=== PATIENT | female | born 1975 | race Two or more races ===

== ENCOUNTER 2017-05-05 14:24 | Emergency (ER) | payer MEDICAID, OTHER, SELFPAY ==
[~2017-05-05] VITALS: Ht 172.7 cm; Wt 75.0 kg
[2017-05-05 14:24] VITALS: BP 159/89
[~2017-05-05 14:24] MED LIST: /DIVA50TA PO; /DULO30CA OR; /ESCI20TA OR; /GLIP10TAB PO; /LAMO10TA PO; BACT800T OR; DEPA500T2 OR; EFFEXOR PO; ESTR2TAB PO; HYDR12.56 PO; LYRI75CA OR; MELO7.5T3 PO; METF1000 PO; METF500T PO; OMEP20CA3 PO; PERC5TAB8 OR; PERC5TAB8 PO; PERC7.5T12 PO; PREG100CA OR; PRIL20CA OR; ROXICODONE PO; SERO200T OR; SERO200T PO; TRAM50TA2 OR; TRAZ150T PO; [UNRECOGNIZED DRUG - OTHER] PO; butrans EXT; butrans TD
[2017-05-05] MEDS ORDERED: CLINDAMYCIN 150 MG CAP As Ordered ONE (14:54)
[2017-05-05] MEDS ORDERED: TYLETAB14 PO (14:56)
[2017-05-05] MEDS ORDERED: CLEO300C2 PO (14:56)
[2017-05-05] MEDS ORDERED: CLINDAMYCIN 150 MG CAP PO ONE (15:00)
== END 2017-05-05 15:03 | disposition home or self-care (01) ==
LOC: M ED 14:24
DX: K02.9 Dental caries, unspecified (principal); F17.210 Nicotine dependence, cigarettes, uncomplicated; E11.9 Type 2 diabetes mellitus without complications; F41.9 Anxiety disorder, unspecified; F31.9 Bipolar disorder, unspecified; Z88.8 Allergy status to other drugs, medicaments and biological substances; Z91.030 Bee allergy status; Z98.890 Other specified postprocedural states

== ENCOUNTER 2017-06-07 21:44 | Emergency (ER) | payer MEDICAID, SELFPAY ==
[~2017-06-07] VITALS: Ht 172.7 cm; Wt 79.0 kg
[~2017-06-07 21:44] MED LIST changes: +CLEO300C2 PO; +TYLETAB14 PO
[2017-06-07] MEDS ORDERED: AMOXICILLIN 500 MG CAP PO ONE (23:15)
[2017-06-07] MEDS ORDERED: NORCO, ANEXSIA 5/325MG TABLET (HYDROcodone/ACETAMINOPHEN) PO ONE (23:15)
[2017-06-07] MEDS ORDERED: AMOX500C PO (23:16)
[2017-06-07] MEDS ORDERED: NORCOTAB PO (23:16)
[2017-06-07 23:30] VITALS: BP 126/68
== END 2017-06-07 23:32 | disposition home or self-care (01) ==
LOC: M ED 21:44
DX: K02.9 Dental caries, unspecified (principal); Z72.0 Tobacco use

== ENCOUNTER 2017-06-18 17:20 | Emergency (ER) | payer MEDICAID ==
[~2017-06-18] VITALS: Ht 172.7 cm; Wt 77.3 kg
[~2017-06-18 17:20] MED LIST changes: +AMOX500C PO; +NORCOTAB PO
[2017-06-18] MEDS ORDERED: PENICILLIN V POTASSIUM 500 MG TAB PO ONE (19:00)
[2017-06-18] MEDS ORDERED: NORCO, ANEXSIA 5/325MG TABLET (HYDROcodone/ACETAMINOPHEN) PO ONE (19:00)
[2017-06-18] MEDS ORDERED: NORCOTAB PO (19:19)
[2017-06-18] MEDS ORDERED: PENI500T PO (19:19)
[2017-06-18 19:22] VITALS: BP 135/67
== END 2017-06-18 19:23 | disposition home or self-care (01) ==
LOC: M ED 17:20
DX: K02.9 Dental caries, unspecified (principal); Z72.0 Tobacco use

== ENCOUNTER → 2017-06-28 | Outpatient (CLI) | payer OTHER ==
[~2017-06-28] MED LIST changes: +PENI500T PO
--- NOTE | 2017-06-28 11:15 | REP ---
RIGHT WRIST, FOUR VIEWS: HISTORY: Pain. There is no acute fracture or dislocation. The joint spaces are normal in appearance. IMPRESSION: There is no acute fracture or dislocation. Signed by Payam Manzanares MD 06/28/2017 11:16 A
[2017-06-28 13:44] LABS: ALBUMIN 3.5 GM/DL (3.2-5.2); ALKALINE PHOSPHATASE 100 U/L (45-117); ALT/SGPT 28 U/L (12-78); ANION GAP 6 MEQ/L (8-16); AST/SGOT 15 U/L (7-37); BILIRUBIN,TOTAL 0.4 MG/DL (0.2-1.0); BLOOD UREA NITROGEN 16 MG/DL (7-18); CALCIUM LEVEL 9.1 MG/DL (8.5-10.1); CARBON DIOXIDE LEVEL 28 MEQ/L (21-32); CHLORIDE LEVEL 107 MEQ/L (98-107); CHOLESTEROL LEVEL 250 MG/DL (<200); CREATININE FOR GFR 0.76 MG/DL (0.55-1.02); GLOMERULAR FILTRATION RATE > 60.0 (>58); GLUCOSE, FASTING 191 MG/DL (70-105); POTASSIUM SERUM 4.6 MEQ/L (3.5-5.1); SODIUM LEVEL 141 MEQ/L (136-145); TOTAL PROTEIN 7.4 GM/DL (6.4-8.2); TRIGLYCERIDES LEVEL 91 MG/DL (<150)
== END ==
LOC: M WUC 10:01
PROVIDERS: ATTEND Family Medicine
DX: E11.8 Type 2 diabetes mellitus with unspecified complications (principal)

== ENCOUNTER → 2017-07-04 | Outpatient (REF) | payer OTHER | LOC: M SFHCPLAZ 10:26 | PROVIDERS: ATTEND Family Medicine | DX: E11.8 Type 2 diabetes mellitus with unspecified complications (principal) ==

== ENCOUNTER 2017-07-13 10:10 | Emergency (ER) | payer OTHER ==
[~2017-07-13] VITALS: Ht 172.7 cm; Wt 95.0 kg
[2017-07-13 10:25] VITALS: BP 161/95
[2017-07-13] MEDS ORDERED: METF500T4 PO (10:30)
[2017-07-13] MEDS ORDERED: ATOR1TAB19 PO (10:30)
[2017-07-13] MEDS ORDERED: TRAZ50TA11 PO (10:31)
[2017-07-13] MEDS ORDERED: NORCO, ANEXSIA 5/325MG TABLET (HYDROcodone/ACETAMINOPHEN) PO ONE (11:00)
--- NOTE | 2017-07-13 11:17 | REP ---
Clinical: Trauma. Technique: AP, lateral, bilateral oblique views of the left hand. Findings: Mild age-related degenerative changes at the interphalangeal joints appreciated. Subtle irregularity involving the fifth metacarpal shaft is likely nonacute, but should be correlated with mechanism of injury and point of tenderness. No acute fracture or dislocation is otherwise identified or suggested. Impression: Mild degenerative changes at the interphalangeal joints. No definite acute fracture. As above. Signed by Wyatt Paez MD 07/13/2017 11:08 A
--- NOTE | 2017-07-13 11:18 | REP ---
Clinical: Trauma. Technique: AP, lateral, bilateral oblique views left wrist . Findings: The carpal bones, surrounding osseous structures, soft tissues, and joint spaces are normal. There is no evidence for acute fracture or dislocation. No subcutaneous emphysema or radiodense foreign body. Impression: Normal wrist series. No acute fracture or dislocation Signed by Wyatt Paez MD 07/13/2017 11:08 A
[2017-07-13] MEDS ORDERED: NORCOTAB PO (11:24)
== END 2017-07-13 11:29 | disposition home or self-care (01) ==
LOC: M ED 10:10
DX: S63.502A Unspecified sprain of left wrist, initial encounter (principal); W01.198A Fall on same level from slipping, tripping and stumbling with subsequent striking against other object, initial encounter; Y92.099 Unspecified place in other non-institutional residence as the place of occurrence of the external cause; Y93.01 Activity, walking, marching and hiking; Y99.9 Unspecified external cause status

== ENCOUNTER 2017-07-26 08:41 | Emergency (ER) | payer OTHER ==
[~2017-07-26] VITALS: Ht 172.7 cm; Wt 95.0 kg
[~2017-07-26 08:41] MED LIST changes: +ATOR1TAB19 PO; +METF500T4 PO; +TRAZ50TA11 PO
[2017-07-26 08:43] VITALS: BP 155/85
[2017-07-26] MEDS ORDERED: NORCOTAB PO (08:59)
[2017-07-26] MEDS ORDERED: AMOX500C PO (08:59)
== END 2017-07-26 09:13 | disposition home or self-care (01) ==
LOC: M ED 08:41
DX: S02.5XXA Fracture of tooth (traumatic), initial encounter for closed fracture (principal); X58.XXXA Exposure to other specified factors, initial encounter; Y92.89 Other specified places as the place of occurrence of the external cause; Y93.89 Activity, other specified; Y99.8 Other external cause status; E11.9 Type 2 diabetes mellitus without complications; M54.9 Dorsalgia, unspecified; F41.9 Anxiety disorder, unspecified; R51 Headache; Z79.899 Other long term (current) drug therapy; Z79.84 Long term (current) use of oral hypoglycemic drugs; Z88.8 Allergy status to other drugs, medicaments and biological substances; Z91.030 Bee allergy status; F17.210 Nicotine dependence, cigarettes, uncomplicated

== ENCOUNTER 2017-08-07 13:42 | Emergency (ER) | payer OTHER ==
[~2017-08-07] VITALS: Ht 172.7 cm; Wt 97.3 kg
[2017-08-07 13:42] VITALS: BP 138/75
[2017-08-07] MEDS ORDERED: MELO7.5T7 PO (14:04)
== END 2017-08-07 16:18 | disposition left against medical advice (07) ==
LOC: M ED 13:42
DX: Z53.29 Procedure and treatment not carried out because of patient's decision for other reasons (principal)

== ENCOUNTER → 2017-08-07 | Outpatient (CLI) | payer OTHER | LOC: M PAIN 09:00 | DX: M96.1 Postlaminectomy syndrome, not elsewhere classified (principal); M54.16 Radiculopathy, lumbar region; M46.1 Sacroiliitis, not elsewhere classified; E11.9 Type 2 diabetes mellitus without complications; F17.210 Nicotine dependence, cigarettes, uncomplicated; Z88.8 Allergy status to other drugs, medicaments and biological substances; Z79.84 Long term (current) use of oral hypoglycemic drugs; Z79.899 Other long term (current) drug therapy | CPT/HCPCS: G0463 ==

== ENCOUNTER 2017-08-09 07:36 | Emergency (ER) | payer OTHER ==
[~2017-08-09] VITALS: Ht 172.7 cm; Wt 99.1 kg
[~2017-08-09 07:36] MED LIST changes: +MELO7.5T7 PO
[2017-08-09 07:37] VITALS: BP 147/79
[2017-08-09] MEDS ORDERED: DULO1CAP2 PO (07:48)
[2017-08-09] MEDS ORDERED: AMOX500C PO (08:10)
[2017-08-09] MEDS ORDERED: IBUP-1022 PO (08:10)
[2017-08-09] MEDS ORDERED: NORCO, ANEXSIA 5/325MG TABLET (HYDROcodone/ACETAMINOPHEN) PO ONE (08:15)
[2017-08-09] MEDS ORDERED: AMOXICILLIN 500 MG CAP PO ONE (08:15)
== END 2017-08-09 08:20 | disposition home or self-care (01) ==
LOC: M ED 07:36
DX: H92.01 Otalgia, right ear (principal); K02.9 Dental caries, unspecified; K13.79 Other lesions of oral mucosa; E11.9 Type 2 diabetes mellitus without complications; R56.9 Unspecified convulsions; G43.909 Migraine, unspecified, not intractable, without status migrainosus; M54.5 Low back pain; F31.9 Bipolar disorder, unspecified; Z79.899 Other long term (current) drug therapy; Z79.84 Long term (current) use of oral hypoglycemic drugs; Z88.8 Allergy status to other drugs, medicaments and biological substances; Z91.030 Bee allergy status; F17.210 Nicotine dependence, cigarettes, uncomplicated

== ENCOUNTER 2017-09-04 13:51 | Emergency (ER) | payer OTHER ==
[2017-09-04] MEDS: NORCO, ANEXSIA 5/325MG TABLET (HYDROcodone/ACETAMINOPHEN) PO (14:37)
[2017-09-04] MEDS: ACETAMINOPHEN 325 MG TAB PO (16:25)
== END 2017-09-04 16:28 | disposition home or self-care (01) ==
LOC: M ED 13:51
DX: S63.92XA Sprain of unspecified part of left wrist and hand, initial encounter (principal); W10.9XXA Fall (on) (from) unspecified stairs and steps, initial encounter; Y92.89 Other specified places as the place of occurrence of the external cause; F17.210 Nicotine dependence, cigarettes, uncomplicated; Z79.84 Long term (current) use of oral hypoglycemic drugs; Z79.899 Other long term (current) drug therapy; Z88.1 Allergy status to other antibiotic agents; Z91.030 Bee allergy status; Z98.890 Other specified postprocedural states
CPT/HCPCS: 73090

== ENCOUNTER 2017-09-23 14:53 | Emergency (ER) | payer OTHER ==
[2017-09-23] MEDS: MORPHINE 10 MG/ML 1ML VIAL IM ×2 (15:34→17:20)
[2017-09-23] MEDS: LORazepam 2 MG/ML VIAL (J2060) IM (15:34)
[2017-09-23] MEDS: diphenhydrAMINE INJ 50MG/ML VIAL (J1200) IM (15:34)
[2017-09-23] MEDS: CARISOPRODOL 350 MG TAB PO (16:42)
== END 2017-09-23 17:54 | disposition home or self-care (01) ==
LOC: M ED 14:53
DX: G89.29 Other chronic pain (principal); M54.31 Sciatica, right side; E11.9 Type 2 diabetes mellitus without complications; I10 Essential (primary) hypertension; Z79.899 Other long term (current) drug therapy; Z79.84 Long term (current) use of oral hypoglycemic drugs; Z88.8 Allergy status to other drugs, medicaments and biological substances; Z91.030 Bee allergy status; F17.210 Nicotine dependence, cigarettes, uncomplicated
CPT/HCPCS: J1200

== ENCOUNTER 2017-09-25 12:33 | Emergency (ER) | payer OTHER ==
[2017-09-25] MEDS: traMADol 50 MG TAB PO (14:52)
[2017-09-25] MEDS: ONDANSETRON 4 MG ORAL DISINTEGRATING TAB (S0181) PO (14:52)
[2017-09-25] MEDS: LORazepam 2 MG/ML VIAL (J2060) IM (14:52)
== END 2017-09-25 15:46 | disposition home or self-care (01) ==
LOC: M ED 12:33
DX: R11.0 Nausea (principal); G89.29 Other chronic pain; M54.41 Lumbago with sciatica, right side; E11.9 Type 2 diabetes mellitus without complications; E78.00 Pure hypercholesterolemia, unspecified; R56.9 Unspecified convulsions; F41.9 Anxiety disorder, unspecified; F33.9 Major depressive disorder, recurrent, unspecified; Z79.899 Other long term (current) drug therapy; Z79.84 Long term (current) use of oral hypoglycemic drugs; Z88.8 Allergy status to other drugs, medicaments and biological substances; Z91.030 Bee allergy status; F17.210 Nicotine dependence, cigarettes, uncomplicated
CPT/HCPCS: J2060

== ENCOUNTER → 2017-09-26 | Outpatient (CLI) | payer OTHER ==
[2017-09-26 14:03] LABS: CREATININE FOR GFR 0.86 MG/DL (0.55-1.30); GLOMERULAR FILTRATION RATE > 60.0 (>58)
[2017-09-26 14:03] LABS: BLOOD UREA NITROGEN 17 MG/DL (7-18)
== END ==
LOC: M LAB 12:21
DX: M96.1 Postlaminectomy syndrome, not elsewhere classified (principal)
CPT/HCPCS: 72148

== ENCOUNTER → 2017-09-26 | Outpatient (CLI) | payer OTHER | LOC: M PAIN 09:00 | DX: M96.1 Postlaminectomy syndrome, not elsewhere classified (principal); M54.16 Radiculopathy, lumbar region; M46.1 Sacroiliitis, not elsewhere classified; E11.9 Type 2 diabetes mellitus without complications; F17.210 Nicotine dependence, cigarettes, uncomplicated; Z79.84 Long term (current) use of oral hypoglycemic drugs; Z79.899 Other long term (current) drug therapy; Z88.8 Allergy status to other drugs, medicaments and biological substances | CPT/HCPCS: G0463 ==

== ENCOUNTER → 2017-09-28 | Outpatient (CLI) | payer OTHER | LOC: M PAIN 11:45 | DX: M51.27 Other intervertebral disc displacement, lumbosacral region (principal); M54.16 Radiculopathy, lumbar region; E11.9 Type 2 diabetes mellitus without complications; F17.210 Nicotine dependence, cigarettes, uncomplicated; Z79.84 Long term (current) use of oral hypoglycemic drugs; Z79.82 Long term (current) use of aspirin; Z79.899 Other long term (current) drug therapy; Z88.8 Allergy status to other drugs, medicaments and biological substances | CPT/HCPCS: G0463 ==

== ENCOUNTER → 2017-10-16 | Outpatient (CLI) | payer OTHER ==
[~2017-10-16] MED LIST changes: -/DIVA50TA PO; -/DULO30CA OR; -/ESCI20TA OR; -/GLIP10TAB PO; -/LAMO10TA PO; -AMOX500C PO; -ATOR1TAB19 PO; -BACT800T OR; -CLEO300C2 PO; -DEPA500T2 OR; -EFFEXOR PO; -ESTR2TAB PO; -HYDR12.56 PO; +ISOVUE-M 300 61% 15ML VIAL (Q9967) As Ordered; +LIDOCAINE 1% SDV INJ 30 ML VIAL As Ordered; -LYRI75CA OR; -MELO7.5T3 PO; -MELO7.5T7 PO; -METF1000 PO; -METF500T PO; -METF500T4 PO; -NORCOTAB PO; -OMEP20CA3 PO; -PENI500T PO; -PERC5TAB8 OR; -PERC5TAB8 PO; -PERC7.5T12 PO; -PREG100CA OR; -PRIL20CA OR; -ROXICODONE PO; -SERO200T OR; -SERO200T PO; -TRAM50TA2 OR; -TRAZ150T PO; -TRAZ50TA11 PO; -TYLETAB14 PO; -[UNRECOGNIZED DRUG - OTHER] PO; -butrans EXT; -butrans TD; +diazePAM 5 MG TAB As Ordered; +methylPREDNISolone SUSP 40 MG/ML (DEPO-medrol) VIAL (J1030) As Ordered; +oxyCODONE 5MG TAB As Ordered
== END | disposition home or self-care (01) ==
LOC: M PAIN 11:30
DX: G89.29 Other chronic pain (principal); M96.1 Postlaminectomy syndrome, not elsewhere classified; M51.17 Intervertebral disc disorders with radiculopathy, lumbosacral region; E11.9 Type 2 diabetes mellitus without complications; Z79.899 Other long term (current) drug therapy; Z79.84 Long term (current) use of oral hypoglycemic drugs; Z79.82 Long term (current) use of aspirin; Z88.8 Allergy status to other drugs, medicaments and biological substances; F17.210 Nicotine dependence, cigarettes, uncomplicated
CPT/HCPCS: J1030

== ENCOUNTER → 2017-10-17 | Outpatient (REF) | payer OTHER | LOC: M SFHCPLAZ 11:44 | DX: E11.8 Type 2 diabetes mellitus with unspecified complications (principal); Z53.20 Procedure and treatment not carried out because of patient's decision for unspecified reasons ==

== ENCOUNTER 2017-10-18 07:01 | Emergency (ER) | payer OTHER ==
[2017-10-18] MEDS: MORPHINE 4 MG/ML 1ML VIAL (J2270) IV ×2 (08:21→10:32)
[2017-10-18] MEDS: LORazepam 2 MG/ML VIAL (J2060) IV ×2 (08:21→10:08)
[2017-10-18] MEDS: PERCOCET 5MG/325MG TAB PO (11:26)
[2017-10-19 10:20] LABS: HEPATITIS B SURFACE ANTIGEN NEGATIVE (NEGATIVE)
[2017-10-19 10:45] LABS: HEPATITIS C VIRUS ABY INDEX 0.1 INDEX (<0.8)
[2017-10-19 10:45] LABS: HEPATITIS B CORE ANTIBODY IGM NEGATIVE (NEGATIVE)
[2017-10-19 10:47] LABS: HEPATITIS A ANTIBODY IGM NEGATIVE (NEGATIVE)
[2017-10-19 13:11] LABS: HIV SCREEN CENTAUR SOURCE NEGATIVE (NEGATIVE)
== END 2017-10-18 11:27 | disposition home or self-care (01) ==
LOC: M ED 07:01
DX: R07.9 Chest pain, unspecified (principal); G89.29 Other chronic pain; E11.9 Type 2 diabetes mellitus without complications; E78.70 Disorder of bile acid and cholesterol metabolism, unspecified; F31.9 Bipolar disorder, unspecified; Z79.84 Long term (current) use of oral hypoglycemic drugs; Z79.899 Other long term (current) drug therapy; Z88.8 Allergy status to other drugs, medicaments and biological substances; Z91.030 Bee allergy status; Z86.69 Personal history of other diseases of the nervous system and sense organs; Z98.890 Other specified postprocedural states
CPT/HCPCS: J2270

== ENCOUNTER 2017-10-20 08:49 | Emergency (ER) | payer OTHER ==
[2017-10-20] MEDS ORDERED: MORPHINE 4 MG/ML 1ML VIAL (J2270) IV (09:45)
[2017-10-20] MEDS: MORPHINE 4 MG/ML 1ML VIAL (J2270) IM (10:25)
[2017-10-20] MEDS ORDERED: MORPHINE 10 MG/ML 1ML VIAL (J2270) IM (10:30)
== END 2017-10-20 11:37 | disposition home or self-care (01) ==
LOC: M ED 08:49
DX: M54.9 Dorsalgia, unspecified (principal); R32 Unspecified urinary incontinence; G43.909 Migraine, unspecified, not intractable, without status migrainosus; F41.9 Anxiety disorder, unspecified; F32.9 Major depressive disorder, single episode, unspecified; F17.200 Nicotine dependence, unspecified, uncomplicated; Z79.84 Long term (current) use of oral hypoglycemic drugs; Z79.899 Other long term (current) drug therapy; Z91.030 Bee allergy status; Z88.8 Allergy status to other drugs, medicaments and biological substances
CPT/HCPCS: J2270

== ENCOUNTER → 2017-10-26 | Outpatient (CLI) | payer OTHER | LOC: M PAIN 10:00 | DX: M96.1 Postlaminectomy syndrome, not elsewhere classified (principal); M51.17 Intervertebral disc disorders with radiculopathy, lumbosacral region; G89.29 Other chronic pain; E11.9 Type 2 diabetes mellitus without complications; Z79.84 Long term (current) use of oral hypoglycemic drugs; Z79.899 Other long term (current) drug therapy; Z88.8 Allergy status to other drugs, medicaments and biological substances | CPT/HCPCS: G0463 ==

== ENCOUNTER → 2017-10-29 | Outpatient (REF) | payer OTHER ==
[2017-10-29 18:05] LABS: ESTIMATED AVERAGE GLUCOSE 249 MG/DL (60-110); HEMOGLOBIN A1c 10.3 %
[2017-10-29 19:13] LABS: CREATININE, URINE 62.2 MG/DL; MALB URINE SIEMENS 95.6 MG/L; MAU/CREAT RATIO 153.6 MCG/MG (0.0-30.0)
== END ==
LOC: M SFHCPLAZ 16:09
DX: E11.8 Type 2 diabetes mellitus with unspecified complications (principal)

== ENCOUNTER 2017-11-07 10:46 | Emergency (ER) | payer OTHER ==
[2017-11-07] MEDS: NS 1,000 ML IV (11:15)
[2017-11-07 11:16] LABS: BEDSIDE GLUCOSE 335 MG/DL (70-105)
[2017-11-07 11:25] LABS: BASO % 0.4 % (0.0-1.0); EOS # 0.3 10^3/uL (0.0-0.50); EOS % 2.9 % (0.0-3.0); HEMATOCRIT 44.8 % (36.0-47.0); HEMOGLOBIN 14.8 g/dl (12.0-16.0); IMMATURE GRANULOCYTE % 0.4 % (0-3.0); LYMPH # 2.2 10^3/uL (1.5-4.5); LYMPH % 23.6 % (24.0-44.0); MEAN CORPUSCULAR HEMOGLOBIN 30.1 pg (27.0-33.0); MEAN CORPUSCULAR VOLUME 91.1 fl (80.0-96.0); MONO # 0.6 10^3/uL (0.0-0.8); MONO % 5.9 % (0.0-5.0); NEUTROPHILS # 6.4 10^3/uL (1.8-7.7); NEUTROPHILS % 66.8 % (36.0-66.0); PLATELET COUNT, AUTOMATED 231 10^3/uL (150-450); RED BLOOD COUNT 4.92 10^6/uL (4.00-5.40); RED CELL DISTRIBUTION WIDTH 14.2 % (11.5-14.5); WHITE BLOOD COUNT 9.5 10^3/uL (4.0-10.0)
[2017-11-07 11:31] LABS: VENOUS BASE EXCESS -1.4 (-2.0-2.0); VENOUS HCO3 23.2 MEQ/L (23.0-27.0); VENOUS O2 SATURATION 98.7 % (60.0-80.0); VENOUS PARTIAL PRESSURE CO2 38.6 mmHg (38.0-50.0); VENOUS PARTIAL PRESSURE O2 125.9 mmHg (30.0-50.0); VENOUS PH 7.396 UNITS (7.330-7.430); VENOUS STANDARD HCO3 23.4 MEQ/L; VENOUS TOTAL CO2 24.3 MEQ/L (24.0-28.0)
[2017-11-07 11:40] LABS: ESTIMATED AVERAGE GLUCOSE 258 MG/DL (60-110); HEMOGLOBIN A1c 10.6 %
[2017-11-07 11:41] LABS: ALBUMIN 3.5 GM/DL (3.2-5.2); ALBUMIN/GLOBULIN RATIO 0.78 (1.00-1.93); ALKALINE PHOSPHATASE 171 U/L (45-117); ALT/SGPT 28 U/L (12-78); ANION GAP 8 MEQ/L (8-16); AST/SGOT 13 U/L (7-37); BILIRUBIN,DIRECT < 0.1 MG/DL (0.0-0.2); BILIRUBIN,TOTAL 0.3 MG/DL (0.2-1.0); BLOOD UREA NITROGEN 14 MG/DL (7-18); CARBON DIOXIDE LEVEL 26 MEQ/L (21-32); CHLORIDE LEVEL 101 MEQ/L (98-107); CREATININE FOR GFR 0.89 MG/DL (0.55-1.30); GLOMERULAR FILTRATION RATE > 60.0 (>58); GLUCOSE, FASTING 377 MG/DL (70-100); POTASSIUM SERUM 4.2 MEQ/L (3.5-5.1); SODIUM LEVEL 135 MEQ/L (136-145)
[2017-11-07] MEDS ORDERED: METOCLOPRAMIDE INJ 10MG/2ML VIAL (J2765) As Ordered (12:20)
[2017-11-07] MEDS: METOCLOPRAMIDE INJ 10MG/2ML VIAL (J2765) IV (12:29)
[2017-11-07 12:49] LABS: BEDSIDE GLUCOSE 334 MG/DL (70-105)
[2017-11-07] MEDS: NORCO, ANEXSIA 5/325MG TABLET (HYDROcodone/ACETAMINOPHEN) PO (13:43)
== END 2017-11-07 15:23 | disposition home or self-care (01) ==
LOC: M ED 10:46
DX: E11.65 Type 2 diabetes mellitus with hyperglycemia (principal); M54.9 Dorsalgia, unspecified; G89.29 Other chronic pain; E78.5 Hyperlipidemia, unspecified; G43.909 Migraine, unspecified, not intractable, without status migrainosus; Z88.5 Allergy status to narcotic agent; Z91.030 Bee allergy status; Z79.899 Other long term (current) drug therapy; Z79.84 Long term (current) use of oral hypoglycemic drugs
CPT/HCPCS: J2765

== ENCOUNTER → 2017-11-21 | Outpatient (CLI) | payer OTHER ==
[~2017-11-21] MED LIST changes: +BUPIVACAINE HCL 0.25% 30 ML VIAL As Ordered; +MIDAZOLAM INJ 2 MG/2 ML VIAL (J2250) As Ordered; +dexameTHASONE 10 MG/1 ML VIAL PRES.FREE (J1100) As Ordered; -diazePAM 5 MG TAB As Ordered; +fentaNYL 100 MCG/2 ML INJECTION (J3010) As Ordered; -methylPREDNISolone SUSP 40 MG/ML (DEPO-medrol) VIAL (J1030) As Ordered; -oxyCODONE 5MG TAB As Ordered
[2017-11-21 16:32] LABS: BEDSIDE GLUCOSE 280 MG/DL (70-105)
== END ==
LOC: M PAIN 14:00
DX: M96.1 Postlaminectomy syndrome, not elsewhere classified (principal); M51.17 Intervertebral disc disorders with radiculopathy, lumbosacral region; E11.42 Type 2 diabetes mellitus with diabetic polyneuropathy; E78.5 Hyperlipidemia, unspecified; F17.210 Nicotine dependence, cigarettes, uncomplicated; Z79.84 Long term (current) use of oral hypoglycemic drugs; Z79.899 Other long term (current) drug therapy; Z88.8 Allergy status to other drugs, medicaments and biological substances
CPT/HCPCS: J1100

== ENCOUNTER → 2017-12-21 | Outpatient (CLI) | payer OTHER | LOC: M PAIN 14:30 | DX: M51.27 Other intervertebral disc displacement, lumbosacral region (principal); E11.42 Type 2 diabetes mellitus with diabetic polyneuropathy; E78.5 Hyperlipidemia, unspecified; F17.210 Nicotine dependence, cigarettes, uncomplicated; Z79.84 Long term (current) use of oral hypoglycemic drugs; Z79.899 Other long term (current) drug therapy; Z88.8 Allergy status to other drugs, medicaments and biological substances | CPT/HCPCS: G0463 ==

== ENCOUNTER → 2017-12-31 | Outpatient (REF) | payer OTHER ==
[2017-12-31 13:35] LABS: CREATININE, URINE 41.6 MG/DL; MALB URINE SIEMENS 54.1 MG/L
== END ==
LOC: M SFHCPLAZ 08:24
DX: E11.8 Type 2 diabetes mellitus with unspecified complications (principal)

== ENCOUNTER → 2018-01-21 | Outpatient (CLI) | payer OTHER | LOC: M PAIN 13:15 | DX: M51.27 Other intervertebral disc displacement, lumbosacral region (principal); G89.29 Other chronic pain; E11.40 Type 2 diabetes mellitus with diabetic neuropathy, unspecified; E78.5 Hyperlipidemia, unspecified; F17.210 Nicotine dependence, cigarettes, uncomplicated; Z79.84 Long term (current) use of oral hypoglycemic drugs; Z79.899 Other long term (current) drug therapy; Z88.8 Allergy status to other drugs, medicaments and biological substances | CPT/HCPCS: G0463 ==

== ENCOUNTER → 2018-01-28 | Outpatient (CLI) | payer OTHER ==
[2018-01-28 13:16] LABS: BLOOD UREA NITROGEN 12 MG/DL (7-18)
[2018-01-28 13:16] LABS: CREATININE FOR GFR 0.94 MG/DL (0.55-1.30); GLOMERULAR FILTRATION RATE > 60.0 (>58)
== END ==
LOC: M LAB 11:45
DX: Z01.818 Encounter for other preprocedural examination (principal); M54.16 Radiculopathy, lumbar region; Z98.1 Arthrodesis status
CPT/HCPCS: 82565

== ENCOUNTER → 2018-02-18 | Outpatient (CLI) | payer OTHER | LOC: M PAIN 14:15 | DX: M51.27 Other intervertebral disc displacement, lumbosacral region (principal); G89.29 Other chronic pain; E11.40 Type 2 diabetes mellitus with diabetic neuropathy, unspecified; E78.5 Hyperlipidemia, unspecified; F17.210 Nicotine dependence, cigarettes, uncomplicated; Z79.84 Long term (current) use of oral hypoglycemic drugs; Z79.899 Other long term (current) drug therapy; Z88.8 Allergy status to other drugs, medicaments and biological substances | CPT/HCPCS: G0463 ==

== ENCOUNTER 2018-03-05 21:11 | Emergency (ER) | payer OTHER ==
[2018-03-05 22:37] LABS: KETONE, URINE AUTO RFX NEGATIVE (NEGATIVE); LEUKOCYTE ESTERASE UR AUTO RFX NEGATIVE (NEGATIVE); NITRITE, URINE AUTO RFX NEGATIVE (NEGATIVE); RBC, URINE AUTO RFX 4 /HPF (0-3); SPECIFIC GRAVITY UR AUTO RFX 1.035 (1.002-1.035); SQUAM EPITHELIAL CELL UR AURFX 5 /HPF (0-6); WBC, URINE AUTO RFX 2 /HPF (0-3)
[2018-03-06] MEDS: ONDANSETRON 4MG/2ML VIAL (J2405) IV (00:09)
[2018-03-06] MEDS: MORPHINE 4 MG/ML 1ML VIAL/SYRINGE (J2270) IV (00:10)
[2018-03-06] MEDS: NS 1,000 ML IV (00:10)
[2018-03-06 00:24] LABS: BASO % 0.3 % (0.0-1.0); EOS # 0.2 10^3/uL (0.0-0.50); EOS % 1.7 % (0.0-3.0); HEMATOCRIT 45.4 % (36.0-47.0); HEMOGLOBIN 15.3 g/dl (12.0-15.5); IMMATURE GRANULOCYTE % 0.5 % (0-3.0); LYMPH # 2.3 10^3/uL (1.5-4.5); LYMPH % 19.3 % (24.0-44.0); MEAN CORPUSCULAR HEMOGLOBIN 29.7 pg (27.0-33.0); MEAN CORPUSCULAR HGB CONC 33.7 g/dl (32.0-36.5); MONO # 1.1 10^3/uL (0.0-0.8); MONO % 9.6 % (0.0-5.0); NEUTROPHILS # 8.2 10^3/uL (1.8-7.7); NEUTROPHILS % 68.6 % (36.0-66.0); PLATELET COUNT, AUTOMATED 248 10^3/uL (150-450); RED BLOOD COUNT 5.16 10^6/uL (4.00-5.40); RED CELL DISTRIBUTION WIDTH 13.2 % (11.5-14.5); WHITE BLOOD COUNT 11.9 10^3/uL (4.0-10.0)
[2018-03-06] MEDS ORDERED: ISOVUE-370 76% 100ML VIAL (Q9967) As Ordered ×2 (00:25→00:42)
[2018-03-06 00:32] LABS: ALBUMIN 3.3 GM/DL (3.2-5.2); ALKALINE PHOSPHATASE 159 U/L (45-117); ALT/SGPT 21 U/L (12-78); AMYLASE 11 U/L (25-115); ANION GAP 10 MEQ/L (8-16); AST/SGOT 13 U/L (7-37); BILIRUBIN,DIRECT < 0.1 MG/DL (0.0-0.2); BILIRUBIN,TOTAL 0.4 MG/DL (0.2-1.0); BLOOD UREA NITROGEN 16 MG/DL (7-18); CALCIUM LEVEL 8.8 MG/DL (8.5-10.1); CARBON DIOXIDE LEVEL 26 MEQ/L (21-32); CHLORIDE LEVEL 100 MEQ/L (98-107); CREATININE FOR GFR 1.01 MG/DL (0.55-1.30); GLOMERULAR FILTRATION RATE > 60.0 (>58); GLUCOSE, FASTING 377 MG/DL (70-100); LIPASE 130 U/L (73-393); POTASSIUM SERUM 4.2 MEQ/L (3.5-5.1); SODIUM LEVEL 136 MEQ/L (136-145); TOTAL PROTEIN 7.4 GM/DL (6.4-8.2)
[2018-03-06] MEDS: DICYCLOMINE 10 MG CAP PO (01:42)
[2018-03-06] MEDS: HumuLIN R (REGULAR) INSULIN (NovoLIN R) **100U/ML** PER UNIT SC (01:43)
[2018-03-06 01:44] LABS: ABG BASE EXCESS -2.6 (-2.0-2.0); ABG HCO3 21.9 MEQ/L (22.0-26.0); ABG O2 SATURATION 96.8 % (95.0-99.0); ABG PARTIAL PRESSURE CO2 37.2 mmHg (35.0-45.0); ABG PARTIAL PRESSURE O2 85.5 mmHg (75.0-100.0); ABG STANDARD HCO3 22.3 MEQ/L (22.0-26.0); ABG TOTAL CO2 23.1 MEQ/L (22.0-29.0); ABG pH (ARTERIAL) 7.388 UNITS (7.350-7.450)
[2018-03-06] MEDS: AUGMENTIN 875 MG TAB PO (02:29)
[2018-03-06 02:35] LABS: BEDSIDE GLUCOSE 293 MG/DL (70-105)
== END 2018-03-06 02:43 | disposition home or self-care (01) ==
LOC: M ED 21:11
DX: K52.9 Noninfective gastroenteritis and colitis, unspecified (principal); E11.65 Type 2 diabetes mellitus with hyperglycemia; R51 Headache; E78.00 Pure hypercholesterolemia, unspecified; M54.9 Dorsalgia, unspecified; F41.9 Anxiety disorder, unspecified; F31.9 Bipolar disorder, unspecified; K21.9 Gastro-esophageal reflux disease without esophagitis; F17.200 Nicotine dependence, unspecified, uncomplicated; Z88.5 Allergy status to narcotic agent; Z91.030 Bee allergy status; Z79.899 Other long term (current) drug therapy; Z79.84 Long term (current) use of oral hypoglycemic drugs
CPT/HCPCS: J2270

== ENCOUNTER 2018-04-14 13:13 | Inpatient (IN) | payer MEDICAID, OTHER ==
[2018-04-14 13:50] LABS: HEMATOCRIT 47.4 % (36.0-47.0); HEMOGLOBIN 15.8 g/dl (12.0-15.5); MEAN CORPUSCULAR HEMOGLOBIN 29.7 pg (27.0-33.0); MEAN CORPUSCULAR HGB CONC 33.3 g/dl (32.0-36.5); MEAN CORPUSCULAR VOLUME 89.1 fl (80.0-96.0); PLATELET COUNT, AUTOMATED 256 10^3/uL (150-450); RED BLOOD COUNT 5.32 10^6/uL (4.00-5.40); RED CELL DISTRIBUTION WIDTH 13.1 % (11.5-14.5); WHITE BLOOD COUNT 10.5 10^3/uL (4.0-10.0)
[2018-04-14 14:14] LABS: AMPHETAMINES LEVEL URINE NEGATIVE (NEGATIVE); BARBITURATES URINE NEGATIVE (NEGATIVE); BENZODIAZEPINES URINE NEGATIVE (NEGATIVE); CANNABINOIDS URINE NEGATIVE (NEGATIVE); COCAINE METABOLITE URINE NEGATIVE (NEGATIVE); METHADONE URINE NEGATIVE (NEGATIVE); OPIATES URINE NEGATIVE (NEGATIVE); PHENCYCLIDINE URINE NEGATIVE (NEGATIVE)
[2018-04-14 14:19] LABS: ALBUMIN 3.5 GM/DL (3.2-5.2); ALBUMIN/GLOBULIN RATIO 0.78 (1.00-1.93); ALKALINE PHOSPHATASE 151 U/L (45-117); ALT/SGPT 27 U/L (12-78); ANION GAP 8 MEQ/L (8-16); AST/SGOT 15 U/L (7-37); BILIRUBIN,DIRECT < 0.1 MG/DL (0.0-0.2); BILIRUBIN,TOTAL 0.3 MG/DL (0.2-1.0); BLOOD UREA NITROGEN 9 MG/DL (7-18); CARBON DIOXIDE LEVEL 27 MEQ/L (21-32); CHLORIDE LEVEL 103 MEQ/L (98-107); CREATININE FOR GFR 1.07 MG/DL (0.55-1.30); GLOMERULAR FILTRATION RATE 59.3 (>58); POTASSIUM SERUM 4.1 MEQ/L (3.5-5.1); SALICYLATE LEVEL 2.1 MG/DL (5.0-30.0); SODIUM LEVEL 138 MEQ/L (136-145)
[2018-04-14 14:20] LABS: ACETAMINOPHEN LEVEL < 2.0 UG/ML (10.0-30.0); ETHYL ALCOHOL (ETHANOL) < 0.003 % (0.000-0.010); GLUCOSE, FASTING 405 MG/DL (70-100)
[2018-04-14 14:50] LABS: ESTIMATED AVERAGE GLUCOSE 283 MG/DL (60-110); HEMOGLOBIN A1c 11.5 %
[2018-04-14] MEDS: ACETAMINOPHEN TAB 650MG DOSE (2X325MG) PO (15:14)
[2018-04-14] MEDS: HumuLIN R (REGULAR) INSULIN (NovoLIN R) **100U/ML** PER UNIT SC (15:15)
[2018-04-14] MEDS: tiZANidine 4 MG TAB PO (16:20)
[2018-04-14] MEDS: GABAPENTIN 300 MG CAP PO (16:20)
[2018-04-14] MEDS: NICOTINE 21MG/24HR 1 EA TRANSDERMAL TD (18:17)
[2018-04-14] MEDS: metFORMIN XR 500MG TAB *GLUCOPHAGE XR PO (18:18)
[2018-04-14] MEDS: traZODone 50 MG TAB PO (20:13)
[2018-04-14] MEDS: ATORVASTATIN 20 MG TAB PO (20:14)
[2018-04-14] MEDS: LISINOPRIL *2.5 MG* TAB PO (20:14)
[2018-04-14] MEDS: NORCO, ANEXSIA 5/325MG TABLET (HYDROcodone/ACETAMINOPHEN) PO (20:14)
[2018-04-15] MEDS ORDERED: buPROPion 75 MG TAB PO (09:00)
[2018-04-15] MEDS ORDERED: glipiZIDE *XL* 2.5MG TABLET PO (09:00)
[2018-04-15] MEDS ORDERED: tiZANidine 4 MG TAB PO (09:00)
[2018-04-15] MEDS ORDERED: DULoxetine 30 MG CAP (CYMBALTA) PO (09:00)
[2018-04-15] MEDS ORDERED: NORCO, ANEXSIA 5/325MG TABLET (HYDROcodone/ACETAMINOPHEN) PO (10:00)
[2018-04-15] MEDS ORDERED: GABAPENTIN 300 MG CAP PO (10:00)
[2018-04-15] MEDS: metFORMIN XR 500MG TAB *GLUCOPHAGE XR PO ×4 (11:15→21:12)
[2018-04-15] MEDS: GABAPENTIN 300 MG CAP PO ×2 (11:15→21:13)
[2018-04-15] MEDS: NORCO, ANEXSIA 5/325MG TABLET (HYDROcodone/ACETAMINOPHEN) PO ×2 (11:18→16:22)
[2018-04-15 13:18] LABS: BEDSIDE GLUCOSE 339 MG/DL (70-105)
[2018-04-15] MEDS ORDERED: GLUCOSE 4 GM CHEW TABLET PO (15:30)
[2018-04-15] MEDS ORDERED: DEXTROSE 50% 50 ML SYRINGE IV (15:30)
[2018-04-15] MEDS ORDERED: GLUCAGON FOR INJ 1 MG VIAL (J1610) SC (15:30)
[2018-04-15] MEDS: ASPIRIN 81 MG ENTERIC TAB PO (16:22)
[2018-04-15] MEDS: tiZANidine 4 MG TAB PO (16:23)
[2018-04-15 17:20] LABS: BEDSIDE GLUCOSE 327 MG/DL (70-105)
[2018-04-15] MEDS: NICOTINE 21MG/24HR 1 EA TRANSDERMAL TD (17:22)
[2018-04-15] MEDS: HumaLOG INSULIN (NovoLOG) PER UNIT SC ×2 (17:22→21:17)
[2018-04-15] MEDS ORDERED: traZODone 50 MG TAB PO (21:00)
[2018-04-15] MEDS ORDERED: ATORVASTATIN 20 MG TAB PO (21:00)
[2018-04-15] MEDS: LISINOPRIL *2.5 MG* TAB PO (21:12)
[2018-04-15 21:13] LABS: BEDSIDE GLUCOSE 257 MG/DL (70-105)
[2018-04-15] MEDS: ATORVASTATIN 20 MG TAB PO (21:13)
[2018-04-15] MEDS: QUEtiapine FUMARATE 100 MG TAB PO (21:13)
[2018-04-15] MEDS: LEVEMIR (INSULIN DETEMIR) 1 UNITS/0.01ML SC (21:18)
[2018-04-15] MEDS: hydrOXYzine 50 MG TAB PO (22:18)
[2018-04-16] MEDS: GABAPENTIN 300 MG CAP PO ×3 (06:23→21:17)
[2018-04-16 06:34] LABS: BEDSIDE GLUCOSE 216 MG/DL (70-105)
[2018-04-16 06:44] LABS: HEMATOCRIT 43.8 % (36.0-47.0); HEMOGLOBIN 14.7 g/dl (12.0-15.5); MEAN CORPUSCULAR HEMOGLOBIN 29.6 pg (27.0-33.0); MEAN CORPUSCULAR HGB CONC 33.6 g/dl (32.0-36.5); MEAN CORPUSCULAR VOLUME 88.1 fl (80.0-96.0); PLATELET COUNT, AUTOMATED 240 10^3/uL (150-450); RED BLOOD COUNT 4.97 10^6/uL (4.00-5.40); RED CELL DISTRIBUTION WIDTH 13.2 % (11.5-14.5); WHITE BLOOD COUNT 11.2 10^3/uL (4.0-10.0)
[2018-04-16 07:01] LABS: ALBUMIN 3.2 GM/DL (3.2-5.2); ALBUMIN/GLOBULIN RATIO 0.73 (1.00-1.93); ALKALINE PHOSPHATASE 135 U/L (45-117); ALT/SGPT 26 U/L (12-78); ANION GAP 9 MEQ/L (8-16); AST/SGOT 13 U/L (7-37); BILIRUBIN,TOTAL 0.2 MG/DL (0.2-1.0); BLOOD UREA NITROGEN 20 MG/DL (7-18); CALCIUM LEVEL 9.2 MG/DL (8.5-10.1); CARBON DIOXIDE LEVEL 24 MEQ/L (21-32); CHLORIDE LEVEL 106 MEQ/L (98-107); CREATININE FOR GFR 0.91 MG/DL (0.55-1.30); GLOMERULAR FILTRATION RATE > 60.0 (>58); GLUCOSE, FASTING 205 MG/DL (70-100); SODIUM LEVEL 139 MEQ/L (136-145); TOTAL PROTEIN 7.6 GM/DL (6.4-8.2)
[2018-04-16] MEDS: HumaLOG INSULIN (NovoLOG) PER UNIT SC ×4 (07:09→21:00)
[2018-04-16] MEDS: metFORMIN XR 500MG TAB *GLUCOPHAGE XR PO ×4 (08:36→21:16)
[2018-04-16] MEDS: ASPIRIN 81 MG ENTERIC TAB PO (08:36)
[2018-04-16] MEDS: NORCO, ANEXSIA 5/325MG TABLET (HYDROcodone/ACETAMINOPHEN) PO ×2 (08:36→17:11)
[2018-04-16] MEDS: tiZANidine 4 MG TAB PO (08:37)
[2018-04-16] MEDS: NICOTINE 21MG/24HR 1 EA TRANSDERMAL TD (08:37)
[2018-04-16 08:50] LABS: KETONE, URINE AUTO RFX NEGATIVE (NEGATIVE); LEUKOCYTE ESTERASE UR AUTO RFX NEGATIVE (NEGATIVE); MUCUS, URINE RFX SMALL (NEGATIVE); NITRITE, URINE AUTO RFX NEGATIVE (NEGATIVE); RBC, URINE AUTO RFX 0 /HPF (0-3); SPECIFIC GRAVITY UR AUTO RFX 1.016 (1.002-1.035); SQUAM EPITHELIAL CELL UR AURFX 2 /HPF (0-6); WBC, URINE AUTO RFX 1 /HPF (0-3)
[2018-04-16 12:07] LABS: BEDSIDE GLUCOSE 196 MG/DL (70-105)
[2018-04-16] MEDS: ESCITALOPRAM OXALATE 10 MG TAB (LEXAPRO) PO (12:07)
[2018-04-16 16:59] LABS: BEDSIDE GLUCOSE 194 MG/DL (70-105)
[2018-04-16] MEDS: hydrOXYzine 50 MG TAB PO (18:55)
[2018-04-16] MEDS: QUEtiapine FUMARATE 100 MG TAB PO (21:16)
[2018-04-16] MEDS: ATORVASTATIN 20 MG TAB PO (21:16)
[2018-04-16] MEDS: LISINOPRIL *2.5 MG* TAB PO (21:17)
[2018-04-16 21:19] LABS: BEDSIDE GLUCOSE 220 MG/DL (70-105)
[2018-04-16] MEDS: LEVEMIR (INSULIN DETEMIR) 1 UNITS/0.01ML SC (21:19)
[2018-04-17] MEDS: GABAPENTIN 300 MG CAP PO ×3 (06:31→20:56)
[2018-04-17] MEDS: HumaLOG INSULIN (NovoLOG) PER UNIT SC ×4 (06:37→20:58)
[2018-04-17 06:40] LABS: BEDSIDE GLUCOSE 214 MG/DL (70-105)
[2018-04-17 07:01] LABS: HEMATOCRIT 45.3 % (36.0-47.0); HEMOGLOBIN 15.1 g/dl (12.0-15.5); MEAN CORPUSCULAR HEMOGLOBIN 29.5 pg (27.0-33.0); MEAN CORPUSCULAR HGB CONC 33.3 g/dl (32.0-36.5); MEAN CORPUSCULAR VOLUME 88.5 fl (80.0-96.0); PLATELET COUNT, AUTOMATED 234 10^3/uL (150-450); RED BLOOD COUNT 5.12 10^6/uL (4.00-5.40); RED CELL DISTRIBUTION WIDTH 13.1 % (11.5-14.5); WHITE BLOOD COUNT 10.2 10^3/uL (4.0-10.0)
[2018-04-17 07:26] LABS: ALBUMIN 3.3 GM/DL (3.2-5.2); ALBUMIN/GLOBULIN RATIO 0.83 (1.00-1.93); ALKALINE PHOSPHATASE 137 U/L (45-117); ALT/SGPT 28 U/L (12-78); ANION GAP 10 MEQ/L (8-16); AST/SGOT 18 U/L (7-37); BILIRUBIN,TOTAL 0.4 MG/DL (0.2-1.0); BLOOD UREA NITROGEN 21 MG/DL (7-18); CALCIUM LEVEL 9.4 MG/DL (8.5-10.1); CARBON DIOXIDE LEVEL 24 MEQ/L (21-32); CHLORIDE LEVEL 104 MEQ/L (98-107); CREATININE FOR GFR 0.85 MG/DL (0.55-1.30); GLOMERULAR FILTRATION RATE > 60.0 (>58); GLUCOSE, FASTING 199 MG/DL (70-100); POTASSIUM SERUM 4.3 MEQ/L (3.5-5.1); SODIUM LEVEL 138 MEQ/L (136-145); TOTAL PROTEIN 7.3 GM/DL (6.4-8.2)
[2018-04-17] MEDS: ESCITALOPRAM OXALATE 10 MG TAB (LEXAPRO) PO (10:01)
[2018-04-17] MEDS: ASPIRIN 81 MG ENTERIC TAB PO (10:01)
[2018-04-17] MEDS: metFORMIN XR 500MG TAB *GLUCOPHAGE XR PO ×4 (10:01→20:56)
[2018-04-17] MEDS: NICOTINE 21MG/24HR 1 EA TRANSDERMAL TD (10:04)
[2018-04-17] MEDS: tiZANidine 4 MG TAB PO (11:08)
[2018-04-17] MEDS: NORCO, ANEXSIA 5/325MG TABLET (HYDROcodone/ACETAMINOPHEN) PO ×2 (11:09→17:29)
[2018-04-17 12:00] LABS: BEDSIDE GLUCOSE 251 MG/DL (70-105)
[2018-04-17] MEDS ORDERED: ACETAMINOPHEN TAB 650MG DOSE (2X325MG) PO (14:00)
[2018-04-17] MEDS ORDERED: MOM 30ML SUSPENSION UDC PO (14:00)
[2018-04-17] MEDS ORDERED: traZODone 50 MG TAB PO (14:00)
[2018-04-17] MEDS: MAALOX 30 ML SUSP *UDC PO ×2 (16:00→20:01)
[2018-04-17 17:05] LABS: BEDSIDE GLUCOSE 188 MG/DL (70-105)
[2018-04-17] MEDS: hydrOXYzine 50 MG TAB PO (18:02)
[2018-04-17] MEDS: ATORVASTATIN 20 MG TAB PO (20:56)
[2018-04-17] MEDS: QUEtiapine FUMARATE 100 MG TAB PO (20:56)
[2018-04-17] MEDS: LISINOPRIL *2.5 MG* TAB PO (20:57)
[2018-04-17] MEDS: LEVEMIR (INSULIN DETEMIR) 1 UNITS/0.01ML SC (20:59)
[2018-04-17 21:00] LABS: BEDSIDE GLUCOSE 196 MG/DL (70-105)
[2018-04-18] MEDS: GABAPENTIN 300 MG CAP PO ×3 (05:59→20:57)
[2018-04-18 06:18] LABS: BEDSIDE GLUCOSE 125 MG/DL (70-105)
[2018-04-18] MEDS: HumaLOG INSULIN (NovoLOG) PER UNIT SC ×4 (06:29→20:59)
[2018-04-18 07:38] LABS: HEMATOCRIT 46.3 % (36.0-47.0); HEMOGLOBIN 15.6 g/dl (12.0-15.5); MEAN CORPUSCULAR HEMOGLOBIN 29.2 pg (27.0-33.0); MEAN CORPUSCULAR HGB CONC 33.7 g/dl (32.0-36.5); MEAN CORPUSCULAR VOLUME 86.7 fl (80.0-96.0); PLATELET COUNT, AUTOMATED 261 10^3/uL (150-450); RED BLOOD COUNT 5.34 10^6/uL (4.00-5.40); RED CELL DISTRIBUTION WIDTH 13.1 % (11.5-14.5); WHITE BLOOD COUNT 11.9 10^3/uL (4.0-10.0)
[2018-04-18] MEDS: hydrOXYzine 50 MG TAB PO ×2 (09:54→16:57)
[2018-04-18] MEDS: NICOTINE 21MG/24HR 1 EA TRANSDERMAL TD (09:54)
[2018-04-18] MEDS: ASPIRIN 81 MG ENTERIC TAB PO (09:55)
[2018-04-18] MEDS: metFORMIN XR 500MG TAB *GLUCOPHAGE XR PO ×4 (09:55→20:57)
[2018-04-18] MEDS: ESCITALOPRAM OXALATE 10 MG TAB (LEXAPRO) PO (09:56)
[2018-04-18] MEDS: NORCO, ANEXSIA 5/325MG TABLET (HYDROcodone/ACETAMINOPHEN) PO ×2 (09:56→16:58)
[2018-04-18 12:06] LABS: BEDSIDE GLUCOSE 159 MG/DL (70-105)
[2018-04-18] MEDS ORDERED: AMMONIUM LACTATE 12% TOP (13:45)
[2018-04-18] MEDS: MAALOX 30 ML SUSP *UDC PO ×2 (16:58→20:57)
[2018-04-18 17:05] LABS: BEDSIDE GLUCOSE 124 MG/DL (70-105)
[2018-04-18] MEDS: LISINOPRIL *2.5 MG* TAB PO (20:57)
[2018-04-18] MEDS: ATORVASTATIN 20 MG TAB PO (20:57)
[2018-04-18] MEDS: QUEtiapine FUMARATE 100 MG TAB PO (20:57)
[2018-04-18 20:59] LABS: BEDSIDE GLUCOSE 162 MG/DL (70-105)
[2018-04-18] MEDS: LEVEMIR (INSULIN DETEMIR) 1 UNITS/0.01ML SC (21:01)
[2018-04-19] MEDS: GABAPENTIN 300 MG CAP PO ×3 (05:59→21:08)
[2018-04-19 06:27] LABS: BEDSIDE GLUCOSE 107 MG/DL (70-105)
[2018-04-19] MEDS: HumaLOG INSULIN (NovoLOG) PER UNIT SC ×4 (06:27→20:47)
[2018-04-19] MEDS: ESCITALOPRAM OXALATE 10 MG TAB (LEXAPRO) PO (08:00)
[2018-04-19] MEDS: metFORMIN XR 500MG TAB *GLUCOPHAGE XR PO ×4 (08:00→20:43)
[2018-04-19] MEDS: ASPIRIN 81 MG ENTERIC TAB PO (08:00)
[2018-04-19] MEDS: hydrOXYzine 50 MG TAB PO ×3 (08:00→20:42)
[2018-04-19] MEDS: NORCO, ANEXSIA 5/325MG TABLET (HYDROcodone/ACETAMINOPHEN) PO ×3 (08:01→20:43)
[2018-04-19] MEDS: NICOTINE 21MG/24HR 1 EA TRANSDERMAL TD (08:01)
[2018-04-19] MEDS: AMMONIUM LACTATE 12% TOP (08:04)
[2018-04-19 12:07] LABS: BEDSIDE GLUCOSE 148 MG/DL (70-105)
[2018-04-19 17:10] LABS: BEDSIDE GLUCOSE 150 MG/DL (70-105)
[2018-04-19] MEDS: MAALOX 30 ML SUSP *UDC PO (20:04)
[2018-04-19] MEDS: ATORVASTATIN 20 MG TAB PO (20:42)
[2018-04-19] MEDS: LEVEMIR (INSULIN DETEMIR) 1 UNITS/0.01ML SC (20:42)
[2018-04-19] MEDS: QUEtiapine FUMARATE 100 MG TAB PO (20:42)
[2018-04-19] MEDS: LISINOPRIL *2.5 MG* TAB PO (20:45)
[2018-04-19] MEDS: tiZANidine 4 MG TAB PO (20:47)
[2018-04-19 20:49] LABS: BEDSIDE GLUCOSE 204 MG/DL (70-105)
[2018-04-20] MEDS: hydrOXYzine 50 MG TAB PO ×2 (06:31→16:58)
[2018-04-20] MEDS: GABAPENTIN 300 MG CAP PO ×3 (06:31→21:01)
[2018-04-20] MEDS: NORCO, ANEXSIA 5/325MG TABLET (HYDROcodone/ACETAMINOPHEN) PO ×3 (06:31→20:44)
[2018-04-20 06:41] LABS: BEDSIDE GLUCOSE 156 MG/DL (70-105)
[2018-04-20] MEDS: HumaLOG INSULIN (NovoLOG) PER UNIT SC ×4 (06:43→20:46)
[2018-04-20] MEDS: NICOTINE 21MG/24HR 1 EA TRANSDERMAL TD (08:14)
[2018-04-20] MEDS: ESCITALOPRAM OXALATE 10 MG TAB (LEXAPRO) PO (08:14)
[2018-04-20] MEDS: ASPIRIN 81 MG ENTERIC TAB PO (08:14)
[2018-04-20] MEDS: metFORMIN XR 500MG TAB *GLUCOPHAGE XR PO ×4 (08:14→20:44)
[2018-04-20] MEDS: LORazepam 2 MG TAB PO ×2 (09:18→20:44)
[2018-04-20 12:12] LABS: BEDSIDE GLUCOSE 163 MG/DL (70-105)
[2018-04-20] MEDS ORDERED: NICOTINE POLACRILEX 2 MG GUM PO (14:00)
[2018-04-20 16:57] LABS: BEDSIDE GLUCOSE 165 MG/DL (70-105)
[2018-04-20] MEDS: LISINOPRIL *2.5 MG* TAB PO (20:40)
[2018-04-20] MEDS: QUEtiapine FUMARATE 100 MG TAB PO (20:44)
[2018-04-20] MEDS: tiZANidine 4 MG TAB PO (20:44)
[2018-04-20] MEDS: ATORVASTATIN 20 MG TAB PO (20:44)
[2018-04-20] MEDS: LEVEMIR (INSULIN DETEMIR) 1 UNITS/0.01ML SC (20:47)
[2018-04-20 20:49] LABS: BEDSIDE GLUCOSE 234 MG/DL (70-105)
[2018-04-21] MEDS: GABAPENTIN 300 MG CAP PO ×3 (06:17→21:04)
[2018-04-21] MEDS: hydrOXYzine 50 MG TAB PO ×3 (06:17→19:35)
[2018-04-21] MEDS: NORCO, ANEXSIA 5/325MG TABLET (HYDROcodone/ACETAMINOPHEN) PO ×3 (06:23→19:36)
[2018-04-21 06:24] LABS: BEDSIDE GLUCOSE 117 MG/DL (70-105)
[2018-04-21] MEDS: HumaLOG INSULIN (NovoLOG) PER UNIT SC ×4 (06:41→20:48)
[2018-04-21] MEDS: metFORMIN XR 500MG TAB *GLUCOPHAGE XR PO ×4 (09:15→20:53)
[2018-04-21] MEDS: ESCITALOPRAM OXALATE 10 MG TAB (LEXAPRO) PO (09:15)
[2018-04-21] MEDS: ASPIRIN 81 MG ENTERIC TAB PO (09:16)
[2018-04-21 12:09] LABS: BEDSIDE GLUCOSE 143 MG/DL (70-105)
[2018-04-21 17:09] LABS: BEDSIDE GLUCOSE 84 MG/DL (70-105)
[2018-04-21 20:51] LABS: BEDSIDE GLUCOSE 240 MG/DL (70-105)
[2018-04-21] MEDS: LEVEMIR (INSULIN DETEMIR) 1 UNITS/0.01ML SC (20:52)
[2018-04-21] MEDS: ATORVASTATIN 20 MG TAB PO (20:53)
[2018-04-21] MEDS: QUEtiapine FUMARATE 100 MG TAB PO (20:53)
[2018-04-21] MEDS: LISINOPRIL *2.5 MG* TAB PO (20:53)
[2018-04-22] MEDS: GABAPENTIN 300 MG CAP PO ×3 (06:04→20:36)
[2018-04-22] MEDS: HumaLOG INSULIN (NovoLOG) PER UNIT SC ×4 (06:20→20:37)
[2018-04-22 06:22] LABS: BEDSIDE GLUCOSE 94 MG/DL (70-105)
[2018-04-22] MEDS: ESCITALOPRAM OXALATE 10 MG TAB (LEXAPRO) PO (09:44)
[2018-04-22] MEDS: metFORMIN XR 500MG TAB *GLUCOPHAGE XR PO ×4 (09:44→20:36)
[2018-04-22] MEDS: ASPIRIN 81 MG ENTERIC TAB PO (09:44)
[2018-04-22] MEDS: hydrOXYzine 50 MG TAB PO ×2 (10:14→16:19)
[2018-04-22] MEDS: NORCO, ANEXSIA 5/325MG TABLET (HYDROcodone/ACETAMINOPHEN) PO ×2 (10:15→16:19)
[2018-04-22 11:34] LABS: BEDSIDE GLUCOSE 210 MG/DL (70-105)
[2018-04-22 16:09] LABS: BEDSIDE GLUCOSE 144 MG/DL (70-105)
[2018-04-22] MEDS: ATORVASTATIN 20 MG TAB PO (20:36)
[2018-04-22] MEDS: QUEtiapine FUMARATE 100 MG TAB PO (20:36)
[2018-04-22] MEDS: LISINOPRIL *2.5 MG* TAB PO (20:37)
[2018-04-22] MEDS: LEVEMIR (INSULIN DETEMIR) 1 UNITS/0.01ML SC (20:38)
[2018-04-22 21:33] LABS: BEDSIDE GLUCOSE 160 MG/DL (70-105)
[2018-04-23] MEDS: GABAPENTIN 300 MG CAP PO (06:03)
[2018-04-23] MEDS: HumaLOG INSULIN (NovoLOG) PER UNIT SC (06:26)
[2018-04-23 06:27] LABS: BEDSIDE GLUCOSE 114 MG/DL (70-105)
[2018-04-23] MEDS: ASPIRIN 81 MG ENTERIC TAB PO (08:16)
[2018-04-23] MEDS: ESCITALOPRAM OXALATE 10 MG TAB (LEXAPRO) PO (08:16)
[2018-04-23] MEDS: NORCO, ANEXSIA 5/325MG TABLET (HYDROcodone/ACETAMINOPHEN) PO (08:17)
[2018-04-23] MEDS: hydrOXYzine 50 MG TAB PO (08:17)
[2018-04-23] MEDS: metFORMIN XR 500MG TAB *GLUCOPHAGE XR PO (08:17)
[2018-04-23 11:48] LABS: BEDSIDE GLUCOSE 186 MG/DL (70-105)
== END 2018-04-23 12:50 | disposition home or self-care (01) | DRG 885 ==
LOC: M ED INP 04-15 12:49 → M PSY 04-15 13:35 → M ED 13:13
DX: F31.9 Bipolar disorder, unspecified (principal); E11.9 Type 2 diabetes mellitus without complications; G43.909 Migraine, unspecified, not intractable, without status migrainosus; I10 Essential (primary) hypertension; E66.9 Obesity, unspecified; F40.10 Social phobia, unspecified; F41.1 Generalized anxiety disorder; F60.3 Borderline personality disorder; E78.5 Hyperlipidemia, unspecified; G89.29 Other chronic pain; M54.5 Low back pain; R26.81 Unsteadiness on feet; M79.1 Myalgia; Z68.33 Body mass index [BMI] 33.0-33.9, adult; F17.210 Nicotine dependence, cigarettes, uncomplicated; M96.1 Postlaminectomy syndrome, not elsewhere classified; M53.3 Sacrococcygeal disorders, not elsewhere classified; Z88.8 Allergy status to other drugs, medicaments and biological substances; Z79.4 Long term (current) 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; Z79.82 Long term (current) use of aspirin; Z79.899 Other long term (current) drug therapy; Z91.030 Bee allergy status

== ENCOUNTER → 2018-04-30 | Outpatient (CLI) | payer OTHER | LOC: M PAIN 10:15 | DX: M51.27 Other intervertebral disc displacement, lumbosacral region (principal); M54.17 Radiculopathy, lumbosacral region; G89.29 Other chronic pain; E11.40 Type 2 diabetes mellitus with diabetic neuropathy, unspecified; E78.5 Hyperlipidemia, unspecified; F17.210 Nicotine dependence, cigarettes, uncomplicated; Z79.84 Long term (current) use of oral hypoglycemic drugs; Z79.82 Long term (current) use of aspirin; Z79.899 Other long term (current) drug therapy; Z88.8 Allergy status to other drugs, medicaments and biological substances; Z90.710 Acquired absence of both cervix and uterus | CPT/HCPCS: G0463 ==

== ENCOUNTER → 2018-05-22 | Outpatient (CLI) | payer OTHER ==
[~2018-05-22] MED LIST changes: +TRIAMCINOLONE ACETONIDE SUSP 40 MG/ML VIAL (J3301) As Ordered; -dexameTHASONE 10 MG/1 ML VIAL PRES.FREE (J1100) As Ordered
== END ==
LOC: M PAIN 13:30
DX: M46.1 Sacroiliitis, not elsewhere classified (principal); E11.9 Type 2 diabetes mellitus without complications; E78.5 Hyperlipidemia, unspecified; G57.93 Unspecified mononeuropathy of bilateral lower limbs; F17.210 Nicotine dependence, cigarettes, uncomplicated; Z79.82 Long term (current) use of aspirin; Z79.84 Long term (current) use of oral hypoglycemic drugs; Z79.899 Other long term (current) drug therapy; Z98.1 Arthrodesis status; Z90.49 Acquired absence of other specified parts of digestive tract; Z88.8 Allergy status to other drugs, medicaments and biological substances
CPT/HCPCS: J3301

== ENCOUNTER → 2018-06-05 | Outpatient (CLI) | payer OTHER | LOC: M PAIN 14:00 | DX: M51.27 Other intervertebral disc displacement, lumbosacral region (principal); M54.17 Radiculopathy, lumbosacral region; E11.42 Type 2 diabetes mellitus with diabetic polyneuropathy; E78.5 Hyperlipidemia, unspecified; F17.210 Nicotine dependence, cigarettes, uncomplicated; Z98.1 Arthrodesis status; Z79.82 Long term (current) use of aspirin; Z79.84 Long term (current) use of oral hypoglycemic drugs; Z79.891 Long term (current) use of opiate analgesic; Z79.899 Other long term (current) drug therapy; Z88.8 Allergy status to other drugs, medicaments and biological substances | CPT/HCPCS: G0463 ==

== ENCOUNTER 2018-06-19 11:09 | Emergency (ER) | payer OTHER ==
[2018-06-19 12:14] LABS: BASO # 0.1 10^3/uL (0.0-0.2); BASO % 0.5 % (0.0-1.0); EOS # 0.1 10^3/uL (0.0-0.50); EOS % 1.4 % (0.0-3.0); HEMATOCRIT 44.9 % (36.0-47.0); IMMATURE GRANULOCYTE % 0.4 % (0-3.0); LYMPH # 3.3 10^3/uL (1.5-4.5); LYMPH % 33.4 % (24.0-44.0); MEAN CORPUSCULAR HEMOGLOBIN 29.9 pg (27.0-33.0); MEAN CORPUSCULAR HGB CONC 33.4 g/dl (32.0-36.5); MEAN CORPUSCULAR VOLUME 89.4 fl (80.0-96.0); MONO # 0.6 10^3/uL (0.0-0.8); MONO % 5.9 % (0.0-5.0); NEUTROPHILS # 5.7 10^3/uL (1.8-7.7); NEUTROPHILS % 58.4 % (36.0-66.0); PLATELET COUNT, AUTOMATED 188 10^3/uL (150-450); RED BLOOD COUNT 5.02 10^6/uL (4.00-5.40); RED CELL DISTRIBUTION WIDTH 14.1 % (11.5-14.5); WHITE BLOOD COUNT 9.7 10^3/uL (4.0-10.0)
[2018-06-19] MEDS: ONDANSETRON 4MG/2ML VIAL (J2405) IV (12:48)
[2018-06-19] MEDS: MORPHINE 4 MG/ML 1ML VIAL/SYRINGE (J2270) IV ×2 (12:48→14:16)
[2018-06-19 12:55] LABS: ALBUMIN 3.3 GM/DL (3.2-5.2); ALKALINE PHOSPHATASE 128 U/L (45-117); ALT/SGPT 27 U/L (12-78); ANION GAP 8 MEQ/L (8-16); AST/SGOT 19 U/L (7-37); BILIRUBIN,DIRECT < 0.1 MG/DL (0.0-0.2); BILIRUBIN,TOTAL 0.3 MG/DL (0.2-1.0); BLOOD UREA NITROGEN 23 MG/DL (7-18); CALCIUM LEVEL 9.9 MG/DL (8.5-10.1); CARBON DIOXIDE LEVEL 24 MEQ/L (21-32); CHLORIDE LEVEL 102 MEQ/L (98-107); CREATININE FOR GFR 0.78 MG/DL (0.55-1.30); GLOMERULAR FILTRATION RATE > 60.0 (>58); GLUCOSE, FASTING 288 MG/DL (70-100); LIPASE 347 U/L (73-393); POTASSIUM SERUM 4.3 MEQ/L (3.5-5.1); SODIUM LEVEL 134 MEQ/L (136-145); TOTAL PROTEIN 7.4 GM/DL (6.4-8.2)
== END 2018-06-19 15:06 | disposition home or self-care (01) ==
LOC: M ED 11:09
DX: M54.9 Dorsalgia, unspecified (principal); G89.29 Other chronic pain; E11.9 Type 2 diabetes mellitus without complications; J44.9 Chronic obstructive pulmonary disease, unspecified; E78.70 Disorder of bile acid and cholesterol metabolism, unspecified; F17.200 Nicotine dependence, unspecified, uncomplicated; Z91.030 Bee allergy status; Z88.8 Allergy status to other drugs, medicaments and biological substances; Z79.4 Long term (current) 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; Z79.899 Other long term (current) drug therapy; Z79.82 Long term (current) use of aspirin; Z98.890 Other specified postprocedural states
CPT/HCPCS: J2270

== ENCOUNTER → 2018-07-01 | Outpatient (CLI) | payer OTHER ==
[2018-07-01 15:11] LABS: BEDSIDE GLUCOSE 370 MG/DL (70-105)
== END ==
LOC: M PAIN 14:00
DX: G89.29 Other chronic pain (principal); M46.1 Sacroiliitis, not elsewhere classified; M53.88 Other specified dorsopathies, sacral and sacrococcygeal region; E11.9 Type 2 diabetes mellitus without complications; E78.5 Hyperlipidemia, unspecified; G47.00 Insomnia, unspecified; G62.9 Polyneuropathy, unspecified; F41.9 Anxiety disorder, unspecified; F31.9 Bipolar disorder, unspecified; F17.210 Nicotine dependence, cigarettes, uncomplicated; Z79.82 Long term (current) use of aspirin; Z79.84 Long term (current) use of oral hypoglycemic drugs; Z79.899 Other long term (current) drug therapy; Z88.8 Allergy status to other drugs, medicaments and biological substances; Z86.69 Personal history of other diseases of the nervous system and sense organs
CPT/HCPCS: J3301

== ENCOUNTER → 2018-07-03 | Outpatient (REF) | payer OTHER ==
[2018-07-03 12:56] LABS: ALBUMIN 3.5 GM/DL (3.2-5.2); ALKALINE PHOSPHATASE 201 U/L (45-117); ALT/SGPT 40 U/L (12-78); ANION GAP 12 MEQ/L (8-16); AST/SGOT 18 U/L (7-37); BILIRUBIN,TOTAL 0.3 MG/DL (0.2-1.0); BLOOD UREA NITROGEN 16 MG/DL (7-18); CALCIUM LEVEL 8.4 MG/DL (8.5-10.1); CARBON DIOXIDE LEVEL 22 MEQ/L (21-32); CHLORIDE LEVEL 100 MEQ/L (98-107); CREATININE FOR GFR 0.87 MG/DL (0.55-1.30); GLOMERULAR FILTRATION RATE > 60.0 (>58); GLUCOSE, FASTING 461 MG/DL (70-100); POTASSIUM SERUM 4.6 MEQ/L (3.5-5.1); SODIUM LEVEL 134 MEQ/L (136-145); TOTAL PROTEIN 7.4 GM/DL (6.4-8.2)
== END ==
LOC: M SFHCPLAZ 09:33
DX: E11.65 Type 2 diabetes mellitus with hyperglycemia (principal)

== ENCOUNTER → 2018-07-15 | Outpatient (CLI) | payer OTHER | LOC: M PAIN 11:30 | DX: M51.27 Other intervertebral disc displacement, lumbosacral region (principal); M54.17 Radiculopathy, lumbosacral region; E11.42 Type 2 diabetes mellitus with diabetic polyneuropathy; E78.5 Hyperlipidemia, unspecified; F41.9 Anxiety disorder, unspecified; F32.9 Major depressive disorder, single episode, unspecified; G47.00 Insomnia, unspecified; F17.210 Nicotine dependence, cigarettes, uncomplicated; Z79.82 Long term (current) use of aspirin; Z79.84 Long term (current) use of oral hypoglycemic drugs; Z79.899 Other long term (current) drug therapy; Z91.5 Personal history of self-harm; Z88.8 Allergy status to other drugs, medicaments and biological substances | CPT/HCPCS: G0463 ==

== ENCOUNTER 2018-07-30 09:14 | Emergency (ER) | payer OTHER ==
[2018-07-30] MEDS: MORPHINE 4 MG/ML 1ML VIAL/SYRINGE (J2270) IV ×2 (10:16→11:13)
[2018-07-30] MEDS: ONDANSETRON 4MG/2ML VIAL (J2405) IV (10:16)
[2018-07-30 11:57] LABS: BASO # 0.1 10^3/uL (0.0-0.2); BASO % 0.4 % (0.0-1.0); EOS # 0.2 10^3/uL (0.0-0.50); EOS % 1.2 % (0.0-3.0); HEMATOCRIT 45.9 % (36.0-47.0); HEMOGLOBIN 15.3 g/dl (12.0-15.5); IMMATURE GRANULOCYTE % 0.8 % (0-3.0); LYMPH # 2.7 10^3/uL (1.5-4.5); MEAN CORPUSCULAR HEMOGLOBIN 30.8 pg (27.0-33.0); MEAN CORPUSCULAR HGB CONC 33.3 g/dl (32.0-36.5); MEAN CORPUSCULAR VOLUME 92.4 fl (80.0-96.0); MONO # 0.9 10^3/uL (0.0-0.8); MONO % 6.9 % (0.0-5.0); NEUTROPHILS # 9.1 10^3/uL (1.8-7.7); NEUTROPHILS % 69.7 % (36.0-66.0); PLATELET COUNT, AUTOMATED 225 10^3/uL (150-450); RED BLOOD COUNT 4.97 10^6/uL (4.00-5.40); RED CELL DISTRIBUTION WIDTH 13.8 % (11.5-14.5)
[2018-07-30 12:09] LABS: INR 0.87
[2018-07-30 12:10] LABS: PARTIAL THROMBOPLASTIN TIME 25.8 SECONDS (25.4-37.6)
[2018-07-30] MEDS: NS 1,000 ML IV ×2 (12:17→12:45)
[2018-07-30 12:27] LABS: ALBUMIN 3.4 GM/DL (3.2-5.2); ALBUMIN/GLOBULIN RATIO 0.81 (1.00-1.93); ALKALINE PHOSPHATASE 134 U/L (45-117); ALT/SGPT 30 U/L (12-78); ANION GAP 8 MEQ/L (8-16); AST/SGOT 11 U/L (7-37); BILIRUBIN,DIRECT < 0.1 MG/DL (0.0-0.2); BILIRUBIN,TOTAL 0.3 MG/DL (0.2-1.0); BLOOD UREA NITROGEN 17 MG/DL (7-18); CALCIUM LEVEL 8.9 MG/DL (8.5-10.1); CARBON DIOXIDE LEVEL 23 MEQ/L (21-32); CHLORIDE LEVEL 105 MEQ/L (98-107); CREATININE FOR GFR 0.86 MG/DL (0.55-1.30); GLOMERULAR FILTRATION RATE > 60.0 (>58); GLUCOSE, FASTING 307 MG/DL (70-100); POTASSIUM SERUM 3.8 MEQ/L (3.5-5.1); SODIUM LEVEL 136 MEQ/L (136-145); TOTAL PROTEIN 7.6 GM/DL (6.4-8.2)
[2018-07-30 12:33] LABS: LACTIC ACID SEPSIS PROTOCOL 2.2 MMOL/L (0.4-2.0)
[2018-07-30] MEDS ORDERED: ISOVUE-370 76% 100ML VIAL (Q9967) As Ordered (12:55)
[2018-07-30 13:15] LABS: INFLUENZA A AMPLIFICATION NEGATIVE (NEGATIVE); INFLUENZA B AMPLIFICATION NEGATIVE (NEGATIVE)
[2018-07-30] MEDS: LevoFLOXacin IV 750 MG in APPROPRIATE DILUENT 1 EA IV (13:52)
[2018-07-30] MEDS: PERCOCET 5MG/325MG TAB PO (13:58)
[2018-07-30 14:04] LABS: APPEARANCE, URINE HAZY (CLEAR); BACTERIA, URINE AUTO NEGATIVE (NEGATIVE); BILIRUBIN, URINE AUTO NEGATIVE (NEGATIVE); BLOOD, URINE BLOOD NEGATIVE (NEGATIVE); COLOR, URINE YELLOW (YELLOW); GLUCOSE, URINE (UA) AUTO 3+ mg/dL (NEGATIVE); KETONE, URINE AUTO NEGATIVE (NEGATIVE); LEUKOCYTE ESTERASE, URINE AUTO NEGATIVE (NEGATIVE); MUCUS, URINE LARGE (NEGATIVE); NITRITE, URINE AUTO NEGATIVE (NEGATIVE); PROTEIN, URINE AUTO 1+ mg/dL (NEGATIVE); RBC, URINE AUTO 3 /HPF (0-3); SPECIFIC GRAVITY URINE AUTO 1.041 (1.002-1.035); SQUAMOUS EPITHELIAL CELL UR AU 4 /HPF (0-6); UROBILINOGEN, URINE AUTO 0.2 mg/dL (0.0-2.0); WBC, URINE AUTO 2 /HPF (0-3)
== END 2018-07-30 16:08 | disposition home or self-care (01) ==
LOC: M ED 09:14
DX: J18.9 Pneumonia, unspecified organism (principal); M54.9 Dorsalgia, unspecified; W19.XXXA Unspecified fall, initial encounter; E11.9 Type 2 diabetes mellitus without complications; Y92.9 Unspecified place or not applicable; F17.210 Nicotine dependence, cigarettes, uncomplicated
CPT/HCPCS: J1956

== ENCOUNTER 2018-09-23 17:24 | Inpatient (IN) | payer OTHER ==
[~2018-09-23] VITALS: Ht 172.7 cm; Wt 105.2 kg
[~2018-09-23 17:24] MED LIST changes: -LEXA1TAB PO; -MELO15TA28 PO; -OMEP40CA2 PO
[2018-09-23 18:39] LABS: BASO # 0.1 10^3/uL (0.0-0.2); BASO % 0.5 % (0.0-1.0); EOS # 0.2 10^3/uL (0.0-0.50); EOS % 1.3 % (0.0-3.0); HEMATOCRIT 44.1 % (36.0-47.0); LYMPH # 3.1 10^3/uL (1.5-4.5); LYMPH % 27.8 % (24.0-44.0); MEAN CORPUSCULAR HEMOGLOBIN 30.9 pg (27.0-33.0); MEAN CORPUSCULAR VOLUME 90.7 fl (80.0-96.0); MONO # 0.8 10^3/uL (0.0-0.8); MONO % 6.7 % (0.0-5.0); NEUTROPHILS % 63.2 % (36.0-66.0); PLATELET COUNT, AUTOMATED 295 10^3/uL (150-450); RED BLOOD COUNT 4.86 10^6/uL (4.00-5.40); WHITE BLOOD COUNT 11.2 10^3/uL (4.0-10.0)
[2018-09-23 19:07] LABS: ALBUMIN 3.5 GM/DL (3.2-5.2); ALT/SGPT 36 U/L (12-78); BILIRUBIN,DIRECT < 0.1 MG/DL (0.0-0.2); BILIRUBIN,TOTAL 0.2 MG/DL (0.2-1.0); BLOOD UREA NITROGEN 11 MG/DL (7-18); CALCIUM LEVEL 8.9 MG/DL (8.5-10.1); CARBON DIOXIDE LEVEL 18 MEQ/L (21-32); CHLORIDE LEVEL 97 MEQ/L (98-107); GLOMERULAR FILTRATION RATE 57.4 (>58); POTASSIUM SERUM 4.2 MEQ/L (3.5-5.1); SODIUM LEVEL 132 MEQ/L (136-145); TOTAL PROTEIN 7.3 GM/DL (6.4-8.2)
[2018-09-23 19:09] LABS: GLUCOSE, FASTING 569 MG/DL (70-100)
[2018-09-23] MEDS ORDERED: NS 1,000 ML IV ONE (19:45)
[2018-09-23] MEDS ORDERED: INSULIN HUMAN REGULAR 100 UNITS in NS 99 ML IV SCH (19:45)
[2018-09-23] MEDS ORDERED: HumuLIN R (REGULAR) INSULIN (NovoLIN R) **100U/ML** PER UNIT IV ONE (19:45)
[2018-09-23] MEDS ORDERED: INSULIN IV RATE CHANGE DOCUMENTATION ML/HR XX SCH (19:45)
[2018-09-23] MEDS ORDERED: ISOVUE-370 76% 100ML VIAL (Q9967) As Ordered ONE (19:47)
--- NOTE | 2018-09-23 20:22 | ECGEPIP ---
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
[2018-09-23] MEDS ORDERED: ACETAMINOPHEN 325 MG TAB PO ONE (20:30)
[2018-09-23] MEDS ORDERED: CLON0.5T8 PO (20:43)
[2018-09-23] MEDS ORDERED: OMEP40CA2 PO (20:43)
[2018-09-23] MEDS ORDERED: PERC5TAB12 PO (20:43)
[2018-09-23] MEDS ORDERED: LEXA1TAB PO (20:43)
[2018-09-23] MEDS ORDERED: MELO15TA28 PO (20:43)
[2018-09-23] MEDS ORDERED: SERO200T PO (20:43)
[2018-09-23 20:47] LABS: INR 0.91; PROTHROMBIN TIME 12.3 SECONDS (12.1-14.4)
[2018-09-23 20:48] LABS: PARTIAL THROMBOPLASTIN TIME 26.4 SECONDS (25.4-37.6)
--- NOTE | 2018-09-23 20:48 | REPVR ---
EXAM: CT Angiography Chest With Contrast EXAM DATE/TIME: 09/23/2018 7:56 PM CLINICAL HISTORY: 42 years old, female; Signs and symptoms; Dyspnea; Additional info: Dtysp TECHNIQUE: Axial computed tomographic angiography images of the chest with intravenous contrast using CT angiography protocol. All CT scans at this facility use at least one of these dose optimization techniques: automated exposure control; mA and/or kV adjustment per patient size (includes targeted exams where dose is matched to clinical indication); or iterative reconstruction. Coronal and sagittal reformatted images were created and reviewed. MIP reconstructed images were created and reviewed. CONTRAST: 75 ml of ISOVUE 370 administered intravenously. COMPARISON: CT ANGIO CHEST 07/30/2018 12:49 PM FINDINGS: Pulmonary arteries: The main pulmonary artery measures 32 mm. No pulmonary embolism is identified. Aorta: The ascending thoracic aorta measures 29 mm. Other arteries: The left vertebral artery originates directly from the arch. Lungs: Mild bilateral infiltrates and atelectasis, greatest in the lower lobes and posterior upper lobes. Posterolateral right lower lobe nodule or focal consolidation that is unchanged from the prior study suggesting a nodule measuring 7 mm. Pleural space: Normal. No pneumothorax. No pleural effusion. Heart: Normal. No cardiomegaly. No pericardial effusion. Liver: Fatty infiltration of the liver with probable hepatomegaly. Kidneys and ureters: The left kidney is not in the normal left renal fossa with extension of the pancreatic tail into the area. Lymph nodes: Unremarkable. No enlarged lymph nodes. Bones/joints: Slight superior end plate depression of T7 and T9. Soft tissues: Unremarkable. IMPRESSION: 1. Mild bilateral lower lobe and posterior upper lobe infiltrates atelectasis which are slightly improved overall since 07/30/2018. 2. Underlying 7 mm nodule in the posterolateral right lower lobe which is unchanged. For patients at low risk (minimal or absent history of smoking and of other known risk factors), recommend CT at 6-12 months, then consider CT at 18-24 months. For patients at high risk (history of smoking or of other known risk factors), recommend CT at 6-12 months, then CT at 18-24 months. (Aleksander et al., Fleischner Society, 2017). 3. Probable hepatomegaly with fatty infiltration the liver. 4. No pulmonary embolism is identified. Electronically signed by: Alfredo Mccallum On 09/23/2018 20:48:28 PM
[2018-09-23 20:51] LABS: ACETONE/KETONE 1.61 MG/DL (<2.81); CPK CREATINE PHOSPHOKINASE 93 U/L (26-192); MB/CK RELATIVE INDEX 1.72 (< OR =4); TROPONIN I < 0.02 NG/ML (< 0.10)
[2018-09-23] MEDS ORDERED: MORPHINE 2 MG/ML 1ML SYRINGE (J2270) IV ONE (22:30)
[2018-09-24] MEDS ORDERED: LEVEMIR (INSULIN DETEMIR) 1 UNITS/0.01ML SC ONE ×2 (02:00→02:45)
[2018-09-24] MEDS ORDERED: IPRATROPIUM 0.5MG/ALBUTEROL 2.5MG INH SOL UD 3ML (DUONEB)(J7620) NEB PRN (02:15)
[2018-09-24 02:17] LABS: BLOOD UREA NITROGEN 10 MG/DL (7-18); CALCIUM LEVEL 8.2 MG/DL (8.5-10.1); CARBON DIOXIDE LEVEL 24 MEQ/L (21-32); CHLORIDE LEVEL 107 MEQ/L (98-107); CREATININE FOR GFR 0.69 MG/DL (0.55-1.30); GLOMERULAR FILTRATION RATE > 60.0 (>58); GLUCOSE, FASTING 180 MG/DL (70-100); POTASSIUM SERUM 3.6 MEQ/L (3.5-5.1); SODIUM LEVEL 139 MEQ/L (136-145)
[2018-09-24] MEDS ORDERED: GLUCAGON FOR INJ 1 MG VIAL (J1610) SC PRN (02:30)
[2018-09-24] MEDS ORDERED: clonazePAM 0.5 MG TAB PO PRN (02:30)
[2018-09-24] MEDS ORDERED: ONDANSETRON 4MG/2ML VIAL (J2405) IV PRN (02:30)
[2018-09-24] MEDS ORDERED: GLUCOSE 4 GM CHEW TABLET PO PRN (02:30)
[2018-09-24] MEDS ORDERED: DEXTROSE 50% 50 ML SYRINGE IV PRN (02:30)
[2018-09-24] MEDS: DOXYCYCLINE HYCLATE 100 MG TAB PO SCH ×3 (04:52→21:41)
[2018-09-24] MEDS: NS 1,000 ML IV SCH ×2 (05:15→13:23)
[2018-09-24] MEDS: ATORVASTATIN 20 MG TAB PO SCH ×2 (05:15→21:40)
[2018-09-24] MEDS: MIRTAZAPINE 15 MG TAB PO SCH ×2 (05:16→21:41)
[2018-09-24] MEDS: LISINOPRIL *2.5 MG* TAB PO SCH ×2 (05:16→21:40)
[2018-09-24] MEDS: HEPARIN SOD (PORCINE) 5000 UNITS/ML VIAL SC SCH ×3 (05:16→21:42)
[2018-09-24] MEDS: GABAPENTIN 300 MG CAP PO SCH ×3 (05:16→21:41)
[2018-09-24] MEDS: PERCOCET 5MG/325MG TAB PO PRN ×3 (05:25→18:39)
[2018-09-24] MEDS: QUEtiapine FUMARATE 200 MG TAB PO SCH ×2 (05:28→21:41)
[2018-09-24 05:41] VITALS: BP 114/71
--- NOTE | 2018-09-24 06:47 | HPE ---
DATE OF ADMISSION: 09/24/2018 CHIEF COMPLAINT: Patient presented with high blood sugars and nonproductive cough for the past several weeks. HISTORY OF PRESENT ILLNESS: The patient is a 42-year-old female with a significant past medical history of depression, anxiety, diabetes with neuropathy, hypertension, gastroesophageal reflux disease (GERD), mood disorder, chronic back pain. She presents to the emergency room after she was prompted by urgent care when she was told that her labs showed hyperglycemia. She has also complained of a nonproductive cough for the past one week with some subjective chills. She denies any sick contacts. The patient does not appear to toxic during the examination. She denies abdominal pain, constipation, diarrhea, urinary symptoms, chest pain, nausea or vomiting. PAST MEDICAL HISTORY: See history of present illness. PAST SURGICAL HISTORY: She has had back surgery times two. Knee surgery. Appendectomy. Cholecystectomy. Total abdominal hysterectomy. Carpal tunnel syndrome. ALLERGIES: Are to bee venom, DULOXETINE and KETOROLAC. Reactions are unknown. HOME MEDICATIONS: - aspirin - Lipitor - Klonopin - Lexapro - gabapentin - lisinopril - Mobic - metformin - omeprazole - Seroquel - tizanidine - Effexor - Lantus - Remeron SOCIAL HISTORY: She is a current smoker, half a pack per day. Denies alcohol or illicit drug use. FAMILY HISTORY: Diabetes and hypertension. REVIEW OF SYSTEMS: A 12 point review of systems was completed, all of which were negative except those listed in the history of present illness. VITAL SIGNS ON ADMISSION: Temperature 98, pulse 112, respirations 19, satting at 97% on room air, blood pressure 143/77. PHYSICAL EXAMINATION: GENERAL: She is well nourished, in no apparent distress. HEAD: Normocephalic, atraumatic. EYES: Extraocular movements are intact. Pupils equal, round, reactive to light. NECK: Supple. No jugular venous pressure (JVP). LUNGS: Clear to auscultation bilaterally. No crackles, wheezes, rales or rhonchi. CARDIOVASCULAR: Regular rate and rhythm. Normal S1 and S2. No murmurs, gallops, or rubs. ABDOMEN: Soft, nontender, nondistended. Positive bowel sounds. No rebound or guarding. EXTREMITIES: No pitting edema or calf tenderness. SKIN: Intact. No rashes, lesions or breakdowns. NEUROLOGICAL EXAM: Alert and oriented times three. No focal deficits appreciated on exam. LABS AND IMAGING COMPLETED IN THE EMERGENCY ROOM: White count of 11, hemoglobin and hematocrit of 15/44, platelet count of 295. Coags within normal limits. Chemistry shows a BUN and creatinine of 11/1.1. BMP fingerstick is 569, sodium of 132, chloride of 97, bicarb of 18, anion gap of 17. Beta hydroxybutyrate 1.61. IMAGING: CT angio of the chest shows mild bilateral lower lobe and posterior upper lobe infiltrates, atelectasis, which was slightly improved overall since 07/30/2018. 7 mm pulmonary nodules, no pulmonary embolism (PE). ASSESSMENT/PLAN: She has uncontrolled hyperglycemia in the setting of diabetes type 2 with impending mild diabetic ketoacidosis (DKA). She has been adequately fluid hydrated. She has been on an insulin drip. The patient has since closed her mild gap. Her bicarb is now within normal limits. The mild DKA has completely resolved. This is possibly secondary to upper respiratory infection (URI). Will place her in azithromycin and will seen a respiratory panel. Oxygen as needed. DuoNebs as needed. She is to be back on her Lantus and insulin sliding scale. She is now able to eat. For hypertension will continue lisinopril. For gastroesophageal reflux disease (GERD) continue omeprazole. Hyperlipidemia. Continue Lipitor. Anxiety/depression. Continue Klonopin, Lexapro, Seroquel for bipolar disorder. Back pain. Continue tizanidine and other home medications. Supportive deep vein thrombosis (DVT) prophylaxis. Heparin subcu. Gastrointestinal (GI) prophylaxis is not indicated. Diabetic diet. Patient to be placed on the observation unit.
[2018-09-24 07:21] LABS: HEMOGLOBIN A1c 12.5 %
[2018-09-24 07:43] VITALS: BP 138/73
[2018-09-24] MEDS: ESCITALOPRAM OXALATE 10 MG TAB (LEXAPRO) PO SCH (08:13)
[2018-09-24] MEDS: ASPIRIN 81 MG ENTERIC TAB PO SCH (08:13)
[2018-09-24] MEDS: OMEPRAZOLE 20 MG CAP PO SCH (08:13)
[2018-09-24] MEDS: HumaLOG INSULIN (NovoLOG) PER UNIT SC SCH ×3 (08:14→17:43)
[2018-09-24] MEDS: tiZANidine 4 MG TAB PO PRN ×2 (08:25→17:42)
[2018-09-24] MEDS: VENLAFAXINE **XR** 37.5 MG CAPSULE PO SCH (08:46)
[2018-09-24 09:55] LABS: ALT/SGPT 30 U/L (12-78); BILIRUBIN,TOTAL 0.3 MG/DL (0.2-1.0); BLOOD UREA NITROGEN 9 MG/DL (7-18); CALCIUM LEVEL 8.2 MG/DL (8.5-10.1); CARBON DIOXIDE LEVEL 22 MEQ/L (21-32); CHLORIDE LEVEL 106 MEQ/L (98-107); GLOMERULAR FILTRATION RATE > 60.0 (>58); GLUCOSE, FASTING 341 MG/DL (70-100); SODIUM LEVEL 137 MEQ/L (136-145); TOTAL PROTEIN 6.2 GM/DL (6.4-8.2)
[2018-09-24 10:49] LABS: HEMATOCRIT 40.6 % (36.0-47.0); HEMOGLOBIN 13.9 g/dl (12.0-15.5); MEAN CORPUSCULAR HEMOGLOBIN 31.4 pg (27.0-33.0); MEAN CORPUSCULAR HGB CONC 34.2 g/dl (32.0-36.5); MEAN CORPUSCULAR VOLUME 91.6 fl (80.0-96.0); PLATELET COUNT, AUTOMATED 198 10^3/uL (150-450); RED BLOOD COUNT 4.43 10^6/uL (4.00-5.40); WHITE BLOOD COUNT 9.4 10^3/uL (4.0-10.0)
[2018-09-24 11:02] LABS: BASO # 0.1 10^3/uL (0.0-0.2); BASO % 0.8 % (0.0-1.0); EOS # 0.2 10^3/uL (0.0-0.50); EOS % 2.5 % (0.0-3.0); LYMPH # 3.2 10^3/uL (1.5-4.5); LYMPH % 34.6 % (24.0-44.0); MONO # 0.7 10^3/uL (0.0-0.8); MONO % 7.5 % (0.0-5.0); NEUTROPHILS # 5.1 10^3/uL (1.8-7.7); NEUTROPHILS % 54.2 % (36.0-66.0)
[2018-09-24 14:00] VITALS: BP 116/78
[2018-09-24 20:00] VITALS: BP 109/68
[2018-09-24] MEDS ORDERED: LEVEMIR (INSULIN DETEMIR) 1 UNITS/0.01ML SC SCH (21:00)
[2018-09-24 21:40] VITALS: BP 109/68
[2018-09-25] MEDS: NS 1,000 ML IV SCH (03:15)
[2018-09-25] MEDS: HEPARIN SOD (PORCINE) 5000 UNITS/ML VIAL SC SCH ×2 (05:20→13:06)
[2018-09-25] MEDS: GABAPENTIN 300 MG CAP PO SCH ×2 (05:20→13:06)
[2018-09-25 06:00] VITALS: BP 134/86
[2018-09-25 06:53] LABS: HEMOGLOBIN 13.1 g/dl (12.0-15.5); MEAN CORPUSCULAR HEMOGLOBIN 32.2 pg (27.0-33.0); MEAN CORPUSCULAR HGB CONC 34.5 g/dl (32.0-36.5); MEAN CORPUSCULAR VOLUME 93.4 fl (80.0-96.0); PLATELET COUNT, AUTOMATED 222 10^3/uL (150-450); RED BLOOD COUNT 4.07 10^6/uL (4.00-5.40); WHITE BLOOD COUNT 8.1 10^3/uL (4.0-10.0)
[2018-09-25 07:27] LABS: BLOOD UREA NITROGEN 7 MG/DL (7-18); CALCIUM LEVEL 7.6 MG/DL (8.5-10.1); CARBON DIOXIDE LEVEL 20 MEQ/L (21-32); CHLORIDE LEVEL 107 MEQ/L (98-107); CREATININE FOR GFR 0.71 MG/DL (0.55-1.30); GLOMERULAR FILTRATION RATE > 60.0 (>58); GLUCOSE, FASTING 330 MG/DL (70-100); POTASSIUM SERUM 3.8 MEQ/L (3.5-5.1); SODIUM LEVEL 137 MEQ/L (136-145)
[2018-09-25] MEDS ORDERED: BASA100I SC (07:29)
--- NOTE | 2018-09-25 07:33 | DS.PDOC ---
Discharge Summary General Date of Admission Sep 24, 2018 at 02:16 Date of Discharge 09/25/18 Discharge Summary PROCEDURES PERFORMED DURING STAY: [None]. DISCHARGE DIAGNOSES: 1. DKA. 2. Human rhinovirus/enterovirus 3. Non-compliance SECONDARY DIAGNOSES: 1. Anxiety/depression 2. diabetes with neuropathy 3. hypertension 4. GERD 5. Mood disorder 6. Chronic back pain COMPLICATIONS/CHIEF COMPLAINT: Hypergylcemia Due To Type Ii Diabetes. HISTORY OF PRESENT ILLNESS: The patient is a 42-year-old female with a significant past medical history of depression, anxiety, diabetes with neuropathy, hypertension, gastroesophageal reflux disease (GERD), mood disorder, chronic back pain. She presented to the emergency room for hyperglycemia after a visit to an urgent care. She has also complained of a nonproductive cough for the past one week with some subjective chills. She denies any sick contacts. She denied abdominal pain, constipation, diarrhea, urinary symptoms, chest pain, nausea or vomiting. HOSPITAL COURSE: . DISCHARGE MEDICATIONS: Please see below. ALLERGIES: Please see below. PHYSICAL EXAMINATION ON DISCHARGE: VITAL SIGNS: Please see below. GENERAL: NAD, lying comfortably in bed HEENT: NC/AT, EOMI Lungs: CTA B/L Heart: +S1S2, RRR Abd: soft, NT, +BS, obese Ext: no edema LABORATORY DATA: Please see below. ACTIVITY: [As tolerated]. DIET: carb consistent, 2 gram sodium DISCHARGE PLAN: DISPOSITION: Discharge home. DISCHARGE INSTRUCTIONS: 1. Follow up with PCP in 3-5 days. 2. Recommend endocrinology consultation. 3. Follow diet recommendations 4. Take meds as directed. DISCHARGE CONDITION: [Stable]. TIME SPENT ON DISCHARGE: Greater than 30 minutes. Vital Signs/I&Os Vital Signs Date Time Temp Pulse Resp B/P (MAP) Pulse Ox O2 Delivery O2 Flow Rate FiO2 09/25/18 06:00 97.2 74 19 134/86 (102) 95 09/24/18 00:00 Room Air I&O- Last 24 Hours up to 6 AM 09/25/18 06:00 Intake Total 4300 ml Output Total 1100 ml Balance 3200 ml Laboratory Data Labs 24H Laboratory Tests 2 09/24/18 07:56: Bedside Glucose (Misc Panel) 343H 09/24/18 11:58: Bedside Glucose (Misc Panel) 290H 09/24/18 17:23: Bedside Glucose (Misc Panel) 327H 09/24/18 20:09: Bedside Glucose (Misc Panel) 317H 09/25/18 06:36: Nucleated Red Blood Cells % (auto) 0.0, Anion Gap 10, Glomerular Filtration Rate > 60.0, Blood Urea Nitrogen 7, Creatinine 0.71, Sodium Level 137, Potassium Level 3.8, Chloride Level 107, Carbon Dioxide Level 20L, Calcium Level 7.6L CBC/BMP Laboratory Tests 09/25/18 06:36 Red Blood Count 4.07, Mean Corpuscular Volume 93.4, Mean Corpuscular Hemoglobin 32.2, Mean Corpuscular Hemoglobin Concent 34.5, Red Cell Distribution Width 13.3, Calcium Level 7.6 L FSBS Laboratory Tests Test 09/24/18 07:56 09/24/18 11:58 09/24/18 17:23 09/24/18 20:09 Range/Units Bedside Glucose (Misc Panel) 343 290 327 317 70-105 MG/DL Microbiology Microbiology 09/24/18 Respiratory Virus Panel (PCR) ([facility]) - Final, Complete Human Rhinovirus/Enterovirus Discharge Medications Scheduled (Jenelle Cabrera) 100 Unit/Ml Inj, 25 UNIT SC QHS Aspirin (Aspirin 81) 81 Mg Tab, 81 MG PO DAILY, (Reported) Atorvastatin Calcium (Atorvastatin Calcium) 40 Mg Tab, 40 MG PO QHS, (Reported) Escitalopram Oxalate (Lexapro) 10 Mg Tab, 10 MG PO DAILY, (Reported) Gabapentin (Neurontin) 300 Mg Cap, 300 MG PO Q8H, (Reported) Lisinopril (Lisinopril) 2.5 Mg Tab, 2.5 MG PO QHS, (Reported) Meloxicam (Meloxicam) 15 Mg Tab, 15 MG PO DAILY, (Reported) Metformin Hydrochloride (Metformin HCl ER) 500 Mg Tab, 1,000 MG PO BID, (Reported) Mirtazapine (Mirtazapine Odt) 30 Mg Tab, 30 MG PO QHS, (Reported) Omeprazole (Omeprazole) 40 Mg Cap, 40 MG PO DAILY, (Reported) Quetiapine Fumerate (Seroquel) 200 Mg Tab, 200 MG PO QHS, (Reported) Venlafaxine HCl (Venlafaxine HCl ER) 37.5 Mg Capcr, 37.5 MG PO DAILY, (Reported) Scheduled PRN Clonazepam (Clonazepam) 0.5 Mg Tab, 0.5 MG PO DAILY PRN for ANXIETY, (Reported) Oxycodone/Acetaminophen (Percocet 5-325 mg) 1 Tab Tab, 1 TAB PO Q6H PRN for PAIN, (Reported) Tizanidine Hydrochloride (Zanaflex) 4 Mg Tab, 4 MG PO TID PRN for MUSCLE SPASMS, (Reported) Allergies Coded Allergies: Ketorolac (Verified Allergy, Mild, RASH ON FACE, 07/30/18) Bee Venom (Verified Allergy, Unknown, BEE STINGS, 07/30/18) Duloxetine (Unverified Adverse Reaction, Unknown, MOOD CHANGES, 07/30/18) LEONEL SHANNON MD Sep 25, 2018 07:33
[2018-09-25] MEDS: ASPIRIN 81 MG ENTERIC TAB PO SCH (08:23)
[2018-09-25] MEDS: DOXYCYCLINE HYCLATE 100 MG TAB PO SCH (08:23)
[2018-09-25] MEDS: ESCITALOPRAM OXALATE 10 MG TAB (LEXAPRO) PO SCH (08:23)
[2018-09-25] MEDS: HumaLOG INSULIN (NovoLOG) PER UNIT SC SCH ×2 (08:23→12:38)
[2018-09-25] MEDS: VENLAFAXINE **XR** 37.5 MG CAPSULE PO SCH (08:24)
[2018-09-25] MEDS: OMEPRAZOLE 20 MG CAP PO SCH (08:24)
[2018-09-25] MEDS: PERCOCET 5MG/325MG TAB PO PRN (08:25)
== END 2018-09-25 13:45 | disposition home or self-care (01) | DRG 420 ==
LOC: M ED 17:24 → M ED INP 09-24 02:16 → M MS4PR 09-24 07:39
PROVIDERS: ADMIT Internal Medicine; ATTEND Internal Medicine
DX: E11.10 Type 2 diabetes mellitus with ketoacidosis without coma (principal); I10 Essential (primary) hypertension; E11.65 Type 2 diabetes mellitus with hyperglycemia; F31.9 Bipolar disorder, unspecified; F41.9 Anxiety disorder, unspecified; K21.9 Gastro-esophageal reflux disease without esophagitis; E11.40 Type 2 diabetes mellitus with diabetic neuropathy, unspecified; M54.9 Dorsalgia, unspecified; Z90.49 Acquired absence of other specified parts of digestive tract; Z90.710 Acquired absence of both cervix and uterus; Z91.030 Bee allergy status; Z88.8 Allergy status to other drugs, medicaments and biological substances; Z79.82 Long term (current) use of aspirin; Z79.4 Long term (current) 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; Z79.899 Other long term (current) drug therapy

== ENCOUNTER → 2018-09-23 | Outpatient (CLI) | payer OTHER ==
[~2018-09-23] MED LIST changes: +/DIVA50TA PO; +/DULO30CA OR; +/ESCI20TA OR; +/GLIP10TAB PO; +/LAMO10TA PO; +AMOX500C PO; +ASPI1TAB PO; +ATOR1TAB19 PO; +ATOR40TA75 PO; +AUGM875T28 PO; +BACT800T OR; +BASA100I SC; +BENT10CA PO; -BUPIVACAINE HCL 0.25% 30 ML VIAL As Ordered; +BUPR150T5 PO; +CLEO300C2 PO; +CLON0.5T8 PO; +DEPA500T2 OR; +DULO1CAP2 PO; +EFFEXOR PO; +ESCI20TA PO; +ESTR2TAB PO; +GLIP10TA18 PO; +GLIP2.5T6 PO; +HYDR12.56 PO; +HYDRO50TAB PO; +IBUP-1022 PO; -ISOVUE-M 300 61% 15ML VIAL (Q9967) As Ordered; +LEVA750T7 PO; +LEXA1TAB PO; -LIDOCAINE 1% SDV INJ 30 ML VIAL As Ordered; +LISI2.5T5 PO; +LYRI75CA OR; +MELO15TA28 PO; +MELO7.5T3 PO; +MELO7.5T7 PO; +METF1000 PO; +METF500T PO; +METF500T4 PO; -MIDAZOLAM INJ 2 MG/2 ML VIAL (J2250) As Ordered; +MIRT-16 PO; +MOBI4TAB PO; +NEUR300C PO; +NORC1TAB4 PO; +NORCOTAB PO; +OMEP20CA3 PO; +OMEP40CA2 PO; +OXYC1TAB23 PO; +PENI500T PO; +PERC5TAB12 PO; +PERC5TAB8 OR; +PERC5TAB8 PO; +PERC7.5T12 PO; +PREG100CA OR; +PRIL20CA OR; +QUET1TAB8 PO; +QUET1TAB9 PO; +REGL10TA6 PO; +ROBA500T PO; +ROXICODONE PO; +SERO200T OR; +SERO200T PO; +TIZA2TA PO; +TRAM50TA2 OR; +TRAM50TA2 PO; +TRAZ-160 PO; +TRAZ150T PO; -TRIAMCINOLONE ACETONIDE SUSP 40 MG/ML VIAL (J3301) As Ordered; +TRUL0.5I SC; +TYLETAB14 PO; +VENL37.598 PO; +ZANA4TAB PO; +ZOFR4TAB14 PO; +[UNRECOGNIZED DRUG - OTHER] PO; +butrans EXT; +butrans TD; -fentaNYL 100 MCG/2 ML INJECTION (J3010) As Ordered
--- NOTE | 2018-09-23 13:47 | REP ---
Chest two views HISTORY: Cough Comparison: 07/30/2018 The lungs are clear. The heart is normal in size. The pulmonary vasculature is normal in appearance. The bony structure is intact. IMPRESSION: No acute disease. Electronically Signed by Payam Manzanares MD 09/23/2018 01:39 P
[2018-09-23 15:49] LABS: BASO # 0.1 10^3/uL (0.0-0.2); BASO % 0.6 % (0.0-1.0); EOS # 0.2 10^3/uL (0.0-0.50); EOS % 1.3 % (0.0-3.0); HEMATOCRIT 48.6 % (36.0-47.0); HEMOGLOBIN 16.3 g/dl (12.0-15.5); LYMPH # 3.4 10^3/uL (1.5-4.5); LYMPH % 25.9 % (24.0-44.0); MEAN CORPUSCULAR HEMOGLOBIN 31.2 pg (27.0-33.0); MEAN CORPUSCULAR HGB CONC 33.5 g/dl (32.0-36.5); MEAN CORPUSCULAR VOLUME 93.1 fl (80.0-96.0); MONO # 0.8 10^3/uL (0.0-0.8); MONO % 5.8 % (0.0-5.0); NEUTROPHILS # 8.7 10^3/uL (1.8-7.7); NEUTROPHILS % 65.9 % (36.0-66.0); PLATELET COUNT, AUTOMATED 337 10^3/uL (150-450); RED BLOOD COUNT 5.22 10^6/uL (4.00-5.40); WHITE BLOOD COUNT 13.3 10^3/uL (4.0-10.0)
[2018-09-23 16:18] LABS: ALBUMIN 3.8 GM/DL (3.2-5.2); BILIRUBIN,TOTAL 0.3 MG/DL (0.2-1.0); CALCIUM LEVEL 9.4 MG/DL (8.5-10.1); CREATININE FOR GFR 1.1 MG/DL (0.55-1.30); GLOMERULAR FILTRATION RATE 57.4 (>58); POTASSIUM SERUM 4.5 MEQ/L (3.5-5.1); TOTAL PROTEIN 8.1 GM/DL (6.4-8.2)
== END ==
LOC: M WUC 13:05
PROVIDERS: ATTEND Physician Assistant
DX: R05 Cough (principal); R50.9 Fever, unspecified

== ENCOUNTER → 2018-11-02 | Outpatient (CLI) | payer OTHER ==
[~2018-11-02] MED LIST changes: +LEXA1TAB PO; +MELO15TA28 PO; +OMEP40CA2 PO
--- NOTE | 2018-11-02 15:08 | REP ---
Chest two views HISTORY: Pneumonia Comparison: None The lungs are clear. The heart is normal in size. The pulmonary vasculature is normal in appearance. The bony structure is intact. IMPRESSION: No acute disease. Electronically Signed by Payam Manzanares MD 11/02/2018 03:00 P
== END ==
LOC: M RAD 14:41
PROVIDERS: ATTEND Nurse Practitioner Family
DX: Z09 Encounter for follow-up examination after completed treatment for conditions other than malignant neoplasm (principal); Z87.09 Personal history of other diseases of the respiratory system

== ENCOUNTER → 2018-11-07 | Outpatient (CLI) | payer OTHER ==
--- NOTE | 2018-11-07 10:21 | REPMRS ---
Patient History The patient states she has not had a clinical breast exam in over a year. Family history of breast cancer at age 50 or over in maternal aunt. 3D TOMOSYNTHESIS WAS PERFORMED. Digital Mammo Screening Bilat: November 07, 2018 - Exam #: [id number] Bilateral CC and MLO view(s) were taken. Technologist: Jessica Moser, Technologist FINDINGS: There are scattered fibroglandular densities. There is no evidence of cancer on this mammogram. Assessment: BI-RADS/ACR category 2 mammogram. Benign Findings. Recommendation Routine screening mammogram of both breasts in 1 year (for women over age 40). This mammogram was interpreted with the aid of an FDA-approved computer-aided dectection system. Electronically Signed By: Brant Henriquez MD 11/07/18 0085
== END ==
LOC: M RAD 09:12
PROVIDERS: ATTEND Family Medicine
DX: Z12.31 Encounter for screening mammogram for malignant neoplasm of breast (principal); Z80.3 Family history of malignant neoplasm of breast

== ENCOUNTER → 2018-11-15 | Outpatient (CLI) | payer OTHER ==
[~2018-11-15] MED LIST changes: -/DIVA50TA PO; -/DULO30CA OR; -/ESCI20TA OR; -/LAMO10TA PO; -ASPI1TAB PO; +ASPI81TA26 PO; +CYMB1CAP5 OR; +DEPA1TAB3 PO; +HYDR-3715 PO; +LAMI1TAB7 PO; +LEXA1TAB2 OR; +LISI-1046 PO; -LISI2.5T5 PO; -MIRT-16 PO; +MIRT1TAB16 PO; -NORC1TAB4 PO; +NORC1TAB7 PO; -NORCOTAB PO
--- NOTE | 2018-11-27 01:55 | ECWPNPC ---
PATIENT NAME: ROLY IVAN : 1975 GENDER: FEMALE VISIT DATE: 11/15/2018 DISCHARGE DATE: 11/15/18 1054 VISIT LOCKED DATE TIME: PHYSICIAN: ASHLEY MENDOZA RESOURCE: ASHLEY MENDOZA REASON FOR APPOINTMENT 1. 2 MONTHS HISTORY OF PRESENT ILLNESS HISTORY OF PRESENT ILLNESS: HERE FOR F/U OF CHRONIC LOW BACK PAIN AND RIGHT POSTERIOR THIGH PAIN.RATING PAIN VAS 7/10.FINDS CURRENT MEDICATION HELPFUL AT REDUCING PAIN AND KEEPING HER COMFORTABLE. PAIN THE PATIENT DESCRIBES THE PAIN... FALL RISK SCREENING: SCREENING :NO FALLS REPORTED IN THE LAST YEAR CURRENT MEDICATIONS TAKING GLUCOMETER DIRECTED BID; DX E11.8 TAKING SEROQUEL 200 MG TABLET 1 TABLET ORALLY ONCE A DAY TAKING LEXAPRO 10 MG TABLET 1 TABLET ORALLY ONCE A DAY TAKING BLOOD GLUCOSE METER - KIT DIRECTED DX: E11.65 DAILY TAKING BLOOD GLUCOSE TEST STRIP - STRIP DIRECTED IN VITRO DX: E11.65 FOUR TIMES DAILY NEEDED TAKING KLONOPIN 0.5 MG TABLET 1 TABLET NEEDED ORALLY ONCE A DAY TAKING EFFEXOR XR 75 MG CAPSULE EXTENDED RELEASE 24 HOUR 1 CAPSULE WITH FOOD ORALLY ONCE A DAY TAKING MIRTAZAPINE [address] ONE TABLET BY MOUTH AT BEDTIME ORAL TAKING TIZANIDINE HCL 4 MG TABLET 1 CAP ORALLY THREE TIMES A DAY TAKING GABAPENTIN 300 MG CAPSULE 1 CAP ORALLY Q8H TID TAKING ASPIR-LOW 81 MG TABLET DELAYED RELEASE 1 TABLET ORALLY ONCE A DAY TAKING ATORVASTATIN CALCIUM 40 MG TABLET 1 TABLET ORALLY ONCE A DAY TAKING LISINOPRIL 2.5 MG TABLET 1 TABLET ORALLY ONCE A DAY TAKING BD PEN NEEDLE MINI U/F 31G X 5 MM MISCELLANEOUS DIRECTED DAILY TAKING PERCOCET 5-325 MG TABLET 1 TABLET NEEDED ORALLY EVERY 6 HRS PRN PAIN MDD4 TAKING HYDROCORTISONE 2.5 % CREAM 1 APPLICATION TO AFFECTED AREA EXTERNALLY TO ARMS TWICE A DAY TAKING BASAGLAR KWIKPEN 100 UNIT/ML SOLUTION PEN-INJECTOR 35 UNITS SUBCUTANEOUS DAILY DX: E11.65 TAKING MOBIC 15 MG TABLET 1 TABLET ORALLY ONCE A DAY TAKING OMEPRAZOLE 40 MG CAPSULE DELAYED RELEASE 1 CAPSULE ORALLY ONCE A DAY TAKING METFORMIN HCL ER 500 MG TABLET EXTENDED RELEASE 24 HOUR 4 TABLET ORALLY DAILY MEDICATION LIST REVIEWED AND RECONCILED WITH THE PATIENT PAST MEDICAL HISTORY DIABETES MELLITUS TYPE 2 CHRONIC BACK PAIN HYPERLIPIDEMIA DIABETIC NEUROPATHY IN FEET INSOMNIA ANXIETY BIPOLAR DISORDER GERD RLL NODULE, 7 MM ON CTA 09/2018; NEEDS F/U CT 03/2019 ALLERGIES TORADOL: RASH - ALLERGY SURGICAL HISTORY APPENDECTOMY GALLBLADDER REMOVAL TUBAL TOTAL HYSTERECTOMY FOR PAIN AND OVARIAN CYST DISC DECOMPRESSION CARPAL TUNNEL--RIGHT LEFT KNEE MINISCUS X2 SPINAL FUSION, L4-5, L5-S1 12/12/17 FAMILY HISTORY FATHER: ALIVE MOTHER: 54 YRS, DIAGNOSED WITH HEART DISEASE, DIABETES 1 SON(S) , 3 DAUGHTER(S) - HEALTHY. FATHER--PT IS DOES NOT KNOW HER DAD\\\'S MEDICAL HISTORY. SOCIAL HISTORY GENERAL: TOBACCO USE ARE YOU A:CURRENT SMOKER ARE YOU INTERESTED IN QUITTING?THINKING ABOUT QUITTING PREVIOUS QUIT ATTEMPTS?YES, MORE THAN 6 MONTHS AGO. COUNSELED THE PATIENT ON SMOKING CESSATION, EDUCATION [id number]/29/[id number] HOW MANY CIGARETTES A DAY DO YOU SMOKE?6-10 HOW SOON AFTER YOU WAKE UP DO YOU SMOKE YOUR FIRST CIGARETTE?WITHIN 5 MIN HOW OFTEN DO YOU SMOKE CIGARETTES?EVERY DAY PATIENT COUNSELED ON THE DANGERS OF TOBACCO USE AND URGED TO QUIT:11/04/2018 SMOKING CESSATION INFORMATION GIVEN11/04/2018 LATEX QUESTIONNAIRE LATEX ALLERGY : HAVE YOU EVER DEVELOPED ANY TYPE OF REACTION AFTER HANDLING LATEX PRODUCTS SUCH RUBBER GLOVES, CONDOMS, DIAPHRAGMS, BALLOONS, SOCKS, OR UNDERWEAR?NO LATEX ALLERGY : HAVE YOU EVER DEVELOPED ANY TYPE OF REACTION DURING OR AFTER DENTAL APPOINTMENT, VAGINAL/RECTAL EXAMINATION, SURGICAL PROCEDURE, OR ANY OTHER EXPOSURE?NO DATE ASKED : 11/04/2018 LATEX RISK : HAVE YOU EVER HAD ANY DIFFICULTY BREATHING OR HIVES AFTER EATING OR HANDLING ANY FRUITS, OR VEGETABLES; SUCH KIWI, BANANAS, STONE FRUITS, OR CHESTNUTSNO LATEX RISK : DO YOU HAVE A PREVIOUS PERSONAL HISTORY OF MORE THAN NINE SURGERIES, SPINA BIFIDA, OR REPEATED CATHERTIZATIONS? NO LATEX RISK : ARE YOU FREQUENTLY EXPOSED TO LATEX PRODUCTS IN YOUR OCCUPATION?NO ALCOHOL SCREENING DID YOU HAVE A DRINK CONTAINING ALCOHOL IN THE PAST YEAR?NO POINTS0 INTERPRETATIONNEGATIVE RECREATIONAL DRUG USE DRUG USE?NO CAFFEINE CAFFEINE USE?YES HOW OFTEN AND HOW MUCH? 2 CUPS COFFEE, 1 LITER SODA/DAY SEXUAL HX HAD SEX IN THE LAST 12 MONTHS (VAGINAL, ORAL, OR ANAL)?YES WITHMEN ONLY PREVENTION STRATEGIES DISCUSSED:CONDOMS USE PROTECTION?NO HAVE YOU EVER HAD AN STD?NO HIV / HEP-C SCREENING HIV TEST OFFERED TO PATIENT:YES DATE OFFERED:06/27/2017 TEST ACCEPTED:NO HEP-C TEST OFFERED TO PATIENT:NO REASON:PATIENT DECLINED HINDU [id number] [employer] LANGUAGE LANGUAGES SPOKEN:UGANDAN EDUCATION LEVEL OF EDUCATION:FINISHED HIGH SCHOOL LEARNING BARRIERS / SPECIAL NEEDS CHANGE FROM LAST VISIT?NO BARRIERS TO LEARNING?NO HEARING IMPAIRED?YES LEFT EAR VISION IMPAIRED?YES COGNITIVELY IMPAIRED?NO :CORRECTIVE LENSES READINESS TO LEARN?YES LEARNING PREFERENCES?YES :DEMONSTRATION/VERBAL INSTRUCTION LEARNING CAPABILITIES PRESENT?YES EMOTIONAL BARRIERS?NO SPECIAL DEVICES?NO FLIGHT INFORMATION EXPEDITER NEEDED?NO DOMESTIC VIOLENCE DO YOU FEEL SAFE IN YOUR ENVIRONMENT?YES OCCUPATION: DISABLED. DIET: REGULAR, CARBOHYDRATE CONTROLLED. EXERCISE: DAILY. MARITAL STATUS: .. OTHERS AT HOME: [place]. PAIN CLINIC PFS, CLERGY, PUBLIC HEALTH REFERRALS PFS REFERRAL NEEDED?NO CLERGY REFERRAL NEEDED?NO PUBLIC HEALTH REFERRAL NEEDED?NO WAS THE PROVIDER NOTIFIED OF ANY PERTINENT INFO? N/A HAS THE PATIENT BEEN EDUCATED REGARDING HIS/HER PLAN OF CARE?YES HAS THE PATIENT BEEN EDUCATED REGARDING PAIN, THE RISK FOR PAIN, THE IMPORTANCE OF EFFECTIVE PAIN MANAGEMENT, AND THE PAIN ASSESSMENT PROCESS?YES ADVANCE DIRECTIVE ADVANCE DIRECTIVE DISCUSSED WITH PATIENT:YES NOT AT THIS TIME REVIEWED NL 07/15/18. HOSPITALIZATION/MAJOR DIAGNOSTIC PROCEDURE BROWN RECLUSE BITE LEFT FOOT MH X2 CHILDBIRTH X4 VOMITTING 12/04/2017 INPATIENT MENTAL HEALTH 03/2018 SUICIDAL THREAT OF TAKING AN OVERDOSE OF PILLS ([facility]) 04/15/2018- 04/23/2018 DM 09/21/2018 REVIEW OF SYSTEMS REVIEWED BY: PROVIDER: ASHLEY MARQUEZ . CONSTITUTIONAL: ANY CHANGE IN YOUR MEDICAL CONDITION? NO . CHILLS NO . FEVER NO . INFECTION: DO YOU HAVE NEW INFECTIONS? YES, PNEUMONIA 2 MOS AGO, ALL BETTER . DO YOU HAVE HISTORY OF MRSA? YES . MUSCULOSKELETAL: ANY NEW PATTERNS OF PAIN OR NUMBNESS? NO . GASTROENTEROLOGY: ANY NEW CHANGE IN BOWEL CONTROL? NO . GENITOURINARY: ANY NEW CHANGE IN BLADDER CONTROL? NO . IS THERE A CHANCE YOU COULD BE ? NO . HEMATOLOGY/LYMPH: DO YOU TAKE ANY BLOOD THINNERS? (FOR EXAMPLE- COUMADIN, PLAVIX, AGGRENOX, PLATEL, PRADAXA, OR XARELTO) NO . WHEN WAS YOUR LAST DOSE? DATE: TIME: . NEUROLOGY: HAVE YOU FALLEN IN THE PAST 12 MONTHS? NO . ANY NEW EXTREMITY NUMBNESS OR WEAKNESS? NO . CARDIOLOGY: DO YOU HAVE A PACEMAKER OR DEFIBRILLATOR? NO . RESPIRATORY: HAVE YOU BEEN SICK IN THE PAST WEEK? NO . FEVER NO . FLU LIKE SYMPTOMS? NO . COUGH NO . INTEGUMENTARY: DO YOU HAVE ANY RASHES OR OPEN SORES? YES, BILAT FOREARMS . ALLERGIC/IMMUNO: ARE YOU ALLERGIC TO IV DYE? NO . ANY NEW ALLERGIES? NO . PSYCHIATRIC: DO YOU HAVE THOUGHTS OF HURTING YOURSELF OR SOMEONE ELSE? NO . ARE YOU ABUSED, NEGLECTED, OR IN AN UNSAFE ENVIRONMENT? NO . ENDOCRINOLOGY: ARE YOU DIABETIC? YES . OTHER: DO YOU NEED ANY PRESCRIPTIONS? NO . IF YES, PLEASE LIST: ____ . ANY NEW PROBLEMS WITH YOUR MEDICATIONS? NO . WHEN DID YOU LAST EAT? ____ . WHEN DID YOU LAST DRINK? ____ . WHAT DID YOU LAST DRINK? ____ . NAME OF PERSON DRIVING YOU HOME? ____ . DO YOU HAVE ANY OTHER QUESTIONS OR CONCERNS NO . VITAL SIGNS WT 233 LBS, HT 68 IN, BMI 35.42 INDEX, BP 124/73 MM HG, HR 103 /MIN, RR 16 /MIN, TEMP 96.3 F, OXYGEN SAT % 96, REVIEWED BY: EM. EXAMINATION GENERAL EXAMINATION: GENERAL APPEARANCE:AWAKE,ALERT ,PLEAASANT . PSYCHAFFECT NORMAL . LUNGS:LUNG TORRES ARE CLEAR TO AUSCULTATION BILATERALLY. GOOD MOVEMENT OF AIR . HEART:S1, S2 IN A REGULAR RATE AND RHYTHM. NO SIGNIFICANT MURMURS, RUBS OR GALLOPS NOTED . ASSESSMENTS INTERVERTEBRAL DISC DISORDER WITH RADICULOPATHY OF LUMBOSACRAL REGION - M51.17 (PRIMARY) TREATMENT INTERVERTEBRAL DISC DISORDER WITH RADICULOPATHY OF LUMBOSACRAL REGION CONTINUE TIZANIDINE HCL TABLET, 4 MG, 1 CAP, ORALLY, THREE TIMES A DAY CONTINUE GABAPENTIN CAPSULE, 300 MG, 1 CAP, ORALLY, Q8H TID REFILL PERCOCET TABLET, 5-325 MG, 1 TABLET NEEDED, ORALLY, EVERY 6 HRS PRN PAIN MDD4, 30 DAY(S), 120, REFILLS 0 NOTES: ISTOP REGISTRY REVIEWED AND DEMONSTRATES COMPLLIANCE. (REF # [id number] ) BRINGS IN MEDICATIONS WHICH IS APPROPRIATE FOR WHAT WAS DISPENSED. RECENT URINE TOXICOLOGY REVIEWED. NO UNAUTHORIZED MEDICATIONS. NO ILLICIT SUBSTANCES AND PRESCRIBED MEDICATIONS WERE PRESENT. URINE TOX TODAY, RISKS AND BENEFITS OF NARCOTIC/OPIOD MEDICATIONS WERE REVIEWED WITH PATIENT - THIS INCLUDES BUT IS NOT LIMITED TO RISK OF DEPENDANCE/DEVELOPMENT OF ADDICTION, MOOD DISTURBANCE AND DEPRESSION, OSTEOPOROSIS, HORMONAL AND LABIDAL CHANGES, RESPIRATORY DEPRESSION AND . PATIENT IS ADVISED NOT TO DRIVE OR DRINK ALCOHOL WHILE ON THESE MEDICATIONS. PROCEDURE CODES FA211 ESTABILISHED PATIENT [facility] CHARGE DISPOSITION & COMMUNICATION FOLLOW UP 3 MONTHS ELECTRONICALLY SIGNED BY ALMA GRAHAM ON 11/26/2018 AT 11:17 AM EDT DISCLAIMER : THIS IS A VISIT SUMMARY EXTRACTED FROM THE ECLINICALS[employer] Tour CHART. IT IS NOT A COPY OF THE [employer] PROGRESS NOTE. BAR
== END ==
LOC: M PAIN 10:45
PROVIDERS: ATTEND Nurse Practitioner Family
DX: M51.17 Intervertebral disc disorders with radiculopathy, lumbosacral region (principal); E11.42 Type 2 diabetes mellitus with diabetic polyneuropathy; E78.5 Hyperlipidemia, unspecified; G47.00 Insomnia, unspecified; F41.9 Anxiety disorder, unspecified; F31.9 Bipolar disorder, unspecified; K21.9 Gastro-esophageal reflux disease without esophagitis; R91.1 Solitary pulmonary nodule; F17.210 Nicotine dependence, cigarettes, uncomplicated; Z79.82 Long term (current) use of aspirin; Z79.891 Long term (current) use of opiate analgesic; Z79.84 Long term (current) use of oral hypoglycemic drugs; Z79.899 Other long term (current) drug therapy; Z90.49 Acquired absence of other specified parts of digestive tract; Z98.1 Arthrodesis status; Z90.710 Acquired absence of both cervix and uterus; Z88.8 Allergy status to other drugs, medicaments and biological substances

== ENCOUNTER → 2018-12-30 | Outpatient (REF) | payer OTHER ==
[2018-12-30 17:58] LABS: BASO # 0.1 10^3/uL (0.0-0.2); BASO % 0.5 % (0.0-1.0); EOS # 0.4 10^3/uL (0.0-0.50); EOS % 3.4 % (0.0-3.0); HEMATOCRIT 45.7 % (36.0-47.0); HEMOGLOBIN 14.7 g/dl (12.0-15.5); LYMPH # 2.9 10^3/uL (1.5-4.5); LYMPH % 23.5 % (24.0-44.0); MEAN CORPUSCULAR HEMOGLOBIN 29.7 pg (27.0-33.0); MEAN CORPUSCULAR HGB CONC 32.2 g/dl (32.0-36.5); MEAN CORPUSCULAR VOLUME 92.3 fl (80.0-96.0); MONO # 0.8 10^3/uL (0.0-0.8); MONO % 6.5 % (0.0-5.0); NEUTROPHILS # 8.1 10^3/uL (1.8-7.7); NEUTROPHILS % 65.8 % (36.0-66.0); PLATELET COUNT, AUTOMATED 276 10^3/uL (150-450); RED BLOOD COUNT 4.95 10^6/uL (4.00-5.40); WHITE BLOOD COUNT 12.3 10^3/uL (4.0-10.0)
[2018-12-30 18:11] LABS: ALBUMIN 3.6 GM/DL (3.2-5.2); ALT/SGPT 25 U/L (12-78); BILIRUBIN,TOTAL 0.4 MG/DL (0.2-1.0); BLOOD UREA NITROGEN 11 MG/DL (7-18); CALCIUM LEVEL 8.8 MG/DL (8.5-10.1); CARBON DIOXIDE LEVEL 26 MEQ/L (21-32); CHLORIDE LEVEL 104 MEQ/L (98-107); CREATININE FOR GFR 0.83 MG/DL (0.55-1.30); GLOMERULAR FILTRATION RATE > 60.0 (>58); GLUCOSE, FASTING 205 MG/DL (70-100); LIPASE 107 U/L (73-393); POTASSIUM SERUM 3.8 MEQ/L (3.5-5.1); SODIUM LEVEL 137 MEQ/L (136-145); TOTAL PROTEIN 7.2 GM/DL (6.4-8.2)
[2018-12-30 18:32] LABS: HEMOGLOBIN A1c 7.7 %
[2018-12-30 20:11] LABS: MAU/CREAT RATIO 65.4 MCG/MG (0.0-30.0)
== END ==
LOC: M SFHCPLAZ 13:34
PROVIDERS: ATTEND Family Medicine
DX: E11.65 Type 2 diabetes mellitus with hyperglycemia (principal); R61 Generalized hyperhidrosis; R11.2 Nausea with vomiting, unspecified

== ENCOUNTER 2019-01-15 12:30 | Outpatient (RCR) | payer OTHER ==
[~2019-01-15 12:30] MED LIST changes: -TRAZ-160 PO; +TRAZ-252 PO
== END 2019-01-17 ==
LOC: M PT 12:30
PROVIDERS: ATTEND Family Medicine
DX: M75.01 Adhesive capsulitis of right shoulder (principal)

== ENCOUNTER 2019-01-25 08:42 | Inpatient (IN) | payer OTHER ==
[~2019-01-25] VITALS: Ht 172.7 cm; Wt 89.1 kg
[2019-01-25] MEDS ORDERED: ONDANSETRON 4MG/2ML VIAL (J2405) IV ONE (09:00)
[2019-01-25] MEDS ORDERED: NS 1,000 ML IV ONE (09:00)
[2019-01-25 09:13] LABS: BASO # 0.1 10^3/uL (0.0-0.2); BASO % 0.5 % (0.0-1.0); EOS # 0.5 10^3/uL (0.0-0.50); EOS % 3.8 % (0.0-3.0); HEMATOCRIT 47.2 % (36.0-47.0); HEMOGLOBIN 15.4 g/dl (12.0-15.5); LYMPH % 22.1 % (24.0-44.0); MEAN CORPUSCULAR HEMOGLOBIN 30.3 pg (27.0-33.0); MEAN CORPUSCULAR HGB CONC 32.6 g/dl (32.0-36.5); MEAN CORPUSCULAR VOLUME 92.7 fl (80.0-96.0); MONO # 0.8 10^3/uL (0.0-0.8); MONO % 5.8 % (0.0-5.0); NEUTROPHILS # 9.2 10^3/uL (1.8-7.7); NEUTROPHILS % 67.3 % (36.0-66.0); PLATELET COUNT, AUTOMATED 329 10^3/uL (150-450); RED BLOOD COUNT 5.09 10^6/uL (4.00-5.40); WHITE BLOOD COUNT 13.6 10^3/uL (4.0-10.0)
[2019-01-25 09:15] LABS: VENOUS BASE EXCESS -2.5 (-2.0-2.0); VENOUS HCO3 20.8 MEQ/L (23.0-27.0); VENOUS O2 SATURATION 83.9 % (60.0-80.0); VENOUS PARTIAL PRESSURE CO2 32.5 mmHg (38.0-50.0); VENOUS PARTIAL PRESSURE O2 45.1 mmHg (30.0-50.0); VENOUS PH 7.425 UNITS (7.330-7.430); VENOUS STANDARD HCO3 22.1 MEQ/L; VENOUS TOTAL CO2 21.8 MEQ/L (24.0-28.0)
[2019-01-25] MEDS ORDERED: HALOPERIDOL 5 MG/ML VIAL (J1630) IV ONE (09:15)
--- NOTE | 2019-01-25 09:30 | ECGEPIP ---
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
[2019-01-25] MEDS: MORPHINE 4 MG/ML 1ML VIAL/SYRINGE (J2270) IV PRN ×3 (09:35→21:26)
[2019-01-25 09:46] LABS: ALBUMIN 3.8 GM/DL (3.2-5.2); ALT/SGPT 30 U/L (12-78); BILIRUBIN,DIRECT < 0.1 MG/DL (0.0-0.2); BILIRUBIN,TOTAL 0.2 MG/DL (0.2-1.0); CK-MB VALUE MASS 3.3 NG/ML (<3.6); CPK CREATINE PHOSPHOKINASE 182 U/L (26-192); LIPASE 281 U/L (73-393); MB/CK RELATIVE INDEX 1.81 (< OR =4); TOTAL PROTEIN 8.5 GM/DL (6.4-8.2); TROPONIN I < 0.02 NG/ML (< 0.10)
[2019-01-25] MEDS ORDERED: PIPERACILLIN/TAZOBACTAM SOD 4.5 GM in D5W MINI-BAG PLUS 50 ML IV ONE (10:00)
[2019-01-25] MEDS ORDERED: NS IV ONE (10:00)
[2019-01-25] MEDS ORDERED: DILUENT IV ONE (10:00)
[2019-01-25 10:08] LABS: AMYLASE 29 U/L (25-115); C REACTIVE PROTEIN QUANTITATIV 0.52 MG/DL (0.00-0.30)
[2019-01-25 10:18] LABS: INR 0.87; PROTHROMBIN TIME 11.9 SECONDS (12.1-14.4)
[2019-01-25 10:19] LABS: PARTIAL THROMBOPLASTIN TIME 31.3 SECONDS (25.4-37.6)
--- NOTE | 2019-01-25 10:25 | REP ---
ABDOMEN, FLAT UPRIGHT, PA CHEST: HISTORY: Rule out small bowel obstruction. Air is present in small and large intestine. Several air fluid levels are present. There are no dilated loops of intestine. There is no pneumoperitoneum. The lungs are clear. The patient is status post L4 to S1 anterior and posterior spinal fusion and L4-5 laminectomy. IMPRESSION: Nonspecific bowel gas pattern. Electronically Signed by Payam Manzanares MD 01/25/2019 10:29 A
[2019-01-25 10:27] LABS: APPEARANCE, URINE HAZY (CLEAR); BACTERIA, URINE AUTO NEGATIVE (NEGATIVE); BILIRUBIN, URINE AUTO NEGATIVE (NEGATIVE); BLOOD, URINE BLOOD NEGATIVE (NEGATIVE); COLOR, URINE YELLOW (YELLOW); GLUCOSE, URINE (UA) AUTO 3+ mg/dL (NEGATIVE); KETONE, URINE AUTO 1+ mg/dL (NEGATIVE); LEUKOCYTE ESTERASE, URINE AUTO NEGATIVE (NEGATIVE); MUCUS, URINE SMALL (NEGATIVE); NITRITE, URINE AUTO NEGATIVE (NEGATIVE); PROTEIN, URINE AUTO NEGATIVE (NEGATIVE); RBC, URINE AUTO 2 /HPF (0-3); SPECIFIC GRAVITY URINE AUTO 1.018 (1.002-1.035); SQUAMOUS EPITHELIAL CELL UR AU 11 /HPF (0-6); UROBILINOGEN, URINE AUTO 0.2 mg/dL (0.0-2.0); WBC, URINE AUTO 1 /HPF (0-3)
[2019-01-25] MEDS ORDERED: ISOVUE-370 76% 100ML VIAL (Q9967) As Ordered ONE (10:34)
[2019-01-25] MEDS ORDERED: BASA100I SC (10:35)
[2019-01-25] MEDS ORDERED: VENL-115 PO (10:35)
[2019-01-25 11:02] LABS: AMPHETAMINES LEVEL URINE NEGATIVE (NEGATIVE); BARBITURATES URINE NEGATIVE (NEGATIVE); BENZODIAZEPINES URINE NEGATIVE (NEGATIVE); CANNABINOIDS URINE NEGATIVE (NEGATIVE); COCAINE METABOLITE URINE NEGATIVE (NEGATIVE); METHADONE URINE NEGATIVE (NEGATIVE); OPIATES URINE POSITIVE (NEGATIVE); PHENCYCLIDINE URINE NEGATIVE (NEGATIVE)
--- NOTE | 2019-01-25 12:06 | REP ---
CT ABDOMEN AND PELVIS WITH CONTRAST: HISTORY: Abdominal pain. CONTRAST: Isovue 370, 100 mL. COMPARISON: 07/30/2018. The patient is status post cholecystectomy. The liver is enlarged. There is fatty infiltration of the liver. The pancreas, spleen, adrenal glands and right kidney are normal in appearance. An ectopic left kidney is present in the left side of the pelvis. There is no mass, adenopathy or free fluid. The visualized lungs are clear. The patient is status post hysterectomy. The urinary bladder is normal in appearance. The patient is status post L4 to S1 anterior and posterior spinal fusion and L4-5 laminectomy. There is no subluxation. IMPRESSION: 1. Hepatomegaly and fatty infiltration of the liver. 2. The left kidney is ectopic, present in the left side of the pelvis. 3. The patient is status post hysterectomy. 4. The patient is status post L4 to S1 anterior and posterior spinal fusion and L4-5 laminectomy. Electronically Signed by Payam Manzanares MD 01/25/2019 12:20 P
[2019-01-25] MEDS ORDERED: METOCLOPRAMIDE INJ 10MG/2ML VIAL (J2765) IV ONE (15:00)
[2019-01-25] MEDS ORDERED: GLUCAGON FOR INJ 1 MG VIAL (J1610) SC PRN (15:15)
[2019-01-25] MEDS ORDERED: GLUCOSE 4 GM CHEW TABLET PO PRN (15:15)
[2019-01-25] MEDS ORDERED: DEXTROSE 50% 50 ML SYRINGE IV PRN (15:15)
[2019-01-25] MEDS ORDERED: clonazePAM 0.5 MG TAB PO PRN (15:30)
[2019-01-25] MEDS ORDERED: tiZANidine 4 MG TAB PO PRN (15:30)
[2019-01-25] MEDS: GABAPENTIN 300 MG CAP PO SCH ×2 (16:00→21:00)
[2019-01-25 16:18] VITALS: BP 150/90
[2019-01-25] MEDS: ONDANSETRON 4MG/2ML VIAL (J2405) IV PRN (16:54)
[2019-01-25] MEDS: HumaLOG INSULIN (NovoLOG) PER UNIT SC SCH ×2 (16:55→21:00)
[2019-01-25] MEDS: NS 1,000 ML IV SCH (16:55)
[2019-01-25] MEDS: PROCHLORPERAZINE 10 MG/2 ML VIAL (J0780) IV PRN (20:16)
[2019-01-25] MEDS: MIRTAZAPINE 15 MG TAB PO SCH (21:00)
[2019-01-25 22:00] VITALS: BP 146/93
[2019-01-25] MEDS: PANTOPRAZOLE 40MG INJ (PROTONIX) (C9113) IV SCH (22:26)
[2019-01-25] MEDS: LEVEMIR (INSULIN DETEMIR) 1 UNITS/0.01ML SC SCH (22:26)
[2019-01-26] MEDS: NS 1,000 ML IV SCH (02:00)
[2019-01-26] MEDS: MORPHINE 4 MG/ML 1ML VIAL/SYRINGE (J2270) IV PRN ×6 (02:18→23:45)
[2019-01-26] MEDS: ONDANSETRON 4MG/2ML VIAL (J2405) IV PRN ×4 (02:19→23:44)
[2019-01-26] MEDS: PROCHLORPERAZINE 10 MG/2 ML VIAL (J0780) IV PRN (04:52)
[2019-01-26 06:00] VITALS: BP 142/86
[2019-01-26 06:27] LABS: BASO % 0.1 % (0.0-1.0); EOS % 0.1 % (0.0-3.0); HEMATOCRIT 39.5 % (36.0-47.0); LYMPH # 2.2 10^3/uL (1.5-4.5); LYMPH % 14.6 % (24.0-44.0); MEAN CORPUSCULAR HEMOGLOBIN 29.5 pg (27.0-33.0); MEAN CORPUSCULAR HGB CONC 32.7 g/dl (32.0-36.5); MEAN CORPUSCULAR VOLUME 90.2 fl (80.0-96.0); MONO # 1.1 10^3/uL (0.0-0.8); MONO % 7.5 % (0.0-5.0); NEUTROPHILS # 11.8 10^3/uL (1.8-7.7); NEUTROPHILS % 77.2 % (36.0-66.0); PLATELET COUNT, AUTOMATED 260 10^3/uL (150-450); RED BLOOD COUNT 4.38 10^6/uL (4.00-5.40); WHITE BLOOD COUNT 15.3 10^3/uL (4.0-10.0)
[2019-01-26 06:33] LABS: HEMOGLOBIN 12.9 g/dl (12.0-15.5)
[2019-01-26 06:48] LABS: BLOOD UREA NITROGEN 9 MG/DL (7-18); CALCIUM LEVEL 8.1 MG/DL (8.5-10.1); CARBON DIOXIDE LEVEL 24 MEQ/L (21-32); CHLORIDE LEVEL 107 MEQ/L (98-107); CREATININE FOR GFR 0.68 MG/DL (0.55-1.30); GLOMERULAR FILTRATION RATE > 60.0 (>58); GLUCOSE, FASTING 191 MG/DL (70-100); POTASSIUM SERUM 3.4 MEQ/L (3.5-5.1); SODIUM LEVEL 139 MEQ/L (136-145)
[2019-01-26] MEDS: HumaLOG INSULIN (NovoLOG) PER UNIT SC SCH ×4 (07:30→20:40)
[2019-01-26] MEDS: GABAPENTIN 300 MG CAP PO SCH ×3 (08:45→20:51)
[2019-01-26] MEDS: LEVEMIR (INSULIN DETEMIR) 1 UNITS/0.01ML SC SCH ×2 (08:46→20:41)
[2019-01-26] MEDS: ENOXAPARIN 40 MG/0.4 ML SYRINGE (J1650) SC SCH (08:46)
[2019-01-26] MEDS: KCL 40MEQ in NS 1000ML 1,000 ML IV SCH ×2 (08:47→18:26)
--- NOTE | 2019-01-26 11:34 | HPEPDOC ---
General Date of Admission 01/25/19 Date of Service: Jan 25, 2019 Chief Complaint The patient is a 43-year-old female admitted with a reason for visit of N/V. Source: Patient, RN/MD, Old records Exam Limitations: No limitations Severity: Moderate Associated Symptoms: Nausea, Vomiting History of Present Illness The patient is a 43-year-old female with a significant past medical history of depression, anxiety, diabetes with neuropathy, hypertension, gastroesophageal reflux disease (GERD), chronic back pain on opiates follows with pain clinic presented to the ED with intractable Nausea and vomiting for about 3 hours followed by severe dry heaving. Prior to this overnight she had severeal episodes of loose bowel movement. the diarrhea was watery associated with crampy abdominal pain. there was no blood in it. The diarrhea stopped then she started vomiting from 6 am to 9 am continuous at least 8 to 10 times.It was dark green , bile and some were very dark. This was followed continuous nausea and dryheaves. She developed extremely soreness of her abdominal muscles. She does tell me that she always has a tendency to vomiting . She often vomiting 1 to 2 times per day with nausea if she is not careful with what she eats. In the ED she was found to have lacticacidosis. She was admitted for intractable vomiting from possible viral gastritis vs acute flare of diabetic gastroparesis with dehydration. Home Medications Scheduled Aspirin (Aspirin EC) 81 Mg Tab, 81 MG PO DAILY, (Reported) Escitalopram Oxalate (Lexapro) 10 Mg Tab, 10 MG PO DAILY, (Reported) Gabapentin (Neurontin) 300 Mg Cap, 300 MG PO TID, (Reported) Insulin Glargine,Hum.rec.anlog (Basaglar Kwikpen U-100) 100 Unit/1 Ml Insuln.pen, 35 UNIT SC QHS, (Reported) Lisinopril (Lisinopril) 2.5 Mg Tab, 2.5 MG PO QHS, (Reported) Meloxicam (Meloxicam) 15 Mg Tab, 15 MG PO DAILY, (Reported) Metformin HCl (Metformin HCl ER) 500 Mg Tab, 1,000 MG PO BID, (Reported) Mirtazapine (Mirtazapine) 30 Mg Tab, 30 MG PO QHS, (Reported) Omeprazole (Omeprazole) 40 Mg Cap, 40 MG PO DAILY, (Reported) Quetiapine Fumarate (Seroquel) 200 Mg Tab, 200 MG PO QHS, (Reported) Venlafaxine HCl (Venlafaxine HCl ER) 75 Mg Tab.er.24, 75 MG PO DAILY, (Reported) Scheduled PRN Clonazepam (Clonazepam) 0.5 Mg Tab, 0.5 MG PO DAILY PRN for ANXIETY, (Reported) Oxycodone HCl/Acetaminophen (Percocet 5-325 mg Tablet) 1 Tab Tab, 1 TAB PO Q6H PRN for PAIN, (Reported) Tizanidine HCl (Zanaflex) 4 Mg Tab, 4 MG PO TID PRN for MUSCLE SPASMS, (Reported) Allergies Coded Allergies: ketorolac (Verified Allergy, Severe, hives, 01/25/19) bee venom protein (honey bee) (Verified Adverse Reaction, Mild, hives, 01/25/19) duloxetine (Verified Adverse Reaction, Unknown, ANGRY, 01/25/19) Past Medical History Medical History 1. Anxiety/depression/ Bipolar/ History of SI/SA, overdose 2. Insulin dependent diabetes with neuropathy 3. hypertension 4. GERD 5. Migraine headache 6. Chronic back pain follows with pain clinic 7. Hepatomegaly/fatty liver 8. Known pulmonary nodule 9. Ectopic kidney 10. Obesity 11. Unsteady gait, does not use any assistive devices 12. Insomnia Surgical History Back surgery times two. Anterior and posterior spinal fusion at L4 to S1 levels. Appendectomy. Cholecystectomy. Total abdominal hysterectomy. Right carpal tunnel release Left knee surgery 2 Bilateral tubal ligation Deviated septum repair Family History Mother: , complications of diabetes Father: Alive, unknown Siblings: None Children: Alive, well Unexpected deaths due to medical reasons: None. 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) A-FIB/CHADSVASC A-FIB History Current/History of A-Fib/PAF?: No Vital Signs Vital Signs Date Time Temp Pulse Resp B/P (MAP) Pulse Ox O2 Delivery O2 Flow Rate FiO2 01/25/19 13:15 90 137/82 (100) 01/25/19 12:30 16 01/25/19 11:00 99 01/25/19 10:15 Room Air 01/25/19 08:52 98.6 Laboratory Data Labs 24H Laboratory Tests 2 01/25/19 08:49: Bedside Glucose (Misc Panel) 248H 01/25/19 08:59: Immature Granulocyte % (Auto) 0.5, White Blood Count 13.6H, Red Blood Count 5.09, Hemoglobin 15.4, Hematocrit 47.2H, Mean Corpuscular Volume 92.7, Mean Corpuscular Hemoglobin 30.3, Mean Corpuscular Hemoglobin Concent 32.6, Red Cell Distribution Width 13.1, Platelet Count 329, Neutrophils (%) (Auto) 67.3H, Lymphocytes (%) (Auto) 22.1L, Monocytes (%) (Auto) 5.8H, Eosinophils (%) (Auto) 3.8H, Basophils (%) (Auto) 0.5, Neutrophils # (Auto) 9.2H, Lymphocytes # (Auto) 3.0, Monocytes # (Auto) 0.8, Eosinophils # (Auto) 0.5, Basophils # (Auto) 0.1, Nucleated Red Blood Cells % (auto) 0.0, Blood Gas Bicarbonate Standard 22.1, Venous Blood pH 7.425, Venous Blood Partial Pressure CO2 32.5L, Venous Blood Partial Pressure O2 45.1, Venous Blood Total Carbon Dioxide 21.8L, Venous Blood HCO3 20.8L, Venous Blood Oxygen Saturation 83.9H, Venous Blood Base Excess - 2.5L, Lactic Acid Level 4.9*H, Aspartate Amino Transf (AST/SGOT) 16, Alanine Aminotransferase (ALT/SGPT) 30, Alkaline Phosphatase 112, Total Bilirubin 0.2, Direct Bilirubin < 0.1, Total Creatine Kinase 182, Creatine Kinase MB 3.3, Creatine Kinase MB Relative Index 1.81, Troponin I < 0.02, C-Reactive Protein, Quantitative 0.52H, Total Protein 8.5H, Albumin 3.8, Albumin/Globulin Ratio 0.81L, Amylase Level 29, Lipase 281 01/25/19 09:00: POC Glucose (Misc Panel) 254H, POC Sodium (Misc Panel) 143, POC Potassium (Misc Panel) 4.1, POC Chloride (Misc Panel) 104, POC Total CO2 (Misc Panel) 23.0, POC Blood Urea Nitrogen (Misc Panel 16, POC Ionized Calcium (Misc Panel) 4.7, POC Creatinine (Misc Panel) 0.7, POC Hematocrit (Misc Panel) 47.0 01/25/19 09:49: Prothrombin Time 11.9L, Prothromb Time International Ratio 0.87, Activated Partial Thromboplast Time 31.3 01/25/19 09:56: Urine Appearance HAZY, Urine Color YELLOW, Urine pH 7.0, Urine Specific [place] 1.018, Urine Protein NEGATIVE, Urine Glucose (UA) 3+H, Urine Ketones 1+H, Urine Urobilinogen 0.2, Urine Bilirubin NEGATIVE, Urine Leukocyte Esterase NEGATIVE, Urine Blood NEGATIVE, Urine Nitrite NEGATIVE, Urine WBC (Auto) 1, Urine RBC (Auto) 2, Urine Hyaline Casts (Auto) 1, Urine Bacteria (Auto) NEGATIVE, Urine Squamous Epithelial Cells 11, Urine Mucus (Auto) SMALL, Urine Sperm (Auto) , Urine Amphetamines Screen NEGATIVE, Urine Benzodiazepines Screen NEGATIVE, Urine Opiates Screen POSITIVEH, Urine Methadone Screen NEGATIVE, Urine Barbiturates Screen NEGATIVE, Urine Phencyclidine Screen NEGATIVE, Urine Cocaine Metabolite Screen NEGATIVE, Urine Cannabinoids Screen NEGATIVE 01/25/19 13:37: Lactic Acid Followup at 4 Hours 2.9*H CBC/BMP Laboratory Tests 01/25/19 08:59 Red Blood Count 5.09, Mean Corpuscular Volume 92.7, Mean Corpuscular Hemoglobin 30.3, Mean Corpuscular Hemoglobin Concent 32.6, Red Cell Distribution Width 13.1, Neutrophils (%) (Auto) 67.3 H, Lymphocytes (%) (Auto) 22.1 L, Monocytes (%) (Auto) 5.8 H, Eosinophils (%) (Auto) 3.8 H, Basophils (%) (Auto) 0.5, Neutrophils # (Auto) 9.2 H, Lymphocytes # (Auto) 3.0, Monocytes # (Auto) 0.8, Eosinophils # (Auto) 0.5, Basophils # (Auto) 0.1 Microbiology Microbiology 01/25/19 Blood Culture, Received Pending 01/25/19 Blood Culture, Received Pending 01/25/19 Urine Culture, Received Pending Assessment/Plan The patient is a 43-year-old female with a significant past medical history of depression, anxiety, diabetes with neuropathy, hypertension, gastroesophageal reflux disease (GERD), chronic back pain on opiates follows with pain clinic presented to the ED with intractable Nausea and vomiting for about 3 hours followed by severe dry heaving. Prior to this overnight she had severeal episodes of loose bowel movement. the diarrhea was watery associated with crampy abdominal pain. there was no blood in it. The diarrhea stopped then she started vomiting from 6 am to 9 am continuous at least 8 to 10 times.It was dark green , bile and some were very dark. This was followed continuous nausea and dryheaves. She developed extremely soreness of her abdominal muscles. She does tell me that she always has a tendency to vomiting . She often vomiting 1 to 2 times per day with nausea if she is not careful with what she eats. In the ED she was found to have lacticacidosis. She was admitted for intractable vomiting from possible viral gastritis vs acute flare of diabetic gastroparesis with dehydration. Nausea and vomiting possibly acute flare of diabetic gastroparesis vs viral gastritis IVF, clear liquids, zofran, compazine, reglan prn, morphine for pain. bowel rest. gastric emptying study insulin dependent diabetes will palce on low dose of levemir withhold parameters and lispro as per sliding scale Diabetic neuropathy continue gabapentin Anxiety/depression/ Bipolar/ History of SI/SA, overdose continue mirtazapine, clonazepam will hold seroquel due to drug interaction with antiemetics, Hypertension GERD ppi Chronic back pain follows with pain clinic history of back surgery in [place] in 2018 will get records. continue with tizanidine, gabapentin, oxycodone morphine prn. Hepatomegaly/fatty liver Known pulmonary nodule Ectopic kidney Obesity Plan / VTE VTE Prophylaxis Ordered?: Yes CARLITA PIMENTEL MD Jan 25, 2019 14:34
--- NOTE | 2019-01-26 11:41 | IPNPDOC ---
Subjective Date Seen The patient was seen on 01/26/19. Subjective Chief Complaint/HPI Still very nauseous, try clear liquids , no vomiting. No further bowel movements. Patient tells me she had endoscopy in [place] last year and it showed gastroparesis. will request records. Objective Physical Examination General Exam: Positive: Alert, Cooperative, No Acute Distress Eye Exam: Positive: PERRLA, Conjunctiva & lids normal, EOMI; Negative: Sclera icteric ENT Exam: Positive: Atraumatic, Mucous membr. moist/pink, Pharynx Normal Neck Exam: Positive: Supple; Negative: JVD, thyromegaly Chest Exam: Positive: Clear to auscultation, Normal air movement Heart Exam: Positive: Rate Normal, Regular Rhythm, Normal S1, Normal S2; Negative: Murmurs, Rubs Abdomen Exam: Positive: BS Hypoactive, Soft, Tenderness; Negative: Hepatospenomegaly Extremity Exam: Positive: Normal pulses; Negative: Clubbing, Cyanosis, Edema Skin Exam: Positive: Nl turgor and temperature; Negative: Rash, Breakdown Assessment /Plan Assessment The patient is a 43-year-old female with a significant past medical history of depression, anxiety, diabetes with neuropathy, hypertension, gastroesophageal reflux disease (GERD), chronic back pain on opiates follows with pain clinic presented to the ED with intractable Nausea and vomiting for about 3 hours followed by severe dry heaving. Prior to this overnight she had severeal episodes of loose bowel movement. the diarrhea was watery associated with crampy abdominal pain. there was no blood in it. The diarrhea stopped then she started vomiting from 6 am to 9 am continuous at least 8 to 10 times.It was dark green , bile and some were very dark. This was followed continuous nausea and dry heaves. She developed extremely soreness of her abdominal muscles. She does tell me that she always has a tendency to vomiting . She often vomiting 1 to 2 times per day with nausea if she is not careful with what she eats. In the ED she was found to have lactacidosis. She was admitted for intractable vomiting from possible viral gastritis vs acute flare of diabetic gastroparesis with dehydration. Nausea and vomiting possibly acute flare of diabetic gastroparesis vs viral gastritis IVF, clear liquids, zofran, compazine, reglan prn, morphine for pain. bowel rest. gastric emptying study Had EGD last year will get records from [facility] insulin dependent diabetes will place on low dose of levemir withhold parameters and lispro as per sliding scale Diabetic neuropathy continue gabapentin Anxiety/depression/ Bipolar/ History of SI/SA, overdose continue mirtazapine, clonazepam will hold seroquel due to drug interaction with antiemetics, Hypertension GERD ppi Chronic back pain follows with pain clinic history of back surgery in [place] in 2018 will get records. continue with tizanidine, gabapentin, oxycodone morphine prn. Hepatomegaly/fatty liver Known pulmonary nodule Ectopic kidney Obesity Plan/VTE VTE Prophylaxis Ordered?: Yes Attending Note I have examined the patient and discussed the plan of care with the resident. I agree with the resident's documentation. VS, I&O, 24H, Fishbone Vital Signs/I&O Vital Signs Date Time Temp Pulse Resp B/P (MAP) Pulse Ox O2 Delivery O2 Flow Rate FiO2 01/26/19 10:32 18 01/26/19 06:00 98.9 82 142/86 (104) 96 01/25/19 10:15 Room Air I&O- Last 24 Hours up to 6 AM 01/26/19 06:00 Intake Total 4940 ml Output Total 0 ml Balance 4940 ml Laboratory Data 24H LABS Laboratory Tests 2 01/25/19 13:37: Lactic Acid Followup at 4 Hours 2.9*H 01/25/19 16:21: Bedside Glucose (Misc Panel) 220H 01/25/19 19:58: Bedside Glucose (Misc Panel) 222H 01/26/19 06:05: Immature Granulocyte % (Auto) 0.5, White Blood Count 15.3H, Red Blood Count 4.38, Hemoglobin 12.9#, Hematocrit 39.5, Mean Corpuscular Volume 90.2, Mean Corpuscular Hemoglobin 29.5, Mean Corpuscular Hemoglobin Concent 32.7, Red Cell Distribution Width 13.2, Platelet Count 260, Neutrophils (%) (Auto) 77.2H, Lymphocytes (%) (Auto) 14.6L, Monocytes (%) (Auto) 7.5H, Eosinophils (%) (Auto) 0.1, Basophils (%) (Auto) 0.1, Neutrophils # (Auto) 11.8H, Lymphocytes # (Auto) 2.2, Monocytes # (Auto) 1.1H, Eosinophils # (Auto) 0.0, Basophils # (Auto) 0.0, Nucleated Red Blood Cells % (auto) 0.0, Anion Gap 8, Glomerular Filtration Rate > 60.0, Blood Urea Nitrogen 9, Creatinine 0.68, Sodium Level 139, Potassium Level 3.4L, Chloride Level 107, Carbon Dioxide Level 24, Calcium Level 8.1L 01/26/19 08:16: Lactic Acid Level 1.4 CBC/BMP Laboratory Tests 01/26/19 06:05 Red Blood Count 4.38, Mean Corpuscular Volume 90.2, Mean Corpuscular Hemoglobin 29.5, Mean Corpuscular Hemoglobin Concent 32.7, Red Cell Distribution Width 13.2, Neutrophils (%) (Auto) 77.2 H, Lymphocytes (%) (Auto) 14.6 L, Monocytes (%) (Auto) 7.5 H, Eosinophils (%) (Auto) 0.1, Basophils (%) (Auto) 0.1, Neutrophils # (Auto) 11.8 H, Lymphocytes # (Auto) 2.2, Monocytes # (Auto) 1.1 H, Eosinophils # (Auto) 0.0, Basophils # (Auto) 0.0, Calcium Level 8.1 L Microbiology Microbiology 01/25/19 Blood Culture - Preliminary, Resulted No growth after 24 hours . All specim... 01/25/19 Blood Culture - Preliminary, Resulted No growth after 24 hours . All specim... 01/25/19 Urine Culture, Received Pending CARLITA PIMENTEL MD Jan 26, 2019 11:20
[2019-01-26] MEDS: PROMETHAZINE INJ 25 MG/ML VIAL (J2550) IV PRN ×2 (13:09→18:26)
[2019-01-26 14:00] VITALS: BP 150/96
[2019-01-26] MEDS ORDERED: HALOPERIDOL 5 MG/ML VIAL (J1630) IV ONE (16:00)
[2019-01-26] MEDS ORDERED: diphenhydrAMINE INJ 50MG/ML VIAL (J1200) IV ONE (16:00)
[2019-01-26] MEDS: PANTOPRAZOLE 40MG INJ (PROTONIX) (C9113) IV SCH (20:50)
[2019-01-26] MEDS: MIRTAZAPINE 15 MG TAB PO SCH (20:51)
[2019-01-26 22:00] VITALS: BP 141/69
[2019-01-26] MEDS ORDERED: LORazepam 2 MG/ML VIAL (J2060) IV ONE (22:30)
[2019-01-27] MEDS: KCL 40MEQ in NS 1000ML 1,000 ML IV SCH ×2 (01:06→04:44)
[2019-01-27] MEDS: PROMETHAZINE INJ 25 MG/ML VIAL (J2550) IV PRN ×4 (02:23→23:27)
[2019-01-27] MEDS: MORPHINE 4 MG/ML 1ML VIAL/SYRINGE (J2270) IV PRN ×3 (04:34→21:24)
[2019-01-27] MEDS: ONDANSETRON 4MG/2ML VIAL (J2405) IV PRN ×3 (04:34→21:23)
[2019-01-27 06:00] VITALS: BP 168/74
[2019-01-27 06:04] LABS: BASO % 0.3 % (0.0-1.0); EOS % 0.1 % (0.0-3.0); HEMATOCRIT 37.6 % (36.0-47.0); HEMOGLOBIN 12.2 g/dl (12.0-15.5); LYMPH # 2.2 10^3/uL (1.5-4.5); LYMPH % 19.8 % (24.0-44.0); MEAN CORPUSCULAR HEMOGLOBIN 29.2 pg (27.0-33.0); MEAN CORPUSCULAR HGB CONC 32.4 g/dl (32.0-36.5); MONO # 0.9 10^3/uL (0.0-0.8); MONO % 8.6 % (0.0-5.0); NEUTROPHILS # 7.7 10^3/uL (1.8-7.7); NEUTROPHILS % 70.5 % (36.0-66.0); PLATELET COUNT, AUTOMATED 207 10^3/uL (150-450); RED BLOOD COUNT 4.18 10^6/uL (4.00-5.40); WHITE BLOOD COUNT 10.9 10^3/uL (4.0-10.0)
[2019-01-27 06:31] LABS: BLOOD UREA NITROGEN 7 MG/DL (7-18); CALCIUM LEVEL 8.4 MG/DL (8.5-10.1); CARBON DIOXIDE LEVEL 25 MEQ/L (21-32); CHLORIDE LEVEL 108 MEQ/L (98-107); CREATININE FOR GFR 0.66 MG/DL (0.55-1.30); GLOMERULAR FILTRATION RATE > 60.0 (>58); GLUCOSE, FASTING 176 MG/DL (70-100); POTASSIUM SERUM 3.7 MEQ/L (3.5-5.1); SODIUM LEVEL 139 MEQ/L (136-145)
[2019-01-27] MEDS: HumaLOG INSULIN (NovoLOG) PER UNIT SC SCH ×4 (07:30→21:00)
[2019-01-27] MEDS: LEVEMIR (INSULIN DETEMIR) 1 UNITS/0.01ML SC SCH ×2 (07:32→21:00)
[2019-01-27] MEDS: GABAPENTIN 300 MG CAP PO SCH ×3 (09:00→22:15)
[2019-01-27] MEDS ORDERED: ONDANSETRON 4 MG ORAL DISINTEGRATING TAB (Q0162 PER 1MG) PO ONE (10:00)
[2019-01-27] MEDS: ENOXAPARIN 40 MG/0.4 ML SYRINGE (J1650) SC SCH (10:03)
--- NOTE | 2019-01-27 10:18 | IPNPDOC ---
Date Seen The patient was seen on 01/27/19. Progress Note SUBJECTIVE: Patient is a 43-year-old female with intractable nausea and vomiting. She is evaluated at bedside this morning. She states that she continues to feel nauseated with abdominal pain, but has not vomited. She feels miserable. She wants to feel better. Denies chest pain, shortness of breath, fever, night sweats, chills. She is not thrilled about the gastric emptying jaciel dy and does not think she will be able to keep the eggs down. IV access was lost. OBJECTIVE PHYSICAL EXAMINATION: VITAL SIGNS: Please see below. GENERAL: Well nourished, well developed female, alert and conversant, answers questions appropriately, appears distressed and uncomfortable. HEENT: Atraumatic, normocephalic, PERRL, EOMI, oral mucosa appears pink and moist, nasal septum appears midline, nares are patent. CARDIOVASCULAR: Regular rate and rhythm, normal S1 and S2, no murmur, rub, click. RESPIRATORY: Clear to auscultation bilaterally, adequate inspiratory and expiratory airway excursion, symmetric airway entry, no focal consolidations, no wheeze, rhonchi, crackles. ABDOMINAL: Round, soft, somewhat tender to palpation with stethoscope, diminished bowel sounds throughout, no guarding, no rebound. EXTREMITIES: No peripheral edema, peripheral pulses and equal and symmetrical, +2. NEUROLOGICAL: CN II-XII grossly intact. PSYCHOLOGICAL: Distressed, uncomfortable. LABORATORY DATA, IMAGING STUDIES, MICROBIOLOGY: Please see below. DVT prophylaxis ordered?: Lovenox 40mg SQ daily ASSESSMENT AND PLAN: This is a 43-year-old female with intractable nausea and vomiting, possibly secondary to gastroparesis. PROBLEMS: 1. Intractable nausea and vomiting possibly 2/2 gastroparesis PICC line ordered STAT; peripheral IV access lost C/W Zofran 4mg IV Q4HP, Phenergan 25mg IV Q6HP C/W Morphine as needed for pain control IVF with K 40mEq in NS @ 100 mLs/hr Gastric emptying study ordered Clear liquid diet ordered 2. Diabetes mellitus,type II with diabetic neuropathy C/W Levemir 15 units SQ BID C/W SSI Ac/HS, FSBS AC/HS, hypoglycemic protocol C/W Gabapentin 3. Depression/anxiety and bipolar History of SI/SA and overdose C/W Clonazepam and Mirtazapine 4. Chronic back pain C/W Tizanidine, Morphine, and Gabapentin DISPOSITION: Gastric emptying study. VS, I&O, 24H, Fishbone Vital Signs/I&O Vital Signs Date Time Temp Pulse Resp B/P (MAP) Pulse Ox O2 Delivery O2 Flow Rate FiO2 01/27/19 06:00 98.9 68 18 168/74 (105) 97 01/26/19 18:36 2.0 01/25/19 10:15 Room Air I&O- Last 24 Hours up to 6 AM 01/27/19 06:00 Intake Total 1850 ml Output Total 400 ml Balance 1450 ml Laboratory Data 24H LABS Laboratory Tests 2 01/26/19 11:44: Bedside Glucose (Misc Panel) 194H 01/26/19 16:47: Bedside Glucose (Misc Panel) 160H 01/26/19 20:34: Bedside Glucose (Misc Panel) 168H 01/27/19 05:16: Bedside Glucose (Misc Panel) 169H 01/27/19 05:36: Immature Granulocyte % (Auto) 0.7, White Blood Count 10.9H, Red Blood Count 4.18, Hemoglobin 12.2, Hematocrit 37.6, Mean Corpuscular Volume 90.0, Mean Corpuscular Hemoglobin 29.2, Mean Corpuscular Hemoglobin Concent 32.4, Red Cell Distribution Width 13.0, Platelet Count 207, Neutrophils (%) (Auto) 70.5H, Lymphocytes (%) (Auto) 19.8L, Monocytes (%) (Auto) 8.6H, Eosinophils (%) (Auto) 0.1, Basophils (%) (Auto) 0.3, Neutrophils # (Auto) 7.7, Lymphocytes # (Auto) 2.2, Monocytes # (Auto) 0.9H, Eosinophils # (Auto) 0.0, Basophils # (Auto) 0.0, Nucleated Red Blood Cells % (auto) 0.0, Anion Gap 6L, Glomerular Filtration Rate > 60.0, Blood Urea Nitrogen 7, Creatinine 0.66, Sodium Level 139, Potassium Level 3.7, Chloride Level 108H, Carbon Dioxide Level 25, Calcium Level 8.4L CBC/BMP Laboratory Tests 01/27/19 05:36 Red Blood Count 4.18, Mean Corpuscular Volume 90.0, Mean Corpuscular Hemoglobin 29.2, Mean Corpuscular Hemoglobin Concent 32.4, Red Cell Distribution Width 13.0, Neutrophils (%) (Auto) 70.5 H, Lymphocytes (%) (Auto) 19.8 L, Monocytes (%) (Auto) 8.6 H, Eosinophils (%) (Auto) 0.1, Basophils (%) (Auto) 0.3, Neutrophils # (Auto) 7.7, Lymphocytes # (Auto) 2.2, Monocytes # (Auto) 0.9 H, Eosinophils # (Auto) 0.0, Basophils # (Auto) 0.0, Calcium Level 8.4 L Microbiology Microbiology 01/25/19 Blood Culture - Preliminary, Resulted No growth after 24 hours . All specim... 01/25/19 Blood Culture - Preliminary, Resulted No Growth after 48 hours. All Specime... 01/25/19 Urine Culture - Final, Complete Staphylococcus Simulans Corynebacterium Species Lactobacillus Species LEIGHA GRANT DO Jan 27, 2019 10:18
[2019-01-27] MEDS ORDERED: PROCHLORPERAZINE 25 MG SUPP PR PRN (12:30)
[2019-01-27] MEDS ORDERED: PROCHLORPERAZINE 5 MG TAB (S0183) PO PRN (12:30)
[2019-01-27 14:00] VITALS: BP 184/86
[2019-01-27] MEDS ORDERED: LIDOCAINE 1% MDV 20ML VIAL As Ordered ONE (14:58)
--- NOTE | 2019-01-27 18:48 | REP ---
MIDLINE INSERTION WITH ULTRASOUND GUIDANCE: REASON FOR EXAM: PROCEDURE: Midline catheter insertion under ultrasound guidance. This procedure was performed by JAIRO Manuel, under the direct supervision of Dr. Montgomery. The risks and benefits of the procedure were explained to the patient and informed consent was obtained prior to the procedure both verbally and written. Directly prior to the start of the procedure, a formal timeout was completed in the procedure room. The left basilic vein was localized using ultrasound guidance. The skin was prepped and draped in a sterile fashion. 1% lidocaine was used as a local anesthetic. Using ultrasound guidance the left basilic vein was cannulated and a 0.018 guidewire was inserted. The needle was removed and a 4.5 Welsh dilator and a Peel-Away sheath was inserted over the guidewire. A 4.5 Welsh dual lumen catheter was cut to the length of 10 cm. The dilator was removed and the catheter was inserted over the guidewire. The Peel-Away sheath was removed and the catheter was flushed with heparinized saline as per hospital protocol. The catheter was affixed to the skin and a sterile dressing was applied. The patient tolerated the procedure well and there were no immediate complications. Reviewed by JAIRO Fernandez 01/27/2019 05:43 P Electronically Signed by Lito Montgomery MD 01/27/2019 06:39 P
[2019-01-27 22:00] VITALS: BP 158/88
[2019-01-27] MEDS: MIRTAZAPINE 15 MG TAB PO SCH (22:15)
[2019-01-27] MEDS: PANTOPRAZOLE 40MG INJ (PROTONIX) (C9113) IV SCH (22:16)
[2019-01-28] MEDS: ONDANSETRON 4MG/2ML VIAL (J2405) IV PRN ×5 (01:29→20:21)
[2019-01-28] MEDS: MORPHINE 4 MG/ML 1ML VIAL/SYRINGE (J2270) IV PRN ×5 (01:30→20:22)
[2019-01-28] MEDS: KCL 40MEQ in NS 1000ML 1,000 ML IV SCH ×3 (02:49→21:27)
[2019-01-28 06:00] VITALS: BP 159/77
[2019-01-28 06:30] LABS: BASO % 0.4 % (0.0-1.0); EOS % 0.3 % (0.0-3.0); HEMATOCRIT 40.2 % (36.0-47.0); HEMOGLOBIN 13.2 g/dl (12.0-15.5); LYMPH # 2.7 10^3/uL (1.5-4.5); LYMPH % 23.4 % (24.0-44.0); MEAN CORPUSCULAR HEMOGLOBIN 29.2 pg (27.0-33.0); MEAN CORPUSCULAR HGB CONC 32.8 g/dl (32.0-36.5); MEAN CORPUSCULAR VOLUME 88.9 fl (80.0-96.0); MONO # 1.1 10^3/uL (0.0-0.8); NEUTROPHILS # 7.5 10^3/uL (1.8-7.7); NEUTROPHILS % 65.3 % (36.0-66.0); PLATELET COUNT, AUTOMATED 233 10^3/uL (150-450); RED BLOOD COUNT 4.52 10^6/uL (4.00-5.40); WHITE BLOOD COUNT 11.4 10^3/uL (4.0-10.0)
[2019-01-28 06:57] LABS: BLOOD UREA NITROGEN 8 MG/DL (7-18); CALCIUM LEVEL 8.8 MG/DL (8.5-10.1); CARBON DIOXIDE LEVEL 23 MEQ/L (21-32); CHLORIDE LEVEL 107 MEQ/L (98-107); CREATININE FOR GFR 0.68 MG/DL (0.55-1.30); GLOMERULAR FILTRATION RATE > 60.0 (>58); GLUCOSE, FASTING 171 MG/DL (70-100); POTASSIUM SERUM 3.6 MEQ/L (3.5-5.1); SODIUM LEVEL 138 MEQ/L (136-145)
[2019-01-28] MEDS: HumaLOG INSULIN (NovoLOG) PER UNIT SC SCH ×4 (07:30→20:23)
[2019-01-28] MEDS: LEVEMIR (INSULIN DETEMIR) 1 UNITS/0.01ML SC SCH ×2 (09:00→21:27)
--- NOTE | 2019-01-28 10:34 | IPNPDOC ---
Date Seen The patient was seen on 01/28/19. Progress Note SUBJECTIVE: improved on zofran and reglan with no nausea or vomiting. 8/10 pain when dry heaving. pt requests to eat today. Her PCP, Dr. Olivear, "wanted me to get this test done , but I'm not sure if she referred me to a specialist yet." Pt says she is from [place], but has settled in the [facility] for a few years now and would be okay to see a GI here. Objective VITALS: PLS SEE BELOW Physical Examination General Exam: Positive: Alert, Cooperative, No Acute Distress Eye Exam: Positive: PERRLA, Conjunctiva & lids normal, EOMI; Negative: Sclera icteric ENT Exam: Positive: Atraumatic, Mucous membr. moist/pink, Pharynx Normal Neck Exam: Positive: Supple; Negative: JVD, thyromegaly Chest Exam: Positive: Clear to auscultation, Normal air movement Heart Exam: Positive: Rate Normal, Regular Rhythm, Normal S1, Normal S2; Negative: Murmurs, Rubs Abdomen Exam: Positive: BS Hypoactive, Soft, Tenderness; Negative: Hepatospenomegaly Extremity Exam: Positive: Normal pulses; Negative: Clubbing, Cyanosis, Edema Skin Exam: Positive: Nl turgor and temperature; Negative: Rash, Breakdown LABORATORY DATA, MICROBIOLOGY, IMAGING STUDIES: PLS SEE BELOW, REVIEWED. Assessment /Plan The patient is a 43-year-old female with a significant past medical history of depression, anxiety, diabetes with neuropathy, hypertension, gastroesophageal reflux disease (GERD), chronic back pain on opiates follows with pain clinic presented to the ED with intractable Nausea and vomiting for about 3 hours followed by severe dry heaving. Prior to this overnight she had severeal episodes of loose bowel movement. the diarrhea was watery associated with crampy abdominal pain. there was no blood in it. The diarrhea stopped then she started vomiting from 6 am to 9 am continuous at least 8 to 10 times.It was dark green , bile and some were very dark. This was followed continuous nausea and dry heaves. She developed extremely soreness of her abdominal muscles. She does tell me that she always has a tendency to vomiting . She often vomiting 1 to 2 times per day with nausea if she is not careful with what she eats. In the ED she was found to have lactacidosis. She was admitted for intractable vomiting from possible viral gastritis vs acute flare of diabetic gastroparesis with dehydr ation. Nausea and vomiting possibly acute flare of diabetic gastroparesis vs viral gastritis IVF, clear liquids, zofran, compazine, reglan prn, morphine for pain. bowel rest. gastric emptying study Had EGD last year will get records from [facility] insulin dependent diabetes will place on low dose of levemir withhold parameters and lispro as per sliding scale Diabetic neuropathy continue gabapentin Anxiety/depression/ Bipolar/ History of SI/SA, overdose continue mirtazapine, clonazepam will hold seroquel due to drug interaction with antiemetics, Hypertension GERD ppi Chronic back pain follows with pain clinic history of back surgery in [place] in 2018 will get records. continue with tizanidine, gabapentin, oxycodone morphine prn. Hepatomegaly/fatty liver Known pulmonary nodule Ectopic kidney Obesity VS, I&O, 24H, Fishbone Vital Signs/I&O Vital Signs Date Time Temp Pulse Resp B/P (MAP) Pulse Ox O2 Delivery O2 Flow Rate FiO2 01/28/19 06:15 18 01/28/19 06:00 98.3 66 159/77 (104) 96 01/26/19 18:36 2.0 01/25/19 10:15 Room Air I&O- Last 24 Hours up to 6 AM 01/28/19 06:00 Intake Total 1500 ml Balance 1500 ml Laboratory Data 24H LABS Laboratory Tests 2 01/27/19 11:59: Bedside Glucose (Misc Panel) 217H 01/27/19 17:23: Bedside Glucose (Misc Panel) 202H 01/27/19 20:39: Bedside Glucose (Misc Panel) 161H 01/28/19 05:36: Bedside Glucose (Misc Panel) 190H 01/28/19 06:07: Immature Granulocyte % (Auto) 0.6, White Blood Count 11.4H, Red Blood Count 4.52, Hemoglobin 13.2, Hematocrit 40.2, Mean Corpuscular Volume 88.9, Mean Corpuscular Hemoglobin 29.2, Mean Corpuscular Hemoglobin Concent 32.8, Red Cell Distribution Width 12.8, Platelet Count 233, Neutrophils (%) (Auto) 65.3, Lymphocytes (%) (Auto) 23.4L, Monocytes (%) (Auto) 10.0H, Eosinophils (%) (Auto) 0.3, Basophils (%) (Auto) 0.4, Neutrophils # (Auto) 7.5, Lymphocytes # (Auto) 2.7, Monocytes # (Auto) 1.1H, Eosinophils # (Auto) 0.0, Basophils # (Auto) 0.0, Nucleated Red Blood Cells % (auto) 0.0, Anion Gap 8, Glomerular Filtration Rate > 60.0, Blood Urea Nitrogen 8, Creatinine 0.68, Sodium Level 138, Potassium Level 3.6, Chloride Level 107, Carbon Dioxide Level 23, Calcium Level 8.8 CBC/BMP Laboratory Tests 01/28/19 06:07 Red Blood Count 4.52, Mean Corpuscular Volume 88.9, Mean Corpuscular Hemoglobin 29.2, Mean Corpuscular Hemoglobin Concent 32.8, Red Cell Distribution Width 12.8, Neutrophils (%) (Auto) 65.3, Lymphocytes (%) (Auto) 23.4 L, Monocytes (%) (Auto) 10.0 H, Eosinophils (%) (Auto) 0.3, Basophils (%) (Auto) 0.4, Neutrophils # (Auto) 7.5, Lymphocytes # (Auto) 2.7, Monocytes # (Auto) 1.1 H, Eosinophils # (Auto) 0.0, Basophils # (Auto) 0.0, Calcium Level 8.8 Microbiology Microbiology 01/25/19 Blood Culture - Preliminary, Resulted No Growth after 48 hours. All Specime... 01/25/19 Blood Culture - Preliminary, Resulted No Growth after 72 hours. All specime... 01/25/19 Urine Culture - Final, Complete Staphylococcus Simulans Corynebacterium Species Lactobacillus Species FATOU LEWIS MD Jan 28, 2019 10:25
[2019-01-28] MEDS: GABAPENTIN 300 MG CAP PO SCH ×3 (10:58→20:21)
[2019-01-28] MEDS: ENOXAPARIN 40 MG/0.4 ML SYRINGE (J1650) SC SCH (10:59)
[2019-01-28 14:00] VITALS: BP 115/69
[2019-01-28] MEDS: PANTOPRAZOLE 40MG INJ (PROTONIX) (C9113) IV SCH (20:21)
[2019-01-28] MEDS: MIRTAZAPINE 15 MG TAB PO SCH (20:21)
[2019-01-28 22:00] VITALS: BP 130/74
[2019-01-29] MEDS: ONDANSETRON 4MG/2ML VIAL (J2405) IV PRN ×2 (01:08→07:38)
[2019-01-29] MEDS: MORPHINE 4 MG/ML 1ML VIAL/SYRINGE (J2270) IV PRN ×2 (01:09→07:40)
[2019-01-29] MEDS: KCL 40MEQ in NS 1000ML 1,000 ML IV SCH (05:47)
[2019-01-29 06:00] VITALS: BP 124/60
[2019-01-29 06:00] LABS: BASO # 0.1 10^3/uL (0.0-0.2); BASO % 0.6 % (0.0-1.0); EOS # 0.3 10^3/uL (0.0-0.50); EOS % 3.1 % (0.0-3.0); HEMATOCRIT 40.3 % (36.0-47.0); HEMOGLOBIN 13.1 g/dl (12.0-15.5); LYMPH # 3.8 10^3/uL (1.5-4.5); MEAN CORPUSCULAR HGB CONC 32.5 g/dl (32.0-36.5); MEAN CORPUSCULAR VOLUME 92.4 fl (80.0-96.0); MONO # 0.9 10^3/uL (0.0-0.8); MONO % 9.1 % (0.0-5.0); NEUTROPHILS # 4.9 10^3/uL (1.8-7.7); NEUTROPHILS % 48.7 % (36.0-66.0); PLATELET COUNT, AUTOMATED 205 10^3/uL (150-450); RED BLOOD COUNT 4.36 10^6/uL (4.00-5.40); WHITE BLOOD COUNT 10.1 10^3/uL (4.0-10.0)
[2019-01-29 06:29] LABS: BLOOD UREA NITROGEN 13 MG/DL (7-18); CALCIUM LEVEL 7.8 MG/DL (8.5-10.1); CARBON DIOXIDE LEVEL 23 MEQ/L (21-32); CHLORIDE LEVEL 113 MEQ/L (98-107); CREATININE FOR GFR 0.83 MG/DL (0.55-1.30); GLOMERULAR FILTRATION RATE > 60.0 (>58); GLUCOSE, FASTING 98 MG/DL (70-100); SODIUM LEVEL 141 MEQ/L (136-145)
[2019-01-29] MEDS: HumaLOG INSULIN (NovoLOG) PER UNIT SC SCH (07:28)
[2019-01-29] MEDS ORDERED: METOCLOPRAMIDE 10 MG TAB PO ONE (08:15)
[2019-01-29] MEDS ORDERED: ONDANSETRON 4 MG ORAL DISINTEGRATING TAB (Q0162 PER 1MG) SL PRN (08:15)
[2019-01-29] MEDS ORDERED: ONDANSETRON 4 MG ORAL DISINTEGRATING TAB (Q0162 PER 1MG) PO ONE (08:15)
[2019-01-29] MEDS: LEVEMIR (INSULIN DETEMIR) 1 UNITS/0.01ML SC SCH (08:46)
[2019-01-29] MEDS: GABAPENTIN 300 MG CAP PO SCH (09:26)
[2019-01-29] MEDS: ENOXAPARIN 40 MG/0.4 ML SYRINGE (J1650) SC SCH (09:27)
[2019-01-29] MEDS ORDERED: REGL5TAB2 PO (10:12)
[2019-01-29] MEDS ORDERED: ONDA4TAB6 PO (10:12)
[2019-01-29] MEDS ORDERED: PERCOCET 5MG/325MG TAB PO PRN (10:45)
[2019-01-29] MEDS ORDERED: METOCLOPRAMIDE 10 MG TAB PO SCH (12:00)
--- NOTE | 2019-01-29 12:45 | DS.PDOC ---
Discharge Summary General Date of Admission Jan 27, 2019 at 10:29 Date of Discharge January [id number] Discharge Summary DISCHARGE DIAGNOSES: Diabetic Gastroparesis DM Neuropathy insulin dependent diabetes Anxiety/depression/ Bipolar/ History of SI/SA, overdose Hypertension GERD Chronic back pain follows with pain clinic Hepatomegaly/fatty liver Known pulmonary nodule Ectopic kidney Obesity DISCHARGE MEDICATIONS: PLS SEE BELOW HISTORY OF PRESENTING ILLNESS: Assessment /Plan The patient is a 43-year-old female with a significant past medical history of depression, anxiety, diabetes with neuropathy, hypertension, gastroesophageal reflux disease (GERD), chronic back pain on opiates follows with pain clinic presented to the ED with intractable Nausea and vomiting for about 3 hours followed by severe dry heaving. Prior to this overnight she had severeal episodes of loose bowel movement. the diarrhea was watery associated with crampy abdominal pain. there was no blood in it. The diarrhea stopped then she started vomiting from 6 am to 9 am continuous at least 8 to 10 times.It was dark green , bile and some were very dark. This was followed continuous nausea and dry heaves. She developed extremely soreness of her abdominal muscles. She does tell me that she always has a tendency to vomiting . She often vomiting 1 to 2 times per day with nausea if she is not careful with what she eats. In the ED she was found to have lactacidosis. She was admitted for intractable vomiting from possible viral gastritis vs acute flare of diabetic gastroparesis with dehydration. HOSPITAL COURSE: acute flare of diabetic gastroparesis s/p IVF,s/p clear liquids, zofran, compazine, reglan prn, morphine for pain. bowel rest. gastric emptying study reviewed Had EGD last year will get records from [facility] tolerating her diet and stable overnight. pt was encouraged to take small frequent meals 6x daily, achs reglan, nd prn zofran. insulin dependent diabetes will place on low dose of levemir withhold parameters and lispro as per sliding scale Diabetic neuropathy continue gabapentin Anxiety/depression/ Bipolar/ History of SI/SA, overdose continue mirtazapine, clonazepam will hold seroquel due to drug interaction with antiemetics, Hypertension GERD ppi Chronic back pain follows with pain clinic history of back surgery in [place] in 2018 will get records. continue with tizanidine, gabapentin, oxycodone morphine prn. Hepatomegaly/fatty liver Known pulmonary nodule Ectopic kidney Obesity Discharge Physical Examination vitals: pls see below General Exam: Positive: Alert, Cooperative, No Acute Distress Eye Exam: Positive: PERRLA, Conjunctiva & lids normal, EOMI; Negative: Sclera icteric ENT Exam: Positive: Atraumatic, Mucous membr. moist/pink, Pharynx Normal Neck Exam: Positive: Supple; Negative: JVD, thyromegaly Chest Exam: Positive: Clear to auscultation, Normal air movement Heart Exam: Positive: Rate Normal, Regular Rhythm, Normal S1, Normal S2; Negative: Murmurs, Rubs Abdomen Exam: Positive: BS Hypoactive, Soft, Tenderness; Negative: Hepatospenomegaly Extremity Exam: Positive: Normal pulses; Negative: Clubbing, Cyanosis, Edema Skin Exam: Positive: Nl turgor and temperature; Negative: Rash, Breakdown LABORATORY DATA, MICROBIOLOGY, IMAGING STUDIES: PLS SEE BELOW, REVIEWED. TIME SPENT ON DISCHARGE: 35MINUTES Vital Signs/I&Os Vital Signs Date Time Temp Pulse Resp B/P (MAP) Pulse Ox O2 Delivery O2 Flow Rate FiO2 01/29/19 11:14 16 01/29/19 06:00 97.1 67 124/60 (81) 99 01/26/19 18:36 2.0 01/25/19 10:15 Room Air I&O- Last 24 Hours up to 6 AM 01/29/19 06:00 Intake Total 4100 ml Balance 4100 ml Laboratory Data Labs 24H Laboratory Tests 2 01/28/19 17:12: Bedside Glucose (Misc Panel) 106H 01/28/19 20:14: Bedside Glucose (Misc Panel) 196H 01/29/19 05:34: Immature Granulocyte % (Auto) 0.5, White Blood Count 10.1H, Red Blood Count 4.36, Hemoglobin 13.1, Hematocrit 40.3, Mean Corpuscular Volume 92.4, Mean Corpuscular Hemoglobin 30.0, Mean Corpuscular Hemoglobin Concent 32.5, Red Cell Distribution Width 12.7, Platelet Count 205, Neutrophils (%) (Auto) 48.7, Lymphocytes (%) (Auto) 38.0, Monocytes (%) (Auto) 9.1H, Eosinophils (%) (Auto) 3.1H, Basophils (%) (Auto) 0.6, Neutrophils # (Auto) 4.9, Lymphocytes # (Auto) 3.8, Monocytes # (Auto) 0.9H, Eosinophils # (Auto) 0.3, Basophils # (Auto) 0.1, Nucleated Red Blood Cells % (auto) 0.0, Anion Gap 5L, Glomerular Filtration Rate > 60.0, Blood Urea Nitrogen 13#, Creatinine 0.83, Sodium Level 141, Potassium Level 4.0, Chloride Level 113H, Carbon Dioxide Level 23, Calcium Level 7.8L 01/29/19 12:01: Bedside Glucose (Misc Panel) 152H CBC/BMP Laboratory Tests 01/29/19 05:34 Red Blood Count 4.36, Mean Corpuscular Volume 92.4, Mean Corpuscular Hemoglobin 30.0, Mean Corpuscular Hemoglobin Concent 32.5, Red Cell Distribution Width 12.7, Neutrophils (%) (Auto) 48.7, Lymphocytes (%) (Auto) 38.0, Monocytes (%) (Auto) 9.1 H, Eosinophils (%) (Auto) 3.1 H, Basophils (%) (Auto) 0.6, Neutrophils # (Auto) 4.9, Lymphocytes # (Auto) 3.8, Monocytes # (Auto) 0.9 H, Eosinophils # (Auto) 0.3, Basophils # (Auto) 0.1, Calcium Level 7.8 L FSBS Laboratory Tests Test 01/28/19 17:12 01/28/19 20:14 01/29/19 12:01 Range/Units Bedside Glucose (Misc Panel) 106 196 152 70-105 MG/DL Microbiology Microbiology 01/25/19 Blood Culture - Preliminary, Resulted No Growth after 72 hours. All specime... 01/25/19 Blood Culture - Preliminary, Resulted No Growth after 72 hours. All specime... 01/25/19 Urine Culture - Final, Complete Staphylococcus Simulans Corynebacterium Species Lactobacillus Species Discharge Medications Scheduled Aspirin (Aspirin EC) 81 Mg Tab, 81 MG PO DAILY, (Reported) Escitalopram Oxalate (Lexapro) 10 Mg Tab, 10 MG PO DAILY, (Reported) Gabapentin (Neurontin) 300 Mg Cap, 300 MG PO TID, (Reported) Insulin Glargine,Hum.rec.anlog (Basaglar Kwikpen U-100) 100 Unit/1 Ml Insuln.pen, 35 UNIT SC QHS, (Reported) Lisinopril (Lisinopril) 2.5 Mg Tab, 2.5 MG PO QHS, (Reported) Meloxicam (Meloxicam) 15 Mg Tab, 15 MG PO DAILY, (Reported) Metformin HCl (Metformin HCl ER) 500 Mg Tab, 1,000 MG PO BID, (Reported) Metoclopramide Hcl (Reglan) 5 Mg Tablet, 5 MG PO ACHS Mirtazapine (Mirtazapine) 30 Mg Tab, 30 MG PO QHS, (Reported) Omeprazole (Omeprazole) 40 Mg Cap, 40 MG PO DAILY, (Reported) Quetiapine Fumarate (Seroquel) 200 Mg Tab, 200 MG PO QHS, (Reported) Venlafaxine HCl (Venlafaxine HCl ER) 75 Mg Tab.er.24, 75 MG PO DAILY, (Reported) Scheduled PRN Clonazepam (Clonazepam) 0.5 Mg Tab, 0.5 MG PO DAILY PRN for ANXIETY, (Reported) Ondansetron (Ondansetron Odt) 4 Mg Tab.rapdis, 4 MG PO Q6-8HP PRN for nausea/vomiting Oxycodone HCl/Acetaminophen (Percocet 5-325 mg Tablet) 1 Tab Tab, 1 TAB PO Q6H PRN for PAIN, (Reported) Tizanidine HCl (Zanaflex) 4 Mg Tab, 4 MG PO TID PRN for MUSCLE SPASMS, (Reported) Allergies Coded Allergies: ketorolac (Verified Allergy, Severe, hives, 01/25/19) bee venom protein (honey bee) (Verified Adverse Reaction, Mild, hives, 01/25/19) duloxetine (Verified Adverse Reaction, Unknown, ANGRY, 01/25/19) FATOU LEWIS MD Jan 29, 2019 12:45
== END 2019-01-29 12:14 | disposition home or self-care (01) | DRG 48 ==
LOC: EDBD 08:42 → M ED 08:42 → M ED INP 15:11 → M MSPAV 16:30 → OBSVTOIN 01-27 10:29
PROVIDERS: ADMIT Internal Medicine Nephrology; ATTEND General Practice
PROC: 05HC33Z Insertion of Infusion Device into Left Basilic Vein, Percutaneous Approach (ICD-10-PCS; principal; 2019-01-27)
DX: E11.43 Type 2 diabetes mellitus with diabetic autonomic (poly)neuropathy (principal); E87.2 Acidosis; K76.0 Fatty (change of) liver, not elsewhere classified; F31.9 Bipolar disorder, unspecified; F41.9 Anxiety disorder, unspecified; I10 Essential (primary) hypertension; K21.9 Gastro-esophageal reflux disease without esophagitis; M54.9 Dorsalgia, unspecified; R19.7 Diarrhea, unspecified; R91.1 Solitary pulmonary nodule; R26.81 Unsteadiness on feet; G47.00 Insomnia, unspecified; E66.9 Obesity, unspecified; A08.4 Viral intestinal infection, unspecified; Q63.2 Ectopic kidney; E86.0 Dehydration; K31.84 Gastroparesis; Z79.82 Long term (current) use of aspirin; Z79.4 Long term (current) 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; Z79.899 Other long term (current) drug therapy; Z91.5 Personal history of self-harm; Z98.1 Arthrodesis status; Z90.49 Acquired absence of other specified parts of digestive tract; Z68.33 Body mass index [BMI] 33.0-33.9, adult

== ENCOUNTER 2019-03-11 10:57 | Day surgery (SDC) | payer OTHER ==
[~2019-03-11] VITALS: Ht 172.7 cm; Wt 96.7 kg
[~2019-03-11 10:57] MED LIST changes: -DULO1CAP2 PO; +DULO1CAP5 PO; +LIDOCAINE 2% INJ 100 MG/5 ML SDV (FOR ANES.) As Ordered ONE; +NS 1,000 ML IV ONE; +ONDA4TAB6 PO; +PROPOFOL 200 MG/20 ML VIAL As Ordered ONE; +REGL5TAB2 PO; +VENL-115 PO
[2019-03-11] MEDS ORDERED: fentaNYL 100 MCG/2 ML INJECTION (J3010) As Ordered ONE (11:15)
--- NOTE | 2019-03-11 12:54 | ROOR ---
Patient Name: Bette Velazquez Procedure Date: 03/11/2019 11:53 AM Date of : 1975 Age: 43 Room: [facility] Gender: Female Note Status: Finalized Procedure: Upper GI endoscopy Indications: Suspected gastroparesis, Weight loss Providers: Cyrus Pritchett MD Referring MD: Temi Olivera MD Requesting Provider: Medicines: Monitored Anesthesia Care Complications: No immediate complications. Procedure: Pre-Anesthesia Assessment: - Prior to the procedure, a History and Physical was performed, and patient medications and allergies were reviewed. The patient is competent. The risks and benefits of the procedure and the sedation options and risks were discussed with the patient. All questions were answered and informed consent was obtained. Patient identification and proposed procedure were verified by the physician, the nurse and the anesthesiologist in the procedure room. Mental Status Examination: alert and oriented. Airway Examination: normal oropharyngeal airway and neck mobility. Respiratory Examination: clear to auscultation. CV Examination: normal. Prophylactic Antibiotics: The patient does not require prophylactic antibiotics. Prior Anticoagulants: The patient has taken no previous anticoagulant or antiplatelet agents. ASA Grade Assessment: II - A patient with mild systemic disease. After reviewing the risks and benefits, the patient was deemed in satisfactory condition to undergo the procedure. The anesthesia plan was to use monitored anesthesia care (MAC). Immediately prior to administration of medications, the patient was re-assessed for adequacy to receive sedatives. The heart rate, respiratory rate, oxygen saturations, blood pressure, adequacy of pulmonary ventilation, and response to care were monitored throughout the procedure. The physical status of the patient was re-assessed after the procedure. The Endoscope was introduced through the mouth, and advanced to the second part of duodenum. The upper GI endoscopy was accomplished without difficulty. The patient tolerated the procedure well. Findings: The examined esophagus was normal. The Z-line was regular and was found in the distal esophagus. A large amount of food (residue) was found in the gastric fundus and in the gastric body. Scattered moderate inflammation characterized by erosions, erythema and granularity was found in the gastric antrum. Biopsies were taken with a cold forceps for Helicobacter pylori testing. Verification of patient identification for the specimen was done by the physician and nurse using the patient's name, date and medical record number. Estimated blood loss was minimal. The duodenal bulb and second portion of the duodenum were normal. Biopsies for histology were taken with a cold forceps for evaluation of celiac disease. Impression: - Normal esophagus. - Z-line regular, in the distal esophagus. - A large amount of food (residue) in the stomach. - Gastritis. Biopsied. - Normal duodenal bulb and second portion of the duodenum. Biopsied. Recommendation: - Patient has a contact number available for emergencies. The signs and symptoms of potential delayed complications were discussed with the patient. Return to normal activities tomorrow. Written discharge instructions were provided to the patient. - Gastroparesis diet. - Continue present medications. - Await pathology results. - Return to GI clinic in [facility] (address [address], [address], [place] [address]) in 4 -- 6 weeks. Please call GI clinic @ [phone] for apppointment date and time. - Return to primary care physician. Cyrus Pritchett MD Cyrus Pritchett MD 03/11/2019 12:53:59 PM Electronically signed by Cyrus Pritchett MD Number of Addenda: 0 Note Initiated On: 03/11/2019 11:53 AM Estimated Blood Loss: Estimated blood loss was minimal.
--- NOTE | 2019-03-11 12:58 | ROOR ---
Patient Name: Bette Velazquez Procedure Date: 03/11/2019 11:54 AM Date of : 1975 Age: 43 Room: [facility] Gender: Female Note Status: Finalized Procedure: Colonoscopy Indications: Chronic diarrhea, Weight loss Providers: Cyrus Pritchett MD Referring MD: Temi Olivera MD Requesting Provider: Medicines: Monitored Anesthesia Care Complications: No immediate complications. Procedure: Pre-Anesthesia Assessment: - Prior to the procedure, a History and Physical was performed, and patient medications and allergies were reviewed. The patient is competent. The risks and benefits of the procedure and the sedation options and risks were discussed with the patient. All questions were answered and informed consent was obtained. Patient identification and proposed procedure were verified by the physician, the nurse and the anesthesiologist in the procedure room. Mental Status Examination: alert and oriented. Airway Examination: normal oropharyngeal airway and neck mobility. Respiratory Examination: clear to auscultation. CV Examination: normal. Prophylactic Antibiotics: The patient does not require prophylactic antibiotics. Prior Anticoagulants: The patient has taken no previous anticoagulant or antiplatelet agents. ASA Grade Assessment: II - A patient with mild systemic disease. After reviewing the risks and benefits, the patient was deemed in satisfactory condition to undergo the procedure. The anesthesia plan was to use monitored anesthesia care (MAC). Immediately prior to administration of medications, the patient was re-assessed for adequacy to receive sedatives. The heart rate, respiratory rate, oxygen saturations, blood pressure, adequacy of pulmonary ventilation, and response to care were monitored throughout the procedure. The physical status of the patient was re-assessed after the procedure. The Colonoscope was introduced through the anus and advanced to the cecum, identified by appendiceal orifice and ileocecal valve. The colonoscopy was performed without difficulty. The patient tolerated the procedure well. The quality of the bowel preparation was poor. The ileocecal valve, appendiceal orifice, and rectum were photographed. Scope insertion time was 5 minutes. Scope withdrawal time was 6 minutes. The total duration of the procedure was 12 minutes. Findings: The perianal and digital rectal examinations were normal. A large amount of stool was found in the recto-sigmoid colon, in the transverse colon, in the ascending colon and in the cecum, precluding visualization. Lavage of the area was performed using a large amount of sterile water, resulting in incomplete clearance with continued poor visualization. A 5 mm polyp was found in the descending colon. The polyp was sessile. The polyp was removed with a cold biopsy forceps. Resection and retrieval were complete. Verification of patient identification for the specimen was done by the physician and nurse using the patient's name, date and medical record number. Estimated blood loss was minimal. Non-bleeding external and internal hemorrhoids were found during retroflexion. The hemorrhoids were medium-sized. There is no endoscopic evidence of inflammation, stricture or ulcerations in the descending colon. Biopsies for histology were taken with a cold forceps from the right colon, left colon and rectosigmoid colon for evaluation of microscopic colitis. Impression: - Preparation of the colon was poor. - Stool in the recto-sigmoid colon, in the transverse colon, in the ascending colon and in the cecum. - One 5 mm polyp in the descending colon, removed with a cold biopsy forceps. Resected and retrieved. - Non-bleeding external and internal hemorrhoids. Recommendation: - Patient has a contact number available for emergencies. The signs and symptoms of potential delayed complications were discussed with the patient. Return to normal activities tomorrow. Written discharge instructions were provided to the patient. - Gastroparesis diet. - Continue present medications. - Await pathology results. - Repeat colonoscopy at next available appointment (within 3 months) because the bowel preparation was poor. - Return to GI clinic in [facility] (address [address], [address], [place], [facility]) in 4 -- 6 weeks. Please call GI clinic @ [phone] for apppointment date and time. - Return to primary care physician. Cyrus Pritchett MD Cyrus Pritchett MD 03/11/2019 12:58:04 PM Electronically signed by Cyrus Pritchett MD Number of Addenda: 0 Note Initiated On: 03/11/2019 11:54 AM Estimated Blood Loss: Estimated blood loss was minimal.
[2019-03-11 13:15] VITALS: BP 136/81
== END 2019-03-11 13:45 | disposition home or self-care (01) ==
LOC: M OPP 10:57
PROVIDERS: ATTEND Internal Medicine Gastroenterology
DX: K64.8 Other hemorrhoids (principal); D12.4 Benign neoplasm of descending colon; K52.9 Noninfective gastroenteritis and colitis, unspecified; R63.4 Abnormal weight loss; K29.70 Gastritis, unspecified, without bleeding; F17.210 Nicotine dependence, cigarettes, uncomplicated; Z79.82 Long term (current) use of aspirin; Z79.899 Other long term (current) drug therapy; Z91.030 Bee allergy status; Z88.8 Allergy status to other drugs, medicaments and biological substances
CPT/HCPCS: 43239; 45380; 88305; J3010

== ENCOUNTER → 2019-04-02 | Outpatient (CLI) | payer OTHER ==
[~2019-04-02] MED LIST changes: +HYDR1TAB33 PO; -HYDRO50TAB PO; -LIDOCAINE 2% INJ 100 MG/5 ML SDV (FOR ANES.) As Ordered ONE; -NS 1,000 ML IV ONE; -PROPOFOL 200 MG/20 ML VIAL As Ordered ONE; -QUET1TAB9 PO; +QUET200T2 PO
--- NOTE | 2019-04-23 02:10 | ECWPNPC ---
PATIENT NAME: ROLY IVAN : 1975 GENDER: FEMALE VISIT DATE: 04/02/2019 DISCHARGE DATE: 04/02/19 1407 VISIT LOCKED DATE TIME: PHYSICIAN: ASHLEY MENDOZA RESOURCE: ASHLEY MENDOZA REASON FOR APPOINTMENT 1. LOW BACK HISTORY OF PRESENT ILLNESS HISTORY OF PRESENT ILLNESS: HERE FOR F/U OF CHRONIC LOW BACK PAIN AND RIGHT POSTERIOR THIGH PAIN.RATING PAIN VAS 8/10.FINDS CURRENT MEDICATION HELPFUL AT REDUCING PAIN AND KEEPING HER COMFORTABLE.HAS BEEN EXPERIENCING A SEVERE INCREASE IN NEUROPATHY PAIN IN LOWER EXTREMITIES OVER THE PAST 2 MONTHS. PAIN THE PATIENT DESCRIBES THE PAIN... THE PATIENT DESCRIBES THE PAIN... FALL RISK SCREENING: SCREENING :NO FALLS REPORTED IN THE LAST YEAR CURRENT MEDICATIONS TAKING GLUCOMETER DIRECTED BID; DX E11.8 TAKING SEROQUEL 200 MG TABLET 1 TABLET ORALLY ONCE A DAY TAKING LEXAPRO 10 MG TABLET 1 TABLET ORALLY ONCE A DAY TAKING BLOOD GLUCOSE METER - KIT DIRECTED DX: E11.65 DAILY TAKING BLOOD GLUCOSE TEST STRIP - STRIP DIRECTED IN VITRO DX: E11.65 FOUR TIMES DAILY NEEDED TAKING KLONOPIN 0.5 MG TABLET TWICE DAILY ORALLY TWICE DAILY TAKING EFFEXOR XR 75 MG CAPSULE EXTENDED RELEASE 24 HOUR 1 CAPSULE WITH FOOD ORALLY ONCE A DAY TAKING MIRTAZAPINE [address] ONE TABLET BY MOUTH AT BEDTIME ORAL TAKING BD PEN NEEDLE MINI U/F 31G X 5 MM MISCELLANEOUS DIRECTED DAILY TAKING TIZANIDINE HCL 4 MG TABLET 1 CAP ORALLY THREE TIMES A DAY NEEDED TAKING MOBIC 15 MG TABLET 1 TABLET ORALLY ONCE A DAY TAKING LISINOPRIL 2.5 MG TABLET 1 TABLET ORALLY ONCE A DAY TAKING ASPIR-LOW 81 MG TABLET DELAYED RELEASE 1 TABLET ORALLY ONCE A DAY TAKING ATORVASTATIN CALCIUM 40 MG TABLET 1 TABLET ORALLY ONCE A DAY TAKING OMEPRAZOLE 40 MG CAPSULE DELAYED RELEASE 1 CAPSULE ORALLY ONCE A DAY TAKING ZOFRAN 4 MG TABLET 1 TABLET ORALLY ONCE A DAY NEEDED TAKING METFORMIN HCL ER 500 MG TABLET EXTENDED RELEASE 24 HOUR 2 TABLETS ORALLY TWICE A DAY TAKING BASAGLAR KWIKPEN 100 UNIT/ML SOLUTION PEN-INJECTOR 38 UNITS SUBCUTANEOUS DAILY DX: E11.65 TAKING REGLAN 5 MG TABLET 1 TABLET BEFORE MEALS ORALLY FOUR TIMES A DAY TAKING PERCOCET 5-325 MG TABLET 1 TABLET NEEDED ORALLY EVERY 6 HRS PRN PAIN MDD4 TAKING GABAPENTIN 300 MG CAPSULE 1 CAP ORALLY Q8H TID NOT-TAKING HYDROCORTISONE 2.5 % CREAM 1 APPLICATION TO AFFECTED AREA EXTERNALLY TO ARMS TWICE A DAY MEDICATION LIST REVIEWED AND RECONCILED WITH THE PATIENT PAST MEDICAL HISTORY DIABETES MELLITUS TYPE 2 GASTROPARESIS - PRESUMED, SHE WAS UNABLE TO COMPLETE GASTRIC EMPTYING STUDY CHRONIC BACK PAIN HYPERLIPIDEMIA DIABETIC NEUROPATHY IN FEET INSOMNIA ANXIETY BIPOLAR DISORDER GERD RLL NODULE, 7 MM ON CTA 09/2018; NEEDS F/U CT 03/2019 ALLERGIES TORADOL: RASH - ALLERGY SURGICAL HISTORY APPENDECTOMY GALLBLADDER REMOVAL TUBAL TOTAL HYSTERECTOMY FOR PAIN AND OVARIAN CYST DISC DECOMPRESSION CARPAL TUNNEL--RIGHT LEFT KNEE MINISCUS X2 SPINAL FUSION, L4-5, L5-S1 12/12/17 EGD - FOOD IN STOMACH; DR. BENDER 02/2019 COLONOSCOPY 02/2019 GASROPERESIS 02/2019 FAMILY HISTORY FATHER: ALIVE MOTHER: 54 YRS, DIAGNOSED WITH DIABETES, HEART DISEASE 1 SON(S) , 3 DAUGHTER(S) - HEALTHY. FATHER--PT IS DOES NOT KNOW HER DAD\\\'S MEDICAL HISTORY. SOCIAL HISTORY GENERAL: TOBACCO USE ARE YOU A:CURRENT SMOKER ARE YOU INTERESTED IN QUITTING?THINKING ABOUT QUITTING PREVIOUS QUIT ATTEMPTS?YES, MORE THAN 6 MONTHS AGO. COUNSELED THE PATIENT ON SMOKING CESSATION, EDUCATION [id number]/14/2019 HOW MANY CIGARETTES A DAY DO YOU SMOKE?5 OR LESS HOW SOON AFTER YOU WAKE UP DO YOU SMOKE YOUR FIRST CIGARETTE?WITHIN 5 MIN HOW OFTEN DO YOU SMOKE CIGARETTES?EVERY DAY PATIENT COUNSELED ON THE DANGERS OF TOBACCO USE AND URGED TO QUIT:04/02/2019 SMOKING CESSATION INFORMATION GIVEN04/02/2019 HIV / HEP-C SCREENING HIV TEST OFFERED TO PATIENT:YES DATE OFFERED:06/27/2017 TEST ACCEPTED:NO HEP-C TEST OFFERED TO PATIENT:NO REASON:PATIENT DECLINED OTHERS AT HOME: FIYOVANI. EDUCATION LEVEL OF EDUCATION:FINISHED HIGH SCHOOL DIET: REGULAR, CARBOHYDRATE CONTROLLED. LANGUAGE LANGUAGES SPOKEN:INDONESIAN DOMESTIC VIOLENCE DO YOU FEEL SAFE IN YOUR ENVIRONMENT?YES RECREATIONAL DRUG USE DRUG USE?NO EXERCISE: DAILY. LEARNING BARRIERS / SPECIAL NEEDS CHANGE FROM LAST VISIT?NO BARRIERS TO LEARNING?NO HEARING IMPAIRED?YES LEFT EAR VISION IMPAIRED?YES COGNITIVELY IMPAIRED?NO :CORRECTIVE LENSES READINESS TO LEARN?YES LEARNING PREFERENCES?YES :DEMONSTRATION/VERBAL INSTRUCTION LEARNING CAPABILITIES PRESENT?YES EMOTIONAL BARRIERS?NO SPECIAL DEVICES?NO CANDLE MOLDER HAND NEEDED?NO PAIN CLINIC PFS, CLERGY, PUBLIC HEALTH REFERRALS PFS REFERRAL NEEDED?NO CLERGY REFERRAL NEEDED?NO PUBLIC HEALTH REFERRAL NEEDED?NO WAS THE PROVIDER NOTIFIED OF ANY PERTINENT INFO? N/A HAS THE PATIENT BEEN EDUCATED REGARDING HIS/HER PLAN OF CARE?YES HAS THE PATIENT BEEN EDUCATED REGARDING PAIN, THE RISK FOR PAIN, THE IMPORTANCE OF EFFECTIVE PAIN MANAGEMENT, AND THE PAIN ASSESSMENT PROCESS?YES LATEX QUESTIONNAIRE LATEX ALLERGY : HAVE YOU EVER DEVELOPED ANY TYPE OF REACTION AFTER HANDLING LATEX PRODUCTS SUCH RUBBER GLOVES, CONDOMS, DIAPHRAGMS, BALLOONS, SOCKS, OR UNDERWEAR?NO LATEX ALLERGY : HAVE YOU EVER DEVELOPED ANY TYPE OF REACTION DURING OR AFTER DENTAL APPOINTMENT, VAGINAL/RECTAL EXAMINATION, SURGICAL PROCEDURE, OR ANY OTHER EXPOSURE?NO DATE ASKED : 11/04/2018 LATEX RISK : HAVE YOU EVER HAD ANY DIFFICULTY BREATHING OR HIVES AFTER EATING OR HANDLING ANY FRUITS, OR VEGETABLES; SUCH KIWI, BANANAS, STONE FRUITS, OR CHESTNUTSNO LATEX RISK : DO YOU HAVE A PREVIOUS PERSONAL HISTORY OF MORE THAN NINE SURGERIES, SPINA BIFIDA, OR REPEATED CATHERIZATIONS? NO LATEX RISK : ARE YOU FREQUENTLY EXPOSED TO LATEX PRODUCTS IN YOUR OCCUPATION?NO CAFFEINE CAFFEINE USE?YES HOW OFTEN AND HOW MUCH? 2 CUPS COFFEE, 1 LITER SODA/DAY ADVANCE DIRECTIVE ADVANCE DIRECTIVE DISCUSSED WITH PATIENT:YES NOT AT THIS TIME JAIN [id number] ZOROASTRIAN MARITAL STATUS: .. ALCOHOL SCREENING DID YOU HAVE A DRINK CONTAINING ALCOHOL IN THE PAST YEAR?NO POINTS0 INTERPRETATIONNEGATIVE OCCUPATION: DISABLED. SEXUAL HX HAD SEX IN THE LAST 12 MONTHS (VAGINAL, ORAL, OR ANAL)?YES WITHMEN ONLY PREVENTION STRATEGIES DISCUSSED:CONDOMS USE PROTECTION?NO HAVE YOU EVER HAD AN STD?NO REVIEWED NL 07/15/18REVIEWED WITH PATIENT 04/02/19 1352 NLJ. HOSPITALIZATION/MAJOR DIAGNOSTIC PROCEDURE BROWN RECLUSE BITE LEFT FOOT MH X2 CHILDBIRTH X4 VOMITTING 12/04/2017 INPATIENT MENTAL HEALTH 03/2018 SUICIDAL THREAT OF TAKING AN OVERDOSE OF PILLS ([facility]) 04/15/2018- 04/23/2018 DM 09/21/2018 GASTROPURISIS 01/25/2019 REVIEW OF SYSTEMS REVIEWED BY: PROVIDER: ASHLEY MARQUEZ . CONSTITUTIONAL: ANY CHANGE IN YOUR MEDICAL CONDITION? YES- DIAGNOSED WITH GASTROPERESIS IN JANUARY 2019 . CHILLS NO . FEVER NO . INFECTION: DO YOU HAVE NEW INFECTIONS? NO . DO YOU HAVE HISTORY OF MRSA? YES- IN LEFT FOOT . MUSCULOSKELETAL: ANY NEW PATTERNS OF PAIN OR NUMBNESS? NO . GASTROENTEROLOGY: ANY NEW CHANGE IN BOWEL CONTROL? NO . GENITOURINARY: ANY NEW CHANGE IN BLADDER CONTROL? NO . IS THERE A CHANCE YOU COULD BE ? NO . HEMATOLOGY/LYMPH: DO YOU TAKE ANY BLOOD THINNERS? (FOR EXAMPLE- COUMADIN, PLAVIX, AGGRENOX, PLATEL, PRADAXA, OR XARELTO) NO . WHEN WAS YOUR LAST DOSE? DATE: TIME: . NEUROLOGY: HAVE YOU FALLEN IN THE PAST 12 MONTHS? NO . ANY NEW EXTREMITY NUMBNESS OR WEAKNESS? NO . CARDIOLOGY: DO YOU HAVE A PACEMAKER OR DEFIBRILLATOR? NO . RESPIRATORY: HAVE YOU BEEN SICK IN THE PAST WEEK? NO . FEVER NO . FLU LIKE SYMPTOMS? NO . COUGH NO . INTEGUMENTARY: DO YOU HAVE ANY RASHES OR OPEN SORES? NO . ALLERGIC/IMMUNO: ARE YOU ALLERGIC TO IV DYE? NO . ANY NEW ALLERGIES? NO . PSYCHIATRIC: DO YOU HAVE THOUGHTS OF HURTING YOURSELF OR SOMEONE ELSE? NO . ARE YOU ABUSED, NEGLECTED, OR IN AN UNSAFE ENVIRONMENT? NO . ENDOCRINOLOGY: ARE YOU DIABETIC? YES . OTHER: DO YOU NEED ANY PRESCRIPTIONS? NO . IF YES, PLEASE LIST: ____ . ANY NEW PROBLEMS WITH YOUR MEDICATIONS? NO . WHEN DID YOU LAST EAT? ____ . WHEN DID YOU LAST DRINK? ____ . WHAT DID YOU LAST DRINK? ____ . NAME OF PERSON DRIVING YOU HOME? ____ . DO YOU HAVE ANY OTHER QUESTIONS OR CONCERNS YES- WOULD LIKE TO DISCUSS GABAPENTIN, STATES NEUROPATHY IN FEET AND LEGS IS GETTING WORSE . VITAL SIGNS WT 212 LBS, HT 68 IN, BMI 32.23 INDEX, BP 122/67 MM HG, HR 100 /MIN, RR 18 /MIN, TEMP 96.9 F, OXYGEN SAT % 99%, NA INITIALS AW 1351. EXAMINATION GENERAL EXAMINATION: GENERALAWAKE,ALERT ,PLEAASANT . PSYCHAFFECT NORMAL . LUNGS:LUNG TORRES ARE CLEAR TO AUSCULTATION BILATERALLY. GOOD MOVEMENT OF AIR . HEART:S1, S2 IN A REGULAR RATE AND RHYTHM. NO SIGNIFICANT MURMURS, RUBS OR GALLOPS NOTED . ASSESSMENTS INTERVERTEBRAL DISC DISORDER WITH RADICULOPATHY OF LUMBOSACRAL REGION - M51.17 (PRIMARY) DIABETIC PERIPHERAL NEUROPATHY - E11.42 TREATMENT INTERVERTEBRAL DISC DISORDER WITH RADICULOPATHY OF LUMBOSACRAL REGION CONTINUE TIZANIDINE HCL TABLET, 4 MG, 1 CAP, ORALLY, THREE TIMES A DAY NEEDED CONTINUE MOBIC TABLET, 15 MG, 1 TABLET, ORALLY, ONCE A DAY CONTINUE PERCOCET TABLET, 5-325 MG, 1 TABLET NEEDED, ORALLY, EVERY 6 HRS PRN PAIN MDD4 INCREASE GABAPENTIN CAPSULE, 300 MG, 1 TO 2 CAP DIRECTED, ORALLY, 1 IN AM,1 12N,2 AT HS, 30 DAYS, 120, REFILLS 2 NOTES: ISTOP REGISTRY REVIEWED AND DEMONSTRATES COMPLLIANCE. BRINGS IN MEDICATIONS WHICH IS APPROPRIATE FOR WHAT WAS DISPENSED. RECENT URINE TOXICOLOGY REVIEWED. NO UNAUTHORIZED MEDICATIONS. NO ILLICIT SUBSTANCES AND PRESCRIBED MEDICATIONS WERE PRESENT. , RISKS AND BENEFITS OF NARCOTIC/OPIOD MEDICATIONS WERE REVIEWED WITH PATIENT - THIS INCLUDES BUT IS NOT LIMITED TO RISK OF DEPENDANCE/DEVELOPMENT OF ADDICTION, MOOD DISTURBANCE AND DEPRESSION, OSTEOPOROSIS, HORMONAL AND LABIDAL CHANGES, RESPIRATORY DEPRESSION AND . PATIENT IS ADVISED NOT TO DRIVE OR DRINK ALCOHOL WHILE ON THESE MEDICATIONS. PROCEDURE CODES FA211 ESTABILISHED PATIENT [facility] CHARGE DISPOSITION & COMMUNICATION FOLLOW UP 2 MONTHS (REASON: MED MGMNT) ELECTRONICALLY SIGNED BY ALMA GRAHAM ON 04/22/2019 AT 04:11 PM EDT DISCLAIMER : THIS IS A VISIT SUMMARY EXTRACTED FROM THE [employer] CHART. IT IS NOT A COPY OF THE [employer] PROGRESS NOTE. BAR
== END ==
LOC: M PAIN 13:15
PROVIDERS: ATTEND Nurse Practitioner Family
DX: M51.17 Intervertebral disc disorders with radiculopathy, lumbosacral region (principal); G89.29 Other chronic pain; E11.42 Type 2 diabetes mellitus with diabetic polyneuropathy; E78.5 Hyperlipidemia, unspecified; G47.00 Insomnia, unspecified; Z86.59 Personal history of other mental and behavioral disorders; K21.9 Gastro-esophageal reflux disease without esophagitis; F17.210 Nicotine dependence, cigarettes, uncomplicated; Z88.6 Allergy status to analgesic agent; Z79.82 Long term (current) use of aspirin; Z79.4 Long term (current) 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; Z79.899 Other long term (current) drug therapy

== ENCOUNTER 2019-07-16 17:20 | Emergency (ER) | payer OTHER ==
[~2019-07-16] VITALS: Ht 172.7 cm; Wt 96.4 kg
[~2019-07-16 17:20] MED LIST changes: +CLON0.5T2 PO; -CLON0.5T8 PO; +METF-791 PO; -METF500T4 PO; -OMEP40CA2 PO; +OMEP40CA97 PO
[2019-07-16] MEDS ORDERED: ONDANSETRON 4 MG ORAL DISINTEGRATING TAB (Q0162 PER 1MG) PO ONE ×2 (17:45→18:00)
[2019-07-16] MEDS ORDERED: MORPHINE 4 MG/ML 1ML VIAL/SYRINGE (J2270) IV ONE (17:45)
[2019-07-16] MEDS ORDERED: METOCLOPRAMIDE INJ 10MG/2ML VIAL (J2765) IV ONE (17:45)
[2019-07-16] MEDS ORDERED: NS 1,000 ML IV ONE ×2 (17:45→20:45)
[2019-07-16 18:52] LABS: BASO # 0.1 10^3/uL (0.0-0.2); BASO % 0.4 % (0.0-1.0); EOS % 0.2 % (0.0-3.0); HEMATOCRIT 44.1 % (36.0-47.0); LYMPH # 0.7 10^3/uL (1.5-5.0); LYMPH % 5.3 % (24.0-44.0); MEAN CORPUSCULAR HEMOGLOBIN 29.4 pg (27.0-33.0); MEAN CORPUSCULAR VOLUME 86.3 fl (80.0-96.0); MONO # 0.6 10^3/uL (0.0-0.8); MONO % 4.1 % (0.0-5.0); NEUTROPHILS # 12.3 10^3/uL (1.5-8.5); NEUTROPHILS % 89.7 % (36.0-66.0); PLATELET COUNT, AUTOMATED 270 10^3/uL (150-450); RED BLOOD COUNT 5.11 10^6/uL (4.00-5.40); WHITE BLOOD COUNT 13.7 10^3/uL (4.0-10.0)
[2019-07-16 19:16] LABS: ALBUMIN 3.6 GM/DL (3.2-5.2); ALT/SGPT 28 U/L (12-78); BILIRUBIN,DIRECT 0.1 MG/DL (0.0-0.2); BILIRUBIN,TOTAL 0.5 MG/DL (0.2-1.0); CK-MB VALUE MASS 4.5 NG/ML (<3.6); CPK CREATINE PHOSPHOKINASE 225 U/L (26-192); LIPASE 104 U/L (73-393); TOTAL PROTEIN 7.9 GM/DL (6.4-8.2); TROPONIN I < 0.02 NG/ML (< 0.10)
[2019-07-16] MEDS ORDERED: ISOVUE-370 76% 100ML VIAL (Q9967) As Ordered ONE (19:17)
--- NOTE | 2019-07-16 20:03 | REPVR ---
PROCEDURE INFORMATION: Exam: CT Abdomen And Pelvis With Contrast Exam date and time: 07/16/2019 7:19 PM Age: 43 years old Clinical history: Abdominal pain; Generalized; Additional info: Lower abd pain, can't tolerate po TECHNIQUE: Imaging protocol: Computed tomography of the abdomen and pelvis with intravenous contrast. Axial, coronal and sagittal reformatted images were created and reviewed. Radiation optimization: All CT scans at this facility use at least one of these dose optimization techniques: automated exposure control; mA and/or kV adjustment per patient size (includes targeted exams where dose is matched to clinical indication); or iterative reconstruction. Contrast material: ISOVUE 370; Contrast volume: 100 ml; Contrast route: IV; COMPARISON: CT ABD/PEL W/IV CONTRAST ONLY 01/25/2019 10:56 AM FINDINGS: Mediastinum: Small hiatal hernia. Liver: Mild hepatomegaly. Diffuse hepatic steatosis. Gallbladder and bile ducts: Status post cholecystectomy. No biliary ductal dilatation. Pancreas: Unremarkable. Spleen: Unremarkable. Adrenals: Unremarkable. Kidneys and ureters: Ectopic left pelvic kidney. Nonobstructing left renal calculus. No hydronephrosis. Stomach and bowel: No bowel wall thickening. No obstruction. No pneumatosis. Appendix: Appendix not identified with certainty but no right lower quadrant inflammatory change to suggest acute appendicitis. Intraperitoneal space: No free fluid. No organized fluid collection. No free air. Vasculature: Mild atherosclerotic disease. No aneurysm or dissection. Lymph nodes: No pathologically enlarged lymph nodes. Bladder: Mild circumferential urinary bladder wall thickening, possibly secondary to underdistention. Reproductive: Status post hysterectomy. Bones/joints: No acute osseous abnormality. Mild degenerative changes. Status post L4-S1 posterior fusion. Soft tissues: Unremarkable. IMPRESSION: 1. No CT evidence of acute intra-abdominal or pelvic pathology. 2. Additional findings, as above. Electronically signed by: Kris Harp On 07/16/2019 20:03:24 PM
--- NOTE | 2019-07-16 20:09 | REP ---
Clinical: Trauma . Technique: Internal rotation, external rotation, and Y view right shoulder . Findings: No acute fracture or dislocation. The acromioclavicular and glenohumeral joints are intact. No periarticular calcifications or degenerative changes are appreciated. Sub acromial space is normal. Surrounding soft tissues are unremarkable. Impression: No obvious acute fracture or dislocation appreciated. Electronically Signed by Wyatt Paez MD 07/16/2019 08:01 P
--- NOTE | 2019-07-16 20:10 | REP ---
Clinical: Trauma. Fall. Technique: Neutral and frog lateral views of the right hip. Findings: Age-related changes are appreciated. No acute fracture dislocation. Surrounding soft tissues are unremarkable. Impression: No acute fracture or dislocation. Electronically Signed by Wyatt Paez MD 07/16/2019 08:02 P
[2019-07-16] MEDS ORDERED: DICYCLOMINE 10 MG CAP PO ONE (21:00)
[2019-07-16] MEDS ORDERED: HALOPERIDOL 5 MG/ML VIAL (J1630) IV ONE (21:00)
[2019-07-16 21:24] LABS: BILIRUBIN, URINE MANUAL NEGATIVE (NEGATIVE); GLUCOSE, URINE (UA) MANUAL 2+(250 MG/DL) mg/dL (NEGATIVE); KETONE, URINE MANUAL NEGATIVE (NEGATIVE); UROBILINOGEN, URINE MANUAL NORMAL (NORMAL)
[2019-07-16 21:32] LABS: BACTERIA, URINE SMALL AMOUNT; HYALINE CAST, URINE NONE SEEN /lpf (0-1); MUCUS, URINE MOD AMOUNT (NEGATIVE); SQUAMOUS EPITHELIAL CELL URINE SMALL AMOUNT /hpf (SMALL AMT)
[2019-07-16] MEDS ORDERED: DICY1CAP8 PO (22:48)
[2019-07-16] MEDS ORDERED: REGL10TA6 PO (22:48)
[2019-07-16 23:19] VITALS: BP 127/73
--- NOTE | 2019-07-17 00:03 | ECGEPIP ---
[facility] - ED Test Date: 2019-07-16 Pat Name: ROLY IVAN Department: Room: - Gender: Female Plan Examiner: madi : 1975 Requested By: TAVO Figueroa PA-C Order Number: [id number] Reading MD: Adrián Hernandes Measurements Intervals [place] Rate: 110 P: 29 SC: 156 QRS: 8 QRSD: 99 T: 34 QT: 340 QTc: 461 Interpretive Statements SINUS TACHYCARDIA WITH OCCASIONAL VENTRICULAR PREMATURE COMPLEXES POSSIBLE LEFT ATRIAL ENLARGEMENT INCOMPLETE RIGHT BUNDLE BRANCH BLOCK NSTTW ABNORMALITIES SIMILAR TO 01/25/19 Electronically Signed on 07-17-2019 0:02:52 EST by Adrián Hernandes
== END 2019-07-16 23:30 | disposition home or self-care (01) ==
LOC: M ED 17:20
DX: R10.84 Generalized abdominal pain (principal); R11.2 Nausea with vomiting, unspecified; I45.10 Unspecified right bundle-branch block; E11.9 Type 2 diabetes mellitus without complications; I10 Essential (primary) hypertension; E78.5 Hyperlipidemia, unspecified; G43.909 Migraine, unspecified, not intractable, without status migrainosus; Z79.899 Other long term (current) drug therapy; Z79.82 Long term (current) use of aspirin; Z79.4 Long term (current) 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; Z88.8 Allergy status to other drugs, medicaments and biological substances; Z91.030 Bee allergy status; F17.210 Nicotine dependence, cigarettes, uncomplicated
CPT/HCPCS: 73030; 73502; 74177; 80047; 80076; 81000; 82550; 82553; 83605; 83690; 84702; 85025; 93005; 96361; 96374; 96375; 99284; J1630; J2270; J2765; Q0162; Q9967

== ENCOUNTER → 2019-08-25 | Outpatient (CLI) | payer OTHER ==
[~2019-08-25] MED LIST changes: +DICY1CAP8 PO
--- NOTE | 2019-09-09 06:32 | ECWPNPC ---
PATIENT NAME: ROLY IVAN : 1975 GENDER: FEMALE VISIT DATE: 08/25/2019 DISCHARGE DATE: 08/25/19 1130 VISIT LOCKED DATE TIME: PHYSICIAN: ASHLEY MENDOZA RESOURCE: ASHLEY MENDOZA REASON FOR APPOINTMENT 1. LOW BACK/MEDS HISTORY OF PRESENT ILLNESS HISTORY OF PRESENT ILLNESS: HERE FOR F/U OF CHRONIC LOW BACK PAIN AND BILAT LEG PAIN.HISTORY OF BACK SURGERY AND NEUROPATHY.GABAPENTIN INCREASE AT LAST VISIT HAS BEEN HELPFUL.DENIES SIDE EFFECTS.RATING PAIN VAS 6-8/10.FINDS CURRENT MEDICATION EFFECTIVE AT REDUCING PAIN AND KEEPING HER COMFORTABLE.DENIES SIDE EFFECTS. PAIN THE PATIENT DESCRIBES THE PAIN... FALL RISK SCREENING: SCREENING :NO FALLS REPORTED IN THE LAST YEAR CURRENT MEDICATIONS TAKING GLUCOMETER DIRECTED BID; DX E11.8 TAKING SEROQUEL 200 MG TABLET 1 TABLET ORALLY ONCE A DAY TAKING LEXAPRO 10 MG TABLET 1 TABLET ORALLY ONCE A DAY TAKING BLOOD GLUCOSE METER - KIT DIRECTED DX: E11.65 DAILY TAKING BLOOD GLUCOSE TEST STRIP - STRIP DIRECTED IN VITRO DX: E11.65 FOUR TIMES DAILY NEEDED TAKING KLONOPIN 0.5 MG TABLET TWICE DAILY ORALLY TWICE DAILY TAKING EFFEXOR XR 75 MG CAPSULE EXTENDED RELEASE 24 HOUR 1 CAPSULE WITH FOOD ORALLY ONCE A DAY TAKING MIRTAZAPINE [address] ONE TABLET BY MOUTH AT BEDTIME ORAL TAKING BD PEN NEEDLE MINI U/F 31G X 5 MM MISCELLANEOUS DIRECTED DAILY TAKING ASPIR-LOW 81 MG TABLET DELAYED RELEASE 1 TABLET ORALLY ONCE A DAY TAKING ATORVASTATIN CALCIUM 40 MG TABLET 1 TABLET ORALLY ONCE A DAY TAKING OMEPRAZOLE 40 MG CAPSULE DELAYED RELEASE 1 CAPSULE ORALLY ONCE A DAY TAKING ZOFRAN 4 MG TABLET 1 TABLET ORALLY ONCE A DAY NEEDED TAKING BASAGLAR KWIKPEN 100 UNIT/ML SOLUTION PEN-INJECTOR 38 UNITS SUBCUTANEOUS DAILY DX: E11.65 TAKING REGLAN 5 MG TABLET 1 TABLET BEFORE MEALS ORALLY FOUR TIMES A DAY TAKING TIZANIDINE HCL 4 MG TABLET 1 CAP ORALLY THREE TIMES A DAY NEEDED TAKING MOBIC 15 MG TABLET 1 TABLET ORALLY ONCE A DAY TAKING GABAPENTIN 300 MG CAPSULE 1 TO 2 CAP DIRECTED ORALLY 2 IN AM,1 12N,2 AT HS TAKING LISINOPRIL 2.5 MG TABLET 1 TABLET ORALLY ONCE A DAY TAKING METFORMIN HCL ER 500 MG TABLET EXTENDED RELEASE 24 HOUR 4 TABLET ORALLY DAILY TAKING PERCOCET 5-325 MG TABLET 1 TABLET NEEDED ORALLY EVERY 6 HRS PRN PAIN MDD4 NOT-TAKING HYDROCORTISONE 2.5 % CREAM 1 APPLICATION TO AFFECTED AREA EXTERNALLY TO ARMS TWICE A DAY MEDICATION LIST REVIEWED AND RECONCILED WITH THE PATIENT PAST MEDICAL HISTORY DIABETES MELLITUS TYPE 2 GASTROPARESIS - PRESUMED, SHE WAS UNABLE TO COMPLETE GASTRIC EMPTYING STUDY CHRONIC BACK PAIN HYPERLIPIDEMIA DIABETIC NEUROPATHY IN FEET INSOMNIA ANXIETY BIPOLAR DISORDER GERD RLL NODULE, 7 MM ON CTA 09/2018; NEEDS F/U CT 03/2019 ALLERGIES TORADOL: RASH - ALLERGY SURGICAL HISTORY APPENDECTOMY GALLBLADDER REMOVAL TUBAL TOTAL HYSTERECTOMY FOR PAIN AND OVARIAN CYST DISC DECOMPRESSION CARPAL TUNNEL--RIGHT LEFT KNEE MINISCUS X2 SPINAL FUSION, L4-5, L5-S1 12/12/17 EGD - FOOD IN STOMACH; DR. BENDER 02/2019 COLONOSCOPY 02/2019 GASROPERESIS 02/2019 FAMILY HISTORY FATHER: ALIVE MOTHER: 54 YRS, DIAGNOSED WITH DIABETES, UNSPECIFIED HEART DISEASE 1 SON(S) , 3 DAUGHTER(S) - HEALTHY. FATHER--PT IS DOES NOT KNOW HER DAD\\\'S MEDICAL HISTORY. SOCIAL HISTORY GENERAL: TOBACCO USE ARE YOU A:CURRENT SMOKER ARE YOU INTERESTED IN QUITTING?THINKING ABOUT QUITTING PREVIOUS QUIT ATTEMPTS?YES, MORE THAN 6 MONTHS AGO. COUNSELED THE PATIENT ON SMOKING CESSATION, EDUCATION [id number]/05/2019 HOW MANY CIGARETTES A DAY DO YOU SMOKE?5 OR LESS HOW SOON AFTER YOU WAKE UP DO YOU SMOKE YOUR FIRST CIGARETTE?WITHIN 5 MIN HOW OFTEN DO YOU SMOKE CIGARETTES?EVERY DAY PATIENT COUNSELED ON THE DANGERS OF TOBACCO USE AND URGED TO QUIT:08/25/2019 SMOKING CESSATION INFORMATION GIVEN04/02/2019 HIV / HEP-C SCREENING HIV TEST OFFERED TO PATIENT:YES DATE OFFERED:06/27/2017 TEST ACCEPTED:NO HEP-C TEST OFFERED TO PATIENT:NO REASON:PATIENT DECLINED OTHERS AT HOME: DIGNA. EDUCATION LEVEL OF EDUCATION:FINISHED HIGH SCHOOL DIET: REGULAR, CARBOHYDRATE CONTROLLED. LANGUAGE LANGUAGES SPOKEN:ALBANIAN DOMESTIC VIOLENCE DO YOU FEEL SAFE IN YOUR ENVIRONMENT?YES RECREATIONAL DRUG USE DRUG USE?NO EXERCISE: DAILY. LEARNING BARRIERS / SPECIAL NEEDS CHANGE FROM LAST VISIT?NO BARRIERS TO LEARNING?NO HEARING IMPAIRED?YES LEFT EAR VISION IMPAIRED?YES COGNITIVELY IMPAIRED?NO :CORRECTIVE LENSES READINESS TO LEARN?YES LEARNING PREFERENCES?YES :DEMONSTRATION/VERBAL INSTRUCTION LEARNING CAPABILITIES PRESENT?YES EMOTIONAL BARRIERS?NO SPECIAL DEVICES?NO QUALITY CONTROL OPERATOR NEEDED?NO PAIN CLINIC PFS, CLERGY, PUBLIC HEALTH REFERRALS PFS REFERRAL NEEDED?NO CLERGY REFERRAL NEEDED?NO PUBLIC HEALTH REFERRAL NEEDED?NO WAS THE PROVIDER NOTIFIED OF ANY PERTINENT INFO?YES N/A HAS THE PATIENT BEEN EDUCATED REGARDING HIS/HER PLAN OF CARE?YES HAS THE PATIENT BEEN EDUCATED REGARDING PAIN, THE RISK FOR PAIN, THE IMPORTANCE OF EFFECTIVE PAIN MANAGEMENT, AND THE PAIN ASSESSMENT PROCESS?YES LATEX QUESTIONNAIRE LATEX ALLERGY : HAVE YOU EVER DEVELOPED ANY TYPE OF REACTION AFTER HANDLING LATEX PRODUCTS SUCH RUBBER GLOVES, CONDOMS, DIAPHRAGMS, BALLOONS, SOCKS, OR UNDERWEAR?NO LATEX ALLERGY : HAVE YOU EVER DEVELOPED ANY TYPE OF REACTION DURING OR AFTER DENTAL APPOINTMENT, VAGINAL/RECTAL EXAMINATION, SURGICAL PROCEDURE, OR ANY OTHER EXPOSURE?NO LATEX RISK : HAVE YOU EVER HAD ANY DIFFICULTY BREATHING OR HIVES AFTER EATING OR HANDLING ANY FRUITS, OR VEGETABLES; SUCH KIWI, BANANAS, STONE FRUITS, OR CHESTNUTSNO LATEX RISK : DO YOU HAVE A PREVIOUS PERSONAL HISTORY OF MORE THAN NINE SURGERIES, SPINA BIFIDA, OR REPEATED CATHERIZATIONS? NO LATEX RISK : ARE YOU FREQUENTLY EXPOSED TO LATEX PRODUCTS IN YOUR OCCUPATION?NO DATE ASKED : 08/25/2019 CAFFEINE CAFFEINE USE?YES HOW OFTEN AND HOW MUCH? 2 CUPS COFFEE, 1 LITER SODA/DAY ADVANCE DIRECTIVE ADVANCE DIRECTIVE DISCUSSED WITH PATIENT:YES DECLINED INFORMATION OR ASSISTANCE WITH PAPERWORK EPISCOPAL [id number] BAHAI MARITAL STATUS: .. ALCOHOL SCREENING DID YOU HAVE A DRINK CONTAINING ALCOHOL IN THE PAST YEAR?NO POINTS0 INTERPRETATIONNEGATIVE OCCUPATION: DISABLED. SEXUAL HX HAD SEX IN THE LAST 12 MONTHS (VAGINAL, ORAL, OR ANAL)?YES WITHMEN ONLY PREVENTION STRATEGIES DISCUSSED:CONDOMS USE PROTECTION?NO HAVE YOU EVER HAD AN STD?NO REVIEWED NL 07/15/18REVIEWED WITH PATIENT 04/02/19 1352 NLJREVIEWED WITH PATIENT 08-25-19 DS. HOSPITALIZATION/MAJOR DIAGNOSTIC PROCEDURE BROWN RECLUSE BITE LEFT FOOT MH X2 CHILDBIRTH X4 VOMITTING 12/04/2017 INPATIENT MENTAL HEALTH 03/2018 SUICIDAL THREAT OF TAKING AN OVERDOSE OF PILLS (IM[facility]) 04/15/2018- 04/23/2018 DM 09/21/2018 GASTROPURISIS 01/25/2019 REVIEW OF SYSTEMS REVIEWED BY: PROVIDER: ASHLEY MARQUEZ . CONSTITUTIONAL: ANY CHANGE IN YOUR MEDICAL CONDITION? NO . CHILLS NO . FEVER NO . INFECTION: DO YOU HAVE NEW INFECTIONS? NO . DO YOU HAVE HISTORY OF MRSA? YES . MUSCULOSKELETAL: ANY NEW PATTERNS OF PAIN OR NUMBNESS? NO . GASTROENTEROLOGY: ANY NEW CHANGE IN BOWEL CONTROL? NO . GENITOURINARY: ANY NEW CHANGE IN BLADDER CONTROL? NO . IS THERE A CHANCE YOU COULD BE ? NO . HEMATOLOGY/LYMPH: DO YOU TAKE ANY BLOOD THINNERS? (FOR EXAMPLE- COUMADIN, PLAVIX, AGGRENOX, PLATEL, PRADAXA, OR XARELTO) NO . WHEN WAS YOUR LAST DOSE? DATE: TIME: . NEUROLOGY: HAVE YOU FALLEN IN THE PAST 12 MONTHS? NO . ANY NEW EXTREMITY NUMBNESS OR WEAKNESS? NO . CARDIOLOGY: DO YOU HAVE A PACEMAKER OR DEFIBRILLATOR? NO . RESPIRATORY: HAVE YOU BEEN SICK IN THE PAST WEEK? NO . FEVER NO . FLU LIKE SYMPTOMS? NO . COUGH NO . INTEGUMENTARY: DO YOU HAVE ANY RASHES OR OPEN SORES? NO . ALLERGIC/IMMUNO: ARE YOU ALLERGIC TO IV DYE? NO . ANY NEW ALLERGIES? NO . PSYCHIATRIC: DO YOU HAVE THOUGHTS OF HURTING YOURSELF OR SOMEONE ELSE? NO . ARE YOU ABUSED, NEGLECTED, OR IN AN UNSAFE ENVIRONMENT? NO . ENDOCRINOLOGY: ARE YOU DIABETIC? YES . OTHER: DO YOU NEED ANY PRESCRIPTIONS? YES, TIZANIDINE . IF YES, PLEASE LIST: ____ . ANY NEW PROBLEMS WITH YOUR MEDICATIONS? NO . WHEN DID YOU LAST EAT? ____ . WHEN DID YOU LAST DRINK? ____ . WHAT DID YOU LAST DRINK? ____ . NAME OF PERSON DRIVING YOU HOME? ____ . DO YOU HAVE ANY OTHER QUESTIONS OR CONCERNS YES PT STATES THAT SHE WAS IN ER 1 MONTH AGO FOR FOOD POISONING. . VITAL SIGNS WT 209.0 LBS, HT 68 IN, BMI 31.77 INDEX, BP 129/71 MM HG, HR 114 /MIN, RR 18 /MIN, TEMP 96.0 F, OXYGEN SAT % 98%, SAFE IN ENV? (Y/N) Y, NA INITIALS AW 1037, REVIEWED BY: AMAYA. EXAMINATION GENERAL EXAMINATION: GENERALAWAKE,ALERT ,PLEASANT . PSYCHAFFECT NORMAL . LUNGS:LUNG TORRES ARE CLEAR TO AUSCULTATION BILATERALLY. GOOD MOVEMENT OF AIR . HEART:S1, S2 IN A REGULAR RATE AND RHYTHM. NO SIGNIFICANT MURMURS, RUBS OR GALLOPS NOTED . ASSESSMENTS INTERVERTEBRAL DISC DISORDER WITH RADICULOPATHY OF LUMBOSACRAL REGION - M51.17 (PRIMARY) TREATMENT INTERVERTEBRAL DISC DISORDER WITH RADICULOPATHY OF LUMBOSACRAL REGION REFILL TIZANIDINE HCL TABLET, 4 MG, 1 CAP, ORALLY, THREE TIMES A DAY NEEDED, 30 DAYS, 90, REFILLS 2 CONTINUE MOBIC TABLET, 15 MG, 1 TABLET, ORALLY, ONCE A DAY CONTINUE GABAPENTIN CAPSULE, 300 MG, 1 TO 2 CAP DIRECTED, ORALLY, 2 IN AM,1 12N,2 AT HS REFILL PERCOCET TABLET, 5-325 MG, 1 TABLET NEEDED, ORALLY, EVERY 6 HRS PRN PAIN MDD4, 30 DAYS, 120, REFILLS 0 NOTES: ISTOP REGISTRY REVIEWED AND DEMONSTRATES COMPLLIANCE. BRINGS IN MEDICATIONS WHICH IS APPROPRIATE FOR WHAT WAS DISPENSED. RECENT URINE TOXICOLOGY REVIEWED. NO UNAUTHORIZED MEDICATIONS. NO ILLICIT SUBSTANCES AND PRESCRIBED MEDICATIONS WERE PRESENT. URINE TOX TODAY, RISKS OF NARCOTIC/OPIOD MEDICATIONS INCLUDES BUT IS NOT LIMITED TO RISK OF DEPENDANCE/DEVELOPMENT OF ADDICTION, MOOD DISTURBANCE AND DEPRESSION, OSTEOPOROSIS, HORMONAL AND LABIDAL CHANGES, RESPIRATORY DEPRESSION AND . PATIENT IS ADVISED NOT TO DRIVE OR DRINK ALCOHOL WHILE ON THESE MEDICATIONS. PREVENTIVE MEDICINE PAIN CLINIC TEACHING: THE PATIENT HAS BEEN EDUCATED REGARDING HIS/HER PLAN OF CARE : REVIEWED AND DISCUSSED TREATMENT PLAN WITH PT, PT ACKNOWLEDGED UNDERSTANDING. DS THE PATIENT HAS BEEN EDUCATED REGARDING PAIN, THE RISK FOR PAIN, THE IMPORTANCE OF EFFECTIVE PAIN MANAGEMENT, AND THE PAIN ASSESSMENT PROCESS. : REVIEWED AND DISCUSSED UTOX WITH PT, UTOX OBTAINED TODAY. DS PROCEDURE CODES FA211 ESTABILISHED PATIENT [facility]LY [facility] CHARGE DISPOSITION & COMMUNICATION FOLLOW UP 3 MONTHS (REASON: LBP/NEUROPATHY) ELECTRONICALLY SIGNED BY ALMA GRAHAM ON 09/08/2019 AT 03:15 PM EST DISCLAIMER : THIS IS A VISIT SUMMARY EXTRACTED FROM THE [facility] CHART. IT IS NOT A COPY OF THE [facility] PROGRESS NOTE. BAR
== END ==
LOC: M PAIN 10:15
PROVIDERS: ATTEND Nurse Practitioner Family
DX: M51.17 Intervertebral disc disorders with radiculopathy, lumbosacral region (principal)

== ENCOUNTER → 2019-12-25 | Outpatient (CLI) | payer OTHER ==
[~2019-12-25] MED LIST changes: -LISI-1046 PO; +LISI2.5T2 PO; -METF-791 PO; +METF-838 PO; +QUET100T2 PO; -QUET1TAB8 PO
--- NOTE | 2019-12-26 06:07 | REP ---
Clinical: Followup lung nodule. Technique: Axial noncontrast images from the thoracic inlet to the upper abdomen with coronal and sagittal re-formations. Comparison: 09/23/2018, 07/30/2018 Findings: A 6 mm noncalcified nodule along the anterior right apex (image 27) appears relatively stable compared through 2018. 8 mm noncalcified nodule in the periphery of the right lower lobe (image 59) appears to be relatively unchanged compared to 2019 and likely stable as compared to 2018 (although previous surrounding parenchymal infiltrates may complete evaluation difficult). 7 mm noncalcified nodule in the periphery of the left lower lobe (image 75) is also felt to be relatively stable as compared to 2019. Few smaller noncalcified nodules measuring approximately 4-5 mm are also identified and cannot be confirmed on prior examinations due to the underlying lower lobe infiltrates which have since resolved. No further consolidation, effusion, or pneumothorax. Tracheobronchial tree is patent. No adenopathy. Thoracic aorta, pulmonary vasculature and heart/pericardium are normal. Surrounding musculoskeletal structures are intact. Impression: 1. Few bilateral pulmonary nodules up to 8 mm appear to be relatively stable although comparison is limited due to the previously noted bilateral infiltrates. A 6 - 9 month follow-up examination may be warranted to further confirm stability. Electronically Signed by Wyatt Paez MD 12/26/2019 05:58 A
== END ==
LOC: M RAD 14:46
PROVIDERS: ATTEND Family Medicine
DX: R91.1 Solitary pulmonary nodule (principal)

== ENCOUNTER → 2019-12-25 | Outpatient (REF) | payer OTHER ==
[2019-12-25 12:58] LABS: CREATININE, URINE 34.7 MG/DL; MAU/CREAT RATIO 726.2 MCG/MG (0.0-30.0)
[2019-12-25 13:14] LABS: ALBUMIN 3.4 GM/DL (3.2-5.2); ALT/SGPT 31 U/L (12-78); BILIRUBIN,TOTAL 0.3 MG/DL (0.2-1.0); BLOOD UREA NITROGEN 17 MG/DL (7-18); CALCIUM LEVEL 9.3 MG/DL (8.5-10.1); CARBON DIOXIDE LEVEL 26 MEQ/L (21-32); CHLORIDE LEVEL 98 MEQ/L (98-107); CHOLESTEROL LEVEL 216 MG/DL (<200); CREATININE FOR GFR 1.03 MG/DL (0.55-1.30); GLOMERULAR FILTRATION RATE > 60.0 (>58); GLUCOSE, FASTING 570 MG/DL (70-100); HDL CHOLESTEROL 25 MG/DL (>40); NON-HDL-C 191 MG/DL; POTASSIUM SERUM 4.9 MEQ/L (3.5-5.1); SODIUM LEVEL 133 MEQ/L (136-145); TOTAL PROTEIN 7.9 GM/DL (6.4-8.2); TRIGLYCERIDES LEVEL 1045 MG/DL (<150)
== END ==
LOC: M SFHCPLAZ 08:50
PROVIDERS: ATTEND Family Medicine
DX: E11.65 Type 2 diabetes mellitus with hyperglycemia (principal); E78.00 Pure hypercholesterolemia, unspecified

== ENCOUNTER → 2020-02-12 | Outpatient (CLI) | payer OTHER ==
[~2020-02-12] MED LIST changes: +ATOR40TA75; +BACT800T5 PO; +PROP10TA56; +TIZA4CAP PO
[2020-02-12 13:58] LABS: CALCIUM LEVEL 9.7 MG/DL (8.5-10.1); CREATININE FOR GFR 1.1 MG/DL (0.55-1.30); GLOMERULAR FILTRATION RATE 56.9 (>58); POTASSIUM SERUM 4.2 MEQ/L (3.5-5.1)
== END ==
LOC: M LAB 12:01
PROVIDERS: ATTEND Internal Medicine Endocrinology, Diabetes & Metabolism
DX: E11.65 Type 2 diabetes mellitus with hyperglycemia (principal)

== ENCOUNTER 2020-02-14 15:25 | Emergency (ER) | payer OTHER ==
[~2020-02-14] VITALS: Ht 172.7 cm; Wt 98.2 kg
[~2020-02-14 15:25] MED LIST changes: -ATOR40TA75; -BACT800T5 PO; -PROP10TA56; -TIZA4CAP PO
[2020-02-14 15:27] VITALS: BP 110/73
--- NOTE | 2020-02-14 15:55 | REP ---
Clinical: Trauma . Technique: AP, lateral, bilateral oblique views left ankle . Findings: No acute fracture or dislocation. Skeletal structures and joint spaces are intact and normal. Ankle mortise appears stable. No subcutaneous emphysema or radiodense foreign body. Impression: No acute fracture or dislocation. Electronically Signed by Wyatt Paez MD 02/14/2020 03:47 P
[2020-02-14] MEDS ORDERED: NORCO, ANEXSIA 5/325MG TABLET (HYDROcodone/ACETAMINOPHEN) PO ONE (16:00)
== END 2020-02-14 16:16 | disposition home or self-care (01) ==
LOC: M ED 15:25
DX: S90.32XA Contusion of left foot, initial encounter (principal); S93.402A Sprain of unspecified ligament of left ankle, initial encounter; W23.0XXA Caught, crushed, jammed, or pinched between moving objects, initial encounter; Y92.89 Other specified places as the place of occurrence of the external cause; I10 Essential (primary) hypertension; E78.5 Hyperlipidemia, unspecified; F31.9 Bipolar disorder, unspecified; G43.909 Migraine, unspecified, not intractable, without status migrainosus; G47.33 Obstructive sleep apnea (adult) (pediatric); K21.9 Gastro-esophageal reflux disease without esophagitis; Z79.899 Other long term (current) drug therapy; Z79.82 Long term (current) use of aspirin; Z79.4 Long term (current) 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; Z88.8 Allergy status to other drugs, medicaments and biological substances; Z91.030 Bee allergy status; F17.210 Nicotine dependence, cigarettes, uncomplicated

== ENCOUNTER 2020-04-23 18:57 | Emergency (ER) | payer OTHER ==
[~2020-04-23] VITALS: Ht 172.7 cm; Wt 97.1 kg
[2020-04-23 18:57] VITALS: BP 118/84
[2020-04-23] MEDS ORDERED: LIDOCAINE 1% MDV 20ML VIAL SC ONE (20:15)
[2020-04-23] MEDS ORDERED: BACT800T5 PO (20:29)
[2020-04-23] MEDS ORDERED: BACTRIM 160MG/800MG DS TAB PO ONE (20:30)
== END 2020-04-23 20:48 | disposition home or self-care (01) ==
LOC: M ED 18:57 → EEVIPCON 18:57 → M ED 20:48
DX: L02.214 Cutaneous abscess of groin (principal); E11.9 Type 2 diabetes mellitus without complications; I10 Essential (primary) hypertension; F17.210 Nicotine dependence, cigarettes, uncomplicated; Z79.4 Long term (current) 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; Z79.82 Long term (current) use of aspirin; Z79.899 Other long term (current) drug therapy; Z91.030 Bee allergy status; Z88.8 Allergy status to other drugs, medicaments and biological substances; Z87.2 Personal history of diseases of the skin and subcutaneous tissue; Z90.710 Acquired absence of both cervix and uterus

== ENCOUNTER → 2020-05-06 | Outpatient (REF) | payer OTHER ==
[~2020-05-06] MED LIST changes: +ATOR40TA75; +BACT800T5 PO; +PROP10TA56; +TIZA4CAP PO
[2020-05-06 18:44] LABS: CREATININE, URINE 20.9 MG/DL; MAU/CREAT RATIO 1435.4 MCG/MG (0.0-30.0)
== END ==
LOC: M LAB REF 16:53
PROVIDERS: ATTEND Nurse Practitioner Family
DX: R80.9 Proteinuria, unspecified (principal)

== ENCOUNTER 2020-05-25 20:44 | Emergency (ER) | payer OTHER ==
[~2020-05-25] VITALS: Ht 172.7 cm; Wt 97.3 kg
[~2020-05-25 20:44] MED LIST changes: -ATOR40TA75; -PROP10TA56; -TIZA4CAP PO
[2020-05-25] MEDS ORDERED: NORCO, ANEXSIA 5/325MG TABLET (HYDROcodone/ACETAMINOPHEN) PO ONE (21:45)
--- NOTE | 2020-05-25 21:57 | REPVR ---
PROCEDURE INFORMATION: Exam: XR Right Knee Exam date and time: 05/25/2020 9:28 PM Age: 44 years old Clinical indication: Other: Fall; Prior surgery TECHNIQUE: Imaging protocol: XR Right knee. Views: 4 or more views. COMPARISON: No relevant prior studies available. FINDINGS: Bones/joints: There is no evidence of a significant joint effusion. There is no evidence of fracture. There is mild osteophyte formation all 3 compartments. Soft tissues: Normal. IMPRESSION: No evidence of fracture. Electronically signed by: Eduardo Mullins On 05/25/2020 21:57:18 PM
--- NOTE | 2020-05-25 22:02 | REPVR ---
PROCEDURE INFORMATION: Exam: XR Lumbosacral Spine, 4 or 5 Views Exam date and time: 05/25/2020 9:28 PM Age: 44 years old Clinical indication: Other: Fall TECHNIQUE: Imaging protocol: XR of the lumbosacral spine, 4 or 5 views. COMPARISON: No relevant prior studies available. FINDINGS: Vertebrae: There is a screw and bar device L4, L5 and S1 appearing intact. The patient is status post laminectomy at the level of L5. There is 5 mm of retrolisthesis L3 on L4. Anterior osteophyte formation is noted. There is a mild posterior bony ridge L4-L5. There are spacing grafts L4-L5 and L5-S1. Soft tissues: Unremarkable. Vasculature: There is some calcification of the aorta consistent with atherosclerotic changes. IMPRESSION: Postoperative changes as described above. Electronically signed by: Eduardo Mullins On 05/25/2020 22:01:52 PM
--- NOTE | 2020-05-25 22:10 | REPVR ---
PROCEDURE INFORMATION: Exam: XR Right Hip with Pelvis when Performed Exam date and time: 05/25/2020 9:28 PM Age: 44 years old Clinical indication: Other: Fall TECHNIQUE: Imaging protocol: XR Right hip with pelvis when performed. Views: 2 or 3 views. COMPARISON: No relevant prior studies available. FINDINGS: Bones/joints: There is significant separation at the pubic symphysis consistent with chronic change and measuring 2.4 cm. There is sclerosis and osteophyte formation right and left acetabulum. Patient can perform internal and external rotation of the right hip. There is no evidence of acute fracture. There is some sclerosis of the SI joints bilaterally consistent with changes of previous sacroiliitis. Soft tissues: Unremarkable. IMPRESSION: 1. Sclerosis and osteophyte formation right acetabulum. 2. Diastasis/separation of the pubic symphysis consistent with chronic change. Electronically signed by: Eduardo Mullins On 05/25/2020 22:10:18 PM
[2020-05-25] MEDS ORDERED: ATOR40TA75 (22:40)
[2020-05-25] MEDS ORDERED: PROP10TA56 (22:40)
[2020-05-25] MEDS ORDERED: diazePAM 10 MG TAB PO ONE (22:45)
[2020-05-25 23:14] LABS: APPEARANCE, URINE CLEAR (CLEAR); BACTERIA, URINE AUTO NEGATIVE (NEGATIVE); BILIRUBIN, URINE AUTO NEGATIVE (NEGATIVE); BLOOD, URINE BLOOD NEGATIVE (NEGATIVE); COLOR, URINE YELLOW (YELLOW); GLUCOSE, URINE (UA) AUTO 3+ mg/dL (NEGATIVE); KETONE, URINE AUTO NEGATIVE (NEGATIVE); LEUKOCYTE ESTERASE, URINE AUTO NEGATIVE (NEGATIVE); NITRITE, URINE AUTO NEGATIVE (NEGATIVE); PROTEIN, URINE AUTO 2+ mg/dL (NEGATIVE); RBC, URINE AUTO 5 /HPF (0-3); SQUAMOUS EPITHELIAL CELL UR AU 2 /HPF (0-6); UROBILINOGEN, URINE AUTO 0.2 mg/dL (0.0-2.0); WBC, URINE AUTO 0 /HPF (0-3)
[2020-05-25] MEDS ORDERED: TIZA4CAP PO (23:55)
[2020-05-26] MEDS ORDERED: NORCO 5/325MG TABLET (BULK FOR ED) PO ONE
[2020-05-26 00:06] VITALS: BP 136/84
== END 2020-05-26 00:11 | disposition home or self-care (01) ==
LOC: M ED 20:44
DX: S80.911A Unspecified superficial injury of right knee, initial encounter (principal); W01.10XA Fall on same level from slipping, tripping and stumbling with subsequent striking against unspecified object, initial encounter; G89.29 Other chronic pain; M54.5 Low back pain; F17.200 Nicotine dependence, unspecified, uncomplicated; Z79.4 Long term (current) 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; Z79.82 Long term (current) use of aspirin; Z79.899 Other long term (current) drug therapy; Z88.8 Allergy status to other drugs, medicaments and biological substances; Z91.030 Bee allergy status

== ENCOUNTER → 2020-06-16 | Outpatient (CLI) | payer OTHER ==
[~2020-06-16] MED LIST changes: +ATOR40TA75; +PROP10TA56; +TIZA4CAP PO
[2020-06-16 11:34] LABS: ALBUMIN 3.5 GM/DL (3.2-5.2); ALT/SGPT 22 U/L (12-78); BILIRUBIN,TOTAL 0.3 MG/DL (0.2-1.0); BLOOD UREA NITROGEN 15 MG/DL (7-18); CALCIUM LEVEL 8.9 MG/DL (8.5-10.1); CARBON DIOXIDE LEVEL 25 MEQ/L (21-32); CHLORIDE LEVEL 105 MEQ/L (98-107); CHOLESTEROL LEVEL 146 MG/DL (<200); CHOLESTEROL RISK RATIO 4.424 (<5); CREATININE FOR GFR 0.94 MG/DL (0.55-1.30); GLOMERULAR FILTRATION RATE > 60.0 (>58); GLUCOSE, FASTING 317 MG/DL (70-100); HDL CHOLESTEROL 33 MG/DL (>40); LDL CHOLESTEROL 65 MG/DL (<100); NON-HDL-C 113 MG/DL; POTASSIUM SERUM 4.2 MEQ/L (3.5-5.1); SODIUM LEVEL 135 MEQ/L (136-145); TOTAL PROTEIN 7.1 GM/DL (6.4-8.2); TRIGLYCERIDES LEVEL 239 MG/DL (<150)
== END ==
LOC: M LAB 10:00
PROVIDERS: ATTEND Nurse Practitioner Family
DX: E78.2 Mixed hyperlipidemia (principal)

== ENCOUNTER 2020-09-14 11:04 | Inpatient (IN) | payer OTHER ==
[~2020-09-14] VITALS: Ht 172.7 cm; Wt 105.7 kg
[~2020-09-14 11:04] MED LIST changes: -ATOR40TA75; -ESCI20TA PO; +ESCI20TA16 PO; -PROP10TA56; +PROP10TA56 PO
[2020-09-14 11:36] LABS: BASO # 0.1 10^3/uL (0.0-0.2); BASO % 0.5 % (0.0-1.0); EOS # 0.2 10^3/uL (0.0-0.5); EOS % 1.7 % (0.0-3.0); HEMATOCRIT 47.9 % (36.0-47.0); HEMOGLOBIN 15.7 g/dl (12.0-15.5); LYMPH # 2.2 10^3/uL (1.5-5.0); LYMPH % 19.8 % (24.0-44.0); MEAN CORPUSCULAR HEMOGLOBIN 29.7 pg (27.0-33.0); MEAN CORPUSCULAR HGB CONC 32.8 g/dl (32.0-36.5); MEAN CORPUSCULAR VOLUME 90.5 fl (80.0-96.0); MONO # 0.5 10^3/uL (0.0-0.8); MONO % 4.3 % (0.0-5.0); NEUTROPHILS # 8.1 10^3/uL (1.5-8.5); NEUTROPHILS % 73.2 % (36.0-66.0); PLATELET COUNT, AUTOMATED 250 10^3/uL (150-450); RED BLOOD COUNT 5.29 10^6/uL (4.00-5.40); WHITE BLOOD COUNT 11.1 10^3/uL (4.0-10.0)
[2020-09-14 11:45] LABS: INR 0.85; PROTHROMBIN TIME 11.8 SECONDS (12.5-14.3)
[2020-09-14] MEDS ORDERED: LR 1,000 ML IV SCH (11:45)
[2020-09-14] MEDS ORDERED: MORPHINE 2 MG/ML 1ML VIAL (J2270) IV ONE (11:45)
[2020-09-14] MEDS ORDERED: ISOVUE-370 76% 100ML VIAL As Ordered ONE (11:58)
[2020-09-14] MEDS ORDERED: HumuLIN R (REGULAR) INSULIN (NovoLIN R) **100U/ML** PER UNIT IV ONE (12:00)
[2020-09-14] MEDS: ONDANSETRON 4MG/2ML VIAL IV PRN ×3 (12:01→23:04)
[2020-09-14 12:05] LABS: ALBUMIN 3.8 GM/DL (3.2-5.2); ALT/SGPT 24 U/L (12-78); BILIRUBIN,DIRECT < 0.1 MG/DL (0.0-0.2); BILIRUBIN,TOTAL 0.3 MG/DL (0.2-1.0); LIPASE 250 U/L (73-393); TOTAL PROTEIN 8.1 GM/DL (6.4-8.2)
[2020-09-14 12:23] LABS: APPEARANCE, URINE CLEAR (CLEAR); BACTERIA, URINE AUTO NEGATIVE (NEGATIVE); BILIRUBIN, URINE AUTO NEGATIVE (NEGATIVE); BLOOD, URINE BLOOD NEGATIVE (NEGATIVE); COLOR, URINE YELLOW (YELLOW); GLUCOSE, URINE (UA) AUTO 3+ mg/dL (NEGATIVE); KETONE, URINE AUTO TRACE mg/dL (NEGATIVE); LEUKOCYTE ESTERASE, URINE AUTO NEGATIVE (NEGATIVE); MUCUS, URINE SMALL (NEGATIVE); NITRITE, URINE AUTO NEGATIVE (NEGATIVE); PROTEIN, URINE AUTO 2+ mg/dL (NEGATIVE); RBC, URINE AUTO 2 /HPF (0-3); SQUAMOUS EPITHELIAL CELL UR AU 2 /HPF (0-6); UROBILINOGEN, URINE AUTO 0.2 mg/dL (0.0-2.0); WBC, URINE AUTO 0 /HPF (0-3)
[2020-09-14] MEDS ORDERED: METOCLOPRAMIDE INJ 10MG/2ML VIAL (J2765 PER 1) IV ONE (12:30)
[2020-09-14] MEDS ORDERED: LR 1,000 ML IV ONE (12:30)
[2020-09-14] MEDS ORDERED: MIDAZOLAM INJ 2MG/2ML VIAL (J2250 PER 1MG) IV ONE (13:30)
--- NOTE | 2020-09-14 14:27 | REP ---
INDICATION: rule out SBO. COMPARISON: Comparison study is from July 16, 2019.. TECHNIQUE: Helical scanning is acquired and 3 mm axial images re-formatted. Coronal and sagittal MPR images are generated. The CT contrast enhancement dose is 100 mL of intravenous Isovue 370. FINDINGS: Preliminary digital pump installer radiograph demonstrates an unremarkable bowel gas pattern. Patient is status post lumbosacral junction spine fusion. There clips in right upper quadrant. On axial CT images, lung windows demonstrate several bilateral lower lobe pulmonary nodules which are unchanged from comparison CT study of the chest December 25, 2019. The largest of these measures 11 mm. There is minimal diffuse fatty infiltration of the liver. The liver is mildly enlarged. No focal hepatic lesion is seen. The spleen is normal in size homogeneous in texture. Normal adrenal glands are seen bilaterally. 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 The right kidney is unremarkable. Gallbladder clips are noted post cholecystectomy. No abnormality is noted in the pancreas. Small and large intestinal bowel loops show no evidence of bowel obstruction. There are few fluid-filled borderline caliber small bowel loops on on the left. There is moderate stool distending the rectum. Patient is status post lumbosacral spine fusion. No abdominal wall defect is seen. The appendix is surgically absent as is the uterus. IMPRESSION: 1. Multiple noncalcified pulmonary nodules, the largest of which measures the 11 mm in the right lower lobe. These are noted previously. There are a few fluid-filled borderline caliber small bowel loops in the left mid abdomen. No obstructive lesion is seen. Moderate stool distended rectum. 2. Post hysterectomy, cholecystectomy, and lumbar spine fusion. 3. Fatty infiltration of the liver and mild hepatomegaly. 4. 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 <Electronically signed by Estevan Montgomery > 09/14/20 [id number]
--- NOTE | 2020-09-14 14:36 | REP ---
INDICATION: alteredf mentation. COMPARISON: November 02, 2012.. TECHNIQUE: Helical scanning is acquired. 5 mm axial images were reformatted. Coronal MPR images were generated. FINDINGS: Bone window settings demonstrate an intact bony calvarium. Rescue Instructor view demonstrates that the mandible and maxilla are edentulous. There is no evidence of skull fracture or incidental bony calvarial lesion. The visualized paranasal sinuses appear clear. No intraorbital abnormality is seen. On soft tissue window setting images; the lateral, third, and fourth ventricles are normal in size and position. Henriquez-white differentiation pattern is normal above and below the tentorium. There are is no evidence of intracranial hemorrhage. No mass, edema, infarction, or midline shift is seen. No extra-axial fluid collection is appreciated. IMPRESSION: Negative noncontrast head CT. <Electronically signed by Estevan Montgomery > 09/14/20 [id number]
[2020-09-14] MEDS ORDERED: PROMETHAZINE INJ 25 MG/ML VIAL (J2550) IV ONE (15:00)
[2020-09-14] MEDS ORDERED: QUET100T2 PO (15:58)
[2020-09-14] MEDS ORDERED: LISI-542 PO (15:58)
[2020-09-14] MEDS ORDERED: ACETAMINOPHEN TAB 650MG DOSE (2X325MG) PO PRN (16:15)
[2020-09-14] MEDS: NS 1,000 ML IV SCH (16:15)
[2020-09-14] MEDS ORDERED: METOCLOPRAMIDE INJ 10MG/2ML VIAL (J2765 PER 1) IV PRN (16:15)
[2020-09-14] MEDS ORDERED: GLUCOSE 4GM CHEW TABLET PO PRN (16:15)
[2020-09-14] MEDS ORDERED: DEXTROSE 50% 50 ML SYRINGE IV PRN (16:15)
[2020-09-14] MEDS ORDERED: GLUCAGON INJ 1MG VIAL SC PRN (16:15)
[2020-09-14 16:29] LABS: RSV AMPLIFICATION NEGATIVE (NEGATIVE)
[2020-09-14] MEDS ORDERED: TIZA4TAB4 PO (16:35)
[2020-09-14] MEDS ORDERED: GABA600T4 PO (16:35)
[2020-09-14] MEDS ORDERED: QUET200T2 PO (16:35)
--- NOTE | 2020-09-14 16:48 | HPEPDOC ---
[facility] Medical History & Physical Date of Admission Sep 14, 2020 Date of Service: Sep 14, 2020 History and Physical Chief complaint: Who presented to the emergency room with complaints of abdominal pain associated with nausea and vomiting History of present illness: Patient is a 44-year-old female who presented to the emergency room with complaints of abdominal pain associated with nausea and vomiting. Patient reported that her nausea started at midnight and has vomited greater than 10 times since that point. Patient describes the vomitus as mostly watery and some blood-tinged patient reports that her abdominal pain is occurring in the upper portion of her abdomen reported as 8/10 burning intensity. Patient reports no alleviating or aggravating factors. She does report decreased oral intake. Patient reports that she has been having bowel movements and the most recent of which was in the emergency room. Patient denies any urinary discomfort. Patient denies any chest pain, shortness of breath, palpitations or cough. Denies any recent fevers or chills. Past Medical History: HTN DLP IDDM2 Mood disorder GERD Past Surgical History: Hysterectomy Cholecystectomy Lumbar spine fusion Appendectomy Allergies: See below Medications: See below Family History: - No history of malignancies Social History: - Denies the use of alcohol or illicit drugs; patient reports that she is an active smoker of 30 years at one PPD - Denies recent travel or sick contacts - Lives alone - Occupation; currently on disability Review of Systems: 10 point review of systems complete, all negative otherwise stated in HPI Physical exam: - Vitals: BP [164/91], HR [77], RR [22], Sat [98%RA], Temp [98.1F] - General: Lying in bed, Complaining of abdominal pain and vomiting, AAOx3 - HEENT: NC, AT, PERRLA - CVS: RRR, +S1S2 - Lungs: Fair air entry bilaterally, No appreciable wheezing / rales / rhonchi - Abdomen: Soft, Non-distended, tenderness appreciated at epigastrium - Extremities: No lower extremity edema, No calf tenderness - Neuro: No focal motor or sensory deficit - Skin: No visible rashes Labs: See below Imaging: CT abdomen 09/14: 1. Multiple non-calcified pulmonary nodules, the largest of which measures the 11 mm in the right lower lobe. These are noted previously. There are a few fluid-filled borderline caliber small bowel loops in the left mid abdomen. No obstructive lesion is seen. Moderate stool distended rectum. 2. Post hysterectomy, cholecystectomy, and lumbar spine fusion. 3. Fatty infiltration of the liver and mild hepatomegaly. 4. 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 CT head 09/14: Negative non-contrast head CT. EKG: See below Assessment and Plan: Abdominal pain / intractable nausea and vomiting - possibly 2/2 gastroparesis - Patient presented to the ER when her symptoms started at midnight - She remains hemodynamically stable and afebrile - Leukocytosis with neutrophil predominance / mild lactic acidosis - Imaging noted above - Will continue with symptomatic control with Zofran and Morphine - Will continue with IV fluid hydration - Will keep NPO for now Lactic acidosis - c/w IV fluid hydration HTN - BP well controlled - Will c/w Labetalol IV with strict hold parameters DLP - Will hold Atorvastatin IDDM2 - Will start ISS - Will start Levemir BID Mood disorder - Will hold home medications GERD - Will start Protonix IV DVT prophylaxis - Will TEDs/Sequentials Vital Signs Vital Signs Date Time Temp Pulse Resp B/P (MAP) Pulse Ox O2 Delivery O2 Flow Rate FiO2 09/14/20 13:16 77 22 164/91 (115) 98 09/14/20 11:17 98.1 Room Air Laboratory Data Labs 24H Laboratory Tests 2 09/14/20 11:25: Immature Granulocyte % (Auto) 0.5, Neutrophils (%) (Auto) 73.2H, Lymphocytes (%) (Auto) 19.8L, Monocytes (%) (Auto) 4.3, Eosinophils (%) (Auto) 1.7, Basophils (%) (Auto) 0.5, Neutrophils # (Auto) 8.1, Lymphocytes # (Auto) 2.2, Monocytes # (Auto) 0.5, Eosinophils # (Auto) 0.2, Basophils # (Auto) 0.1, Nucleated Red Blood Cells % (auto) 0.0, Prothrombin Time 11.8, Prothromb Time International Ratio 0.85, Activated Partial Thromboplast Time 36.0, Lactic Acid Level 2.3*H, Total Bilirubin 0.3, Direct Bilirubin < 0.1, Aspartate Amino Transf (AST/SGOT) 11, Alanine Aminotransferase (ALT/SGPT) 24, Alkaline Phosphatase 156H, Total Protein 8.1, Albumin 3.8, Albumin/Globulin Ratio 0.9L, Lipase 250, B- Hydroxybutyrate 4.90H 09/14/20 11:28: POC Glucose (Misc Panel) 554*H, POC Sodium (Misc Panel) 131L, POC Potassium (Misc Panel) 4.7, POC Chloride (Misc Panel) 102, POC Total CO2 (Misc Panel) 22.0L, POC Blood Urea Nitrogen (Misc Panel 29H, POC Ionized Calcium (Misc Panel) 4.8, POC Creatinine (Misc Panel) 0.8, POC Hematocrit (Misc Panel) 50.0 09/14/20 11:55: Urine Color YELLOW, Urine Appearance CLEAR, Urine pH 6.0, Urine Specific [place] 1.030, Urine Protein 2+H, Urine Glucose (Auto)(UA) 3+H, Urine Ketones (Auto) TRACEH, Urine Blood NEGATIVE, Urine Nitrite NEGATIVE, Urine Bilirubin NEGATIVE, Urine Urobilinogen 0.2, Urine Leukocyte Esterase (Auto) NEGATIVE, Urine WBC (Auto) 0, Urine RBC (Auto) 2, Urine Hyaline Casts (Auto) 0, Urine Bacteria (Auto) NEGATIVE, Urine Squamous Epithelial Cells 2, Urine Mucus (Auto) SMALL, Urine Sperm (Auto) 09/14/20 12:59: Bedside Glucose (Misc Panel) 431H 09/14/20 13:23: POC Troponin I (Misc) 0.00 09/14/20 15:10: Bedside Glucose (Misc Panel) 423H 09/14/20 15:33: Coronavirus (COVID-19)(PCR) NEGATIVE, Influenza Type A (RT-PCR) NEGATIVE, Influenza Type B (RT-PCR) NEGATIVE, Respiratory Syncytial Virus (PCR) NEGATIVE 09/14/20 16:02: CBC/BMP Laboratory Tests 09/14/20 11:25 Home Medications Scheduled Aspirin (Aspirin EC) 81 Mg Tab, 81 MG PO DAILY Atorvastatin Calcium (Atorvastatin Calcium) 40 Mg Tablet, 40 MG PO QHS Gabapentin (Gabapentin) 600 Mg Tablet, 600 MG PO TID Insulin Glargine,Hum.rec.anlog (Jenelle Cabrera U-100) 100 Unit/1 Ml Insuln.pen, 50 UNIT SC BID Lisinopril (Lisinopril) 5 Mg Tablet, 5 MG PO DAILY Omeprazole (Omeprazole) 40 Mg Cap, 40 MG PO DAILY Quetiapine Fumarate (Quetiapine Fumarate) 200 Mg Tablet, 200 MG PO QHS Venlafaxine HCl (Venlafaxine HCl ER) 75 Mg Tab.er.24, 75 MG PO DAILY Scheduled PRN Propranolol HCl (Propranolol HCl) 10 Mg Tablet, 10 MG PO TID PRN for ANXIETY Tizanidine HCl (Tizanidine HCl) 4 Mg Tablet, 4 MG PO TID PRN for MUSCLE SPASMS Allergies Coded Allergies: Mushroom (Verified Allergy, Severe, throat swelling, 09/14/20) ketorolac (Verified Allergy, Severe, hives, 01/25/19) bee venom protein (honey bee) (Verified Adverse Reaction, Mild, hives, 01/25/19) duloxetine (Verified Adverse Reaction, Mild, ANGRY, 09/14/20) LUIS DANIEL GUTIERREZ MD Sep 14, 2020 16:48
[2020-09-14 16:54] LABS: AMPHETAMINES LEVEL URINE NEGATIVE (NEGATIVE); BARBITURATES URINE NEGATIVE (NEGATIVE); BENZODIAZEPINES URINE NEGATIVE (NEGATIVE); CANNABINOIDS URINE NEGATIVE (NEGATIVE); COCAINE METABOLITE URINE NEGATIVE (NEGATIVE); METHADONE URINE NEGATIVE (NEGATIVE); OPIATES URINE NEGATIVE (NEGATIVE); PHENCYCLIDINE URINE NEGATIVE (NEGATIVE)
[2020-09-14] MEDS: MORPHINE 2 MG/ML 1ML VIAL (J2270) IV PRN ×2 (16:59→23:24)
[2020-09-14] MEDS: LABETALOL 100MG/20ML VIAL IV SCH ×2 (17:00→23:23)
[2020-09-14] MEDS: SUCRALFATE SUSP 1GM/10ML UD PO SCH ×2 (17:30→23:19)
[2020-09-14 17:51] LABS: HEMATOCRIT 53.8 % (36.0-47.0); HEMOGLOBIN 17.3 g/dl (12.0-15.5)
[2020-09-14] MEDS: PANTOPRAZOLE 40MG VIAL (C9113 PER 1) IV SCH (17:57)
[2020-09-14] MEDS: HumaLOG INSULIN (NovoLOG) PER UNIT SC SCH (18:06)
[2020-09-14] MEDS ORDERED: HEPARIN SOD (PORCINE) 5000UNITS/ML 1ML VIAL/SYRINGE SC SCH (22:00)
[2020-09-14] MEDS: LEVEMIR (INSULIN DETEMIR) 1 UNITS/0.01ML SC SCH (23:21)
[2020-09-15] MEDS: NS 1,000 ML IV SCH ×4 (00:31→23:40)
[2020-09-15] MEDS: HumaLOG INSULIN (NovoLOG) PER UNIT SC SCH ×4 (01:29→18:05)
[2020-09-15] MEDS: LABETALOL 100MG/20ML VIAL IV SCH ×4 (05:00→23:00)
[2020-09-15] MEDS: PANTOPRAZOLE 40MG VIAL (C9113 PER 1) IV SCH ×2 (05:42→16:24)
[2020-09-15] MEDS: ONDANSETRON 4MG/2ML VIAL IV PRN (07:40)
[2020-09-15] MEDS: SUCRALFATE SUSP 1GM/10ML UD PO SCH ×5 (07:40→21:17)
[2020-09-15 08:05] LABS: BASO % 0.2 % (0.0-1.0); HEMATOCRIT 44.5 % (36.0-47.0); LYMPH # 2.4 10^3/uL (1.5-5.0); LYMPH % 11.8 % (24.0-44.0); MEAN CORPUSCULAR HEMOGLOBIN 29.9 pg (27.0-33.0); MEAN CORPUSCULAR HGB CONC 33.3 g/dl (32.0-36.5); MEAN CORPUSCULAR VOLUME 89.9 fl (80.0-96.0); MONO # 1.4 10^3/uL (0.0-0.8); MONO % 6.9 % (0.0-5.0); NEUTROPHILS # 16.4 10^3/uL (1.5-8.5); NEUTROPHILS % 80.5 % (36.0-66.0); PLATELET COUNT, AUTOMATED 246 10^3/uL (150-450); RED BLOOD COUNT 4.95 10^6/uL (4.00-5.40); WHITE BLOOD COUNT 20.4 10^3/uL (4.0-10.0)
[2020-09-15] MEDS ORDERED: PROMETHAZINE INJ 25 MG/ML VIAL (J2550) IV ONE (08:15)
[2020-09-15 08:20] LABS: HEMOGLOBIN 14.8 g/dl (12.0-15.5)
[2020-09-15 08:25] LABS: CALCIUM LEVEL 9.5 MG/DL (8.5-10.1); CREATININE FOR GFR 1.19 MG/DL (0.55-1.30); MAGNESIUM LEVEL 1.9 MG/DL (1.8-2.4); POTASSIUM SERUM 3.6 MEQ/L (3.5-5.1)
[2020-09-15] MEDS ORDERED: NS 1,000 ML IV ONE (08:45)
[2020-09-15] MEDS ORDERED: NS IV ONE (08:45)
[2020-09-15 09:00] VITALS: BP 143/92
[2020-09-15] MEDS: LEVEMIR (INSULIN DETEMIR) 1 UNITS/0.01ML SC SCH ×2 (09:24→21:00)
[2020-09-15] MEDS: MORPHINE 2 MG/ML 1ML VIAL (J2270) IV PRN ×2 (09:34→16:24)
[2020-09-15] MEDS: PIPERACILLIN/TAZOBACTAM SOD 3.375 GM in D5W MINI-BAG PLUS 50 ML IV SCH ×3 (10:52→21:17)
--- NOTE | 2020-09-15 11:42 | IPNPDOC ---
Text Note Date of Service The patient was seen on 09/15/20. NOTE Subjective: Patient is a 44-year-old female who presented to the emergency room with complaints of abdominal pain associated with nausea and vomiting. Patient reported that her nausea started at midnight and has vomited greater than 10 times since that point. Patient describes the vomitus as mostly watery and some blood-tinged patient reports that her abdominal pain is occurring in the upper portion of her abdomen reported as 8/10 burning intensity. Patient reports no alleviating or aggravating factors. She does report decreased oral intake. Danilo posadas was admitted to the hospital service for further evaluation and treatment. Gastroenterology was called on consultation. Patient was seen and examined at the bedside. Currently patient continued to experience nausea and vomiting. Denies chest pain, shortness breath or palpitations. Reports abdominal discomfort. Denies any urinary discomfort or diarrhea. Objective: Vitals (See below) General: Lying in bed, appears uncomfortable, AAOx3 HEENT: NC, AT CVS: +S1S2 Lungs: Fair air entry b/l, no appreciable wheezing, rhonchi, rales Abdomen: Soft, ND, epigastric tenderness Extremities: - Edema, - Calf tenderness Assessment and plan: Abdominal pain / intractable nausea and vomiting - possibly 2/2 gastroparesis, gastritis / enteritis - Presented to the ER when her symptoms started at midnight; continues to experience nausea and vomiting - Vomitus appears most ileus without any blood that has been observed - Hemodynamically stable and afebrile - Worsening Leukocytosis with neutrophil predominance / mild lactic acidosis - Imaging noted above - c/w Morphine; will adjust antiemetic therapy - Will increase rate of IV fluids and start broad spectrum antibiotics for now - Will remain NPO for now - GI consulted for possible endoscopy Lactic acidosis - c/w IV fluid hydration, rate adjusted HTN - BP well controlled - Will c/w Labetalol IV with strict hold parameters DLP - Will hold Atorvastatin IDDM2 - c/w ISS and Levemir BID Mood disorder - Will hold home medications GERD - c/w Protonix IV and Carafate DVT prophylaxis - c/w TEDs/Sequentials (re: vomiting with faint amount of blood) VS,Fishbone, I+O VS, Fishbone, I+O Laboratory Tests 09/14/20 17:37 09/15/20 07:41 Vital Signs Date Time Temp Pulse Resp B/P (MAP) Pulse Ox O2 Delivery O2 Flow Rate FiO2 09/15/20 09:44 18 Room Air 09/15/20 09:00 97.8 79 143/92 (109) 100 I&O- Last 24 Hours up to 6 AM 09/15/20 06:00 Intake Total 2200 ml Balance 2200 ml LUIS DANIEL GUTIERREZ MD Sep 15, 2020 11:42
[2020-09-15 12:00] VITALS: BP 147/92
[2020-09-15] MEDS: PROCHLORPERAZINE 10MG/2ML VIAL (J0780 PER 1) IM PRN ×3 (12:20→21:17)
[2020-09-15] MEDS ORDERED: LIDOCAINE 2% 100MG/5ML SDV (FOR ANES.) As Ordered ONE (13:15)
[2020-09-15] MEDS ORDERED: propofoL 200 MG/20 ML VIAL As Ordered ONE ×2 (13:15→13:33)
[2020-09-15] MEDS ORDERED: MIDAZOLAM INJ 2MG/2ML VIAL (J2250 PER 1MG) As Ordered ONE (13:16)
[2020-09-15] MEDS ORDERED: fentaNYL 100 MCG/2 ML INJECTION (J3010) As Ordered ONE (13:16)
--- NOTE | 2020-09-15 13:51 | ROOR ---
Patient Name: Bette Velazquez Procedure Date: 09/15/2020 12:56 PM Date of : 1975 Age: 44 Gender: Female Note Status: Finalized Procedure: Upper GI endoscopy Indications: Epigastric abdominal pain, Hematemesis, Gastroparesis, Nausea with vomiting Providers: Mikey BLUE MD Referring MD: 2. Inpatient 2. Inpatient Requesting Provider: Medicines: Monitored Anesthesia Care Complications: No immediate complications. Procedure: Pre-Anesthesia Assessment: - The heart rate, respiratory rate, oxygen saturations, blood pressure, adequacy of pulmonary ventilation, and response to care were monitored throughout the procedure. The Endoscope was introduced through the mouth, and advanced to the second part of duodenum. The upper GI endoscopy was accomplished without difficulty. The patient tolerated the procedure well. Findings: Moderately severe esophagitis was found in the middle third of the esophagus. Biopsies were taken with a cold forceps for histology. Small Hiatal Hernia. The exam of the stomach was otherwise normal. (large volume) Biopsies were taken with a cold forceps in the gastric antrum for Helicobacter pylori testing. The examined duodenum was normal. Impression: - Moderately severe esophagitis. Biopsied. - Normal stomach with a small Hiatal Hernia. - Normal examined duodenum. - Biopsies were taken with a cold forceps for Helicobacter pylori testing. Recommendation: - Use a proton pump inhibitor PO BID. - Gastroparesis diet: - Eat smaller, more frequent meals throughout the day. - Low fat diet. - Liquid/soft foods are tolerated better than solid foods. - Low fiber/well cooked vegetables are tolerated better than high fiber/fibrous foods/raw vegetables. - Avoid medications that inhibit gastric/intestinal motility such as narcotic medications. - Telephone endoscopist for pathology results in 2 weeks. Procedure Code(s): --- Professional --- 97534, Esophagogastroduodenoscopy, flexible, transoral; with biopsy, single or multiple Diagnosis Code(s): --- Professional --- K21.0, Gastro-esophageal reflux disease with esophagitis K20.8, Other esophagitis R10.13, Epigastric pain K92.0, Hematemesis K31.84, Gastroparesis R11.2, Nausea with vomiting, unspecified CPT copyright 2019 [employer]. All rights reserved. The codes documented in this report are preliminary and upon manager casino review may be revised to meet current compliance requirements. Mikey Blue MD Mikey BLUE MD 09/15/2020 1:51:05 PM Electronically signed by Mikey BLUE MD Number of Addenda: 0 Note Initiated On: 09/15/2020 12:56 PM Estimated Blood Loss: Estimated blood loss: none.
[2020-09-15] MEDS ORDERED: ONDANSETRON 4MG/2ML VIAL IV PRN (14:30)
[2020-09-15] MEDS ORDERED: LR 1,000 ML IV SCH (14:30)
--- NOTE | 2020-09-15 14:41 | ECGEPIP ---
[facility] - ED Test Date: 2020-09-14 Pat Name: ROLY IVAN Department: Room: [place] [address] Gender: Female Community Affairs Director: autumn : 1975 Requested By: GARRY Razo Order Number: [id number] Reading MD: Katie Yousif Measurements Intervals [place] Rate: 80 P: 56 UT: 200 QRS: 30 QRSD: 108 T: 38 QT: 412 QTc: 476 Interpretive Statements SINUS RHYTHM WITH SINUS ARRHYTHMIA NSTTW abnormalities POSSIBLE LEFT ATRIAL ENLARGEMENT DECREASED RATE 07/16/19 Electronically Signed on 09-15-2020 14:41:20 EST by Katie Yousif
[2020-09-15 15:00] VITALS: BP 142/101
[2020-09-15 16:39] LABS: BASO % 0.1 % (0.0-1.0); EOS % 0.1 % (0.0-3.0); HEMATOCRIT 43.9 % (36.0-47.0); HEMOGLOBIN 14.2 g/dl (12.0-15.5); LYMPH # 3.2 10^3/uL (1.5-5.0); LYMPH % 18.1 % (24.0-44.0); MEAN CORPUSCULAR HEMOGLOBIN 30.2 pg (27.0-33.0); MEAN CORPUSCULAR HGB CONC 32.3 g/dl (32.0-36.5); MEAN CORPUSCULAR VOLUME 93.4 fl (80.0-96.0); MONO # 1.5 10^3/uL (0.0-0.8); MONO % 8.5 % (0.0-5.0); NEUTROPHILS # 12.8 10^3/uL (1.5-8.5); NEUTROPHILS % 72.5 % (36.0-66.0); PLATELET COUNT, AUTOMATED 246 10^3/uL (150-450); WHITE BLOOD COUNT 17.7 10^3/uL (4.0-10.0)
[2020-09-15] MEDS ORDERED: D5W/0.45% SODIUM CHLORIDE 1,000 ML IV SCH (17:00)
[2020-09-15] MEDS ORDERED: ISOVUE-370 76% 100ML VIAL As Ordered ONE ×2 (17:30→17:34)
--- NOTE | 2020-09-15 19:06 | REPVR ---
PROCEDURE INFORMATION: Exam: CT Angiography Abdomen and Pelvis With Contrast, GI Bleeding Exam date and time: 09/15/2020 5:47 PM Age: 44 years old Clinical indication: Abdominal pain; Acute; Additional info: Intractable abdominal pain TECHNIQUE: Imaging protocol: Computed tomographic angiography of the abdomen and pelvis with intravenous contrast material. 3D rendering (Not supervised by radiologist): MIP and/or 3D reconstructed images were created by the technologist. Radiation optimization: All CT scans at this facility use at least one of these dose optimization techniques: automated exposure control; mA and/or kV adjustment per patient size (includes targeted exams where dose is matched to clinical indication); or iterative reconstruction. Contrast material: ISO 370; Contrast volume: 100 ml; Contrast route: INTRAVENOUS (IV); COMPARISON: CT ABD PELVIS WITH CONTRAST 09/14/2020 1:45 PM FINDINGS: Aorta: Mild atherosclerotic calcific plaque disease is present in the abdominal aorta and iliofemoral arteries. No aortic aneurysm. No aortic dissection. Celiac trunk and mesenteric arteries: No occlusion or significant stenosis. Both superior and inferior mesenteric arteries are widely patent. Renal arteries: No occlusion or significant stenosis. Right iliac arteries: No occlusion or significant stenosis. Left iliac arteries: No occlusion or significant stenosis. Lower chest: Both lungs are well-aerated. There are, however, patchy areas of pulmonary air trapping with a mosaic pattern of alternating hypo- and hyperattenuating lung parenchyma in both upper and lower lungs. Pulmonary air trapping can be idiopathic, seen in normal asymptomatic individuals - or can be associated with abnormal retention of air in the lungs where it is difficult to exhale completely - as is seen in obstructive lung diseases such as acute bronchiolitis/acute reactive airways disease/acute asthma or chronic diseases such as COPD (emphysema and chronic bronchitis), chronic asthma, chronic pulmonary embolism, hypersensitivity pneumonitis and bronchiolitis obliterans. Emphysema with a superimposed process such as pulmonary edema or viral/atypical pneumonia is an additional mimic of pulmonary air trapping. Hypersensitivity pneumonitis/drug reactions and pulmonary alveolar proteinosis are additionally in the differential diagnosis. Liver: No mass. Gallbladder and bile ducts: Prior cholecystectomy. No ductal dilation. Pancreas: Unremarkable. No mass. No ductal dilation. Spleen: Unremarkable. No splenomegaly. Adrenals: Unremarkable. No mass. Kidneys and ureters: Unremarkable right kidney. No solid mass. No hydronephrosis. The left kidney is significantly ptotic, in the deep left paramedian pelvis with anterolateral malrotation of the kidney present. Stomach and bowel: Unremarkable. No active gastrointestinal bleeding. No obstruction. No mucosal thickening. Appendix: No evidence of appendicitis. Intraperitoneal space: Unremarkable. No free air. No significant fluid collection. Lymph nodes: Unremarkable. No enlarged lymph nodes. Urinary bladder: Unremarkable. No mass. Reproductive: Unremarkable as visualized. Bones/joints: No acute fracture. No dislocation. Bilateral laminectomies of L4 and L5 are present. Posterior transpediculate fixation screws and rods are present in the lumbar spine at L4-S1, in normal alignment. Soft tissues: Unremarkable. IMPRESSION: 1. No acute abnormalities are identified in the abdomen or pelvis. 2. Mild atherosclerotic calcific plaque disease is present in the abdominal aorta and iliofemoral arteries. No aortic aneurysm. No aortic dissection. 3. No occlusion or significant stenosis in the celiac trunk. Both superior and inferior mesenteric arteries are widely patent. No evidence of mesenteric ischemia. 4. Both lungs are well-aerated. There are, however, patchy areas of pulmonary air trapping with a mosaic pattern of alternating hypo- and hyperattenuating lung parenchyma in both upper and lower lungs. Pulmonary air trapping can be idiopathic, seen in normal asymptomatic individuals - or can be associated with abnormal retention of air in the lungs where it is difficult to exhale completely - as is seen in obstructive lung diseases such as acute bronchiolitis/acute reactive airways disease/acute asthma or chronic diseases such as COPD (emphysema and chronic bronchitis), chronic asthma, chronic pulmonary embolism, hypersensitivity pneumonitis and bronchiolitis obliterans. Emphysema with a superimposed process such as pulmonary edema or viral/atypical pneumonia is an additional mimic of pulmonary air trapping. Hypersensitivity pneumonitis/drug reactions and pulmonary alveolar proteinosis are additionally in the differential diagnosis. 5. Prior cholecystectomy. No ductal dilation. 6. Unremarkable right kidney. No solid mass. No hydronephrosis. The left kidney is significantly ptotic, in the deep left paramedian pelvis with anterolateral malrotation of the kidney present. 7. No acute fractures. Bilateral laminectomies of L4 and L5 are present. Posterior transpediculate fixation screws and rods are present in the lumbar spine at L4-S1, in normal alignment. Electronically signed by: Lance Flynn On 09/15/2020 19:06:07 PM
[2020-09-15 20:00] VITALS: BP 165/77
[2020-09-15] MEDS: ONDANSETRON 4MG/2ML VIAL IV SCH (23:09)
[2020-09-16] VITALS (10 sets, daily range): BP systolic 142–181; BP diastolic 70–98
[2020-09-16] MEDS: HumaLOG INSULIN (NovoLOG) PER UNIT SC SCH ×4 (01:13→18:00)
[2020-09-16] MEDS: PIPERACILLIN/TAZOBACTAM SOD 3.375 GM in D5W MINI-BAG PLUS 50 ML IV SCH ×4 (02:14→21:52)
[2020-09-16] MEDS ORDERED: PROMETHAZINE INJ 25 MG/ML VIAL (J2550) IV ONE (02:45)
[2020-09-16] MEDS: LABETALOL 100MG/20ML VIAL IV SCH ×2 (05:00→09:27)
[2020-09-16] MEDS: PANTOPRAZOLE 40MG VIAL (C9113 PER 1) IV SCH (05:30)
[2020-09-16] MEDS: ONDANSETRON 4MG/2ML VIAL IV SCH ×4 (05:30→22:04)
[2020-09-16 05:44] LABS: BASO % 0.1 % (0.0-1.0); EOS % 0.1 % (0.0-3.0); HEMATOCRIT 40.6 % (36.0-47.0); HEMOGLOBIN 12.9 g/dl (12.0-15.5); LYMPH # 2.5 10^3/uL (1.5-5.0); LYMPH % 16.4 % (24.0-44.0); MEAN CORPUSCULAR HEMOGLOBIN 29.9 pg (27.0-33.0); MEAN CORPUSCULAR HGB CONC 31.8 g/dl (32.0-36.5); MONO % 6.9 % (0.0-5.0); NEUTROPHILS # 11.4 10^3/uL (1.5-8.5); PLATELET COUNT, AUTOMATED 204 10^3/uL (150-450); RED BLOOD COUNT 4.32 10^6/uL (4.00-5.40)
[2020-09-16 06:13] LABS: BLOOD UREA NITROGEN 15 MG/DL (7-18); CALCIUM LEVEL 8.4 MG/DL (8.5-10.1); CARBON DIOXIDE LEVEL 26 MEQ/L (21-32); CHLORIDE LEVEL 104 MEQ/L (98-107); CREATININE FOR GFR 0.85 MG/DL (0.55-1.30); GLOMERULAR FILTRATION RATE > 60.0 (>58); GLUCOSE, FASTING 218 MG/DL (70-100); MAGNESIUM LEVEL 1.9 MG/DL (1.8-2.4); POTASSIUM SERUM 3.4 MEQ/L (3.5-5.1); SODIUM LEVEL 139 MEQ/L (136-145)
[2020-09-16] MEDS: SUCRALFATE SUSP 1GM/10ML UD PO SCH (09:00)
[2020-09-16] MEDS: LEVEMIR (INSULIN DETEMIR) 1 UNITS/0.01ML SC SCH ×2 (09:00→21:00)
[2020-09-16] MEDS: PROCHLORPERAZINE 10MG/2ML VIAL (J0780 PER 1) IM PRN ×2 (09:01→13:41)
[2020-09-16] MEDS ORDERED: tiZANidine 4 MG TAB PO PRN (11:00)
--- NOTE | 2020-09-16 11:05 | IPNPDOC ---
Text Note Date of Service The patient was seen on 09/16/20. NOTE Subjective: Patient is a 44-year-old female who presented to the emergency room with complaints of abdominal pain associated with nausea and vomiting. Patient reported that her nausea started at midnight and has vomited greater than 10 times since that point. Patient describes the vomitus as mostly watery and some blood-tinged patient reports that her abdominal pain is occurring in the upper portion of her abdomen reported as 8/10 burning intensity. Patient reports no alleviating or aggravating factors. She does report decreased oral intake. Danilo posadas was admitted to the hospital service for further evaluation and treatment. Gastroenterology was called on consultation. Patient was seen and examined at the bedside. Patient reports that she still feels nauseous, however, has not vomited all night patient denies any chest pain, shortness breath or palpitations. Reports her abdominal pain is doing slightly better. Reports that she has had a bowel movement yesterday, although small. Denies any urinary discomfort. Objective: Vitals (See below) General: Patient is laying in bed, appears to be a little bit more comfortable than she was yesterday, is awake, alert and oriented 3 HEENT: NC, AT CVS: +S1S2 Lungs: Again, air entry is fair bilaterally without any auscultated rhonchi, rales or wheezing Abdomen: Abdomen remains soft. Diffuse tenderness has improved significantly, no distention Extremities: LE are without edema, - Calf tenderness Imaging: Assessment and plan: Abdominal pain / intractable nausea and vomiting - possibly 2/2 gastroparesis, gastritis / enteritis - Overnight patient has not had any vomiting episodes; she reports that she still experiences nausea - Hemodynamically stable and afebrile - Leukocytosis improving - Imaging noted above - c/w Morphine; will adjust antiemetic therapy - Will reduce rate of IV fluids today - Will remain NPO again today; may consider advancing this afternoon if nausea improved - s/p EGD 09/15 with evidence of moderately severe esophagitis, normal stomach with small hiatal hernia, normal duodenum, biopsies taken for H. pylori testing - Will adjust PPI to PO - GI on consultation; appreciate their input s/p Lactic acidosis - c/w IV fluid hydration, rate reduced HTN - BP elevated - Will resume home oral medications - Will c/w Labetalol IV with strict hold parameters DLP - Will resume Atorvastatin IDDM2 - c/w ISS and Levemir BID Mood disorder - Will resume home medications GERD - Will adjust Protonix to PO - Will DC Carafate DVT prophylaxis - c/w TEDs/Sequentials (re: vomiting with faint amount of blood) Disposition: - Anticipate discharge within 24 hours VS,Fishbone, I+O VS, Fishbone, I+O Laboratory Tests 09/15/20 16:12 09/16/20 05:32 Vital Signs Date Time Temp Pulse Resp B/P (MAP) Pulse Ox O2 Delivery O2 Flow Rate FiO2 09/16/20 09:33 61 165/82 (109) 09/16/20 08:00 97.1 20 100 Room Air I&O- Last 24 Hours up to 6 AM 09/16/20 06:00 Intake Total 5945 ml Output Total 1300 ml Balance 4645 ml LUIS DANIEL GUTIERREZ MD Sep 16, 2020 11:05
[2020-09-16] MEDS ORDERED: POTASSIUM CHLORIDE 10 MEQ SR TABLET PO ONE (11:15)
[2020-09-16] MEDS: NS 1,000 ML IV SCH ×2 (11:25→17:16)
[2020-09-16] MEDS: VENLAFAXINE **XR** 75MG CAPSULE PO SCH (11:34)
[2020-09-16] MEDS: ASPIRIN 81 MG ENTERIC TAB PO SCH (11:35)
[2020-09-16] MEDS: GABAPENTIN 300 MG CAP PO SCH ×3 (11:35→21:54)
[2020-09-16] MEDS: lisinopriL 5 MG TAB PO SCH (11:36)
[2020-09-16] MEDS ORDERED: LIDOCAINE 1% MDV 20ML VIAL As Ordered ONE (15:22)
[2020-09-16] MEDS ORDERED: ONDANSETRON 4MG/2ML VIAL IV ONE (15:30)
[2020-09-16] MEDS ORDERED: ONDANSETRON 4MG/2ML VIAL As Ordered ONE (15:32)
[2020-09-16] MEDS ORDERED: ISOVUE-300 61% 50ML VIAL As Ordered ONE (15:57)
[2020-09-16 16:39] LABS: PHOSPHORUS LEVEL 2.5 MG/DL (2.5-4.9)
[2020-09-16] MEDS: PROPRANOLOL 10 MG TAB PO SCH ×2 (17:12→21:57)
[2020-09-16] MEDS ORDERED: SODIUM CHLORIDE 0.9% INJ 10 ML SYR IV PRN (18:00)
[2020-09-16] MEDS: SODIUM CHLORIDE 0.9% INJ 10 ML SYR IV SCH (18:00)
--- NOTE | 2020-09-16 18:28 | REP ---
PROCEDURE NAME: PICC LINE INSERTION W/SITERITE CLINICAL INFORMATION: IV access. COMPARISON: None. PROCEDURE DESCRIPTION: The procedure was performed by JIARO Manuel, under the direct supervision of Dr. Montgomery. The risks and benefits of the procedure were explained to the patient and an informed consent was obtained both verbally and written. Directly prior to the start of the procedure a formal time-out was completed in the procedure room. The right lateral brachial vein was localized using ultrasound guidance. The skin was prepped and draped in sterile fashion. One mL of 1% lidocaine 10 mg/mL was used as a local anesthetic. Using ultrasound guidance the right lateral brachial vein was cannulated, and a 0.018 guidewire was inserted and advanced to the level of SVC using fluoroscopic guidance. The needle was removed and a 5.5 Georgian dilator and peel-away sheath was inserted over the guidewire. A 5.5 Georgian dual lumen catheter was cut to a length of 45 cm. Will trying to insert the PICC line it would not advance past the proximal subclavian. 10 mL of a 50/50 solution of Isovue in saline was used to try to open up the vessel for the PICC line. The PICC line was still unable to be advanced so was removed and cut to length of 35 cm. The dilator was removed and the catheter was inserted over the guidewire with the tip ending at the level of the proximal subclavian vein. The peel-away sheath was removed and the catheter was flushed with heparinized saline as per hospital protocol. The catheter was affixed to the skin and a sterile dressing was applied. The patient tolerated the procedure well and there were no immediate complications. CONCLUSION: PICC line insertion into the right lateral brachial vein. 1.0 minutes of fluoroscopy time was utilized for this procedure. Some fluoroscopic images are performed with last image hold technology. These images require no additional radiation. <Electronically signed by Bette Soler > 09/16/20 [id number] <Electronically signed by Estevan Montgomery > 09/16/20 [id number]
[2020-09-16] MEDS: ATORVASTATIN 20 MG TAB PO SCH (21:55)
[2020-09-16] MEDS: QUEtiapine FUMARATE 200 MG TAB PO SCH (21:56)
[2020-09-16] MEDS: PANTOPRAZOLE 40MG TAB (PROTONIX) PO SCH (21:56)
[2020-09-17] MEDS: PIPERACILLIN/TAZOBACTAM SOD 3.375 GM in D5W MINI-BAG PLUS 50 ML IV SCH ×4 (02:25→21:28)
[2020-09-17] MEDS: NS 1,000 ML IV SCH (03:13)
[2020-09-17] MEDS: ONDANSETRON 4MG/2ML VIAL IV SCH ×4 (05:04→23:00)
[2020-09-17] MEDS: SODIUM CHLORIDE 0.9% INJ 10 ML SYR IV SCH ×2 (05:05→17:24)
[2020-09-17 05:50] LABS: HEMATOCRIT 39.9 % (36.0-47.0); HEMOGLOBIN 13.1 g/dl (12.0-15.5); MEAN CORPUSCULAR HEMOGLOBIN 30.8 pg (27.0-33.0); MEAN CORPUSCULAR HGB CONC 32.8 g/dl (32.0-36.5); MEAN CORPUSCULAR VOLUME 93.9 fl (80.0-96.0); PLATELET COUNT, AUTOMATED 193 10^3/uL (150-450); RED BLOOD COUNT 4.25 10^6/uL (4.00-5.40)
[2020-09-17 05:56] LABS: WHITE BLOOD COUNT 15.5 10^3/uL (4.0-10.0)
[2020-09-17] MEDS: HumaLOG INSULIN (NovoLOG) PER UNIT SC SCH ×4 (05:56→17:24)
[2020-09-17 06:00] VITALS: BP 131/68
[2020-09-17] MEDS ORDERED: D5W/0.45% SODIUM CHLORIDE 1,000 ML IV SCH (06:00)
[2020-09-17 06:13] LABS: BLOOD UREA NITROGEN 12 MG/DL (7-18); CALCIUM LEVEL 8.8 MG/DL (8.5-10.1); CARBON DIOXIDE LEVEL 26 MEQ/L (21-32); CHLORIDE LEVEL 109 MEQ/L (98-107); CREATININE FOR GFR 0.79 MG/DL (0.55-1.30); GLOMERULAR FILTRATION RATE > 60.0 (>58); GLUCOSE, FASTING 75 MG/DL (70-100); MAGNESIUM LEVEL 1.9 MG/DL (1.8-2.4); POTASSIUM SERUM 3.5 MEQ/L (3.5-5.1); SODIUM LEVEL 142 MEQ/L (136-145)
[2020-09-17 06:22] LABS: ATYPICAL LYMPH 6 % (0-5); LYMPHOCYTES 29 % (16-44); MONOCYTES 4 % (0-5); NEUTROPHILS 61 % (28-66); PLATELET ESTIMATE NORMAL (NORMAL)
[2020-09-17] MEDS ORDERED: OMEPRAZOLE 20 MG CAP PO SCH (09:00)
[2020-09-17] MEDS: PANTOPRAZOLE 40MG TAB (PROTONIX) PO SCH ×2 (10:31→21:29)
[2020-09-17] MEDS: GABAPENTIN 300 MG CAP PO SCH ×3 (10:32→21:29)
[2020-09-17] MEDS: PROPRANOLOL 10 MG TAB PO SCH ×3 (10:32→21:29)
[2020-09-17] MEDS: VENLAFAXINE **XR** 75MG CAPSULE PO SCH (10:32)
[2020-09-17] MEDS: ASPIRIN 81 MG ENTERIC TAB PO SCH (10:32)
[2020-09-17] MEDS: lisinopriL 5 MG TAB PO SCH (10:33)
[2020-09-17] MEDS: LEVEMIR (INSULIN DETEMIR) 1 UNITS/0.01ML SC SCH ×2 (10:49→21:30)
[2020-09-17 14:00] VITALS: BP 138/73
--- NOTE | 2020-09-17 19:34 | IPNPDOC ---
Subjective Date Seen The patient was seen on 09/17/20. Subjective Chief Complaint/HPI Patient is a 44 year old female with IDDM2 and mood disorder here with intractable abdominal pain with nausea and vomiting. No episodes of vomiting last night. This morning, she woke up feeling like a new person. Denied chest pain, dyspnea, or abdominal pain. She wanted to try a diet. Objective Physical Examination General Exam: Positive: Alert, Cooperative Eye Exam: Positive: EOMI; Negative: Sclera icteric ENT Exam: Positive: Atraumatic Neck Exam: Positive: Supple Chest Exam: Positive: Clear to auscultation; Negative: Rales, Rhonchi, Wheezing Heart Exam: Positive: Rate Normal, Regular Rhythm Abdomen Exam: Positive: Normal bowel sounds, Soft; Negative: Tenderness Extremity Exam: Negative: Edema Neuro Exam: Positive: Normal Speech Psych Exam: Positive: Mental status NL, Mood NL Assessment /Plan Assessment Patient is a 44 year old female with IDDM2 and mood disorder here with intractable abdominal pain with nausea and vomiting. Unclear etiology to the abdominal pain with nausea and vomiting. May be secondary to gastritis vs gastroparesis in the setting of DM. Appears to have resolved today. Anticipate discharge tomorrow Plan/VTE VTE Prophylaxis Ordered?: Yes Plan 1. Intractable abdominal pain with nausea/vomiting -Gastroparesis vs gastritis. May be gastritis due to spontaneous resolution -Nausea and vomiting resolved today -Started on diet -If tolerates anticipate discharge home tomorrow. 2. Dyslipidemia -Continue atorvastatin 3. Mood disorder -Continue quetiapine and venlafaxine 4. GERD -Continue protonix 5. DVT ppx -TEDs and sequentials Disposition: If tolerating diet, anticipate discharge tomorrow VS, I&O, 24H, Fishbone Vital Signs/I&O Vital Signs Date Time Temp Pulse Resp B/P (MAP) Pulse Ox O2 Delivery O2 Flow Rate FiO2 09/17/20 16:00 70 144/79 09/17/20 14:00 98.2 17 98 Room Air I&O- Last 24 Hours up to 6 AM 09/17/20 06:00 Intake Total 1310 ml Output Total 350 ml Balance 960 ml Laboratory Data 24H LABS Laboratory Tests 2 09/17/20 00:33: Bedside Glucose (Misc Panel) 85 09/17/20 05:34: Neutrophils (%) (Auto) , Nucleated Red Blood Cells % (auto) 0.0, Neutrophils 61, Lymphocytes (Manual) 29, Monocytes (Manual) 4, Atypical Lymphocytes 6H, Red Blood Cell Morphology NORMAL, Platelet Estimate NORMAL, Anion Gap 7L, Glomerular Filtration Rate > 60.0, Calcium Level 8.8, Magnesium Level 1.9 09/17/20 05:42: Bedside Glucose (Misc Panel) 61L 09/17/20 11:26: Bedside Glucose (Misc Panel) 201H 09/17/20 16:42: Bedside Glucose (Misc Panel) 129H CBC/BMP Laboratory Tests 09/17/20 05:34 Microbiology Microbiology 09/15/20 Blood Culture - Preliminary, Resulted No Growth after 48 hours. All Specime... 09/15/20 Blood Culture - Preliminary, Resulted No Growth after 48 hours. All Specime... REBECCA GOMEZ DO Sep 17, 2020 19:34
[2020-09-17] MEDS ORDERED: HumaLOG INSULIN (NovoLOG) PER UNIT SC SCH (21:00)
[2020-09-17] MEDS: ATORVASTATIN 20 MG TAB PO SCH (21:29)
[2020-09-17] MEDS: QUEtiapine FUMARATE 200 MG TAB PO SCH (21:29)
[2020-09-17 22:00] VITALS: BP 147/82
[2020-09-18] MEDS: PIPERACILLIN/TAZOBACTAM SOD 3.375 GM in D5W MINI-BAG PLUS 50 ML IV SCH ×2 (03:22→08:53)
[2020-09-18] MEDS: ONDANSETRON 4MG/2ML VIAL IV SCH ×2 (05:00→11:00)
[2020-09-18] MEDS: SODIUM CHLORIDE 0.9% INJ 10 ML SYR IV SCH (05:18)
[2020-09-18 06:00] VITALS: BP 121/59
[2020-09-18 08:14] LABS: BASO % 0.5 % (0.0-1.0); EOS # 0.2 10^3/uL (0.0-0.5); EOS % 2.8 % (0.0-3.0); HEMATOCRIT 40.9 % (36.0-47.0); LYMPH # 3.2 10^3/uL (1.5-5.0); LYMPH % 39.6 % (24.0-44.0); MEAN CORPUSCULAR HEMOGLOBIN 29.8 pg (27.0-33.0); MEAN CORPUSCULAR HGB CONC 31.8 g/dl (32.0-36.5); MEAN CORPUSCULAR VOLUME 93.8 fl (80.0-96.0); MONO # 0.8 10^3/uL (0.0-0.8); MONO % 9.7 % (0.0-5.0); NEUTROPHILS # 3.8 10^3/uL (1.5-8.5); NEUTROPHILS % 47.2 % (36.0-66.0); PLATELET COUNT, AUTOMATED 190 10^3/uL (150-450); RED BLOOD COUNT 4.36 10^6/uL (4.00-5.40); WHITE BLOOD COUNT 8.1 10^3/uL (4.0-10.0)
[2020-09-18 08:30] LABS: BLOOD UREA NITROGEN 12 MG/DL (7-18); CALCIUM LEVEL 8.5 MG/DL (8.5-10.1); CARBON DIOXIDE LEVEL 24 MEQ/L (21-32); CHLORIDE LEVEL 108 MEQ/L (98-107); CREATININE FOR GFR 0.87 MG/DL (0.55-1.30); GLOMERULAR FILTRATION RATE > 60.0 (>58); GLUCOSE, FASTING 159 MG/DL (70-100); MAGNESIUM LEVEL 1.9 MG/DL (1.8-2.4); POTASSIUM SERUM 3.7 MEQ/L (3.5-5.1); SODIUM LEVEL 143 MEQ/L (136-145)
[2020-09-18] MEDS: PANTOPRAZOLE 40MG TAB (PROTONIX) PO SCH (08:51)
[2020-09-18] MEDS: HumaLOG INSULIN (NovoLOG) PER UNIT SC SCH ×2 (08:52→12:00)
[2020-09-18] MEDS: PROPRANOLOL 10 MG TAB PO SCH (08:52)
[2020-09-18] MEDS: VENLAFAXINE **XR** 75MG CAPSULE PO SCH (08:52)
[2020-09-18] MEDS: GABAPENTIN 300 MG CAP PO SCH (08:52)
[2020-09-18] MEDS: ASPIRIN 81 MG ENTERIC TAB PO SCH (08:52)
[2020-09-18 08:53] VITALS: BP 112/60
[2020-09-18] MEDS: lisinopriL 5 MG TAB PO SCH (08:53)
[2020-09-18] MEDS: LEVEMIR (INSULIN DETEMIR) 1 UNITS/0.01ML SC SCH (08:53)
--- NOTE | 2020-09-18 23:43 | DS.PDOC ---
Discharge Summary General Date of Admission Sep 14, 2020 at 16:05 Date of Discharge Sep 18, 2020 Attending Physician: REBECCA GOMEZ DO Specialist/Consultants Involve Dr. Gomez Discharge Summary PROCEDURES PERFORMED DURING STAY: EGD ADMITTING DIAGNOSES: 1. Abdominal pain with intractable nausea and vomiting 2. Lactic acidosis 3. Hypertension 4. Dyslipidemia 5. IDDM2 6. Mood disorder 7. GERD DISCHARGE DIAGNOSES: 1. Abdominal pain with intractable nausea and vomiting 2. Lactic acidosis 3. Hypertension 4. Dyslipidemia 5. IDDM2 6. Mood disorder 7. GERD COMPLICATIONS/CHIEF COMPLAINT: Nausea Vomiting. HISTORY OF PRESENT ILLNESS: Patient is a 44 year old female with IDDM2 and mood disorder here with intractable abdominal pain with nausea and vomiting. Her nausea started at midnight and she had vomited greater than 10 times since midnight. Emesis was mostly water and slightly blood tinged. Abdominal pain was located in the upper abdomen. Rated 8/10 burning pain. Denies any alleviating or aggravating factors. She does have poor oral intake. Patient was admitted for abdominal pain with intractable nausea and vomiting HOSPITAL COURSE: Lab work was concerning for leukocytosis of 20. No clear source of infection or fever. Unsure if infective or reactive to vomiting. Patient was empirically started on broad spectrum antibiotics. GI was consulted for EGD. EGD demonstrated esophagitis. About 3 days after admission, patient's nausea and abdominal pain resolved. She tolerated a diet and felt well. Of note, her urine tox screen was negative for Cannibis. Patient denied any fever/chills, chest pain, dyspnea, or dysuria. She was subsequently discharged. Patient was instructed to follow up with GI about biopsy results and to discuss gastroparesi s. DISCHARGE MEDICATIONS: Please see below. ALLERGIES: Please see below. PHYSICAL EXAMINATION ON DISCHARGE: VITAL SIGNS: Please see below. GENERAL: Comfortable, in no apparent distress HEENT: Head normocephalic, atraumatic NECK: Supple CARDIOVASCULAR EXAMINATION: Regular rate and rhythm RESPIRATORY EXAMINATION: Lungs clear to auscultation bilaterally ABDOMINAL EXAMINATION: Soft, non-tender, normal bowel sounds EXTREMITIES: No pitting edema bilaterally SKIN: Warm and dry NEUROLOGICAL EXAMINATION: CN 3-12 grossly intact PSYCHIATRIC EXAMINATION: Normal mood and affect LABORATORY DATA: Please see below. IMAGING: CT abd/pelvis 1. Multiple noncalcified pulmonary nodules, the largest of which measures the 11 mm in the right lower lobe. These are noted previously. There are a few fluid-filled borderline caliber small bowel loops in the left mid abdomen. No obstructive lesion is seen. Moderate stool distended rectum. 2. Post hysterectomy, cholecystectomy, and lumbar spine fusion. 3. Fatty infiltration of the liver and mild hepatomegaly. 4. 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 CT head Negative noncontrast head CT. CTA chest 1. No acute abnormalities are identified in the abdomen or pelvis. 2. Mild atherosclerotic calcific plaque disease is present in the abdominal aorta and iliofemoral arteries. No aortic aneurysm. No aortic dissection. 3. No occlusion or significant stenosis in the celiac trunk. Both superior and inferior mesenteric arteries are widely patent. No evidence of mesenteric ischemia. 4. Both lungs are well-aerated. There are, however, patchy areas of pulmonary air trapping with a mosaic pattern of alternating hypo- and hyperattenuating lung parenchyma in both upper and lower lungs. Pulmonary air trapping can be idiopathic, seen in normal asymptomatic individuals - or can be associated with abnormal retention of air in the lungs where it is difficult to exhale completely - as is seen in obstructive lung diseases such as acute bronchiolitis/acute reactive airways disease/acute asthma or chronic diseases such as COPD (emphysema and chronic bronchitis), chronic asthma, chronic pulmonary embolism, hypersensitivity pneumonitis and bronchiolitis obliterans. Emphysema with a superimposed process such as pulmonary edema or viral/atypical pneumonia is an additional mimic of pulmonary air trapping. Hypersensitivity pneumonitis/drug reactions and pulmonary alveolar proteinosis are additionally in the differential diagnosis. 5. Prior cholecystectomy. No ductal dilation. 6. Unremarkable right kidney. No solid mass. No hydronephrosis. The left kidney is significantly ptotic, in the deep left paramedian pelvis with anterolateral malrotation of the kidney present. 7. No acute fractures. Bilateral laminectomies of L4 and L5 are present. Posterior transpediculate fixation screws and rods are present in the lumbar spine at L4-S1, in normal alignment. PROGNOSIS: Good ACTIVITY: As tolerated. DIET: Gastroparesis diet DISCHARGE PLAN: Home DISPOSITION: Home, Self-Care. DISCHARGE INSTRUCTIONS: 1. Follow up with your PCP within 1 week 2. Follow up with GI in about 1 to 2 weeks to discuss biopsy and gastroparesis ITEMS TO FOLLOWUP ON ON OUTPATIENT: 1. EGD biopsy DISCHARGE CONDITION: Stable. Total time spent on discharge planning, discharge summary, and medication reconciliation: 55 minutes Vital Signs/I&Os Vital Signs Date Time Temp Pulse Resp B/P (MAP) Pulse Ox O2 Delivery O2 Flow Rate FiO2 09/18/20 08:53 112/60 09/18/20 08:52 77 09/18/20 06:00 98.6 18 96 Room Air I&O- Last 24 Hours up to 6 AM 09/18/20 06:00 Intake Total 2155 ml Output Total 0 ml Balance 2155 ml Laboratory Data Labs 24H Laboratory Tests 2 09/18/20 06:40: Immature Granulocyte % (Auto) 0.2, Neutrophils (%) (Auto) 47.2, Lymphocytes (%) (Auto) 39.6, Monocytes (%) (Auto) 9.7H, Eosinophils (%) (Auto) 2.8, Basophils (%) (Auto) 0.5, Neutrophils # (Auto) 3.8, Lymphocytes # (Auto) 3.2, Monocytes # (Auto) 0.8, Eosinophils # (Auto) 0.2, Basophils # (Auto) 0.0, Nucleated Red Blood Cells % (auto) 0.0, Anion Gap 11, Glomerular Filtration Rate > 60.0, Calci um Level 8.5, Magnesium Level 1.9 09/18/20 07:41: Bedside Glucose (Misc Panel) 124H 09/18/20 11:29: Bedside Glucose (Misc Panel) 78 CBC/BMP Laboratory Tests 09/18/20 06:40 FSBS Laboratory Tests Test 09/18/20 07:41 09/18/20 11:29 Range/Units Bedside Glucose (Misc Panel) 124 78 70-105 MG/DL Microbiology Microbiology 09/15/20 Blood Culture - Preliminary, Resulted No Growth after 72 hours. All specime... 09/15/20 Blood Culture - Preliminary, Resulted No Growth after 72 hours. All specime... Discharge Medications Scheduled Aspirin (Aspirin EC) 81 Mg Tab, 81 MG PO DAILY, (Reported) Atorvastatin Calcium (Atorvastatin Calcium) 40 Mg Tablet, 40 MG PO QHS, (Reported) Gabapentin (Gabapentin) 600 Mg Tablet, 600 MG PO TID, (Reported) Insulin Glargine,Hum.rec.anlog (Basaglar Kwikpen U-100) 100 Unit/1 Ml Insuln.pen, 50 UNIT SC BID, (Reported) Lisinopril (Lisinopril) 5 Mg Tablet, 5 MG PO DAILY, (Reported) Omeprazole (Omeprazole) 40 Mg Cap, 40 MG PO DAILY, (Reported) Quetiapine Fumarate (Quetiapine Fumarate) 200 Mg Tablet, 200 MG PO QHS, (Reported) Venlafaxine HCl (Venlafaxine HCl ER) 75 Mg Tab.er.24, 75 MG PO DAILY, (Reported) Scheduled PRN Propranolol HCl (Propranolol HCl) 10 Mg Tablet, 10 MG PO TID PRN for ANXIETY, (Reported) Tizanidine HCl (Tizanidine HCl) 4 Mg Tablet, 4 MG PO TID PRN for MUSCLE SPASMS, (Reported) Allergies Coded Allergies: Mushroom (Verified Allergy, Severe, throat swelling, 09/14/20) ketorolac (Verified Allergy, Severe, hives, 01/25/19) bee venom protein (honey bee) (Verified Adverse Reaction, Mild, hives, 01/25/19) duloxetine (Verified Adverse Reaction, Mild, ANGRY, 09/14/20) REBECCA GOMEZ DO Sep 18, 2020 23:43
--- NOTE | 2020-09-21 09:15 | ECHO ---
DATE OF PROCEDURE: 09/15/2020 Age: 44 Gender: Female REFERRING PROVIDER: Luana Hernandez MD. PATIENT LOCATION: ED #[id number]. REASON FOR STUDY: Congestive heart failure. 2D MEASUREMENTS: IVS 1.1 cm LV 4.3 cm LVPW 0.84 cm LA 3.6 cm Aorta 3.8 cm DOPPLER MEASUREMENT Peak velocity across the aortic valve 1.3 m/s Peak velocity across the LVOT 1.0 m/s Mitral E 0.81 Mitral A 0.84 with a ratio of less than 1.0 2D COMMENTS: 1. Normal left ventricular size, wall thickness, and normal global left ventricular systolic function. The estimated left ventricular systolic ejection fraction is 60 to 65%. 2. Normal left atrium. Normal right atrium and right ventricle. 3. The atrial septum appeared to be normal without evidence of defect or shunt. 4. Normal aortic root. 5. A small pericardial effusion was noted, no evidence of cardiac tamponade. 6. The aortic valve, mitral valve, and tricuspid valve, as well as the pulmonic valve appeared to be normal. The proximal pulmonary artery branches were not well visualized. 7. The inferior vena cava was not well visualized. DOPPLER: No significant valvular abnormalities detected. Assessment of the left ventricular diastolic function revealed findings consistent with grade 1 left ventricular diastolic dysfunction, abnormal relaxation. IMPRESSION: 1. Normal global left ventricular systolic function. There were some features of grade 1 left ventricular diastolic dysfunction. 2. No significant valvular abnormalities. 3. A small pericardial effusion was noted, no evidence of cardiac tamponade. 4. It was reported that patient was not very cooperative during the test. [facility]
== END 2020-09-18 14:05 | disposition home or self-care (01) | DRG 48 ==
LOC: EDBD 11:04 → M ED 11:04 → M ED INP 16:05 → M PCU 09-15 08:49 → M MSPAV 09-16 13:58
PROVIDERS: ADMIT Internal Medicine; ATTEND Internal Medicine
PROC: 0DB78ZX Excision of Stomach, Pylorus, Via Natural or Artificial Opening Endoscopic, Diagnostic (ICD-10-PCS; 2020-09-15)
PROC: 0DB28ZX Excision of Middle Esophagus, Via Natural or Artificial Opening Endoscopic, Diagnostic (ICD-10-PCS; principal; 2020-09-15 12:25)
PROC: 05H533Z Insertion of Infusion Device into Right Subclavian Vein, Percutaneous Approach (ICD-10-PCS; 2020-09-16)
DX: E11.43 Type 2 diabetes mellitus with diabetic autonomic (poly)neuropathy (principal); K92.0 Hematemesis; E87.2 Acidosis; K31.84 Gastroparesis; I10 Essential (primary) hypertension; K29.70 Gastritis, unspecified, without bleeding; E78.5 Hyperlipidemia, unspecified; K44.9 Diaphragmatic hernia without obstruction or gangrene; F39 Unspecified mood [affective] disorder; K21.00 Gastro-esophageal reflux disease with esophagitis, without bleeding; F17.200 Nicotine dependence, unspecified, uncomplicated; Z20.822 Contact with and (suspected) exposure to COVID-19; Z79.82 Long term (current) use of aspirin; Z79.4 Long term (current) 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; Z79.899 Other long term (current) drug therapy; Z88.8 Allergy status to other drugs, medicaments and biological substances; Z91.018 Allergy to other foods; Z91.030 Bee allergy status

== ENCOUNTER → 2020-10-21 | Outpatient (CLI) | payer OTHER ==
[~2020-10-21] MED LIST changes: +GABA600T4 PO; +LISI-898 PO; +TIZA4TAB4 PO
--- NOTE | 2020-10-21 15:22 | REP ---
INDICATION: LUNG NODULE COMPARISON: 12/25/2019, 07/30/2018 TECHNIQUE: Axial noncontrast images from the thoracic inlet to the upper abdomen with coronal and sagittal reformations. This CT examination was performed using the following dose reduction techniques: Automated exposure control, adjustment of mA and/or kv according to the patient's size, and use of iterative reconstruction technique. FINDINGS: Lung alberto are well aerated. Few scattered noncalcified pulmonary nodules are again identified and similar to prior examination. Largest nodule identified in the periphery of the right lower lobe and measures approximately 10 mm with variation in size compared to prior examination likely technical. Few nonspecific hilar lymph nodes are suggested but incompletely evaluated due to lack of intravenous contrast enhancement. No further consolidation, effusion, or pneumothorax. Tracheobronchial tree is patent. Further evaluation of the mediastinum demonstrates normal thoracic aorta, pulmonary vasculature, and heart/pericardium. Musculoskeletal structures are intact. IMPRESSION: Stable noncalcified pulmonary nodules noted bilaterally measuring up to approximately 10 mm. Mild hilar adenopathy cannot be excluded. Pulmonology consultation and correlation with underlying medical history is recommended. Findings may be related to granulomatous disease. <Electronically signed by Wyatt Paez > 10/21/20 [id number]
== END ==
LOC: M RAD 14:42
PROVIDERS: ATTEND Family Medicine
DX: R91.1 Solitary pulmonary nodule (principal)

== ENCOUNTER 2021-01-23 13:57 | Observation (INO) | payer OTHER ==
[~2021-01-23] VITALS: Ht 172.7 cm; Wt 104.5 kg
[2021-01-23] MEDS ORDERED: NS 1,000 ML IV SCH (14:55)
[2021-01-23 15:05] LABS: BASO # 0.1 10^3/uL (0.0-0.2); BASO % 0.8 % (0.0-1.0); EOS # 0.4 10^3/uL (0.0-0.5); HEMATOCRIT 45.8 % (36.0-47.0); HEMOGLOBIN 15.6 g/dl (12.0-15.5); LYMPH # 3.4 10^3/uL (1.5-5.0); LYMPH % 28.4 % (24.0-44.0); MEAN CORPUSCULAR HEMOGLOBIN 30.4 pg (27.0-33.0); MEAN CORPUSCULAR HGB CONC 34.1 g/dl (32.0-36.5); MEAN CORPUSCULAR VOLUME 89.3 fl (80.0-96.0); MONO # 0.8 10^3/uL (0.0-0.8); MONO % 6.5 % (2.0-8.0); NEUTROPHILS # 7.3 10^3/uL (1.5-8.5); RED BLOOD COUNT 5.13 10^6/uL (4.00-5.40); WHITE BLOOD COUNT 11.9 10^3/uL (4.0-10.0)
[2021-01-23 15:33] LABS: ACETAMINOPHEN LEVEL < 2.0 UG/ML (10.0-30.0); ALBUMIN 3.5 GM/DL (3.2-5.2); ALT/SGPT 27 U/L (12-78); BILIRUBIN,DIRECT < 0.1 MG/DL (0.0-0.2); BILIRUBIN,TOTAL 0.3 MG/DL (0.2-1.0); BLOOD UREA NITROGEN 26 MG/DL (7-18); CALCIUM LEVEL 9.3 MG/DL (8.5-10.1); CARBON DIOXIDE LEVEL 19 MEQ/L (21-32); CHLORIDE LEVEL 106 MEQ/L (98-107); CPK CREATINE PHOSPHOKINASE 315 U/L (26-192); CREATININE FOR GFR 1.01 MG/DL (0.55-1.30); ETHYL ALCOHOL (ETHANOL) < 0.003 % (0.000-0.010); GLOMERULAR FILTRATION RATE > 60.0 (>58); GLUCOSE, FASTING 449 MG/DL (70-100); POTASSIUM SERUM 5.1 MEQ/L (3.5-5.1); SALICYLATE LEVEL 4.4 MG/DL (5.0-30.0); SODIUM LEVEL 134 MEQ/L (136-145); TOTAL PROTEIN 7.5 GM/DL (6.4-8.2)
--- NOTE | 2021-01-23 15:33 | REP ---
INDICATION: trauma COMPARISON: None. TECHNIQUE: Internal rotation, external rotation, and Y view. FINDINGS: No acute fracture or dislocation. The acromioclavicular and glenohumeral joints are intact. No periarticular calcifications or degenerative changes are appreciated. Sub acromial space is normal. Surrounding soft tissues are unremarkable. IMPRESSION: Normal left shoulder radiographs. <Electronically signed by Wyatt Paez > 01/23/21 [id number]
[2021-01-23 15:52] LABS: RSV AMPLIFICATION NEGATIVE (NEGATIVE)
[2021-01-23 15:57] LABS: TROPONIN I < 0.02 NG/ML (< 0.10)
[2021-01-23] MEDS ORDERED: HumuLIN R (REGULAR) INSULIN (NovoLIN R) **100U/ML** PER UNIT IV ONE (16:00)
[2021-01-23 16:02] LABS: HCG, SERUM QUALITATIVE POSITIVE (NEGATIVE)
[2021-01-23] MEDS ORDERED: MORPHINE 4 MG/ML 1ML VIAL/SYRINGE (J2270) IV ONE (16:45)
--- NOTE | 2021-01-23 17:09 | REP ---
INDICATION: trauma COMPARISON: 11/02/2012 TECHNIQUE: Axial noncontrast images from the skull base to the vertex with coronal reformations. This CT examination was performed using the following dose reduction techniques: Automated exposure control, adjustment of mA and/or kv according to the patient's size, and use of iterative reconstruction technique. FINDINGS: The ventricles, sulci, and cisterns are normal in position and appearance. Henriquez-white differentiation is maintained. No acute intracranial hemorrhage, mass/mass effect, pathology or trauma/injury. No evidence for acute infarction. No extra-axial fluid collection. Calvarium is intact. Paranasal sinuses and mastoid air cells are clear. IMPRESSION: Normal noncontrast head CT. No evidence for acute intracranial pathology or trauma/injury. <Electronically signed by Wyatt Paez > 01/23/21 [id number]
--- NOTE | 2021-01-23 17:11 | REP ---
INDICATION: trauma COMPARISON: None. TECHNIQUE: Axial noncontrast images from the skull base to the thoracic inlet with coronal and sagittal re-formations This CT examination was performed using the following dose reduction techniques: Automated exposure control, adjustment of mA and/or kv according to the patient's size, and use of iterative reconstruction technique. FINDINGS: Focal advanced degenerative disc osteophyte complex at C5-6. Alignment is maintained. No acute fracture/compression injury or subluxation. Posterior elements and spinous processes are intact. Spinal canal is patent. Paravertebral soft tissues are normal. IMPRESSION: No evidence for acute fracture/compression injury or subluxation <Electronically signed by Wyatt Paez > 01/23/21 [id number]
--- NOTE | 2021-01-23 17:13 | REP ---
INDICATION: trauma. COMPARISON: None. TECHNIQUE: Axial noncontrast images of the lumbosacral spine from mid T12 through mid sacrum with coronal and sagittal reformations. This CT examination was performed using the following dose reduction techniques: Automated exposure control, adjustment of mA and/or kv according to the patient's size, and use of iterative reconstruction technique. FINDINGS: Evidence for prior laminectomy and posterior fixation at L4-S1. Alignment and lordosis maintained. Moderate focal degenerative change at L3-4. No acute fracture/compression injury or subluxation. Spinal canal appears patent. Paravertebral soft tissues are within normal limits. IMPRESSION: Prior laminectomy and posterior fixation at L4-S1. Moderate focal degenerative spondylosis at L3-4. No evidence for acute fracture/compression injury or subluxation. <Electronically signed by Wyatt Paez > 01/23/21 [id number]
--- NOTE | 2021-01-23 17:14 | REP ---
INDICATION: trauma. COMPARISON: None. TECHNIQUE: Axial noncontrast images of the thoracic spine with coronal and sagittal reformations. FINDINGS: Thoracic vertebral bodies are intact and without acute fracture/compression injury or subluxation. Alignment and kyphosis maintained. Mild age-related degenerative changes. Spinal canal is patent and normal. Posterior elements and spinous processes are intact. Paravertebral soft tissues are normal. IMPRESSION: Age-related changes. No evidence for acute trauma/injury. <Electronically signed by Wyatt Paez > 01/23/21 [id number]
--- NOTE | 2021-01-23 17:15 | REP ---
INDICATION: weakness COMPARISON: 11/02/2018 TECHNIQUE: PA and lateral. FINDINGS: The mediastinum and cardiac silhouette are normal. The lung alberto are clear and without acute consolidation, effusion, or pneumothorax. The skeletal structures are intact and normal. IMPRESSION: No acute cardiopulmonary process. <Electronically signed by Wyatt Paez > 01/23/21 [id number]
[2021-01-23] MEDS ORDERED: CEPHALEXIN 500 MG CAP PO ONE (18:05)
[2021-01-23] MEDS ORDERED: DEXTROSE 50% 50 ML SYRINGE IV PRN (18:10)
[2021-01-23] MEDS ORDERED: GLUCOSE 4GM CHEW TABLET PO PRN (18:10)
[2021-01-23] MEDS ORDERED: MOM 30ML SUSPENSION UDC PO PRN (18:10)
[2021-01-23] MEDS ORDERED: ACETAMINOPHEN TAB 650MG DOSE (2X325MG) PO PRN (18:10)
[2021-01-23] MEDS ORDERED: MAALOX 30 ML SUSP *UDC PO PRN (18:10)
[2021-01-23] MEDS ORDERED: GLUCAGON INJ 1MG VIAL SC PRN (18:10)
[2021-01-23] MEDS ORDERED: RAMELTEON 8 MG TAB (ROZEREM) PO PRN (18:15)
--- NOTE | 2021-01-23 18:24 | HPEPDOC ---
[facility] Medical History & Physical Date of Admission Jan 23, 2021 Date of Service: Jan 23, 2021 History and Physical Chief complaint: Who presented to the hospital after she had fallen at home History of present illness: Patient is a 45-year-old female who presented to the emergency room after she had fallen at home. Patient reported that she had consumed an extra dose of Seroquel in the evening. Patient reports that typically she takes 200 mg of Seroquel in the evening, however, took an extra dose and felt that this would help with her insomnia. Patient reports that she has no intention of harming herself and only took this to help alleviate her insomnia. She does have a history of suicidal ideation in 2011. Patient reported that she woke up this morning on the ground. Was unsure of how she got there and came to the emergency room for further evaluation. Upon arrival to emergency room, patient appears to be oriented. Denies any chest pain, shortness of breath or palpitations. Has not spent any nausea, vomiting, abdominal pain, denies any diarrhea, constipation, or urinary discomfort. She denies any recent fevers or chills. Patient is reporting back pain, worse than what it is chronically. She notes that she follows with pain management in [place]. Patient reports her appetite is poor and her weight has been relatively consistent. Past Medical History: HTN DLP IDDM2 Gastroparesis Depression / Anxiety / Bipolar disorder Chronic back pain GERD Past Surgical History: Hysterectomy Cholecystectomy Lumbar spine decompression followed by fusion Appendectomy Left knee surgery 2 Right carpal tunnel release Allergies: See below Medications: See below Family History: - Reviewed and noncontributory Social History: - Denies the use of alcohol or illicit drugs; patient was that she is an active smoker for the last 30 years, at least one pack per day - Denies recent travel or sick contacts; reports receiving COVID vaccine - Lives alone - Occupation; currently on disability Review of Systems: 10 point review of systems complete, all negative otherwise stated in HPI Physical exam: - Vitals: BP , HR , RR , Sat , Temp - General: Lying in bed, No acute distress, Speaking in full sentences, AAOx3 - HEENT: NC, AT, PERRLA, EOMI - CVS: RRR, +S1S2, - Murmurs / rubs / gallops - Lungs: Fair air entry bilaterally, Clear to auscultation, No appreciable wheezing / rales / rhonchi - Abdomen: Soft, Non-distended, Non-tender, + Bowel sounds x 4 - Extremities: + PPx4, No lower extremity edema, No calf tenderness - Neuro: No focal motor or sensory deficit - Skin: No visible rashes Labs: See below Imaging: CT Cervical spine 01/23: No evidence for acute fracture/compression injury or subluxation CT head 01/23: Normal noncontrast head CT. No evidence for acute intracranial pathology or trauma/injury. Lumbar CT 01/23: Prior laminectomy and posterior fixation at L4-S1. Moderate focal degenerative spondylosis at L3-4. No evidence for acute fracture/compression injury or subluxation. Thoracic CT 01/23: Age-related changes. No evidence for acute trauma/injury. Shoulder XR 01/23: Normal left shoulder radiographs. CXR 01/23: No acute cardiopulmonary process. EKG: See below Assessment and Plan: Fall - Patient reported that she woke up on the ground. Unsure of how she got there - Patients is currently oriented 3 / physical without any focal neurologic deficits - Imaging reviewed above - Will c/w gentle IV fluid hydration - Will order PT / OT / Fall precautions Accidental overdose with Seroquel - Poison control was contacted and recommended no additional interventions - EKG reviewed with a normal QTC - c/w Telemetery monitoring - Will c/w gentle IV fluid hydration Elevate bHCG - Patient has reported a prior hysterectomy - Quantitative hCG is only mildly elevated Pseudo-hyponatremia - Corrected sodium for glucose is normal Leukocytosis - likely 2/2 reactive etiology - Review of systems negative for any source of infection - UA negative - Chest x-ray negative - Will hold off on antibiotic therapy HTN - Blood pressure appears to be elevated emergency room - Will resume home regimen - Will provide Labetolol IV if required DLP - c/w Atorvastatin IDDM2 - Elevated blood glucose - No anion gap - Likely secondary to missing her long-acting insulin dose this morning - Will resume insulin sliding scale and long-acting insulin Neuropathy and Gastroparesis - c/w Gabapentin - Will start Reglan PRN Depression / Anxiety / Bipolar disorder - Will hold Seroquel Chronic back pain - c/w Tizanidine - c/w Tyelnol PRN GERD - c/w Omeprazole DVT prophylaxis - Will start Heparin Vital Signs Vital Signs Date Time Temp Pulse Resp B/P (MAP) Pulse Ox O2 Delivery O2 Flow Rate FiO2 01/23/21 18:17 102 20 98 Room Air 01/23/21 18:16 136/83 (100) 01/23/21 17:32 97.7 Laboratory Data Labs 24H Laboratory Tests 2 01/23/21 14:52: Immature Granulocyte % (Auto) 0.3, Neutrophils (%) (Auto) 61.0, Lymphocytes (%) (Auto) 28.4, Monocytes (%) (Auto) 6.5, Eosinophils (%) (Auto) 3.0, Basophils (%) (Auto) 0.8, Neutrophils # (Auto) 7.3, Lymphocytes # (Auto) 3.4, Monocytes # (Auto) 0.8, Eosinophils # (Auto) 0.4, Basophils # (Auto) 0.1, Nucleated Red Blood Cells % (auto) 0.0, Anion Gap 9, Glomerular Filtration Rate > 60.0, Calcium Level 9.3, Total Bilirubin 0.3, Direct Bilirubin < 0.1, Aspartate Amino Transf (AST/SGOT) 33, Alanine Aminotransferase (ALT/SGPT) 27, Alkaline Phosphatase 182H, Total Creatine Kinase 315H, Troponin I < 0.02, Total Protein 7.5, Albumin 3.5, Albumin/Globulin Ratio 0.9L, Thyroid Stimulating Hormone (TSH) 2.040, Human Chorionic Gonadotropin, Qual POSITIVEA, Human Chorionic Gonadotropin, Quant 4, Salicylates Level 4.4L, Acetaminophen Level < 2.0L, Ethyl Alcohol Level < 0.003, Coronavirus (COVID-19)(PCR) NEGATIVE, Influenza Type A (RT-PCR) NEGATIVE, Influenza Type B (RT-PCR) NEGATIVE, Respiratory Syncytial Virus (PCR) NEGATIVE 01/23/21 14:54: POC Beta HCG, Quantitative < 5.0 01/23/21 17:26: Urine Color YELLOW, Urine Appearance CLEAR, Urine pH 6.0, Urine Specific [place] 1.030, Urine Protein 2+H, Urine Glucose (UA) 3+H, Urine Ketones TRACEH, Urine Blood 1+H, Urine Nitrite NEGATIVE, Urine Bilirubin NEGATIVE, Urine Urobilinogen 0.2, Urine Leukocyte Esterase NEGATIVE, Urine WBC (Auto) 0, Urine RBC (Auto) 3, Urine Hyaline Casts (Auto) 0, Urine Bacteria (Auto) 1+H, Urine Squamous Epithelial Cells 0, Urine Sperm (Auto) CBC/BMP Laboratory Tests 01/23/21 14:52 Home Medications Scheduled Aspirin (Aspirin EC) 81 Mg Tab, 81 MG PO DAILY Atorvastatin Calcium (Atorvastatin Calcium) 40 Mg Tablet, 40 MG PO QHS Gabapentin (Gabapentin) 600 Mg Tablet, 600 MG PO TID Insulin Glargine,Hum.rec.anlog (Basaglar Kwikpen U-100) 100 Unit/1 Ml Insuln.pen, 50 UNIT SC BID Lisinopril (Lisinopril) 5 Mg Tablet, 5 MG PO DAILY Omeprazole (Omeprazole) 40 Mg Cap, 40 MG PO DAILY Quetiapine Fumarate (Quetiapine Fumarate) 200 Mg Tablet, 200 MG PO QHS Venlafaxine HCl (Venlafaxine HCl ER) 75 Mg Tab.er.24, 75 MG PO DAILY Scheduled PRN Propranolol HCl (Propranolol HCl) 10 Mg Tablet, 10 MG PO TID PRN for ANXIETY Tizanidine HCl (Tizanidine HCl) 4 Mg Tablet, 4 MG PO TID PRN for MUSCLE SPASMS Allergies Coded Allergies: Mushroom (Verified Allergy, Severe, throat swelling, 09/14/20) ketorolac (Verified Allergy, Severe, hives, 01/25/19) bee venom protein (honey bee) (Verified Adverse Reaction, Mild, hives, 01/25/19) duloxetine (Verified Adverse Reaction, Mild, ANGRY, 09/14/20) LUIS DANIEL GUTIERREZ MD Jan 23, 2021 18:24
[2021-01-23] MEDS ORDERED: GLIM2TAB29 PO (18:26)
[2021-01-23] MEDS ORDERED: INSU100V2 SC (18:26)
[2021-01-23] MEDS ORDERED: METF-838 PO (18:26)
[2021-01-23] MEDS ORDERED: MIRT-60 PO (18:26)
[2021-01-23] MEDS ORDERED: SUMA50TA2 PO (18:26)
[2021-01-23 18:41] LABS: AMPHETAMINES LEVEL URINE NEGATIVE (NEGATIVE); BARBITURATES URINE NEGATIVE (NEGATIVE); BENZODIAZEPINES URINE NEGATIVE (NEGATIVE); CANNABINOIDS URINE NEGATIVE (NEGATIVE); COCAINE METABOLITE URINE NEGATIVE (NEGATIVE); METHADONE URINE NEGATIVE (NEGATIVE); OPIATES URINE POSITIVE (NEGATIVE); PHENCYCLIDINE URINE NEGATIVE (NEGATIVE)
[2021-01-23] MEDS ORDERED: ATORVASTATIN 20 MG TAB PO SCH (21:00)
[2021-01-23] MEDS ORDERED: HumaLOG INSULIN (NovoLOG) PER UNIT SC SCH (21:00)
[2021-01-23] MEDS: GABAPENTIN 300 MG CAP PO SCH (21:45)
[2021-01-23] MEDS: OMEPRAZOLE 20 MG CAP PO SCH (21:45)
[2021-01-23] MEDS: VENLAFAXINE **XR** 75MG CAPSULE PO SCH (21:46)
[2021-01-23] MEDS: lisinopriL 5 MG TAB PO SCH (21:47)
[2021-01-23] MEDS: HEPARIN SOD (PORCINE) 5000UNITS/ML 1ML VIAL/SYRINGE SC SCH (21:47)
[2021-01-23] MEDS: DOCUSATE SODIUM 100MG CAPSULE PO SCH (21:47)
[2021-01-23] MEDS: LEVEMIR (INSULIN DETEMIR) 1 UNITS/0.01ML SC SCH (21:48)
[2021-01-23 22:00] VITALS: BP 133/90
[2021-01-23] MEDS ORDERED: LIDOCAINE 5% (LIDODERM) PATCH TD ONE (22:00)
[2021-01-23] MEDS ORDERED: NORCO, ANEXSIA 5/325MG TABLET (HYDROcodone/ACETAMINOPHEN) PO ONE (22:00)
[2021-01-23] MEDS: NS 1,000 ML IV SCH (23:49)
[2021-01-24] MEDS: HEPARIN SOD (PORCINE) 5000UNITS/ML 1ML VIAL/SYRINGE SC SCH ×2 (05:26→14:00)
[2021-01-24 05:51] LABS: HEMATOCRIT 42.2 % (36.0-47.0); HEMOGLOBIN 14.1 g/dl (12.0-15.5); MEAN CORPUSCULAR HEMOGLOBIN 30.1 pg (27.0-33.0); MEAN CORPUSCULAR HGB CONC 33.4 g/dl (32.0-36.5); MEAN CORPUSCULAR VOLUME 90.2 fl (80.0-96.0); PLATELET COUNT, AUTOMATED 237 10^3/uL (150-450); RED BLOOD COUNT 4.68 10^6/uL (4.00-5.40); WHITE BLOOD COUNT 8.6 10^3/uL (4.0-10.0)
[2021-01-24 06:00] VITALS: BP 138/67
[2021-01-24 06:24] LABS: BLOOD UREA NITROGEN 22 MG/DL (7-18); CALCIUM LEVEL 8.3 MG/DL (8.5-10.1); CARBON DIOXIDE LEVEL 23 MEQ/L (21-32); CHLORIDE LEVEL 107 MEQ/L (98-107); CREATININE FOR GFR 0.82 MG/DL (0.55-1.30); GLOMERULAR FILTRATION RATE > 60.0 (>58); GLUCOSE, FASTING 301 MG/DL (70-100); MAGNESIUM LEVEL 1.7 MG/DL (1.8-2.4); POTASSIUM SERUM 4.2 MEQ/L (3.5-5.1); SODIUM LEVEL 136 MEQ/L (136-145)
[2021-01-24 06:26] LABS: ATYPICAL LYMPH 2 % (0-5); BASOPHILS 1 % (0-1); EOSINOPHILS 5 % (0-3); LYMPHOCYTES 33 % (16-44); MONOCYTES 3 % (0-5); NEUTROPHILS 56 % (28-66); PLATELET ESTIMATE NORMAL (NORMAL)
[2021-01-24] MEDS: LEVEMIR (INSULIN DETEMIR) 1 UNITS/0.01ML SC SCH (08:48)
[2021-01-24] MEDS: NS 1,000 ML IV SCH (08:48)
[2021-01-24] MEDS: OMEPRAZOLE 20 MG CAP PO SCH (08:49)
[2021-01-24] MEDS: GABAPENTIN 300 MG CAP PO SCH (08:49)
[2021-01-24] MEDS: HumaLOG INSULIN (NovoLOG) PER UNIT SC SCH ×2 (08:49→12:31)
[2021-01-24] MEDS: VENLAFAXINE **XR** 75MG CAPSULE PO SCH (08:49)
[2021-01-24] MEDS: DOCUSATE SODIUM 100MG CAPSULE PO SCH (08:49)
[2021-01-24 08:52] VITALS: BP 138/92
[2021-01-24] MEDS: lisinopriL 5 MG TAB PO SCH (08:52)
[2021-01-24] MEDS ORDERED: RAME8TAB2 PO (08:58)
[2021-01-24] MEDS ORDERED: ASPIRIN 81MG ENTERIC TABLET PO SCH (09:00)
[2021-01-24] MEDS ORDERED: **NOTE PATIENT COMMENT** MISC XX SCH (10:00)
[2021-01-24] MEDS ORDERED: MAGNESIUM OXIDE 400MG TAB (MAG-OX) PO ONE (12:55)
--- NOTE | 2021-01-24 12:57 | DS.PDOC ---
Discharge Summary General Date of Admission Jan 23, 2021 at 13:58 Date of Discharge 01/24/2021 Discharge Summary PROCEDURES PERFORMED DURING STAY: [None]. ADMITTING DIAGNOSES / DISCHARGE DIAGNOSES: Fall Accidental overdose with Seroquel s/p Elevated bHCG Pseudo-hyponatremia s/p Leukocytosis - likely 2/2 reactive etiology HTN DLP IDDM2 with Hyperglycemia Neuropathy and Gastroparesis Depression / Anxiety / Bipolar disorder Chronic back pain GERD DVT prophylaxis COMPLICATIONS/CHIEF COMPLAINT: Fall HISTORY OF PRESENT ILLNESS: Patient is a 45-year-old female who presented to the emergency room after she had fallen at home. Patient reported that she had consumed an extra dose of Seroquel in the evening. Patient reports that typically she takes 200 mg of Seroquel in the evening, however, took an extra dose and felt that this would help with her insomnia. Patient reports that she has no intention of harming herself and only took this to help alleviate her insomnia. She does have a history of suicidal ideation in 2011. Patient is reporting back pain, worse than what it is chronically. She notes that she follows with pain management in [place]. She was admitted to hospital service for further evaluation and treatment. Patient was seen and examined at the bedside. She has worked with physical therapy and has been cleared for discharge home. She denies any nausea, vomiting, chest pain, palpitations. Reports that her lower back pain is essentially the same as where was before. She'll be following up with pain management tomorrow. HOSPITAL COURSE: Fall - Patient presented to the emergency room after she woke up on the ground - Remains oriented 3 / no focal neurologic deficits - Imaging reviewed above - s/p gentle IV fluid hydration - Cleared PT and OT for discharge home with services Accidental overdose with Seroquel - Poison control was contacted and recommended no additional interventions - Patient was not having any suicidal ideations; reported she had taken it for sleep only - EKG reviewed with a normal QTC - c/w Telemeter monitoring - s/p gentle IV fluid hydration s/p Elevated bHCG - Patient has reported a prior hysterectomy - Quantitative hCG is only mildly elevated; repeat was negative - Will have outpatient follow up with [facility] within 7 days for further workup Pseudo-hyponatremia - Corrected sodium for glucose is normal s/p Leukocytosis - likely 2/2 reactive etiology - Review of systems negative for any source of infection - UA negative - Chest x-ray negative - Will hold off on antibiotic therapy HTN - BP elevated in emergency room - BP well controlled this morning - c/w home regimen DLP - c/w Atorvastatin IDDM2 with Hyperglycemia - No anion gap - c/w insulin sliding scale and long-acting insulin Neuropathy and Gastroparesis - c/w Gabapentin Depression / Anxiety / Bipolar disorder - Will resume Seroquel on discharge - Will provide Ramelteon on discharge Chronic back pain - c/w Tizanidine - c/w Tylenol PRN GERD - c/w Omeprazole DVT prophylaxis - c/w Heparin DISCHARGE MEDICATIONS: Please see below. ALLERGIES: Please see below. PHYSICAL EXAMINATION ON DISCHARGE: Vitals (See below) General: Lying in bed, appears comfortable, AAOx3 HEENT: NC, AT CVS: +S1S2 Lungs: Fair air entry b/l, -w/r/r Abdomen: Soft, ND, NT Extremities: - Edema, - Calf tenderness LABORATORY DATA: Please see below. IMAGING: CT Cervical spine 01/23: No evidence for acute fracture/compression injury or subluxation CT head 01/23: Normal noncontrast head CT. No evidence for acute intracranial pathology or trauma/injury. Lumbar CT 01/23: Prior laminectomy and posterior fixation at L4-S1. Moderate focal degenerative spondylosis at L3-4. No evidence for acute fracture/compression injury or subluxation. Thoracic CT 01/23: Age-related changes. No evidence for acute trauma/injury. Shoulder XR 01/23: Normal left shoulder radiographs. CXR 01/23: No acute cardiopulmonary process. ACTIVITY: [As tolerated]. DISCHARGE PLAN: Follow-up with primary care provider, and pain management within the next 7 days Remain compliant with treatment plan and medications Return to the ER if you experience any problems DISPOSITION: Home with services DISCHARGE CONDITION: [Stable]. TIME SPENT ON DISCHARGE: 35 minutes Vital Signs/I&Os Vital Signs Date Time Temp Pulse Resp B/P (MAP) Pulse Ox O2 Delivery O2 Flow Rate FiO2 01/24/21 08:52 138/92 01/24/21 06:00 97.3 90 17 97 Room Air I&O- Last 24 Hours up to 6 AM 01/24/21 06:00 Intake Total 1010 ml Balance 1010 ml Laboratory Data Labs 24H Laboratory Tests 2 01/23/21 14:52: Immature Granulocyte % (Auto) 0.3, Neutrophils (%) (Auto) 61.0, Lymphocytes (%) (Auto) 28.4, Monocytes (%) (Auto) 6.5, Eosinophils (%) (Auto) 3.0, Basophils (%) (Auto) 0.8, Neutrophils # (Auto) 7.3, Lymphocytes # (Auto) 3.4, Monocytes # (Auto) 0.8, Eosinophils # (Auto) 0.4, Basophils # (Auto) 0.1, Nucleated Red Blood Cells % (auto) 0.0, Anion Gap 9, Glomerular Filtration Rate > 60.0, Calcium Level 9.3, Total Bilirubin 0.3, Direct Bilirubin < 0.1, Aspartate Amino Transf (AST/SGOT) 33, Alanine Aminotransferase (ALT/SGPT) 27, Alkaline Phosphatase 182H, Total Creatine Kinase 315H, Troponin I < 0.02, Total Protein 7.5, Albumin 3.5, Albumin/Globulin Ratio 0.9L, Thyroid Stimulating Hormone (TSH) 2.040, Human Chorionic Gonadotropin, Qual POSITIVEA, Human Chorionic Gonadotropin, Quant 4, Salicylates Level 4.4L, Acetaminophen Level < 2.0L, Ethyl Alcohol Level < 0.003, Coronavirus (COVID-19)(PCR) NEGATIVE, Influenza Type A (RT-PCR) NEGATIVE, Influenza Type B (RT-PCR) NEGATIVE, Respiratory Syncytial Virus (PCR) NEGATIVE 01/23/21 14:54: POC Beta HCG, Quantitative < 5.0 01/23/21 17:26: Urine Color YELLOW, Urine Appearance CLEAR, Urine pH 6.0, Urine Specific [place] 1.030, Urine Protein 2+H, Urine Glucose (UA) 3+H, Urine Ketones TRACEH, Urine Blood 1+H, Urine Nitrite NEGATIVE, Urine Bilirubin NEGATIVE, Urine Urobilinogen 0.2, Urine Leukocyte Esterase NEGATIVE, Urine WBC (Auto) 0, Urine RBC (Auto) 3, Urine Hyaline Casts (Auto) 0, Urine Bacteria (Auto) 1+H, Urine Squamous Epithelial Cells 0, Urine Sperm (Auto) , Urine Opiates Screen POSITIVEH, Urine Methadone Screen NEGATIVE, Urine Barbiturates Screen NEGATIVE, Urine Phencyclidine Screen NEGATIVE, Urine Amphetamines Screen NEGATIVE, Urine Benzodiazepines Screen NEGATIVE, Urine Cocaine Metabolite Screen NEGATIVE, Urine Cannabinoids Screen NEGATIVE 01/23/21 17:31: Bedside Glucose (Misc Panel) 412H 01/23/21 19:16: Procalcitonin <0.05 01/23/21 19:32: Methicillin-Resist S.aureus DNA PCR DETECTEDA 01/23/21 20:28: Bedside Glucose (Misc Panel) 399H 01/24/21 05:21: Neutrophils (%) (Auto) , Nucleated Red Blood Cells % (auto) 0.0, Neutrophils 56, Lymphocytes (Manual) 33, Monocytes (Manual) 3, Eosinophils (Manual) 5H, Basophils (Manual) 1, Atypical Lymphocytes 2, Red Blood Cell Morphology NORMAL, Platelet Estimate NORMAL, Anion Gap 6L, Glomerular Filtration Rate > 60.0, Calcium Level 8.3L, Magnesium Level 1.7L 01/24/21 11:26: Bedside Glucose (Misc Panel) 378H CBC/BMP Laboratory Tests 01/23/21 14:52 01/24/21 05:21 FSBS Laboratory Tests Test 01/23/21 17:31 01/23/21 20:28 01/24/21 11:26 Range/Units Bedside Glucose (Misc Panel) 412 399 378 70-105 MG/DL Discharge Medications Scheduled Aspirin (Aspirin EC) 81 Mg Tab, 81 MG PO DAILY, (Reported) Atorvastatin Calcium (Atorvastatin Calcium) 40 Mg Tablet, 40 MG PO QHS, (Reported) Gabapentin (Gabapentin) 600 Mg Tablet, 600 MG PO TID, (Reported) Glimepiride (Glimepiride) 2 Mg Tablet, 2 MG PO DAILY, (Reported) Insulin Glargine,Hum.rec.anlog (Basaglar Kwikpen U-100) 100 Unit/1 Ml Insuln.pen, 60 UNIT SC BID, (Reported) Insulin Lispro (Insulin Lispro) 100 Unit/1 Ml Vial, 1 DOSE SC AC, (Reported) PER SLIDING SCALE Lisinopril (Lisinopril) 5 Mg Tablet, 5 MG PO DAILY, (Reported) Metformin HCl (Metformin HCl ER) 500 Mg Tab.er.24h, 1,000 MG PO BID, (Reported) Mirtazapine (Remeron) 30 Mg Tablet, 30 MG PO QHS, (Reported) Omeprazole (Omeprazole) 40 Mg Cap, 40 MG PO DAILY, (Reported) Quetiapine Fumarate (Quetiapine Fumarate) 200 Mg Tablet, 200 MG PO QHS, (Reported) Venlafaxine HCl (Venlafaxine HCl ER) 75 Mg Tab.er.24, 75 MG PO DAILY, (Reported) Scheduled PRN Propranolol HCl (Propranolol HCl) 10 Mg Tablet, 10 MG PO TID PRN for ANXIETY, (Reported) Ramelteon (Ramelteon) 8 Mg Tablet, 8 MG PO QHS PRN for INSOMNIA Sumatriptan Succinate (Sumatriptan Succinate) 50 Mg Tablet, 50 MG PO DAILY PRN for MIGRAINE, (Reported) MAKE TAKE 2ND DOSE IF SYMPTOMS PERSIST Tizanidine HCl (Tizanidine HCl) 4 Mg Tablet, 4 MG PO TID PRN for MUSCLE SPASMS, (Reported) Allergies Coded Allergies: Mushroom (Verified Allergy, Severe, throat swelling, 09/14/20) ketorolac (Verified Allergy, Severe, hives, 01/25/19) bee venom protein (honey bee) (Verified Adverse Reaction, Mild, hives, 01/25/19) duloxetine (Verified Adverse Reaction, Mild, ANGRY, 09/14/20) LUIS DANIEL GUTIERREZ MD Jan 24, 2021 12:57
--- NOTE | 2021-01-25 05:05 | ECGEPIP ---
[facility] - ED Test Date: 2021-01-23 Pat Name: ROLY IVAN Department: Room: [place] [address] Gender: Female [place] Guide: er : 1975 Requested By: Catina Easton Order Number: [id number] Reading MD: Mikey Wiseman Measurements Intervals [place] Rate: 112 P: 57 AK: 150 QRS: 61 QRSD: 90 T: 49 QT: 354 QTc: 483 Interpretive Statements Sinus tachycardia Possible Left atrial enlargement Nonspecific ST-T wave abnormalities Similar to tracing done 09-14-20 but with increased rate Electronically Signed on 01-25-2021 5:05:03 EDT by Mikey Wiseman
== END 2021-01-24 16:15 | disposition home or self-care (01) ==
LOC: M ED 13:57 → M ED INP 13:58 → ENRESERV 18:59 → M MSPAV 20:16
PROVIDERS: ADMIT Internal Medicine; ATTEND Internal Medicine
DX: R29.6 Repeated falls (principal); T43.591A Poisoning by other antipsychotics and neuroleptics, accidental (unintentional), initial encounter; Y92.098 Other place in other non-institutional residence as the place of occurrence of the external cause; G47.00 Insomnia, unspecified; R89.1 Abnormal level of hormones in specimens from other organs, systems and tissues; E87.1 Hypo-osmolality and hyponatremia; D72.829 Elevated white blood cell count, unspecified; I10 Essential (primary) hypertension; E78.5 Hyperlipidemia, unspecified; E11.65 Type 2 diabetes mellitus with hyperglycemia; G62.9 Polyneuropathy, unspecified; K31.84 Gastroparesis; F32.9 Major depressive disorder, single episode, unspecified; F41.9 Anxiety disorder, unspecified; M54.9 Dorsalgia, unspecified; G89.29 Other chronic pain; K21.9 Gastro-esophageal reflux disease without esophagitis; M25.512 Pain in left shoulder; F17.210 Nicotine dependence, cigarettes, uncomplicated; Z88.5 Allergy status to narcotic agent; Z88.8 Allergy status to other drugs, medicaments and biological substances; Z91.018 Allergy to other foods; Z91.030 Bee allergy status; Z79.899 Other long term (current) drug therapy; Z79.82 Long term (current) use of aspirin; Z79.4 Long term (current) 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
CPT/HCPCS: 36415; 36556; 70450; 71046; 72125; 72128; 72131; 73030; 80048; 80076; 80143; 80307; 81001; 82077; 82550; 83735; 84145; 84443; 84702; 84703; 85025; 87631; 87641; 93005; 93041; 94760; 96372; 96374; 96375; 97161; 99285; J1644; J2270

== ENCOUNTER 2021-03-30 13:35 | Emergency (ER) | payer OTHER ==
[~2021-03-30] VITALS: Ht 172.7 cm; Wt 113.6 kg
[~2021-03-30 13:35] MED LIST changes: +GLIM2TAB29 PO; +INSU100V2 SC; -LISI2.5T2 PO; +LISI2.5T9 PO; +MIRT-60 PO; +OMEP40CA4 PO; -OMEP40CA97 PO; +RAME8TAB2 PO; +SUMA50TA2 PO
[2021-03-30] MEDS ORDERED: VENL37TA PO (16:23)
[2021-03-30] MEDS ORDERED: diazePAM 5MG TABLET PO ONE (18:10)
[2021-03-30] MEDS ORDERED: NORCO, ANEXSIA 5/325MG TABLET (HYDROcodone/ACETAMINOPHEN) PO ONE (18:10)
[2021-03-30] MEDS ORDERED: HYDR-3713 PO (18:18)
[2021-03-30] MEDS ORDERED: ASPE4PAD TOP (18:18)
[2021-03-30 18:34] VITALS: BP 169/97
== END 2021-03-30 18:45 | disposition home or self-care (01) ==
LOC: M ED 13:35
DX: M54.16 Radiculopathy, lumbar region (principal); E11.9 Type 2 diabetes mellitus without complications; I10 Essential (primary) hypertension; G47.30 Sleep apnea, unspecified; Z79.899 Other long term (current) drug therapy; Z79.82 Long term (current) use of aspirin; Z79.4 Long term (current) 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; Z88.8 Allergy status to other drugs, medicaments and biological substances; Z91.018 Allergy to other foods; Z91.030 Bee allergy status; F17.210 Nicotine dependence, cigarettes, uncomplicated

== ENCOUNTER → 2021-04-04 | Outpatient (CLI) | payer OTHER ==
[~2021-04-04] MED LIST changes: +ASPE4PAD TOP; +HYDR-3713 PO; +VENL37TA PO
--- NOTE | 2021-04-04 14:56 | REP ---
INDICATION: ABN FINDING OF LUNG COMPARISON: Multiple the latest 10/21/2020 TECHNIQUE: Standard helical technique without intravenous contrast. FINDINGS: Limited evaluation of the mediastinum and pulmonary lavonne show no significant changes. There are no pleural or pericardial effusions. There is no change in the imaged upper abdomen or imaged osseous structures. Evaluation of the lung alberto shows an unchanged 1.1 cm size nodule in the right lower lobe. Scattered asymmetric and ground-glass opacities are again noted status quo. Smaller additional numerous noncalcified nodules are also noted status quo. There is a nodule in the left lower lobe which has increased in size previously maximal dimension from anterior to posterior 1 cm today 1.4 cm with a previous maximal with 1.2 cm today 1.4 cm. IMPRESSION: Although there are multiple stable pulmonary nodules I am concerned over the increase in size of the nodule in the left lower lobe as described above. According to the revised Fleischner society criteria CT-PET is indicated at this time. Neoplasm cannot be ruled out. <Electronically signed by Deepak Vizcarra > 04/04/21 [id number]
== END ==
LOC: M RAD 13:59
PROVIDERS: ATTEND Nurse Practitioner Family
DX: R91.8 Other nonspecific abnormal finding of lung field (principal)

== ENCOUNTER → 2021-05-02 | Outpatient (CLI) | payer OTHER ==
--- NOTE | 2021-05-03 09:38 | REP ---
INDICATION: SOLITARY PULMONARY NODULE R91.1. COMPARISON: A prior CT scan of the chest 04/04/2021 a noncontrast enhanced examination. There are no prior PET CTs for comparison TECHNIQUE: After the intravenous administration of 9.11 mCi of FDG 18 triplane whole-body PET-CT was performed from the skull base to the mid thigh. FINDINGS: The lung nodule in question in the left lower lobe is not hypermetabolic. There is, however, multifocal lung parenchymal hypermetabolism seen in the lung bases. There is evidence of interstitial fibrotic change particularly in the lung bases and there is lung field hypoexpansion. No frankly abnormal hypermetabolic activity seen in the neck, chest, abdomen, or pelvis. IMPRESSION: 1. The left lower lobe lung nodule seen to being question on the latest prior CT of the chest is not hypermetabolic, however, tiny focal areas of hypermetabolic activity seen in the lung bases as described above likely a combination of vascular activity from lung hypoexpansion and or chronic lung field fibrotic change. <Electronically signed by Deepak Vizcarra > 05/03/21 [id number]
== END ==
LOC: M PLARAD 08:43
PROVIDERS: ATTEND Nurse Practitioner Family
DX: R91.1 Solitary pulmonary nodule (principal)
CPT/HCPCS: 78815; A9552

== ENCOUNTER → 2021-05-31 | Outpatient (CLI) | payer OTHER ==
[2021-05-31 15:32] LABS: BLOOD UREA NITROGEN 12 MG/DL (7-18); CREATININE FOR GFR 0.79 MG/DL (0.55-1.30); GLOMERULAR FILTRATION RATE > 60.0 (>58)
== END ==
LOC: M LAB 13:48
PROVIDERS: ATTEND Orthopaedic Surgery
DX: M54.50 Low back pain, unspecified (principal)

== ENCOUNTER → 2021-06-01 | Outpatient (CLI) | payer OTHER | LOC: M PLAIMG 13:10 | PROVIDERS: ATTEND Orthopaedic Surgery | DX: Z53.20 Procedure and treatment not carried out because of patient's decision for unspecified reasons (principal) ==

== ENCOUNTER 2021-06-06 16:32 | Emergency (ER) | payer OTHER ==
[~2021-06-06] VITALS: Ht 172.7 cm; Wt 109.0 kg
--- OUTSIDE RECORDS SUMMARY | 2021-06-06 16:38 | CCD ---
Author Author Bette Pinzon Organization Unknown Address [address] [place] [phone] Phone Care Team Providers Care Tennis Centre Manager Name Role Phone Pipo Pnizon PCP Allergies, Adverse Reactions, Alerts Concept Allergy Name Reaction Severity Onset Date Status Documentation Date Phone Number Npid Taxonomy Code Taxonomy Desc Author Last Name Author Fi rst Name Concept Type 892859 nkda Active 06/11/2018 [id number] Nurse Practitioner Eddie Grewal RXNORM 633349 Toradol rash Active 10/01/2020 [id number] Nurse Practitioner Jeromy Foss RXNORM 0547150 duloxetine Increased aggression Active 10/01/19 21 [id number] Nurse Practitioner Jeromy Foss RXNORM 033756 bee venom protein (honey bee) Anaphylaxis Active 05/04/2021 [id number] Licensed Practical Nurse Francesco Covarrubias RXNORM Problem List Concept Problem Description Status Start Date Created Date Resolv ed Date Snomed Code F31.9 Unspecified Bipolar and Related Disorder Active 05/18/2021 F43.9 Unspecified Trauma- and Stressor-Related Disorder Active 05/18/2021 F41.1 Generalized Anxiety Disorder Active 05/18/2021 F17.200 Tobacco Use Disorder, Moderate Active Medications Rx Norm Medication Route Route Concept Start Date Stop Date Dosage Ruben quency Duration Formula Strength Dosage Form Dosage Form Code Dosage Description Medication Id Account Npid Author First Name Author Last Name Taxonomy Code Taxonomy Desc Phone Number [phone] quetiapine by mouth [id number] 04/08/2021 06/07/2021 once a day 30 25 mg tablet as needed 14159 171850 [phone] Pipo Pinzon [id number] Nurse Practitioner [phone] [id number] quetiapine 08/09/2020 07/07/2021 30 200 mg tablet 06297 967298 [id number] Pipo Pinzon [id number] Nurse Practitioner [phone] [phone] 602311 venlafaxine 08/09/2020 07/07/2021 30 75 m g capsule,extended release 24hr 03916 452583 [id number] Pipo Pinzon [id number] Nurse Pr actitioner [phone] 028559 propranolol 10/08/2020 07/07/2021 30 10 mg tablet 11489 727835 [id number] Pipo Pinzon [id number] Nurse Practitioner [id number] 5 225612 venlafaxine by mouth [id number] 02/11/2021 07/07/2021 once a day 30 37.5 mg capsule,extended release 24hr 47164 729263 [id number] Pipo Pinzon [id number] Nurse Practitioner [phone] 819282 mirtazapine by mouth [id number] 04/20/2021 07/07/2021 at bedtime 30 30 mg tablet 97221 709872 [id number] Pipo Pinzon [id number] Nurse Pr actitioner [id number] Social History Social History Element Description Concept Effective Date Smoking Status Unknown if ever smoked [id number] Immunizations No Data in Section Vital Signs No Data in Section Procedures Date Concept Id Description Targeted Site Concept Targeted Site Concept Type 05/18/2021 54010-28 [facility] Telemed E/M Lvl 3--Est pt CPT 05/18/2021 17211-76 Telemed A/O 30" CPT Patient has no history of implantable de vices Encounters Encounter Start Date End Date Encounter Type Description Diagnosis Di agnosis Desc Location Author First Name Author Last Name Npid Taxonomy Cod e Taxonomy Desc Phone Number Location Addr1 Location Addr2 Location [facility] Location [facility] Location Zip [id number] 05/18/2021 05/18/2021 45067-14 [facility] Telemed E/M Lvl 3--Est p t F31.9 Bipolar disorder, unspecified [facility] Jeromy Foss [id number] Nurse Practitioner [phone] [address] [address] Plan of Treatment No Data in Section Lab Results No Data in Section Instructions No Data in Section Functional Cognitive Status No Data in Section Insurance Providers Insurance Id Policy Effective Date Policy Thru Date Company N [employer] [id number] [address]
--- OUTSIDE RECORDS SUMMARY | 2021-06-06 16:38 | CCD | Continuity of Care Document ---
Author Author Bette AARON N.P. Organization Unknown Address [address] [place] [address] Phone [phone] Care Team Providers Care Tennis Ball Cover Cementer Name Role Phone Temi Olivera M.D. AUTM [phone] AUTM Unavailable AUTM Unavailable AUTM Unavailable Problems Description No Information Available Social History Type Date Description Comments Sex Unknown ETOH Use Never used alcohol Tobacco Use Start: 08/20/87 Patient is a current smoker, smo kes every day 1 ppd Smoking Status Reviewed: 03/09/21 Patient is a current smoker, smokes every day 1 ppd Allergies, Adverse Reactions, Alerts Active Allergies Criticality Reaction | Severity Comments Date Ketorolac Tromethamine Unable to assess criticality 02/17/2019 Medications Active Medications SIG Qnty Indications Ordering Provide r Date Aspirin 81mg Tablets DR 1 tab by mouth every day Unknown Escitalopram Oxalate 10mg Tablets 1tab po qd Unknown Gabapentin 300mg Capsules 1 tab by mouth every day 45caps Unknown Basaglar Kwikpen 100 Unit/ML Solution Pen-Inject 38units subq qhs Unknown Lisinopril 2.5mg Tablets 1 tab by mouth every day Unknown Metformin HCL 1000mg Tablets 2 tabs by mouth twice a day Unknown Mirtazapine 30mg Tablets 1 tab by mouth every day Unknown Omeprazole 40mg Capsules DR 1 tab by mouth every day 30caps Unknown Quetiapine Fumarate 200mg Tablets 1 tab by mouth every day Unknown Tizanidine HCL 4mg Capsules 1 tab by mouth every day Unknown Venlafaxine HCL 75mg Tablets 1 tab by mouth every day Unknown Propranolol HCL 10mg Tablets 1 tab by mouth three times a day Unknown 00 Immunizations Description No Information Available Vital Signs Date Vital Result Comment 03/09/2021 12:50pm BP Systolic 118 mmHg BP Diastolic 68 mmHg Heart Rate 100 /min O2 % BldC Oximetry 97 % Height 68 inches 5'8" Weight 244.38 lb BMI (Body Mass Index) 37.2 kg/m2 [employer] Body Weight 140 lb Weight 110.849 kg BSA (Body Surface Area) 2.23 m2 06/10/2020 9:13am Body Temperature 96.2 F Height 68 inches 5'8" Weight 214.00 lb BMI (Body Mass Index) 32.5 kg/m2 [employer] Body Weight 140 lb Weight 97.070 kg BSA (Body Surface Area) 2.10 m2 Results Test Acquired Date Facility Test Result H/L Range Note FVL/Lorenzo 03/09/2021 [facility] SEE IMAGE FVC-Pred 4.10 L FVC-Pre 3.27 L FVC-%Pred-Pre 79 L FVC-LLN 3.32 L Fev1-Pred 3.26 L Fev1-Pre 2.68 L Fev1-%Pred-Pre 82 L Fev1-LLN 2.60 L Fev6-Pred 4.00 L Fev6-Pre 3.27 L Fev6-%Pred-Pre 81 L Fev6-LLN 3.23 L Pon0hos-Gvrv 81 % Nnl7udm-Bar 82 % Zhz4rqb-%Pred-Pre 101 % Qqu0ydd-XLV 71 % Tws6has-Rdni 98 % Mka9rer-Uft 100 % Kvc9caz-%Pred-Pre 102 % FEFMax-Pred 7.46 L/E/sec FEFMax-Pre 5.56 L/E/sec FEFMax-%Pred-Pre 74 L/E/sec FEFMax-LLN 5.52 L/E/sec Nxn3456-Avmt 3.11 L/E/sec Ydq5535-Hki 2.89 L/E/sec Atm2691-%Pred-Pre 92 L/E/sec Blg7417-CUW 1.71 L/E/sec ExpTime-Pre 3.73 sec Jpc6ufb5-Zaio 83 % Umy7bla0-Nen 82 % Lgq9aue8-%Pred-Pre 99 % Cas5dis4-NAO 74 % Procedures Date Code Description Status 04/07/2021 78941 Diffusing Capacity Completed 04/07/2021 89789 Plethysmography Determination Rosalba ng Volumes & Per Airway Resist Completed 04/07/2021 11438 Bronchospasm Evaluation Complete d 03/09/2021 97957 Office/Outpatient New Moderate M DM 45-59 Minutes Completed 03/09/2021 96597 Spirometry Completed Medical Devices Description No Information Available Encounters Type Date Location Provider Dx Diagnosis Office Visit 03/09/2021 1:15p [facility] Pulmonary/Thoracic Ana Aaron, N.P. R06.00 Dyspnea, unspecified R05 Cough R91.8 Other nonspecific abnormal f inding of lung field F17.210 Nicotine dependence, cigaret dylon, uncomplicated Assessments Date Code Description Provider 04/07/2021 R05 Cough Pulmonary Lab 03/09/2021 R06.00 Dyspnea, unspecified Beatriz Aaron ea, N.P. 03/09/2021 R05 Cough Tegan Aaron, N .P. 03/09/2021 R91.8 Other nonspecific abnormal findi ng of lung field Tegan Aaron, N.P. 03/09/2021 F17.210 Nicotine dependence, cigarettes, uncomplicated Tegan Aaron, N.P. Plan of Treatment 03/09/2021 - Tegan Aaron, N.P.* R06.00 Dyspnea, unspecified * R05 Cough * R91.8 Other nonspecific abnormal finding of lung field * F17.210 Nicotine dependence, cigarettes, uncomplicated * * Comments:* 1. Secondary to cough or shortness of breath, we will obtain full pulmonary function studies. * Follow up:* 1. Schedule pulmonary function testing. 2. Return to see me/doctor in follow up with pulmonary function testing,CT. Functional Status Description No Information Available Mental Status Description No Information Available Referrals Refer to Reason for Referral Status Appt Date Tegan Aaron F.N.P. PET SCAN Created [facility] [address] [place], [place] [address] [phone] Tegan Aaron F.N.P. nodule Closed 03/09/2021 [facility] [address] [place], [place] [address] [phone] Tegan Aaron F.NChris [address] ct chest no contrast [facility] Closed [facility] [address] [place], [place] [address] [phone] Tegan Aaron F.N.P. SOP R91.1 Scheduled 04/07/2021 [facility] [address] [place] [address] [phone]
--- OUTSIDE RECORDS SUMMARY | 2021-06-06 16:38 | CCD ---
Author Author [facility] Organization [facility] Address Unknown Phone Unavailable Care Team Providers Care Photovoltaic Panel Installer Name Role Phone Temi Olivera Unavailable PROBLEMS Type Condition ICD9-CM Code NSH37-MD Code Onset Dates Condition S tatus W/U Status Risk SNOMED Code Notes Problem Insomnia, unspecified type G47.00 Active confirmed 091297527 Problem Mild nonproliferative diabet ic retinopathy of both eyes without macular edema associated with type 2 diabetes mellitus E11.3293 Act kirk confirmed 673906666 Problem Pure hypercholesterolemia E78.00 Active confirmed 117809552 Problem Diabetic peripheral neuropathy E11.42 Active confir med 592024367 Problem 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 Active confirmed 44714178 Problem Protrusion of intervertebral disc of lumbosacral region M51.27 Active confirmed 78381794 Problem Sacroiliitis, not elsewhere classified M46.1 A ctive confirmed 08100759 Problem Lumbar post-laminectomy syndrome M96.1 Active conf irmed 116392730 Problem Gastroesophageal reflux disease without esophagitis K21.9 Active confirmed 899816029 Problem Type 2 diabetes mellitus with hyperglycemia E11.65 Active confirmed 23657523 Problem long term current 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 Z79.4 Active conf irmed 278766939 Problem Memory change R41.3 Active confirmed 849235 006 Problem Microalbuminuria R80.9 Active confirmed 312 832440 Problem Other chronic pain G89.29 Active confirmed 8 1130930 Problem Cigarette nicotine dependence without complication F17.210 Active confirmed 55417694 Problem Lung nodule R91.1 Active confirmed 07764761 2 Problem Paresthesia of upper and lower extremities of both sides R20.2 Active confirmed 95380359 Problem Bipolar affective disorder, remission status unspecified F31.9 Active confirmed 15947303 Problem Intractable migraine with aura with status migrainosus G43.111 Active confirmed 778325679 ALLERGIES Allergen (clinical drug ingredient) Drug/Non Drug Allergy do cumented on EMR Reaction Allergy Type Onset Date Status toradol Rash Non Drug Allergy Active ENCOUNTERS from 1973 to 2021-05-31 Encounter Location Date Provider Diagnosis [place] [address] [facility] [phone] [place] [address] May, Temi Olivera 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 IMMUNIZATIONS Vaccine Route Administration Date Status Influenza 6mo & up Fluzone IM Intramuscular Aug 16, 2018 Admi nistered Influenza 6mo & up Fluzone IM Intramuscular Jul 04, 2017 Admi nistered SOCIAL HISTORY Tobacco Use: Social History Observation Description Date Details (start date - stop date) Current Smoker Sex Assigned At : Social History Observation Description Sex Assigned At Unknown Education: Question Answer Notes Level of Education: Finished High School Audit Question Answer Notes Total Score: 0 Interpretation: Alcohol Education Language: Question Answer Notes Languages spoken: Frisian Spiritism: Question Answer Notes Spiritism 03 Jewish Sexual Hx: Question Answer Notes Had sex in the last 12 months (vaginal, oral, or anal)? Yes Have you ever had an STD? No Prevention Strategies discussed: Condoms with Men only Use protection? No Drug and Alcohol Question Answer Notes Total Score: 0 Interpretation: No problems reported Alcohol Screening: Question Answer Notes Did you have a drink containing alcohol in the past year? No Points 0 Interpretation Negative Tobacco Use: Question Answer Notes Are you a: current smoker Smoking Cessation Information Given 03/07/2021 Patient counseled on the dangers of tobacco use and urged to quit: 03/07/2021 How many cigarettes a day do you smoke? 6-10 Are you interested in quitting? Thinking about quitting Counseled the patient on smoking cessation, education merged with [facility] ed 03/07/2021 REASON FOR REFERRAL No Information VITAL SIGNS No information MEDICATIONS Medication SIG (Take, Route, Frequency, Duration) Notes Start Da te End Date Status Insulin Lispro 100 UNIT/ML as directed Subcutaneous be fore meals per sliding scale Active Venlafaxine HCl ER 75 MG 1 capsule with food Orally Once a day f or 30 day(s) Active Basaglar KwikPen 100 UNIT/ML 60 units sq bid DX: E11.65 for 30 Days Active Atorvastatin Calcium 40 MG 1 tablet Orally Once a day 15 2016 Active Glucometer as directed bid; Dx E11.8 Jun, Active Cane - as directed M51.17 December, Acti ve Glimepiride 2 MG 1 tablet with breakfast or t he first main meal of the day Orally Once a day for 90 days Ac tive Ramelteon 8 MG 1 tablet at bedtime as needed Orally Once a day Active Mirtazapine [address] ONE TABLET BY MOUTH AT BEDTIME Orally Once a day Active Omeprazole 40 MG 1 capsule Orally Once a day for 90 days Active Gabapentin 600 MG 1 tablet Orally three times daily for 90 days December, Active Lisinopril 5 MG 1 tablet Orally Once a day hosp d/c 09/18/20 = 5mg qd Active Venlafaxine HCl ER 37.5 MG 1 capsule with food Orally Once a day for 30 day(s) Active metFORMIN HCl 500 MG 2 tablet with a meal orally bid for 90 day(s) Active Blood Glucose Meter - as directed DX: E11.65 Daily Apr, Active Doxycycline Hyclate 100 MG 1 capsule Orally every 12 hrs for 10 day(s) Feb, Active Aspir-Low 81 MG 1 tablet Orally Once a day for 90 Active Blood Glucose Test Strip - as directed In Vitro DX: E1 1.65 four times daily as needed Apr, Active BD Pen Needle Mini U/F 31G X 5 MM as directed Daily Sep Active OneTouch Verio - USE DIRECTED TO TEST BLOOD GLUCOSE FO UR TIMES A DAY for 40 Active Effexor XR 75 MG 1 capsule with food Orally Once a day Active tiZANidine HCl 4 MG 1 cap Orally Three times a day as needed for 30 Days Sep, Active Propranolol HCl 10 MG 1 tablet Orally 3 times daily as needed fo r anxiety Aug, Active SEROquel 200 MG 1 tablet Orally Once a day at hs Active SUMAtriptan Succinate 50 MG 1 tablet at least 2 hours between doses as needed Orally Twice a day; max #16/month December, Active PROCEDURES No Information RESULTS No Results REASON FOR VISIT refill MEDICAL (GENERAL) HISTORY Type Description Date Medical History Diabetes Mellitus Type 2 - Dr. Tenorio Medical History Gastroparesis - presumed, sh e was unable to complete gastric emptying study Medical History Chronic back pain Medical History Hyperlipidemia Medical History Diabetic neuropathy in feet Medical History Insomnia Medical History Anxiety Medical History Bipolar disorder - [facility] Medical History GERD Medical History RLL nodule, 7 mm on CTA 09/2018; needs f/ u CT 03/2019 Surgical History Appendectomy Surgical History Gallbladder removal Surgical History Tubal Surgical History Total Hysterectomy for pain and ovarian cyst Surgical History Disc decompression Surgical History Carpal Tunnel--right Surgical History Left knee Miniscus x2 Surgical History Spinal fusion, L4-5, L5-S1 12/12/17 Surgical History EGD - food in stomach; Dr. Pritchett 02/18 019 Surgical History colonoscopy 02/2019 Hospitalization History Brown Recluse bite left foot Hospitalization History MH X2 Hospitalization History Childbirth x4 Hospitalization History Vomitting 12/04/2017 Hospitalization History Inpatient mental health 03/2018 Hospitalization History suicidal threat of taking an overdos e of pills ([facility]) 04/15/2018- 04/23/2018 Hospitalization History DM 09/21/2018 Hospitalization History gastropurisis 01/25/2019 Hospitalization History gastropurisis 08/2020 Hospitalization History blood sugars were high and a fall Goals Section No Information Health Concerns No Information MEDICAL EQUIPMENT No Information MENTAL STATUS No Information FUNCTIONAL STATUS No Information ASSESSMENTS Encounter Date Diagnosis Assessment Notes Treatment Notes Treatm ent Clinical Notes May, Intervertebral disc disorder with radiculopathy of lumbosacral region (ICD-10 - M51.17) PLAN OF TREATMENT Medication Medication Name Sig Start Date Stop Date Gabapentin 600 MG 1 tablet Orally three times daily for 90 days December, tiZANidine HCl 4 MG 1 cap Orally Three times a day as needed for 30 Days Sep, Omeprazole 40 MG 1 capsule Orally Once a day for 90 days metFORMIN HCl 500 MG 2 tablet with a meal orally bid for 90 day( s) Glimepiride 2 MG 1 tablet with breakfast or t he first main meal of the day Orally Once a day for 90 days Basaglar KwikPen 100 UNIT/ML 60 units sq bid DX: E11.65 for 30 D ays Next Appt Details Provider Name:Temi Chase Jenniekrys, 2021-06-07 07:15:00 AM, [address] [facility], , [place], [address], Insurance Providers Payer Name Payer Address Payer Phone Insured Name Patient Relati onship to Insured Coverage Start Date Coverage End Date [facility] COMMUNITY PLAN [facility] [address] [facility] [address] ROLY IVAN self
--- OUTSIDE RECORDS SUMMARY | 2021-06-06 16:38 | CCD ---
Author Author Bette Maya Organization Unknown Address [address] [place] [address] Phone Care Team Providers Care Food Expeditor Name Role Phone Marci Maya PCP Allergies, Adverse Reactions, Alerts Concept Allergy Name Reaction Severity Onset Date Status Documentation Date Phone Number Npid Taxonomy Code Taxonomy Desc Author Last Name Author Fi rst Name Concept Type 505851 nkda Active 06/11/2018 [id number] Nurse Practitioner Eddie Grewal RXNORM 116098 Toradol rash Active 10/01/2020 [id number] 3 [id number] Nurse Practitioner Jeromy Foss RXNORM 4292925 duloxetine Increased aggression Active 10/01/19 21 0726650105 [id number] Nurse Practitioner Jeromy Foss RXNORM Problem List Concept Problem Description Status Start Date Created Date Resolv ed Date Snomed Code F31.9 Unspecified Bipolar and Related Disorder Active 05/04/2021 F43.9 Unspecified Trauma- and Stressor-Related Disorder Active 05/04/2021 F41.1 Generalized Anxiety Disorder Active 05/04/2021 F17.200 Tobacco Use Disorder, Moderate Active Medications Rx Norm Medication Route Route Concept Start Date Stop Date Dosage Ruben quency Duration Formula Strength Dosage Form Dosage Form Code Dosage Description Medication Id Account Npid Author First Name Author Last Name Taxonomy Code Taxonomy Desc Phone Number [phone] quetiapine by mouth [id number] 04/08/2021 06/07/2021 once a day 30 25 mg tablet as needed 94747 837740 [id number] Pipo Pinzon [id number] Nurse Practitioner [phone] 981924 quetiapine 08/09/2020 07/07/2021 30 200 mg tablet 65470 468759 [id number] Pipo Pinzon [id number] Nurse Practitioner [id number] 5 106681 venlafaxine 08/09/2020 07/07/2021 30 75 m g capsule,extended release 24hr 03134 596685 [id number] Pipo Pinzon [id number] Nurse Pr actitioner [phone] 055005 propranolol 10/08/2020 07/07/2021 30 10 mg tablet 74546 549292 [id number] Pipo Pinzon [id number] Nurse Practitioner [id number] 5 660089 venlafaxine by mouth [id number] 02/11/2021 07/07/2021 once a day 30 37.5 mg capsule,extended release 24hr 96479 248114 [id number] Pipo Pinzon [id number] Nurse Practitioner [phone] 933798 mirtazapine by mouth [id number] 04/20/2021 07/07/2021 at bedtime 30 30 mg tablet 99431 183644 [id number] Pipo Pinzon [id number] Nurse Pr actitioner [id number] Social History Social History Element Description Concept Effective Date Smoking Status Unknown if ever smoked 724419962 75250367 Immunizations No Data in Section Vital Signs Encounter Date Height Ins Weight Lbs Bmi Bp Systolic Bp Diastoli c Oxygen Saturation Respiration Rate Pulse Rate Body Temp Head Circumference Heigh t Lying 05/04/2021 68.00 230.00 34.97 139 90 0.00 16 110 98.70 0.0 0. 00 Procedures Date Concept Id Description Targeted Site Concept Targeted Site Concept Type 05/04/2021 70809 Health Monitoring - 30 Min CPT Patient has no history of implantable de vices Encounters Encounter Start Date End Date Encounter Type Description Diagnosis Di agnosis Desc Location Author First Name Author Last Name Npid Taxonomy Cod e Taxonomy Desc Phone Number Location Addr1 Location Addr2 Location [facility] Location [place] Location Zip [id number] 05/04/2021 05/04/2021 86302 Health Monitoring - 30 Min F 31.9 Bipolar disorder, unspecified [facility] Abraham becerril [id number] Licensed Practical Nurse [id number] [address] [address] Plan of Treatment No Data in Section Lab Results No Data in Section Instructions No Data in Section Functional Cognitive Status No Data in Section Insurance Providers Insurance Id Policy Effective Date Policy Thru Date Company N [employer] [id number] [address]
--- OUTSIDE RECORDS SUMMARY | 2021-06-06 16:38 | CCD ---
Author Author [facility] Organization [facility] Address Unknown Phone Unavailable Care Team Providers Care Compounding Pharmacy Technician Name Role Phone Temi Olivera Unavailable PROBLEMS Type Condition ICD9-CM Code VRC20-GN Code Onset Dates Condition S tatus W/U Status Risk SNOMED Code Notes Problem Insomnia, unspecified type G47.00 Active confirmed 766608396 Problem Mild nonproliferative diabet ic retinopathy of both eyes without macular edema associated with type 2 diabetes mellitus E11.3293 Act kirk confirmed 526683098 Problem Pure hypercholesterolemia E78.00 Active confirmed 635370117 Problem Diabetic peripheral neuropathy E11.42 Active confir med 348147270 Problem 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 Active confirmed 98111143 Problem Protrusion of intervertebral disc of lumbosacral region M51.27 Active confirmed 02186490 Problem Sacroiliitis, not elsewhere classified M46.1 A ctive confirmed 28646242 Problem Lumbar post-laminectomy syndrome M96.1 Active conf irmed 797872723 Problem Gastroesophageal reflux disease without esophagitis K21.9 Active confirmed 986799385 Problem Type 2 diabetes mellitus with hyperglycemia E11.65 Active confirmed 79464661 Problem 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.4 Active conf irmed 830216069 Problem Memory change R41.3 Active confirmed 470883 006 Problem Microalbuminuria R80.9 Active confirmed 312 675590 Problem Other chronic pain G89.29 Active confirmed 8 9233883 Problem Cigarette nicotine dependence without complication F17.210 Active confirmed 69012716 Problem Lung nodule R91.1 Active confirmed 00786843 2 Problem Paresthesia of upper and lower extremities of both sides R20.2 Active confirmed 02682985 Problem Bipolar affective disorder, remission status unspecified F31.9 Active confirmed 48237230 Problem Intractable migraine with aura with status migrainosus G43.111 Active confirmed 166597710 ALLERGIES Allergen (clinical drug ingredient) Drug/Non Drug Allergy do cumented on EMR Reaction Allergy Type Onset Date Status toradol Rash Non Drug Allergy Active ENCOUNTERS from 1973 to 2021-05-20 Encounter Location Date Provider Diagnosis [place] [id number] [facility] [phone] [place] [address] May, Temi Olivera Type 2 diabetes mellitus wit h hyperglycemia E11.65 IMMUNIZATIONS Vaccine Route Administration Date Status Influenza [...] Education Language: Question Answer Notes Languages spoken: Tristanian Shinto: Question Answer Notes Shinto 03 Shinto Sexual Hx: Question Answer Notes Had sex [...] Counseled the patient on smoking cessation, education [facility] ed 03/07/2021 REASON FOR REFERRAL No Information VITAL SIGNS No information MEDICATIONS Medication SIG (Take, Route, Frequency, Duration) Notes Start Da te End Date Status Cane - as directed M51.17 December, Acti ve tiZANidine HCl 4 MG 1 cap Orally Three times a day as needed for 90 days Sep, Active Insulin Lispro 100 UNIT/ML as directed Subcutaneous be fore meals per sliding scale Active Venlafaxine HCl ER 75 MG 1 capsule with food Orally Once a day f or 30 day(s) Active Ramelteon 8 MG 1 tablet at bedtime as needed Orally Once a day Active Glucometer as directed bid; Dx E11.8 Jun, Active Glimepiride 2 MG 1 tablet with breakfast or t he first main meal of the day Orally Once a day for 90 days Ac tive Doxycycline Hyclate 100 MG 1 capsule Orally every 12 hrs for 10 day(s) Feb, Active Blood Glucose Meter - as directed DX: E11.65 Daily Apr, Active Mirtazapine [address] ONE TABLET BY MOUTH AT BEDTIME Orally Once a day Active Blood Glucose Test Strip - as directed In Vitro DX: E1 1.65 four times daily as needed Apr, Active BD Pen Needle Mini U/F 31G X 5 MM as directed Daily Sep Active Aspir-Low 81 MG 1 tablet Orally Once a day for 90 Active OneTouch Verio - USE DIRECTED TO TEST BLOOD GLUCOSE FO UR TIMES A DAY for 40 Active Lisinopril 5 MG 1 tablet Orally Once a day hosp d/c 09/18/20 = 5mg qd Active Venlafaxine HCl ER 37.5 MG 1 capsule with food Orally Once a day for 30 day(s) Active Atorvastatin Calcium 40 MG 1 tablet Orally Once a day 2016 Active metFORMIN HCl 500 MG 2 tablet with a meal orally bid for 90 day(s) Active Basaglar KwikPen 100 UNIT/ML 60 units sq bid DX: E11.65 for 30 Days Active Omeprazole 40 MG 1 capsule Orally Once a day for 90 days Active Gabapentin 600 MG 1 tablet Orally three times daily for 90 days December, Active Propranolol HCl 10 MG 1 tablet Orally 3 times daily as needed fo r anxiety Aug, Active Effexor XR 75 MG 1 capsule with food Orally Once a day Active SEROquel 200 MG 1 tablet Orally Once a day at hs Active SUMAtriptan Succinate 50 MG 1 tablet at least 2 hours between doses as needed Orally Twice a day; max #16/month December, Active PROCEDURES No Information RESULTS No Results REASON FOR VISIT refills MEDICAL (GENERAL) HISTORY Type Description Date Medical [...] Treatment Notes Treatm ent Clinical Notes May, Type 2 diabetes mellitus with hyperglycemia (ICD -10 - E11.65) PLAN OF TREATMENT Medication Medication Name Sig Start Date Stop Date metFORMIN HCl 500 MG 2 tablet with a meal orally bid for 90 day( s) Gabapentin 600 MG 1 tablet Orally three times daily for 90 days December, Basaglar KwikPen 100 UNIT/ML 60 units sq bid DX: E11.65 for 30 D ays Omeprazole 40 MG 1 capsule Orally Once a day for 90 days Glimepiride 2 MG 1 tablet with breakfast or t he first main meal of the day Orally Once a day for 90 days Next Appt Details Provider Name:Temi Chase Jenniekrys, 2021-06-07 07:15:00 AM, [address] [facility], , [place], [address], Insurance Providers Payer Name Payer Address Payer Phone Insured Name Patient Relati onship to Insured Coverage Start Date Coverage End Date [facility] COMM[facility]AN [facility] [address] [facility] [address] ROLY IVAN self
--- OUTSIDE RECORDS SUMMARY | 2021-06-06 16:38 | CCD ---
Author Author Bette Maya Organization Unknown Address [address] [place] [address] Phone Care Team Providers Care Collaborating Supervising Physician Name Role Phone Marci Maya PCP Allergies, Adverse Reactions, Alerts Concept Allergy Name Reaction Severity Onset Date Status Documentation Date Phone Number Npid Taxonomy Code Taxonomy Desc Author Last Name Author Fi rst Name Concept Type 598772 nkda Active 06/11/2018 [id number] Nurse Practitioner Eddie Grewal RXNORM 113706 Toradol rash Active 10/01/2020 [id number] Nurse Practitioner Jeromy Foss RXNORM 9403324 duloxetine Increased aggression Active 10/01/19 21 [id number] Nurse Practitioner Jeromy Foss RXNORM 429567 bee venom protein (honey bee) Anaphylaxis Active 05/04/2021 [id number] Licensed Practical Nurse Francesco Covarrubias RXNORM Problem List Concept Problem Description Status Start Date Created Date Resolv ed Date Snomed Code F31.9 Unspecified Bipolar and Related Disorder Active 05/12/2021 F43.9 Unspecified Trauma- and Stressor-Related Disorder Active 05/12/2021 F41.1 Generalized Anxiety Disorder Active 05/12/2021 F17.200 Tobacco Use Disorder, Moderate Active Medications Rx Norm Medication Route Route Concept Start Date Stop Date Dosage Ruben quency Duration Formula Strength Dosage Form Dosage Form Code Dosage Description Medication Id Account Npid Author First Name Author Last Name Taxonomy Code Taxonomy Desc Phone Number [phone] quetiapine by mouth [id number] 04/08/2021 06/07/2021 once a day 30 25 mg tablet as needed 33838 401017 [id number] Pipo Pinzon [id number] Nurse Practitioner [phone] [id number] quetiapine 08/09/2020 07/07/2021 30 200 mg tablet 26826 644545 [id number] Pipo Pinzon [id number] Nurse Practitioner [phone] [phone] 647834 venlafaxine 08/09/2020 07/07/2021 30 75 m g capsule,extended release 24hr 40124 700113 [id number] Pipo Pinzon [id number] Nurse Pr actitioner [phone] 378814 propranolol 10/08/2020 07/07/2021 30 10 mg tablet 97955 572333 [id number] Pipo Pinzon [id number] Nurse Practitioner [id number] [phone] 998770 venlafaxine by mouth [id number] 02/11/2021 07/07/2021 once a day 30 37.5 mg capsule,extended release 24hr 61319 356709 [id number] Pipo Pinzon [id number] Nurse Practitioner [phone] 064246 mirtazapine by mouth [id number] 04/20/2021 07/07/2021 at bedtime 30 30 mg tablet 04870 743524 [id number] Pipo Pinzon [id number] Nurse Pr actitioner [id number] Social History Social History Element Description Concept Effective Date Smoking Status Unknown if ever smoked [id number] 70870166 Immunizations No Data in Section Vital Signs Encounter Date Height Ins Weight Lbs Bmi Bp Systolic Bp Diastoli c Oxygen Saturation Respiration Rate Pulse Rate Body Temp Head Circumference Heigh t Lying 05/04/2021 68.00 230.00 34.97 139 90 0.00 16 110 98.70 0.0 0. 00 Procedures Date Concept Id Description Targeted Site Concept Targeted Site Concept Type 05/04/2021 18013 Health Monitoring - 30 Min CPT Patient has no history of implantable de vices Encounters Encounter Start Date End Date Encounter Type Description Diagnosis Di agnosis Desc Location Author First Name Author Last Name Npid Taxonomy Cod e Taxonomy Desc Phone Number Location Addr1 Location Addr2 Location [facility] Location [facility] Location [facility] [id number] 05/04/2021 05/04/2021 13971 Health Monitoring - 30 Min F 31.9 Bipolar disorder, unspecified [facility] [phone] [id number] Licensed Practical Nurse [phone] [address] [address] Plan of Treatment No Data in Section Lab Results No Data in Section Instructions No Data in Section Functional Cognitive Status No Data in Section Insurance Providers Insurance Id Policy Effective Date Policy Thru Date FloTime N gaston [id number] [address]
--- OUTSIDE RECORDS SUMMARY | 2021-06-06 16:38 | CCD | Continuity of Care Document ---
Author Author Bette AARON N.P. Organization Unknown Address [address] [place] [address] Phone [phone] Care Team Providers Care Cleaning Manager Name Role Phone Temi Olivera M.D. AUTM [phone] AUTM Unavailable AUTM Unavailable AUTM Unavailable Problems Description No Information Available Social History Type Date Description Comments Sex Unknown ETOH Use Never used alcohol Tobacco Use Start: 08/20/87 Patient is a current smoker, smo kes every day 1 ppd Smoking Status Reviewed: 05/10/21 Patient is a current smoker, smokes every day 1 ppd Allergies, Adverse Reactions, Alerts Active Allergies Criticality Reaction | Severity Comments Date Ketorolac Tromethamine Unable to assess criticality 02/17/2019 Medications Active Medications SIG Qnty Indications Ordering Provide r Date Arnuity Ellipta 100mcg/Act Aerosol 1 puff daily 30units R05 Tegan Aaron, N.P. 05/10/2021 Ventolin HFA 108(90Base) mcg/Act A erosol 2 puffs qid/prn 18gm R05 Tegan Aaron, N.P. 05/10/[address] 1 tab by [...] by mouth three times a day Unknown Immunizations Description No Information Available Vital Signs Date Vital Result Comment 05/10/2021 8:21am BP Systolic 110 mmHg BP Diastolic 70 mmHg Heart Rate 113 /min O2 % BldC Oximetry 95 % Height 68 inches 5'8" Weight 244.00 lb BMI (Body Mass Index) 37.1 kg/m2 Victor Body Weight 140 lb Weight 110.678 kg BSA (Body Surface Area) 2.22 m2 03/09/2021 12:50pm BP Systolic 118 mmHg BP Diastolic 68 mmHg Heart Rate 100 /min O2 % BldC Oximetry 97 % Height 68 inches 5'8" Weight 244.38 lb BMI (Body Mass Index) 37.2 kg/m2 Victor Body Weight 140 lb Weight 110.849 kg BSA (Body Surface Area) 2.23 m2 Results Test Acquired Date Facility Test Result H/L Range Note FVL/[facility] 03/09/2021 [facility] SEE IMAGE FVC-Pred 4.10 L FVC-Pre 3.27 L FVC-%Pred-Pre 79 L FVC-LLN 3.32 L Fev1-Pred 3.26 L Fev1-Pre 2.68 L Fev1-%Pred-Pre 82 L Fev1-LLN 2.60 L Fev6-Pred 4.00 L Fev6-Pre 3.27 L Fev6-%Pred-Pre 81 L Fev6-LLN 3.23 L Frv0ewv-Tbrf 81 % Xtb1eea-Mof 82 % Vrx6nbd-%Pred-Pre 101 % Cgq5tpk-MNY 71 % Xwt1mhb-Dzbp 98 % Iae7lwh-Ipg 100 % Wwf6wca-%Pred-Pre 102 % FEFMax-Pred 7.46 L/E/sec FEFMax-Pre 5.56 L/E/sec FEFMax-%Pred-Pre 74 L/E/sec FEFMax-LLN 5.52 L/E/sec Kca1543-Duvm 3.11 L/E/sec Izx3848-Dgf 2.89 L/E/sec Cke8713-%Pred-Pre 92 L/E/sec Luc7249-PGN 1.71 L/E/sec ExpTime-Pre 3.73 sec Cgy5tvn2-Ltbc 83 % Jkm0xvl4-Mzt 82 % Trx9ser8-%Pred-Pre 99 % Hcl2jfe9-PXN 74 % Procedures Date Code Description Status 05/10/2021 25664 Tobacco Cessation Counseling Com pleted 05/10/2021 93605 Office/Outpatient Established Mo d MDM 30-39 Min Completed 05/10/2021 05974 Inhaler Teaching Completed 04/07/2021 32943 Diffusing Capacity Completed 04/07/2021 52987 Plethysmography Determination Rosalba ng Volumes & Per Airway Resist Completed 04/07/2021 11229 Bronchospasm Evaluation Complete d 03/09/2021 57088 Office/Outpatient New Moderate M DM 45-59 Minutes Completed 03/09/2021 73069 Spirometry Completed Medical Devices Description No Information Available Encounters Type Date Location Provider Dx Diagnosis Office Visit 05/10/2021 8:45a [facility] Ana Aaron, N.P. R05 Cough R06.00 Dyspnea, unspecified R91.8 Other nonspecific abnormal f inding of lung field F17.210 Nicotine dependence, cigaret dylon, uncomplicated Office Visit 03/09/2021 1:15p [facility] Ana Aaron, N.P. R06.00 Dyspnea, unspecified R05 Cough R91.8 Other nonspecific abnormal f inding of lung field F17.210 Nicotine dependence, cigaret dylon, uncomplicated Assessments Date Code Description Provider 05/10/2021 R05 Cough Tegan Aaron, N .P. 05/10/2021 R06.00 Dyspnea, unspecified AgnieszkaBeatriz ea, N.P. 05/10/2021 R91.8 Other nonspecific abnormal findi ng of lung field Tegan Aaron, N.P. 05/10/2021 F17.210 Nicotine dependence, cigarettes, uncomplicated Tegan Aaron, N.P. 04/07/2021 R05 Cough Pulmonary Lab 03/09/2021 R06.00 Dyspnea, unspecified Beatriz Aaron ea N.P. 03/09/2021 R05 Cough Tegan Aaron N .P. 03/09/2021 R91.8 Other nonspecific abnormal findi ng of lung field Tegan Aaron N.PBryson 03/09/2021 F17.210 Nicotine dependence, cigarettes, uncomplicated Tegan Aaron, N.P. Plan of Treatment Future Appointment(s):* 11/08/2021 9:00 am - Pulmonary Lab at [facility] * 11/08/2021 10:45 am - Tegan [facility] N.P. at [facility] * 06/21/2021 11:30 am - Tegan Aaron N.P. at [facility] 05/10/2021 - Tegan Aaron N.P.* R05 Cough * R06.00 Dyspnea, unspecified * R91.8 Other nonspecific abnormal finding of lung field * F17.210 Nicotine dependence, cigarettes, uncomplicated * * New Medication:* Arnuity Ellipta 100 mcg/Act * Ventolin HFA 108(90 Base) mcg/Act * New Labs:* FVL/Catawba, Ordered: 05/10/21 * Follow up:* 1. Follow up in 4-6 weeks with manas/FVL. 2. CT and DLCO in October 2021 with separate follow up after. Functional Status Description No Information Available Mental Status Description No Information Available Referrals Refer to Dr Reason for Referral Status Appt Date Tegan Aaron F.N.Jes [facility] [address] [place] [address] [phone] Tegan Aaron F.NChris nodule Closed [facility]2021 [facility] [address] [address] [phone] Tegan Aaron F.N.PBryson [address] ct chest no contrast smc [facility] [address] [place] [address] [phone] Tegan Aaron F.N.P. SOP R91.1 Scheduled 04/07/2021 [facility] [address] [place], [place] [id number] [phone]
--- OUTSIDE RECORDS SUMMARY | 2021-06-06 16:38 | CCD ---
Author Author [facility] Organization [facility] Address Unknown Phone Unavailable Care Team Providers Care Metallurgy Laboratory Technician Name Role Phone Temi Olivera Unavailable PROBLEMS Type Condition ICD9-CM Code YDC70-HA Code Onset Dates Condition S tatus W/U Status Risk SNOMED Code Notes Problem Mild nonproliferative diabet ic retinopathy of both eyes without macular edema associated with type 2 diabetes mellitus E11.3293 Act kirk confirmed 712174834 Problem Diabetic peripheral neuropathy E11.42 Active confir med 377729402 Problem Insomnia, unspecified type G47.00 Active confirmed 619442138 Problem Protrusion of intervertebral disc of lumbosacral region M51.27 Active confirmed 67592537 Problem Pure hypercholesterolemia E78.00 Active confirmed 885624275 Problem Lumbar post-laminectomy syndrome M96.1 Active conf irmed 714956285 Problem 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 Active confirmed 03635353 Problem Microalbuminuria R80.9 Active confirmed 312 789092 Problem Gastroesophageal reflux disease without esophagitis K21.9 Active confirmed 729234220 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.4 Active conf irmed 178456060 Problem Intractable migraine with aura with status migrainosus G43.111 Active confirmed 206454633 Problem Cigarette nicotine dependence without complication F17.210 Active confirmed 43694478 Problem Memory change R41.3 Active confirmed 420270 006 Problem Sacroiliitis, not elsewhere classified M46.1 A ctive confirmed 83723094 Problem Type 2 diabetes mellitus with hyperglycemia E11.65 Active confirmed 99674821 Problem Lung nodule R91.1 Active confirmed 60911222 2 Problem Paresthesia of upper and lower extremities of both sides R20.2 Active confirmed 39039054 Problem Bipolar affective disorder, remission status unspecified F31.9 Active confirmed 00391195 ALLERGIES Allergen (clinical drug ingredient) Drug/Non Drug Allergy do cumented on EMR Reaction Allergy Type Onset Date Status toradol Rash Non Drug Allergy Active ENCOUNTERS from 1973 to 2021-04-21 Encounter Location Date Provider Diagnosis [address] [phone] [place] [address] Mar, Temi Olivera IMMUNIZATIONS Vaccine Route Administration Date Status Influenza [...] Education Language: Question Answer Notes Languages spoken: Tamazight Hinduism: Question Answer Notes Hinduism 03 Mandaen Sexual Hx: Question Answer Notes Had sex [...] Counseled the patient on smoking cessation, education provid ed 03/07/2021 REASON FOR REFERRAL No Information VITAL SIGNS No information MEDICATIONS Medication SIG (Take, Route, Frequency, Duration) Notes Start Da te End Date Status Cane - as directed M51.17 December, Acti ve Venlafaxine HCl ER 75 MG 1 capsule with food Orally Once a day f or 30 day(s) Active Glimepiride 2 MG 1 tablet with breakfast or t he first main meal of the day Orally Once a day Active Atorvastatin Calcium 40 MG 1 tablet Orally Once a day 15 2016 Active Ramelteon 8 MG 1 tablet at bedtime as needed Orally Once a day Active Glucometer as directed bid; Dx E11.8 Jun, Active tiZANidine HCl 4 MG 1 cap Orally Three times a day as needed for 90 days Sep, Active Doxycycline Hyclate 100 MG 1 capsule [...] 5 MM as directed Daily Sep Active Venlafaxine HCl ER 37.5 MG 1 capsule with food Orally Once a day for 30 day(s) Active OneTouch Verio - USE DIRECTED TO TEST BLOOD GLUCOSE FO UR TIMES A DAY for 40 Active Lisinopril 5 MG 1 tablet Orally Once a day hosp d/c 09/18/20 = 5mg qd Active Basaglar KwikPen 100 UNIT/ML 60 units sq bid DX: E11.65 Active Aspir-Low 81 MG 1 tablet Orally Once a day for 90 Active metFORMIN HCl 500 MG 2 tablet with a meal orally bid for 90 day(s) Active Insulin Lispro 100 UNIT/ML as directed Subcutaneous be fore meals per sliding scale Active Omeprazole 40 MG 1 capsule Orally [...] Information RESULTS No Results REASON FOR VISIT [facility] referral MEDICAL (GENERAL) HISTORY Type Description Date Medical [...] No Information FUNCTIONAL STATUS No Information ASSESSMENTS No Information PLAN OF TREATMENT Medication Medication Name Sig Start Date Stop Date metFORMIN HCl 500 MG 2 tablet with a meal orally bid for 90 day( s) Gabapentin 600 MG 1 tablet Orally three times daily for 90 days December, Omeprazole 40 MG 1 capsule Orally Once a day for 90 days Insurance Providers Payer Name Payer Address Payer Phone Insured Name Patient Relati onship to Insured Coverage Start Date Coverage End Date [facility] [address] [facility] [phone] ROLY IVAN self
--- OUTSIDE RECORDS SUMMARY | 2021-06-06 16:38 | CCD | Continuity of Care Document ---
Author Author Bette CERNA MD Organization Unknown Address [address] [facility] [place] [address] Phone [phone] Care Team Providers Care Retail Selling Floor Leader Name Role Phone Temi Olivera MD AUTM [phone] Adrián Hernandes MD AUTM Unavailable Problems Active Problems Provider Date Pure hypercholesterolemia Ashutosh Tenorio MD Onset: 017 Social History Type Date Description Comments Sex Unknown ETOH Use Denies alcohol use Tobacco Use Start: Unknown Patient is a current smoker, smo kes every day Allergies, Adverse Reactions, Alerts Active Allergies Criticality Reaction | Severity Comments Date Ketorolac Tromethamine Unable to assess criticality 07/25/2017 Medications Active Medications SIG Qnty Indications Ordering Provide r Date Tizanidine HCL 4mg Tablets Take One Tablet By Mouth Three Times A Day as Needed Unknown Ammonium Lactate 12% Cream Apply To Feet Daily Unknown Quetiapine Fumarate 100mg Tablets Take One Tablet By Mouth Every Day AT Bedtime Unknown Insulin Lispro 100Unit/ML Solution Inject Three Times A Day With Meals Maximum Daily Dose 26 Units Unknown Mirtazapine 15mg Tablets Take One Tablet By Mouth AT Bedtime Unknown Onetouch Verio Strips Use as Directed To Test Blood Glucose Four Times A Day Unknown Sumatriptan Succinate 50mg Tablets Temi Olivera MD BD Pen Needle/Micro/Ultra-Fine/32G X 6mm 32G X 6 mm Misc Use 5 [place] Per Day Unknown Naproxen 500mg Tablets Temi Olivera MD Atorvastatin Calcium 40mg Tablets Take One Tablet By Mouth Every Day Unknown Doxycycline Hyclate 100mg Capsules Temi Olivera MD Lisinopril 5mg Tablets Camryn Denis NP Metformin HCL ER 500mg Tablets ER 24HR Camryn Denis NP Hydrocodone Bitartrate/Acetaminophen 5-325mg Tablets Take One Tablet By Mouth Every 6 Hours a s Needed For Pain Maximum Daily Dose 4 Unknown Basaglar Kwikpen 100 Unit/ML Solution Pen-Inject Inject 60 Units Under The Skin Two Times A Day Unknown Aspirin Low Dose 81mg Tablets DR Take One Tablet By Mouth Every Day Unknown Metformin HCL Tablets Unknown Quetiapine Fumarate 25mg Tablets Take One Tablet By Mouth Every Day as Needed Unknown Venlafaxine HCL ER 37.5mg Caps ER 24HR Take One Capsule By Mouth Every Day Unknown Venlafaxine HCL ER 75mg Caps ER 24HR Unknown Propranolol HCL 10mg Tablets Take One Tablet By Mouth Three Times A Day as Needed For Anxiety Symptoms Unknown Glimepiride 2mg Tablets Camryn Denis NP Metformin HCL 500mg Tablets Temi Olivera MD Omeprazole 40mg Capsules DR Take One Capsule By Mouth Every Day Unknown Gabapentin 600mg Tablets Take One Tablet By Mouth Three Times A Day Unknown Mirtazapine 30mg Tablets Unknown Quetiapine Fumarate 200mg Tablets Unknown Ibuprofen Tablets Unknown Atorvastatin Calcium Tablets Unknown Trazodone HCL Tablets Unknown Meloxicam Tablets 1 by mo [facility] every day Unknown Immunizations Description No Information Available Vital Signs Date Vital Result Comment 05/03/2021 1:46pm Body Temperature 96.0 F Height 67 inches 5'7" Weight 244.50 lb BMI (Body Mass Index) 38.3 kg/m2 07/25/2017 10:52am Body Temperature 96.9 F Height 67.5 inches 5'7.50" Weight 216.00 lb BMI (Body Mass Index) 33.3 kg/m2 Results Description No Information Available Procedures Date Code Description Status 05/03/2021 93693 X-Ray Hip Unilateral With Pelvis 2-3 Views Completed 05/03/2021 22592 X-Ray Shoulder Complete Complete d 05/03/2021 18772 X-Ray Spine Lumbosacral Complete W/Oblique 4 Views Completed Medical Devices Description No Information Available Encounters Description No Information Available Assessments Date Code Description Provider 05/03/2021 M54.5 Low back pain Yomaira smith MD Plan of Treatment 05/03/2021 - Yomaira Cerna MD* M54.5 Low back pain* New Labs:* CBC With Differential, Ordered: 05/03/21 * Erythrocyte Sedimentation Rate, Ordered: 05/03/21 * High Sensitivity C-Reactive Protein, Ordered: 05/03/21 * New Xrays:* MRI Lumbar With And Without Ken, Ordered: 05/03/21 Functional Status Description No Information Available Mental Status Description No Information Available Referrals Refer to Dr Reason for Referral Status Appt Date Young Cerna MD M25.511 PAIN IN RIGHT SHOULD ER M25.512 PAIN IN LEFT SHOULDER Created [address] [place] [address] [phone] Young Cerna MD m25.551 PAIN IN RIGHT HIP Created [address] [place] [address] [phone]
--- OUTSIDE RECORDS SUMMARY | 2021-06-06 16:38 | CCD | Continuity of Care Document ---
Author Author Bette CERNA MD Organization Unknown Address [address] [facility] [place] [address] Phone [phone] Care Team Providers Care Corporate Paralegal Name Role Phone Temi Olivera MD AUTM [phone] Adrián Hernandes MD AUTM Unavailable Problems Active Problems Provider Date Pure hypercholesterolemia Ashutosh Tenorio MD Onset: 017 Essential hypertension Ashutosh Tenorio MD Onset: 05/04/2021 Social History Type Date Description Comments Sex Unknown ETOH Use Denies alcohol use Tobacco Use Start: Unknown Patient is a current smoker, smo kes every day Allergies, Adverse Reactions, Alerts Active Allergies Criticality Reaction | Severity Comments Date Ketorolac Tromethamine Unable to assess criticality 07/25/2017 Duloxetine Unable to assess criticality 05/04/2021 Medications Active Medications SIG Qnty Indications Ordering [...] 32G X 6 mm Misc Use 5 [place] Per Day Unknown Naproxen 500mg Tablets Temi [...] Tablets Unknown Meloxicam Tablets 1 by mo ut every day Unknown Immunizations Description No Information Available Vital Signs Date Vital Result Comment 05/03/2021 1:46pm Body Temperature 96.0 F Height 67 inches 5'7" Weight 244.50 lb BMI (Body Mass Index) 38.3 kg/m2 07/25/2017 10:52am Body Temperature 96.9 F Height 67.5 inches 5'7.50" Weight 216.00 lb BMI (Body Mass Index) 33.3 kg/m2 Results Description No Information Available Procedures Date Code Description Status 05/03/2021 14626 Office/Outpatient New Moderate M DM 45-59 Minutes Completed 05/03/2021 20844 X-Ray Hip Unilateral With Pelvis 2-3 Views Completed 05/03/2021 04731 X-Ray Shoulder Complete Complete d 05/03/2021 84003 X-Ray Spine Lumbosacral Complete W/Oblique 4 Views Completed Medical Devices Description No Information Available Encounters Type Date Location Provider Dx Diagnosis Office Visit 05/03/2021 1:45p [place] Yomaira Cerna MD M5 4.5 Low back pain M25.511 Pain in right shoulder M25.551 Pain in right hip Z98.1 Arthrodesis status Assessments Date Code Description Provider 05/03/2021 M54.5 Low back pain Yomaira smith MD 05/03/2021 M25.511 Pain in right shoulder Yomaira Cerna MD 05/03/2021 M25.551 Pain in right hip Yomaira martines MD 05/03/2021 Z98.1 Arthrodesis status Yomaira olmos MD Plan of Treatment 05/03/2021 - Yomaira Cerna MD* M54.5 Low back pain* New Labs:* CBC With Differential, Ordered: 05/03/21 * Erythrocyte Sedimentation Rate, Ordered: 05/03/21 * High Sensitivity C-Reactive Protein, Ordered: 05/03/21 * New Xrays:* MRI Lumbar With And Without Ken, Ordered: 05/03/21 * M25.511 Pain in right shoulder * M25.551 Pain in right hip * Z98.1 Arthrodesis status Functional Status Description No Information Available Mental Status Description No Information Available Referrals Refer to Reason for Referral Status Appt Date Young Cerna MD M25.511 PAIN IN RIGHT SHOULD ER M25.512 PAIN IN LEFT SHOULDER Created [address] [facility], [address] [place] [address] [phone] Young Cerna MD m25.551 PAIN IN RIGHT HIP Created [address] [facility], [address] [place] [address] [phone]
--- OUTSIDE RECORDS SUMMARY | 2021-06-06 16:38 | CCD ---
Author Author [facility] Organization [facility] Address Unknown Phone Unavailable Care Team Providers Care Manager Play Name Role Phone Temi Olivera Unavailable PROBLEMS Type Condition ICD9-CM Code [id number] Code Onset Dates Condition S tatus W/U Status Risk SNOMED Code Notes Problem Insomnia, unspecified type G47.00 Active confirmed 057359676 Problem Mild nonproliferative diabet ic retinopathy of both eyes without macular edema associated with type 2 diabetes mellitus E11.3293 Act kirk confirmed 654972403 Problem Pure hypercholesterolemia E78.00 Active confirmed 662943853 Problem Diabetic peripheral neuropathy E11.42 Active confir med 935143698 Problem 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 Active confirmed 03861930 Problem Protrusion of intervertebral disc of lumbosacral region M51.27 Active confirmed 23112760 Problem Sacroiliitis, not elsewhere classified M46.1 A ctive confirmed 56781191 Problem Lumbar post-laminectomy syndrome M96.1 Active conf irmed 181411792 Problem Gastroesophageal reflux disease without esophagitis K21.9 Active confirmed 461236216 Problem Type 2 diabetes mellitus with hyperglycemia E11.65 Active confirmed 40602516 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.4 Active conf irmed 879755955 Problem Memory change R41.3 Active confirmed 736996 006 Problem Microalbuminuria R80.9 Active confirmed 312 079677 Problem Other chronic pain G89.29 Active confirmed 8 0536477 Problem Cigarette nicotine dependence without complication F17.210 Active confirmed 23716955 Problem Lung nodule R91.1 Active confirmed 84109692 2 Problem Paresthesia of upper and lower extremities of both sides R20.2 Active confirmed 11457935 Problem Bipolar affective disorder, remission status unspecified F31.9 Active confirmed 60462844 Problem Intractable migraine with aura with status migrainosus G43.111 Active confirmed 543567323 ALLERGIES Allergen (clinical drug ingredient) Drug/Non Drug Allergy do cumented on EMR Reaction Allergy Type Onset Date Status toradol Rash Non Drug Allergy Active ENCOUNTERS from 1973 to 2021-05-20 Encounter Location Date Provider Diagnosis [place] [address] [facility] [phone] [place] [address] Apr, Temi Olivera Type 2 diabetes mellitus wit [...] Education Language: Question Answer Notes Languages spoken: Afghan Religious: Question Answer Notes Religious 03 Mosque Sexual Hx: Question Answer Notes Had sex [...] Notes Treatment Notes Treatm ent Clinical Notes Apr, Type 2 diabetes mellitus with hyperglycemia (ICD [...] Name:Temi Chase Jenniekrys, 2021-06-07 07:15:00 AM, [address] [facility], , [place], [address], Insurance Providers Payer Name Payer Address Payer Phone Insured Name Patient Relati onship to Insured Coverage Start Date Coverage End Date [facility] [place] [address] [facility] [phone] ROLY IVAN self
--- OUTSIDE RECORDS SUMMARY | 2021-06-06 16:38 | CCD ---
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 Act kirk confirmed 886044839 Problem Pure hypercholesterolemia E78.00 Active confirmed 078796932 Problem Diabetic peripheral neuropathy E11.42 Active confir med 482788782 Problem 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 Active confirmed 95093117 Problem Protrusion of intervertebral disc of lumbosacral region M51.27 Active confirmed 34181055 Problem Sacroiliitis, not elsewhere classified M46.1 A ctive confirmed 69790954 Problem Lumbar post-laminectomy syndrome M96.1 Active conf irmed 616021828 Problem Gastroesophageal reflux disease without esophagitis K21.9 Active confirmed 006792820 Problem Type 2 diabetes mellitus with hyperglycemia E11.65 Active confirmed 89384216 Problem 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.4 Active conf irmed 365773658 Problem Memory change R41.3 Active confirmed 790784 006 Problem Microalbuminuria R80.9 Active confirmed 312 651304 Problem Other chronic pain G89.29 Active confirmed 8 6151901 Problem Cigarette nicotine dependence without complication F17.210 Active confirmed 35526059 Problem Lung nodule R91.1 Active confirmed 71963285 2 Problem Paresthesia of upper and lower extremities of both sides R20.2 Active confirmed 57148283 Problem Bipolar affective disorder, remission status unspecified F31.9 Active confirmed 22551717 Problem Intractable migraine with aura with status migrainosus G43.111 Active confirmed 243045214 ALLERGIES Allergen (clinical drug ingredient) Drug/Non Drug Allergy do cumented on EMR Reaction Allergy Type Onset Date Status toradol Rash Non Drug Allergy Active ENCOUNTERS from 1973 to 2021-05-03 Encounter Location Date Provider Diagnosis [place] [address] [facility] [phone] [place] [address] 09 Apr, 2021 Temi Skipton Pain in right shoulder M25.5 11 ; Pain in left shoulder M25.512 ; Other chronic pain G89.29 and Right hip pain M25.551 IMMUNIZATIONS Vaccine Route Administration Date Status Influenza [...] Education Language: Question Answer Notes Languages spoken: Japanese Amish: Question Answer Notes Amish 03 Jewish Sexual Hx: Question Answer Notes [...] Counseled the patient on smoking cessation, education [facility] ed 03/07/2021 REASON FOR REFERRAL from 1973 to 2021-05-03 Reason Please evaluate and treat Diagnosis 1 Pain in right shoulder (M25. 511) Diagnosis 2 Other chronic pain (G89.29) Diagnosis 3 Pain in left shoulder (M25.5 12) Diagnosis 4 Right hip pain (M25.551) Diagnosis 5 Intervertebral disc disorder with radiculopathy of lumbosacral region (M51.17) Diagnosis 6 Lumbar post-laminectomy synd carmen (M96.1) Referral Organization [facility] [place] Referring Provider First Name Temi Referring Provider Last Name Joselin Referring Provider Specialty Family Medicine Referred Provider [facility],Orthopedics Referred Provider Specialty Orthopedic Surgery Referral Priority Routine General Notes Kamryn Oshea 04/28/2021 11:0 6:07 AM > referral Tawana Moses 05/03/2021 9:41:22 AM > [facility] referral for Dr. Sanket Forde done ID# [id number] VITAL SIGNS No information MEDICATIONS Medication SIG [...] tablet Orally Once a day 2016 Active Ramelteon 8 MG 1 tablet [...] Information RESULTS No Results REASON FOR VISIT referral change MEDICAL (GENERAL) HISTORY Type Description Date Medical [...] Treatment Notes Treatm ent Clinical Notes Apr, Pain in right shoulder (ICD-10 - M25.511) Apr, Pain in left shoulder (ICD-10 - M25.512) Apr, Other chronic pain (ICD-10 - G89.29) Apr, Right hip pain (ICD-10 - M25.551) PLAN OF TREATMENT Medication Medication Name Sig Start Date Stop Date metFORMIN HCl 500 MG 2 tablet with a meal orally bid for 90 day( s) Gabapentin 600 MG 1 tablet Orally three times daily for 90 days December, Omeprazole 40 MG 1 capsule Orally Once a day for 90 days Referrals Referral Date Details Please evaluate and treat, O rthopedics [facility] Insurance Providers Payer Name Payer Address Payer Phone Insured Name Patient Relati onship to Insured Coverage Start Date Coverage End Date [facility] [address] [facility] [address] [phone] ROLY IVAN self
--- OUTSIDE RECORDS SUMMARY | 2021-06-06 16:38 | CCD ---
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 Act kirk confirmed 544056555 Problem Pure hypercholesterolemia E78.00 Active confirmed 031657675 Problem Diabetic peripheral neuropathy E11.42 Active confir med 486949470 Problem 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 Active confirmed 23918843 Problem Protrusion of intervertebral disc of lumbosacral region M51.27 Active confirmed 95280725 Problem Sacroiliitis, not elsewhere classified M46.1 A ctive confirmed 82649840 Problem Lumbar post-laminectomy syndrome M96.1 Active conf irmed 464275764 Problem Gastroesophageal reflux disease without esophagitis K21.9 Active confirmed 259219884 Problem Type 2 diabetes mellitus with hyperglycemia E11.65 Active confirmed 20027784 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 Active conf irmed 192955503 Problem Memory change R41.3 Active confirmed 116042 006 Problem Microalbuminuria R80.9 Active confirmed 312 939808 Problem Other chronic pain G89.29 Active confirmed 8 0275375 Problem Cigarette nicotine dependence without complication F17.210 Active confirmed 19495937 Problem Lung nodule R91.1 Active confirmed 07096955 2 Problem Paresthesia of upper and lower extremities of both sides R20.2 Active confirmed 78337749 Problem Bipolar affective disorder, remission status unspecified F31.9 Active confirmed 62062344 Problem Intractable migraine with aura with status migrainosus G43.111 Active confirmed 526806990 ALLERGIES Allergen (clinical drug ingredient) Drug/Non Drug Allergy do cumented on EMR Reaction Allergy Type Onset Date Status toradol Rash Non Drug Allergy Active ENCOUNTERS from 1973 to 2021-05-24 Encounter Location Date Provider Diagnosis [place] [address] [facility] [phone] [place] [address] Mar, Temi Olivera IMMUNIZATIONS Vaccine Route Administration [...] Education Language: Question Answer Notes Languages spoken: Occitan Adventism: Question Answer Notes Adventism 03 Jain Sexual Hx: Question Answer Notes Had sex [...] Information RESULTS No Results REASON FOR VISIT no show warning letter MEDICAL (GENERAL) HISTORY Type Description Date Medical [...] 90 days Next Appt Details Provider Name:Temi Olivera, 2021-06-07 07:15:00 AM, [address] [facility], , [place], [address], Insurance Providers Payer Name Payer Address Payer Phone Insured Name Patient Relati onship to Insured Coverage Start Date Coverage End Date [facility] [address] [facility] [address] ROLY IVAN self
--- OUTSIDE RECORDS SUMMARY | 2021-06-06 16:39 | CCD | Continuity of Care Document ---
Author Author Bette AARON N.P. Organization Unknown Address [address] [place] [address] Phone [phone] Care Team Providers Care Wood Carving Machine Operator Name Role Phone Temi Olivera M.D. AUTM [phone] AUTM Unavailable Adrián Hernandes M.D. AUTM [phone] AUTM Unavailable Problems Description No Information Available Social History Type Date Description Comments Sex Unknown ETOH Use Never used alcohol Tobacco Use Start: 08/20/87 Patient is a current smoker, smo kes every day 1 ppd Smoking Status Reviewed: 03/09/21 Patient is a current smoker, smokes every day 1 ppd Allergies, Adverse Reactions, Alerts Active Allergies Reaction Severity Comments Date Ketorolac Tromethamine 02/17 Medications Active Medications SIG Qnty Indications Ordering [...] lb BMI (Body Mass Index) 37.2 kg/m2 [place] Body Weight 140 lb Weight 110.849 kg BSA (Body Surface Area) 2.23 m2 06/10/2020 9:13am Body Temperature 96.2 F Height 68 inches 5'8" Weight 214.00 lb BMI (Body Mass Index) 32.5 kg/m2 [place] Body Weight 140 lb Weight 97.070 kg [...] L Fev6-%Pred-Pre 81 L Fev6-LLN 3.23 L Kbe5sla-Stcb 81 % Bgh7sfg-Eut 82 % Rzw9mdw-%Pred-Pre 101 % Qve6dvy-MZH 71 % Neg7glx-Vdki 98 % Tjl9whg-Ele 100 % Lqt5ryh-%Pred-Pre 102 % FEFMax-Pred 7.46 L/E/sec FEFMax-Pre 5.56 L/E/sec FEFMax-%Pred-Pre 74 L/E/sec FEFMax-LLN 5.52 L/E/sec Xdh4102-Vzht 3.11 L/E/sec Rdc0011-Unb 2.89 L/E/sec Dxc7482-%Pred-Pre 92 L/E/sec Dpy9370-NYG 1.71 L/E/sec ExpTime-Pre 3.73 sec Xxi1dyi3-Kwvr 83 % Yke5ppu9-Dpd 82 % Xxg2clr5-%Pred-Pre 99 % Kfe5dyr2-BEI 74 % Procedures Date Code Description Status 03/09/2021 59655 Office/Outpatient New Moderate M DM 45-59 Minutes Completed 03/09/2021 18891 Spirometry Completed Medical Devices Description No Information Available Encounters Description No Information Available Assessments Date Code Description Provider 03/09/2021 R06.00 Dyspnea, unspecified Beatriz Aaron ea, N.P. 03/09/2021 R05 Cough Tegan Aaron, N .P. 03/09/2021 R91.8 Other nonspecific abnormal findi ng of lung field Tegan Aaron N.P. 03/09/2021 F17.210 Nicotine dependence, cigarettes, uncomplicated Tegan Aaron, N.P. Plan of Treatment Future Appointment(s):* 04/13/2021 1:45 pm - Tegan Aaron, N.P. at [facility] * 04/07/2021 1:00 pm - Pulmonary Lab at [facility] 03/09/2021 - Tegan Aaron, N.P.* R06.00 Dyspnea, [...] for Referral Status Appt Date Tegan Aaron F.NChris NODULE Scheduled 03/09/2021 [facility] [address] [place], [place] [address] [phone] Tegan Aaron F.NChris STABLE NODULES Created [facility] [address] [place], [place] [address] [phone]
--- OUTSIDE RECORDS SUMMARY | 2021-06-06 16:39 | CCD ---
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 Act kirk confirmed 284946081 Problem Diabetic peripheral neuropathy E11.42 Active confir med 480871584 Problem Insomnia, unspecified type G47.00 Active confirmed 110470811 Problem Protrusion of intervertebral disc of lumbosacral region M51.27 Active confirmed 53360794 Problem Pure hypercholesterolemia E78.00 Active confirmed 245160922 Problem Lumbar post-laminectomy syndrome M96.1 Active conf irmed 373378730 Problem 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 Active confirmed 59294446 Problem Microalbuminuria R80.9 Active confirmed 312 256555 Problem Gastroesophageal reflux disease without esophagitis K21.9 Active confirmed 015799395 Problem 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.4 Active conf irmed 728421304 Problem Intractable migraine with aura with status migrainosus G43.111 Active confirmed 100481692 Problem Cigarette nicotine dependence without complication F17.210 Active confirmed 59578854 Problem Memory change R41.3 Active confirmed 004497 006 Problem Sacroiliitis, not elsewhere classified M46.1 A ctive confirmed 43478475 Problem Type 2 diabetes mellitus with hyperglycemia E11.65 Active confirmed 04282601 Problem Lung nodule R91.1 Active confirmed 34265534 2 Problem Paresthesia of upper and lower extremities of both sides R20.2 Active confirmed 13160434 Problem Bipolar affective disorder, remission status unspecified F31.9 Active confirmed 36767598 ALLERGIES Allergen (clinical drug ingredient) Drug/Non Drug Allergy do cumented on EMR Reaction Allergy Type Onset Date Status toradol Rash Non Drug Allergy Active ENCOUNTERS from 1973 to 2021-04-13 Encounter Location Date Provider Diagnosis [address] [phone] [place] [address] Mar, Temi Olivera Gastroesophageal reflux dise ase without esophagitis K21.9 and Intervertebral disc disorder with radiculopathy of lumbosacral [...] Education Language: Question Answer Notes Languages spoken: Georgian Anglican: Question Answer Notes Anglican 03 Mandaeism Sexual Hx: Question Answer Notes Had sex [...] Counseled the patient on smoking cessation, education [facility] ed 03/07/2021 REASON FOR REFERRAL No [...] Notes Treatment Notes Treatm ent Clinical Notes Mar, Gastroesophageal reflux dise ase without esophagitis (ICD-10 - K21.9) Mar, Intervertebral disc disorder with radiculopathy of lumbosacral [...] days Next Appt Details Provider Name:Temi Olivera, 2021-04-19 09:30:00 AM, [address] [facility], , [place], [address], Insurance Providers Payer Name Payer Address Payer Phone Insured Name Patient Relati onship to Insured Coverage Start Date Coverage End Date [facility] [address] [facility] [address] ROLY IVAN self
--- OUTSIDE RECORDS SUMMARY | 2021-06-06 16:39 | CCD ---
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 Act kirk confirmed 806668022 Problem Diabetic peripheral neuropathy E11.42 Active confir med 356022633 Problem Insomnia, unspecified type G47.00 Active confirmed 995590075 Problem Protrusion of intervertebral disc of lumbosacral region M51.27 Active confirmed 18208897 Problem Pure hypercholesterolemia E78.00 Active confirmed 328621455 Problem Lumbar post-laminectomy syndrome M96.1 Active conf irmed 726912421 Problem 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 Active confirmed 42335291 Problem Microalbuminuria R80.9 Active confirmed 312 744939 Problem Gastroesophageal reflux disease without esophagitis K21.9 Active confirmed 013018906 Problem [facility] current 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 Z79.4 Active conf irmed 876458010 Problem Intractable migraine with aura with status migrainosus G43.111 Active confirmed 021666467 Problem Cigarette nicotine dependence without complication F17.210 Active confirmed 40051283 Problem Memory change R41.3 Active confirmed 862690 006 Problem Sacroiliitis, not elsewhere classified M46.1 A ctive confirmed 80144728 Problem Type 2 diabetes mellitus with hyperglycemia E11.65 Active confirmed 14704446 Problem Lung nodule R91.1 Active confirmed 11133019 2 Problem Paresthesia of upper and lower extremities of both sides R20.2 Active confirmed 78476902 Problem Bipolar affective disorder, remission status unspecified F31.9 Active confirmed 49281362 ALLERGIES Allergen (clinical drug ingredient) Drug/Non Drug Allergy do cumented on EMR Reaction Allergy Type Onset Date Status toradol Rash Non Drug Allergy Active ENCOUNTERS from 1973 to 2021-04-06 Encounter Location Date Provider Diagnosis [address] [phone] [place] [address] Mar, Temi Olivera IMMUNIZATIONS Vaccine Route Administration [...] Education Language: Question Answer Notes Languages spoken: Tajik Christian: Question Answer Notes Christian 03 Nondenominational Sexual Hx: Question Answer Notes Had sex [...] Notes Start Da te End Date Status Glucometer as directed bid; Dx E11.8 Jun, Active Venlafaxine HCl ER 75 MG 1 capsule with food Orally Once a day f or 30 day(s) Active Cane - as directed M51.17 December, Acti ve Atorvastatin Calcium 40 MG 1 tablet Orally Once a day 15 N 2016 Active Ramelteon 8 MG 1 tablet at bedtime as needed Orally Once a day Active Gabapentin 600 MG 1 tablet Orally three times daily for 90 days December, Active tiZANidine HCl 4 MG 1 cap Orally Three times a day as needed for 90 days Sep, Active Doxycycline Hyclate 100 MG 1 capsule Orally every 12 hrs for 10 day(s) Feb, Active BD Pen Needle Mini U/F 31G X 5 MM as directed Daily Sep Active Lisinopril 5 MG 1 tablet Orally Once a day hosp d/c 09/18/20 = 5mg qd Active Blood Glucose Test Strip - as directed In Vitro DX: E1 1.65 four times daily as needed Apr, Active Insulin Lispro 100 UNIT/ML as directed Subcutaneous be fore meals per sliding scale Active Venlafaxine HCl ER 37.5 MG 1 capsule with food Orally Once a day for 30 day(s) Active Mirtazapine [address] ONE TABLET BY MOUTH AT BEDTIME Orally Once a day Active metFORMIN HCl 500 MG 2 tablet with a meal orally bid Active Basaglar KwikPen 100 UNIT/ML 60 units sq bid DX: E11.65 Active Aspir-Low 81 MG 1 tablet Orally Once a day for 90 Active OneTouch Verio - USE DIRECTED TO TEST BLOOD GLUCOSE FO UR TIMES A DAY for 40 Active Glimepiride 2 MG 1 tablet with breakfast or t he first main meal of the day Orally Once a day Active Blood Glucose Meter - as directed DX: E11.65 Daily Apr, Active Omeprazole 40 MG 1 capsule Orally Once a day for 90 days Active Propranolol HCl 10 MG 1 tablet [...] Information RESULTS No Results REASON FOR VISIT [facility] ED d/c 03/30 - back & leg pain MEDICAL (GENERAL) HISTORY Type Description Date Medical [...] Treatment Notes Treatm ent Clinical Notes Mar, Other Discussion with patient about recent discharge from [facility] ER. Patient reports she still has pain in her back and reports the pain is pretty constant. Medication reconciliation completed. Reports she has a cane for an ambulation devices and has no Home Care Services. Patient completed the Social Determinants of Health Screening Tool with fiction writer. No services needed at this time. Denies any further questions or concerns with fiction writer. PLAN OF TREATMENT Next Appt Details Provider Name:Leila Farooq, 2021-04-12 10:0 0:00 AM, [address] [place] [address], , [place], [address], Provider Name:Temi Olivera, 2021-04-19 09:30:00 AM, [address] [place] [address], , [place], [address], Insurance Providers Payer Name Payer Address Payer Phone Insured Name Patient Relati onship to Insured Coverage Start Date Coverage End Date [facility] [address] [facility] [address] ROLY IVAN self
--- OUTSIDE RECORDS SUMMARY | 2021-06-06 16:39 | CCD ---
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 Act kirk confirmed 442562898 Problem Diabetic peripheral neuropathy E11.42 Active confir med 271820634 Problem Insomnia, unspecified type G47.00 Active confirmed 662938314 Problem Protrusion of intervertebral disc of lumbosacral region M51.27 Active confirmed 50470796 Problem Pure hypercholesterolemia E78.00 Active confirmed 371836919 Problem Lumbar post-laminectomy syndrome M96.1 Active conf irmed 829751257 Problem 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 Active confirmed 61486373 Problem Microalbuminuria R80.9 Active confirmed 312 895475 Problem Gastroesophageal reflux disease without esophagitis K21.9 Active confirmed 145557861 Problem penitentiary current 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 Z79.4 Active conf irmed 924379894 Problem Intractable migraine with aura with status migrainosus G43.111 Active confirmed 644029472 Problem Cigarette nicotine dependence without complication F17.210 Active confirmed 15384745 Problem Memory change R41.3 Active confirmed 835080 006 Problem Sacroiliitis, not elsewhere classified M46.1 A ctive confirmed 21161006 Problem Type 2 diabetes mellitus with hyperglycemia E11.65 Active confirmed 68306180 Problem Lung nodule R91.1 Active confirmed 85564952 2 Problem Paresthesia of upper and lower extremities of both sides R20.2 Active confirmed 43730844 Problem Bipolar affective disorder, remission status unspecified F31.9 Active confirmed 43522277 ALLERGIES Allergen (clinical drug ingredient) Drug/Non Drug Allergy do cumented on EMR Reaction Allergy Type Onset Date Status toradol Rash Non Drug Allergy Active ENCOUNTERS from 1973 to 2021-03-31 Encounter Location Date Provider Diagnosis [address] [phone] [place] [address] 11 Mar, 2021 Temi Olivera IMMUNIZATIONS Vaccine Route Administration Date [...] Education Language: Question Answer Notes Languages spoken: Citizen Of [place] Adventist: Question Answer Notes Adventist 03 Mormon Sexual Hx: Question Answer Notes Had sex [...] Notes Start Da te End Date Status metFORMIN HCl 500 MG 2 tablet with a meal orally bid Active Venlafaxine HCl ER 75 MG 1 capsule with food Orally Once a day or 30 day(s) Active Lisinopril 5 MG 1 tablet Orally Once a day hosp d/c 09/18/20 = 5mg qd Active SEROquel 200 MG 1 tablet Orally Once a day at hs Active Omeprazole 40 MG 1 capsule Orally Once a day for 90 days Active Insulin Lispro 100 UNIT/ML as directed Subcutaneous be fore meals per sliding scale Active Doxycycline Hyclate 100 MG 1 capsule Orally every 12 hrs for 10 day(s) Feb, Active Propranolol HCl 10 MG 1 tablet Orally 3 times daily as needed fo r anxiety 30 Aug, 2020 Active Atorvastatin Calcium 40 MG 1 tablet Orally Once a day 15 N 2016 Active Glimepiride 2 MG 1 tablet with breakfast or t he first main meal of the day Orally Once a day Active Blood Glucose Test Strip - as directed In Vitro DX: E1 1.65 four times daily as needed Apr, Unknown Gabapentin 600 MG 1 tablet Orally three times daily for 90 days December, Active OneTouch Verio - USE DIRECTED TO TEST BLOOD GLUCOSE FO UR TIMES A DAY for 40 Active BD Pen Needle Mini U/F 31G X 5 MM as directed Daily Sep Unknown Cane - as directed M51.17 December, Unkn own Mirtazapine [address] ONE TABLET BY MOUTH AT BEDTIME Orally Once a day Active Aspir-Low 81 MG 1 tablet Orally Once a day for 90 Active Ramelteon 8 MG 1 tablet at bedtime as needed Orally Once a day Not-Taking Effexor XR 75 MG 1 capsule with food Orally Once a day Unknown Glucometer as directed bid; Dx E11.8 Jun, Active Blood Glucose Meter - as directed DX: E11.65 Daily Apr, Unknown tiZANidine HCl 4 MG 1 cap Orally Three times a day as needed for 90 days Sep, Active Basaglar KwikPen 100 UNIT/ML 60 units sq bid DX: E11.65 Active Venlafaxine HCl ER 37.5 MG 1 capsule with food Orally Once a day for 30 day(s) Active SUMAtriptan Succinate 50 MG 1 tablet at least 2 hours between doses as needed Orally Twice a day; max #16/month December, Active PROCEDURES No Information RESULTS No Results REASON FOR VISIT [facility] referral MEDICAL (GENERAL) HISTORY Type Description Date [...] Medication Name Sig Start Date Stop Date Doxycycline Hyclate 100 MG 1 capsule Orally every 12 hrs for 10 day(s) Feb, Next Appt Details Provider Name:Leila Farooq, 2021-04-12 10:0 0:00 AM, [address] [place] [address] , [place], [address], Provider Name:Temi Olivera, 2021-04-19 09:30:00 AM, [address] [place] [address] , [place], [address], Insurance Providers Payer Name Payer Address Payer Phone Insured Name Patient Relati onship to Insured Coverage Start Date Coverage End Date [facility] [address] [facility] [address] [phone] ROLY IVAN self
--- OUTSIDE RECORDS SUMMARY | 2021-06-06 16:39 | CCD | Continuity of Care Document ---
Author Author [facility] Organization Unknown Address [address] [place] [address] Phone [phone] Care Team Providers Care Java Groovy Developer Name Role Phone Temi Olivera M.D. AUTM [phone] AUTM Unavailable AUTM Unavailable Problems Description No [...] lb BMI (Body Mass Index) 37.2 kg/m2 [place] Body Weight 140 lb Weight 110.849 kg BSA (Body Surface Area) 2.23 m2 06/10/2020 9:13am Body Temperature 96.2 F Height 68 inches 5'8" Weight 214.00 lb BMI (Body Mass Index) 32.5 kg/m2 [place] Body Weight 140 lb Weight 97.070 kg BSA (Body Surface Area) 2.10 m2 Results Test Acquired Date Facility Test Result H/L Range Note PFT/HGB Off/No Meds 04/07/2021 [facility] Misc <pending> FVL/[place] 03/09/2021 [facility] PDFReport SEE IMAGE FVC-Pred 4.10 L FVC-Pre 3.27 L FVC-%Pred-Pre 79 L FVC-LLN 3.32 L Fev1-Pred 3.26 L Fev1-Pre 2.68 L Fev1-%Pred-Pre 82 L Fev1-LLN 2.60 L Fev6-Pred 4.00 L Fev6-Pre 3.27 L Fev6-%Pred-Pre 81 L Fev6-LLN 3.23 L Exz1tru-Pogu 81 % Mvj5gdw-Wcj 82 % Gzn8pmb-%Pred-Pre 101 % Sty2uio-ZSO 71 % Xfu1yko-Pdco 98 % Eks5jsm-Lri 100 % Lyf8ifq-%Pred-Pre 102 % FEFMax-Pred 7.46 L/E/sec FEFMax-Pre 5.56 L/E/sec FEFMax-%Pred-Pre 74 L/E/sec FEFMax-LLN 5.52 L/E/sec Grb7195-Prxw 3.11 L/E/sec Ywy8415-Yzs 2.89 L/E/sec Oyx2414-%Pred-Pre 92 L/E/sec Zng7193-CAE 1.71 L/E/sec ExpTime-Pre 3.73 sec Kry5nms4-Olkv 83 % Rtw8csl1-Axf 82 % Ffn0naq3-%Pred-Pre 99 % Foi1edq5-DCT 74 % Procedures Date Code Description Status 03/09/2021 51311 Office/Outpatient New Moderate M DM 45-59 Minutes Completed 03/09/2021 10774 Spirometry Completed Medical Devices Description No Information Available Encounters Type Date Location Provider Dx Diagnosis Office Visit 03/09/2021 1:15p [facility] Pulmonary/Thoracic Ana Aaron N.P. R06.00 Dyspnea, unspecified R05 Cough R91.8 Other nonspecific abnormal f inding of lung field F17.210 Nicotine dependence, cigaret dylon, uncomplicated Assessments Date Code Description Provider 03/09/2021 R06.00 Dyspnea, unspecified Beatriz Aaron ea, N.P. 03/09/2021 R05 Cough Tegan Aaron N .PBryson 03/09/2021 R91.8 Other nonspecific abnormal findi ng of lung field Tegan Aaron N.PBryson 03/09/2021 F17.210 Nicotine dependence, cigarettes, uncomplicated Tegan Aaron, N.P. Plan of Treatment Future Appointment(s):* 04/13/2021 1:45 pm - Tegan Aaron N.PBryson at [facility] Pulmonary/Thoracic 03/09/2021 - Tegan Aaron, N.P.* R06.00 [...] Referral Status Appt Date Tegan Aaron F.N.Jes nodule Closed 03/09/2021 [facility] Practice-Pulmonary [address] [place], [place] [address] [phone] Tegan Aaron F.N.PBryson [address] ct chest no contrast [facility] Closed [facility] [address] [place], [place] [address] [phone] Tegan Aaron F.N.P. SOP R91.1 Scheduled 04/07/2021 [facility] [address] [place], [place] [id number] [phone]
--- OUTSIDE RECORDS SUMMARY | 2021-06-06 16:39 | CCD | Continuity of Care Document ---
Author Author [facility] Organization Unknown Address [address] [place] [address] Phone [phone] Care Team Providers Care Associate Broker Name Role Phone Temi Olivera M.D. AUTM [phone] AUTM Unavailable Adrián Hernandes M.D. AUTM [phone] AUTM Unavailable Problems Description No Information Available [...] lb BMI (Body Mass Index) 37.2 kg/m2 [place] Body Weight 140 lb Weight 110.849 kg BSA (Body Surface Area) 2.23 m2 06/10/2020 9:13am Body Temperature 96.2 F Height 68 inches 5'8" Weight 214.00 lb BMI (Body Mass Index) 32.5 kg/m2 [place] Body Weight 140 lb Weight 97.070 kg [...] L Fev6-%Pred-Pre 81 L Fev6-LLN 3.23 L Abz2pnr-Zhke 81 % Pnu9ott-Kyn 82 % Yha6qsu-%Pred-Pre 101 % Vvy1ekm-KCI 71 % Oey6vdw-Jwqo 98 % Fqn5wig-Wau 100 % Wta7hte-%Pred-Pre 102 % FEFMax-Pred 7.46 L/E/sec FEFMax-Pre 5.56 L/E/sec FEFMax-%Pred-Pre 74 L/E/sec FEFMax-LLN 5.52 L/E/sec Ycs8820-Bxyv 3.11 L/E/sec Dre7970-Smn 2.89 L/E/sec Ilg0437-%Pred-Pre 92 L/E/sec Nou5602-JBI 1.71 L/E/sec ExpTime-Pre 3.73 sec Wvr8mwi8-Lxug 83 % Ins7kck9-Mvk 82 % Ieq1txz0-%Pred-Pre 99 % Mec2ekq2-WYX 74 % Procedures Date Code Description Status 03/09/2021 70337 Office/Outpatient New Moderate M DM 45-59 Minutes Completed 03/09/2021 24842 Spirometry Completed Medical Devices Description No Information Available Encounters Type Date Location Provider Dx Diagnosis Office Visit 03/09/2021 1:15p [facility] Pulmonary/Thoracic Ana Aaron, N.P. R06.00 Dyspnea, unspecified [...] Appointment(s):* 04/13/2021 1:45 pm - Tegan Aaron, N.PBryson at [facility] Pulmonary/Thoracic * 04/07/2021 1:00 pm - Pulmonary Lab at [facility] Pulmonary/Thoracic 03/09/2021 - Tegan Aaron, N.P.* R06.00 [...] Referral Status Appt Date Tegan Aaron F.N.P. NODULE Scheduled 03/09/2021 [facility] Medical Practice-Pulmonary [address] [place], [place] [id number] [phone] Tegan Aaron F.N.P. STABLE NODULES Created [facility] [address] [place], [place] [address] [phone]
--- OUTSIDE RECORDS SUMMARY | 2021-06-06 16:39 | CCD | Continuity of Care Document ---
Author Author [facility] Organization Unknown Address [address] [place] [address] Phone [phone] Care Team Providers Care Financial Sales Manager Name Role Phone Temi Olivera M.D. AUTM [phone] AUTM Unavailable AUTM Unavailable AUTM Unavailable Problems [...] lb BMI (Body Mass Index) 37.2 kg/m2 [place] Body Weight 140 lb Weight 110.849 kg BSA (Body Surface Area) 2.23 m2 06/10/2020 9:13am Body Temperature 96.2 F Height 68 inches 5'8" Weight 214.00 lb BMI (Body Mass Index) 32.5 kg/m2 [place] Body Weight 140 lb Weight 97.070 kg BSA (Body Surface Area) 2.10 m2 Results Test Acquired Date Facility Test Result H/L Range Note PFT/HGB Off/No Meds 04/07/2021 [facility] Misc <pending> FVL/Phyllis 03/09/2021 [facility] PDFReport SEE IMAGE FVC-Pred 4.10 L FVC-Pre 3.27 L FVC-%Pred-Pre 79 L FVC-LLN 3.32 L Fev1-Pred 3.26 L Fev1-Pre 2.68 L Fev1-%Pred-Pre 82 L Fev1-LLN 2.60 L Fev6-Pred 4.00 L Fev6-Pre 3.27 L Fev6-%Pred-Pre 81 L Fev6-LLN 3.23 L Tck2ipx-Hqcw 81 % Mdb0kcq-Lfp 82 % Omb5yoy-%Pred-Pre 101 % Nck0kcz-OOX 71 % Qhu5tku-Mxkz 98 % Rkn6qgb-Vjw 100 % Atg9gom-%Pred-Pre 102 % FEFMax-Pred 7.46 L/E/sec FEFMax-Pre 5.56 L/E/sec FEFMax-%Pred-Pre 74 L/E/sec FEFMax-LLN 5.52 L/E/sec Kfj0062-Nlsp 3.11 L/E/sec Kkr9699-Jez 2.89 L/E/sec Fzf4388-%Pred-Pre 92 L/E/sec Tkb0630-KKI 1.71 L/E/sec ExpTime-Pre 3.73 sec Cbl5nvf8-Bnzi 83 % Bqi1vhg8-Qsv 82 % Lsn0qkf3-%Pred-Pre 99 % Zeu9wos0-SZB 74 % Procedures Date Code Description Status 04/07/2021 57541 Diffusing Capacity Completed 04/07/2021 52097 Plethysmography Determination Rosalba ng Volumes & Per Airway Resist Completed 04/07/2021 63499 Bronchospasm Evaluation Complete d 03/09/2021 83979 Office/Outpatient New Moderate M DM 45-59 Minutes Completed 03/09/2021 53959 Spirometry Completed Medical Devices Description No Information Available Encounters Type Date Location Provider Dx Diagnosis Office Visit 03/09/2021 1:15p [facility] Pulmonary/Thoracic Ana Aaron, N.P. R06.00 Dyspnea, unspecified [...] Aaron, N.P. Plan of Treatment Future Appointment(s):* 05/10/2021 8:45 am - Tegan Aaron, N.P. at [facility] Pulmonary/Thoracic 03/09/2021 - Tegan Aaron, N.P.* R06.00 [...] Date Tegan Aaron F.N.P. PET SCAN Created [facility]-Pulmonary [address] [place], [place] [id number] [phone] Tegan Aaron F.N.P. nodule Closed 03/09/2021 [facility] [address] [place] [address] [phone] Tegan Aaron F[address]P. [address] ct chest no contrast smc Closed [facility] [address] [place], [place] [id number] [phone] Tegan Aaron F.N.P. SOP R91.1 Scheduled 04/07/2021 [facility] [address] [place] [address] [phone]
--- OUTSIDE RECORDS SUMMARY | 2021-06-06 16:39 | CCD ---
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 Act kirk confirmed 616856578 Problem Diabetic peripheral neuropathy E11.42 Active confir med 422232599 Problem Insomnia, unspecified type G47.00 Active confirmed 001539130 Problem Protrusion of intervertebral disc of lumbosacral region M51.27 Active confirmed 86757704 Problem Pure hypercholesterolemia E78.00 Active confirmed 308761273 Problem Lumbar post-laminectomy syndrome M96.1 Active conf irmed 956697887 Problem 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 Active confirmed 91884976 Problem Microalbuminuria R80.9 Active confirmed 312 072550 Problem Gastroesophageal reflux disease without esophagitis K21.9 Active confirmed 976083009 Problem mechanical engineer current 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 Z79.4 Active conf irmed 106215181 Problem Intractable migraine with aura with status migrainosus G43.111 Active confirmed 665406946 Problem Cigarette nicotine dependence without complication F17.210 Active confirmed 27649888 Problem Memory change R41.3 Active confirmed 153313 006 Problem Sacroiliitis, not elsewhere classified M46.1 A ctive confirmed 64843772 Problem Type 2 diabetes mellitus with hyperglycemia E11.65 Active confirmed 77873463 Problem Lung nodule R91.1 Active confirmed 62412930 2 Problem Paresthesia of upper and lower extremities of both sides R20.2 Active confirmed 53059220 Problem Bipolar affective disorder, remission status unspecified F31.9 Active confirmed 33749874 ALLERGIES Allergen (clinical drug ingredient) Drug/Non Drug Allergy do cumented on EMR Reaction Allergy Type Onset Date Status toradol Rash Non Drug Allergy Active ENCOUNTERS from 1973 to 2021-04-18 Encounter Location Date Provider Diagnosis [address] [phone] [place] [address] Mar, Temi Olivera IMMUNIZATIONS Vaccine Route Administration [...] Language: Question Answer Notes Languages spoken: Frisian Mosque: Question Answer Notes Mosque 03 Anabaptism Sexual Hx: Question Answer Notes Had sex [...] Information RESULTS No Results REASON FOR VISIT Ophtho referral MEDICAL (GENERAL) HISTORY Type Description Date [...] Provider Name:Temi Olivera, 2021-04-19 09:30:00 AM, [address] [facility], , [place], [address], Insurance Providers Payer Name Payer Address Payer Phone Insured Name Patient Relati onship to Insured Coverage Start Date Coverage End Date [facility] [place] [facility] [place] [address] [facility] [id number] ROLY IVAN self
--- OUTSIDE RECORDS SUMMARY | 2021-06-06 16:39 | CCD ---
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 Act kirk confirmed 806563996 Problem Diabetic peripheral neuropathy E11.42 Active confir med 897812257 Problem Insomnia, unspecified type G47.00 Active confirmed 957772948 Problem Protrusion of intervertebral disc of lumbosacral region M51.27 Active confirmed 70044964 Problem Pure hypercholesterolemia E78.00 Active confirmed 014958531 Problem Lumbar post-laminectomy syndrome M96.1 Active conf irmed 453561207 Problem 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 Active confirmed 95411766 Problem Microalbuminuria R80.9 Active confirmed 312 244323 Problem Gastroesophageal reflux disease without esophagitis K21.9 Active confirmed 311755429 Problem 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.4 Active conf irmed 027225610 Problem Intractable migraine with aura with status migrainosus G43.111 Active confirmed 109965585 Problem Cigarette nicotine dependence without complication F17.210 Active confirmed 50965870 Problem Memory change R41.3 Active confirmed 974497 006 Problem Sacroiliitis, not elsewhere classified M46.1 A ctive confirmed 46612189 Problem Type 2 diabetes mellitus with hyperglycemia E11.65 Active confirmed 02521890 Problem Lung nodule R91.1 Active confirmed 52244293 2 Problem Paresthesia of upper and lower extremities of both sides R20.2 Active confirmed 11526037 Problem Bipolar affective disorder, remission status unspecified F31.9 Active confirmed 93555875 ALLERGIES Allergen (clinical drug ingredient) Drug/Non Drug Allergy do cumented on EMR Reaction Allergy Type Onset Date Status toradol Rash Non Drug Allergy Active ENCOUNTERS from 1973 to 2021-04-15 Encounter Location Date Provider Diagnosis [address] [phone] [place] [address] Mar, Temi Olivera IMMUNIZATIONS Vaccine Route Administration [...] Education Language: Question Answer Notes Languages spoken: Syriac Anabaptism: Question Answer Notes Anabaptism 03 Faith Sexual Hx: Question Answer Notes Had sex [...] Information RESULTS No Results REASON FOR VISIT Ortho referral MEDICAL (GENERAL) HISTORY Type Description [...] Provider Name:Temi Olivera, 2021-04-19 09:30:00 AM, [address] [facility], , [place], [address], Insurance Providers Payer Name Payer Address Payer Phone Insured Name Patient Relati onship to Insured Coverage Start Date Coverage End Date [facility] [place] [facility] [place] [address] [facility] [phone] ROLY IVAN self
--- OUTSIDE RECORDS SUMMARY | 2021-06-06 16:39 | CCD ---
Author Author Bette Pinzon Organization Unknown Address [address] [place] [address] Phone Care Team Providers Care Hides Soaker Name Role Phone Pipo Pinzon PCP Allergies, Adverse Reactions, Alerts Concept Allergy Name Reaction Severity Onset Date Status Documentation Date Phone Number Npid Taxonomy Code Taxonomy Desc Author Last Name Author Fi rst Name Concept Type 861477 nkda Active 06/11/2018 [id number] Nurse Practitioner Eddie Grewal RXNORM 593946 Toradol rash Active 10/01/2020 [id number] Nurse Practitioner Jeromy Foss RXNORM 2288887 duloxetine Increased aggression Active 10/01/19 [id number] Nurse Practitioner Jeromy Foss RXNORM Problem List Concept Problem Description Status Start Date Created Date Resolv ed Date Snomed Code F31.9 Unspecified Bipolar and Related Disorder Active 04/08/2021 F43.9 Unspecified Trauma- and Stressor-Related Disorder Active 04/08/2021 F41.1 Generalized Anxiety Disorder Active 04/08/2021 F17.200 Tobacco Use Disorder, Moderate Active Medications Rx Norm Medication Route Route Concept Start Date Stop Date Dosage Ruben quency Duration Formula Strength Dosage Form Dosage Form Code Dosage Description Medication Id Account Npid Author First Name Author Last Name Taxonomy Code Taxonomy Desc Phone Number [id number] quetiapine 08/09/2020 30 200 mg tablet 61325 311714 [id number] Pipo Pinzon [id number] Nurse Practitioner [id number] [phone] 292939 venlafaxine 08/09/2020 30 75 mg capsule, extended release 24hr 10164 039718 [id number] Pipo Pinzon [id number] Nurse Practitioner [phone] 633915 propranolol 10/08/2020 30 10 mg tablet 47742 613801 [id number] Piop Pinzon [id number] Nurse Practitioner [phone] [phone] 174825 venlafaxine by mouth [id number] 02/11/2021 04/12/2021 once a day 30 37.5 mg capsule,extended release 24hr 34490 204167 [id number] Pipo Pinzon [id number] Nurse Practitioner [id number] Social History Social History Element Description Concept Effective Date Smoking Status Unknown if ever smoked [id number] Immunizations No Data in Section Vital Signs No Data in Section Procedures Date Concept Id Description Targeted Site Concept Targeted Site Concept Type 04/08/2021 19931-58 [facility] Telemed E/M Lvl 3--Est pt CPT 04/08/2021 25027-54 Telemed A/O 30" CPT Patient has no history of implantable de vices Encounters Encounter Start Date End Date Encounter Type Description Diagnosis Di agnosis Desc Location Author First Name Author Last Name Npid Taxonomy Cod e Taxonomy Desc Phone Number Location Addr1 Location Addr2 Location [facility] Location [facility] Location [facility] [id number] 04/08/2021 04/08/2021 02810-16 [facility] Telemed E/M Lvl 3--Est p t F31.[address], [address] [facility] Jeromy Foss [id number] Nurse Practitioner [phone] [address] [address] Plan of Treatment No Data in Section Lab Results No Data in Section Instructions No Data in Section Functional Cognitive Status No Data in Section Insurance Providers Insurance Id Policy Effective Date Policy Thru Date Company [employer] [id number] [address]
--- OUTSIDE RECORDS SUMMARY | 2021-06-06 16:40 | CCD ---
Author Author [facility] Organization [facility] Address Unknown Phone Unavailable Care Team Providers Care Storage Battery Tester Name Role Phone Payal Pinzon NP Unavailable Unavailable Payal Pinzon NP Unavailable Unavailable Payal Pinzon NP Unavailable Unavailable StuckDeandre Unavailable Unavailable Stuck, K Elvia LANTIGUA Unavailable Unavailable Stuck, K Elvia LANTIGUA Unavailable Unavailable Stuck, K Elvia PA Unavailable Unavailable Stuck K Elvia PA Unavailable Unavailable Stuck K Elvai PA Unavailable Unavailable Stuck, K Elvia PA Unavailable Unavailable Stuck, K Elvia PA Unavailable Unavailable Stuck, K Elvia PA Unavailable Unavailable Stuck, K Elvia PA Unavailable Unavailable Stuck, K Elvia PA Unavailable Unavailable Stuck, K Elvia PA Unavailable Unavailable Stuck, K Elvia PA Unavailable Unavailable Stuck, K Elvia PA Unavailable Unavailable Stuck, K Elvia PA Unavailable Unavailable Stuck, K Elvia PA Unavailable Unavailable Stuck, K Elvia PA Unavailable Unavailable Stuck, K Elvia PA Unavailable Unavailable Stuck, K Elvia PA Unavailable Unavailable Stuck, K Elvia PA Unavailable Unavailable Stuck, K Elvia PA Unavailable Unavailable Stuck, K Elvia PA Unavailable Unavailable Stuck, K Elvia PA Unavailable Unavailable Stuck, K Elvia PA Unavailable Unavailable Stuck, K Elvia PA Unavailable Unavailable Stuck, K Elvia PA Unavailable Unavailable Stuck, K Elvia PA Unavailable Unavailable Stuck, K Elvia PA Unavailable Unavailable Stuck, K Elvia PA Unavailable Unavailable Stuck, K Elvia PA Unavailable Unavailable Stuck, K Elvia PA Unavailable Unavailable Stuck, K Elvia PA Unavailable Unavailable Stuck, K Elvia PA Unavailable Unavailable Stuck, K Elvia PA Unavailable Unavailable Stuck, K Elvia PA Unavailable Unavailable Stuck, K Elvia PA Unavailable Unavailable Stuck, K Elvia PA Unavailable Unavailable Stuck, K Elvia PA Unavailable Unavailable Stuck, K Elvia PA Unavailable Unavailable Stuck, K Elvia PA Unavailable Unavailable Stuck, K Elvia PA Unavailable Unavailable Stuck, K Elvia PA Unavailable Unavailable Marci Maya Unavailable Lyndsey Villafuerte MD Unavailable Unavailable Lyndsey Villafuerte MD Unavailable Unavailable Lyndsey Villafuerte MD Unavailable Unavailable Lyndsey Villafuerte MD Unavailable Unavailable Lyndsey Villafuerte MD Unavailable Unavailable Lyndsey Villafuerte MD Unavailable Unavailable Lyndsey Villafuerte MD Unavailable Unavailable Lyndsey Villafuerte MD Unavailable Unavailable Lyndsey Villafuerte MD Unavailable Unavailable Lyndsey Villafuerte MD Unavailable Unavailable Lyndsey Villafuerte MD Unavailable Unavailable Lyndsey Villafuerte MD Unavailable Unavailable Lyndsey Villafuerte MD Unavailable Unavailable Lyndsey Villafuerte MD Unavailable Unavailable Lyndsey Villafuerte MD Unavailable Unavailable Lyndsey Villafuerte MD Unavailable Unavailable Lyndsey Villafuerte MD Unavailable Unavailable Lyndsey Villafuerte MD Unavailable Unavailable Lyndsey Villafuerte MD Unavailable Unavailable Lyndsey Villafuerte MD Unavailable Unavailable Lyndsey Villafuerte MD Unavailable Unavailable Lyndsey Villafuerte MD Unavailable Unavailable Lyndsey Villafuerte MD Unavailable Unavailable Lyndsey Villafuerte MD Unavailable Unavailable Lyndsey Villafuerte MD Unavailable Unavailable Lyndsey Villafuerte MD Unavailable Unavailable Lyndsey Villafuerte MD Unavailable Unavailable Lyndsey Villafuerte MD Unavailable Unavailable Lyndsey Villafuerte MD Unavailable Unavailable Lyndsey Villafuerte MD Unavailable Unavailable Gracy Crump Unavailable YESENIA, B FLAVIA TRAY DRIER OPERATOR Unavailable Unavailable YESENIA, B FLAVIA TRAY DRIER OPERATOR Unavailable Unavailable YESENIA, B FLAVIA TRAY DRIER OPERATOR Unavailable Unavailable YESENIA, B FLAVIA TRAY DRIER OPERATOR Unavailable Unavailable YESENIA, B FLAVIA TRAY DRIER OPERATOR Unavailable Unavailable YESENIA, B FLAVIA TRAY DRIER OPERATOR Unavailable Unavailable YESENIA, B FLAVIA TRAY DRIER OPERATOR Unavailable Unavailable YESENIA, B FLAVIA TRAY DRIER OPERATOR Unavailable Unavailable YESENIA, B FLAVIA TRAY DRIER OPERATOR Unavailable Unavailable YESENIA, B FLAVIA TRAY DRIER OPERATOR Unavailable Unavailable YESENIA, B FLAVIA TRAY DRIER OPERATOR Unavailable Unavailable YESENIA, B FLAVIA TRAY DRIER OPERATOR Unavailable Unavailable YESENIA, B FLAVIA TRAY DRIER OPERATOR Unavailable Unavailable YESENIA, B FLAVIA TRAY DRIER OPERATOR Unavailable Unavailable YESENIA, B FLAVIA TRAY DRIER OPERATOR Unavailable Unavailable YESENIA, B FLAVIA TRAY DRIER OPERATOR Unavailable Unavailable YESENIA, B FLAVIA TRAY DRIER OPERATOR Unavailable Unavailable YESENIA, B FLAVIA TRAY DRIER OPERATOR Unavailable Unavailable YESENIA, B FLAVIA TRAY DRIER OPERATOR Unavailable Unavailable YESENIA, B FLAVIA TRAY DRIER OPERATOR Unavailable Unavailable YESENIA, B FLAVIA TRAY DRIER OPERATOR Unavailable Unavailable YESENIA, B FLAVIA TRAY DRIER OPERATOR Unavailable Unavailable YESENIA, B FLAVIA TRAY DRIER OPERATOR Unavailable Unavailable YESENIA, B FLAVIA TRAY DRIER OPERATOR Unavailable Unavailable YESENIA, B FLAVIA TRAY DRIER OPERATOR Unavailable Unavailable YESENIA, B FLAVIA TRAY DRIER OPERATOR Unavailable Unavailable YESENIA, B FLAVIA TRAY DRIER OPERATOR Unavailable Unavailable YESENIA, B FLAVIA TRAY DRIER OPERATOR Unavailable Unavailable YESENIA, B FLAVIA TRAY DRIER OPERATOR Unavailable Unavailable YESENIA, B FLAVIA TRAY DRIER OPERATOR Unavailable Unavailable YESENIA, B FLAVIA TRAY DRIER OPERATOR Unavailable Unavailable YESENIA, B FLAVIA TRAY DRIER OPERATOR Unavailable Unavailable YESENIA, B FLAVIA TRAY DRIER OPERATOR Unavailable Unavailable YESENIA, B FLAVIA TRAY DRIER OPERATOR Unavailable Unavailable YESENIA, B FLAVIA TRAY DRIER OPERATOR Unavailable Unavailable YESENIA, B FLAVIA TRAY DRIER OPERATOR Unavailable Unavailable YESENIA, B FLAVIA TRAY DRIER OPERATOR Unavailable Unavailable YESENIA, B FLAVIA TRAY DRIER OPERATOR Unavailable Unavailable YESENIA, B FLAVIA TRAY DRIER OPERATOR Unavailable Unavailable YESENIA, B FLAVIA TRAY DRIER OPERATOR Unavailable Unavailable YESENIA, B FLAVIA TRAY DRIER OPERATOR Unavailable Unavailable YESENIA, B FLAVIA TRAY DRIER OPERATOR Unavailable Unavailable YESENIA, B FLAVIA TRAY DRIER OPERATOR Unavailable Unavailable YESENIA, B FLAVIA TRAY DRIER OPERATOR Unavailable Unavailable YESENIA, B FLAVIA TRAY DRIER OPERATOR Unavailable Unavailable YESENIA, B FLAVIA TRAY DRIER OPERATOR Unavailable Unavailable YESENIA, B FLAVIA TRAY DRIER OPERATOR Unavailable Unavailable YESENIA, B FLAVIA TRAY DRIER OPERATOR Unavailable Unavailable YESENIA, B FLAVIA TRAY DRIER OPERATOR Unavailable Unavailable YESENIA, B FLAVIA TRAY DRIER OPERATOR Unavailable Unavailable YESENIA, B FLAVIA TRAY DRIER OPERATOR Unavailable Unavailable YESENIA, B FLAVIA TRAY DRIER OPERATOR Unavailable Unavailable YESENIA, B FLAVIA TRAY DRIER OPERATOR Unavailable Unavailable YESENIA, B FLAVIA TRAY DRIER OPERATOR Unavailable Unavailable YESENIA, B FLAVIA TRAY DRIER OPERATOR Unavailable Unavailable YESENIA, B FLAVIA TRAY DRIER OPERATOR Unavailable Unavailable YESENIA, B FLAVIA TRAY DRIER OPERATOR Unavailable Unavailable YESENIA, B FLAVIA TRAY DRIER OPERATOR Unavailable Unavailable YESENIA, B FLAVIA TRAY DRIER OPERATOR Unavailable Unavailable YESENIA, B FLAVIA TRAY DRIER OPERATOR Unavailable Unavailable YESENIA, B FLAVIA TRAY DRIER OPERATOR Unavailable Unavailable YESENIA, B FLAVIA TRAY DRIER OPERATOR Unavailable Unavailable Hill, A Rebecca TRAY DRIER OPERATOR Unavailable Unavailable Hill, A Rebecca TRAY DRIER OPERATOR Unavailable Unavailable Hill, A Rebecca TRAY DRIER OPERATOR Unavailable Unavailable Hill, A Rebecca TRAY DRIER OPERATOR Unavailable Unavailable Hill, A Rebecca TRAY DRIER OPERATOR Unavailable Unavailable Hill, A Rebecca TRAY DRIER OPERATOR Unavailable Unavailable Hill, A Rebecca TRAY DRIER OPERATOR Unavailable Unavailable Hill, A Rebecca TRAY DRIER OPERATOR Unavailable Unavailable Hill, A Rebecca TRAY DRIER OPERATOR Unavailable Unavailable Hill, A Rebecca TRAY DRIER OPERATOR Unavailable Unavailable Hill, A Rebecca TRAY DRIER OPERATOR Unavailable Unavailable Hill, A Rebecca TRAY DRIER OPERATOR Unavailable Unavailable Hill, A Rebecca TRAY DRIER OPERATOR Unavailable Unavailable Hill, A Rebecca TRAY DRIER OPERATOR Unavailable Unavailable Hill, A Rebecca TRAY DRIER OPERATOR Unavailable Unavailable Hill, A Rebecca TRAY DRIER OPERATOR Unavailable Unavailable Hill, A Rebecca TRAY DRIER OPERATOR Unavailable Unavailable Hill, A Rebecca TRAY DRIER OPERATOR Unavailable Unavailable Hill, A Rebecca TRAY DRIER OPERATOR Unavailable Unavailable Hill, A Rebecca TRAY DRIER OPERATOR Unavailable Unavailable Hill, A Rebecca TRAY DRIER OPERATOR Unavailable Unavailable Hill, A Rebecca TRAY DRIER OPERATOR Unavailable Unavailable Hill, A Rebecca TRAY DRIER OPERATOR Unavailable Unavailable Hill, A Rebecca TRAY DRIER OPERATOR Unavailable Unavailable Hill, A Rebecca TRAY DRIER OPERATOR Unavailable Unavailable MAJAK, Payal MORRIS DPM Unavailable Unavailable MAJAK, Payal MORRIS DPM Unavailable Unavailable MAJAK, Payal MORRIS DPM Unavailable Unavailable MAJAK, Payal MORRIS DPM Unavailable Unavailable MAJAK, Payal MORRIS DPM Unavailable Unavailable MAJAK, Payal MORRIS DPM Unavailable Unavailable MAJAK, Payal MORRIS DPM Unavailable Unavailable MAJAK, Payal MORRIS DPM Unavailable Unavailable MAJAK, Payal MORRIS DPM Unavailable Unavailable MAJAK, Payal MORRIS DPM Unavailable Unavailable MAJAK, Payal MORRIS DPM Unavailable Unavailable MAJAK, Payal MORRIS DPM Unavailable Unavailable MAJAK, Payal MORRIS DPM Unavailable Unavailable MAJAK, Payal MORRIS DPM Unavailable Unavailable MAJAK, Payal MORRIS DPM Unavailable Unavailable MAJAK, Payal MORRIS DPM Unavailable Unavailable MAJAK, R ALEXANDRA DPM Unavailable Unavailable MAJAK, R ALEXANDRA DPM Unavailable Unavailable MAJAK, R ALEXANDRA DPM Unavailable Unavailable MAJAK, R ALEXANDRA DPM Unavailable Unavailable MAJAK, R ALEXANDRA DPM Unavailable Unavailable MAJAK, R ALEXADNRA DPM Unavailable Unavailable MAJAK, R ALEXANDRA DPM Unavailable Unavailable MAJAK, R ALEXANDRA DPM Unavailable Unavailable MAJAK, R ALEXANDRA DPM Unavailable Unavailable MAJAK, R ALEXANDRA DPM Unavailable Unavailable MAJAK, R ALEXANDRA DPM Unavailable Unavailable MAJAK, R ALEXANDRA DPM Unavailable Unavailable MAJAK, R ALEXANDRA DPM Unavailable Unavailable MAJAK, R ALEXANDRA DPM Unavailable Unavailable MAJAK, R ALEXANDRA DPM Unavailable Unavailable CHI, BRANDON ZACHARIAH METAL SPRAYER-C Unavailable Unavailable CHI, BRANDON ZACHARIAH METAL SPRAYER-C Unavailable Unavailable CHI, BRANDON ZACHARIAH METAL SPRAYER-C Unavailable Unavailable CHI, BRANDON ZACHARIAH METAL SPRAYER-C Unavailable Unavailable CHI, BRANDON ZACHARIAH METAL SPRAYER-C Unavailable Unavailable CHI, BRANDON ZACHARIAH METAL SPRAYER-C Unavailable Unavailable CHI, BRANDON ZACHARIAH METAL SPRAYER-C Unavailable Unavailable CHI, BRANDON ZACHARIAH METAL SPRAYER-C Unavailable Unavailable CHI, BRANDON ZACHARIAH METAL SPRAYER-C Unavailable Unavailable CHI, BRANDON ZACHARIAH METAL SPRAYER-C Unavailable Unavailable CHI, BRANDON ZACHARIAH METAL SPRAYER-C Unavailable Unavailable CHI, BRANDON ZACHARIAH METAL SPRAYER-C Unavailable Unavailable CHI, BRANDON ZACHARIAH METAL SPRAYER-C Unavailable Unavailable CHI, BRANDON ZACHARIAH METAL SPRAYER-C Unavailable Unavailable CHI, BRANDON ZACHARIAH METAL SPRAYER-C Unavailable Unavailable CHI, BRANDON ZACHARIAH METAL SPRAYER-C Unavailable Unavailable CHI, BRANDON ZACHARIAH METAL SPRAYER-C Unavailable Unavailable Rena Olivera MD Unavailable Unavailable Rena Olivera MD Unavailable Unavailable Rena Olivera MD Unavailable Unavailable Rena Olivera MD Unavailable Unavailable Rena Olivera MD Unavailable Unavailable Rena Olivera MD Unavailable Unavailable Rena Olivera MD Unavailable Unavailable Rena Olivera MD Unavailable Unavailable Rena Olivera MD Unavailable Unavailable Rena Olivera MD Unavailable Unavailable Rena Olivera MD Unavailable Unavailable Rena Olivera MD Unavailable Unavailable Skipton, E Temi MD Unavailable Unavailable Skipton, E Temi MD Unavailable Unavailable Skipton, E Temi MD Unavailable Unavailable Skipton, E Temi MD Unavailable Unavailable Skipton, E Temi MD Unavailable Unavailable Skipton, E Temi MD Unavailable Unavailable Skipton, E Temi MD Unavailable Unavailable Skipton, E Temi MD Unavailable Unavailable Skipton, E Temi MD Unavailable Unavailable Skipton, E Temi MD Unavailable Unavailable Skipton, E Temi MD Unavailable Unavailable Skipton, E Temi MD Unavailable Unavailable Skipton, E Temi MD Unavailable Unavailable Skipton, E Temi MD Unavailable Unavailable Skipton, E Temi MD Unavailable Unavailable Skipton, E Temi MD Unavailable Unavailable Skipton, E Temi MD Unavailable Unavailable Skipton, E Temi MD Unavailable Unavailable Skipton, E Temi MD Unavailable Unavailable Skipton, E Temi MD Unavailable Unavailable Skipton, E Temi MD Unavailable Unavailable Skipton, E Temi MD Unavailable Unavailable Skipton, E Temi MD Unavailable Unavailable Skipton, E Temi MD Unavailable Unavailable Skipton, E Temi MD Unavailable Unavailable Skipton, E Temi MD Unavailable Unavailable Skipton, E Temi MD Unavailable Unavailable Skipton, E Temi MD Unavailable Unavailable Skipton, E Temi MD Unavailable Unavailable Skipton, E Temi MD Unavailable Unavailable Skipton, E Temi MD Unavailable Unavailable Skipton, E Temi MD Unavailable Unavailable Skipton, E Temi MD Unavailable Unavailable Skipton, E Temi MD Unavailable Unavailable Skipton, E Temi MD Unavailable Unavailable Skipton, E Temi MD Unavailable Unavailable Skipton, E Temi MD Unavailable Unavailable Skipton, E Temi MD Unavailable Unavailable Skipton, E Temi MD Unavailable Unavailable Skipton, E Temi MD Unavailable Unavailable Skipton, E Temi MD Unavailable Unavailable Skipton, E Temi MD Unavailable Unavailable Skipton, E Temi MD Unavailable Unavailable Skipton, E Temi MD Unavailable Unavailable Skipton, E Temi MD Unavailable Unavailable Skipton, E Temi MD Unavailable Unavailable Skipton, E Temi MD Unavailable Unavailable Skipton, E Temi MD Unavailable Unavailable Young Cerna MD Unavailable Unavailable Yuong Cerna MD Unavailable Unavailable Young Cerna MD Unavailable Unavailable Young Cerna MD Unavailable Unavailable Young Cerna MD Unavailable Unavailable Young Cerna MD Unavailable Unavailable Young Cerna MD Unavailable Unavailable Young Cerna MD Unavailable Unavailable Vaneenenaam, Young Coles MD Unavailable Unavailable Vaneenenaam, Young Coles MD Unavailable Unavailable Vaneenenaam, Young Coles MD Unavailable Unavailable Vaneenenaam, Young Coles MD Unavailable Unavailable Vaneenenaam, Young Coles MD Unavailable Unavailable Vaneenenaam, Young Coles MD Unavailable Unavailable Vaneenenaam, Young Coles MD Unavailable Unavailable Vaneenenaam, Young Coles MD Unavailable Unavailable Vaneenenaam, Young Coles MD Unavailable Unavailable Vaneenenaam, Young Coles MD Unavailable Unavailable Vaneenenaam, Young Coles MD Unavailable Unavailable Vaneenenaam, Young Coles MD Unavailable Unavailable Vaneenenaam, Young Coles MD Unavailable Unavailable Vaneenenaam, Young Coles MD Unavailable Unavailable Vaneenenaam, Young Coles MD Unavailable Unavailable Vaneenenaam, Young Coles MD Unavailable Unavailable Vaneenenaam, Young Coles MD Unavailable Unavailable Vaneenenaam, Young Coles MD Unavailable Unavailable Vaneenenaam, Young Coles MD Unavailable Unavailable Vaneenenaam, Young Coles MD Unavailable Unavailable Vaneenenaam, Young Coles MD Unavailable Unavailable Vaneenenaam, Young Coles MD Unavailable Unavailable Vaneenenaam, Young Coles MD Unavailable Unavailable Vaneenenaam, Young Coles MD Unavailable Unavailable Vaneenenaam, Young Coles MD Unavailable Unavailable Vaneenenaam, Young Coles MD Unavailable Unavailable Vaneenenaam, Young Coles MD Unavailable Unavailable Vaneenenaam, Young Coles MD Unavailable Unavailable Vaneenenaam, Young Coles MD Unavailable Unavailable Vaneenenaam, Young Coles MD Unavailable Unavailable Vaneenenaam, Young Coles MD Unavailable Unavailable Vaneenenaam, Young Coles MD Unavailable Unavailable Vaneenenaam, Young Coles MD Unavailable Unavailable Vaneenenaam, Young Coles MD Unavailable Unavailable Vaneenenaam, Young Coles MD Unavailable Unavailable Vaneenenaam, Young Coles MD Unavailable Unavailable Vaneenenaam, Young Coles MD Unavailable Unavailable Vaneenenaam, Young Coles MD Unavailable Unavailable Re-disclosure Warning The records that you are about to access may contain information from federally-assisted alcohol or drug abuse programs. If such information is present, then the following federally mandated warning applies: This information has been disclosed to you from records protected by federal confidentiality rules (42 CFR part 2). The federal rules prohibit you from making any further disclosure of this information unless further disclosure is expressly permitted by the written consent of the person to whom it pertains or as otherwise permitted by 42 CFR part 2. A general authorization for the release of medical or other information is NOT sufficient for this purpose. The Federal rules restrict any use of the information to criminally investigate or prosecute any alcohol or drug abuse patient.The records that you are about to access may contain highly sensitive health information, the redisclosure of which is protected by Article 27-F of the [facility] Public Health law. If you continue you may have access to information: Regarding HIV / AIDS; Provided by facilities licensed or operated by the [facility] Office of Mental Health; or Provided by the [facility] Office for People With Developmental Disabilities. If such information is present, then the following [facility] mandated warning applies: This information has been disclosed to you from confidential records which are protected by state law. State law prohibits you from making any further disclosure of this information without the specific written consent of the person to whom it pertains, or as otherwise permitted by law. Any unauthorized further disclosure in violation of state law may result in a fine or intermediate sentence or both. A general authorization for the release of medical or other information is NOT sufficient authorization for further disc losure. Allergies and Adverse Reactions Type Description Substance Reaction Status Data Source(s ) Propensity to adverse reactions to substance bee venom prote in (honey bee) honey bee venom protein 0.1 MG/ML Injectable Solution Anaphylaxis Active [facility] ([facility]) Propensity to adverse reactions to substance duloxetine duloxetine Active [facility] ([facility]) Propensity to adverse reactions to substance Toradol Ketorolac Tromethamine 10 MG Oral Tablet rash Active [facility] ([facility]) Propensity to adverse reactions to substance nkda 24 HR Bupropion Hydrochloride 150 MG Extended Release Oral Tablet Active [facility] ([facility]) Propensity to adverse reactions to substance bee venom prote in (honey bee) honey bee venom protein 0.1 MG/ML Injectable Solution Anaphylaxis Active [facility] ([facility]) Propensity to adverse reactions to substance duloxetine duloxetine Active [facility] ([facility]) Propensity to adverse reactions to substance Toradol Ketorolac Tromethamine 10 MG Oral Tablet rash Active [facility] ([facility]) Family History Family Member Name Family Member Gender Family Member Status Date o f Status Description Data Source(s) Unknown Unknown Problem [facility] ([facility]) Unknown Male Problem [facility] ([facility] Unknown Unknown Problem [facility] ([facility] Unknown Male Problem [facility] ([facility]) Encounters Encounter Providers Location Date Indications Data Source(s ) Outpatient Attender: Elvia LANTIGUA 06/15/2021 12:00:00 AM EDT [facility] [place] [address] [address] 05/31/2021 12:00:00 AM EDT [facility] (Critical access hospital) [place] [address] [facility] [address] 05/20/2021 12:00:00 AM EDT eCW1 (Critical access hospital) Outpatient Attender: Pipo Pinzon NP [facility] 05/18/2021 02:30:00 AM EDT - 05/18/2021 02:30:00 AM EDT [facility] ([facility]) [place] [address] [address] 05/18/2021 12:00:00 AM EDT eCW1 (Critical access hospital) Attender: Pipo Pinzon NP 05/18/2021 12:00:00 AM EDT [facility] ([facility]) Outpatient Attender: ZACHARIAH Moore/Bethel/Emanuel/Payal tomlinson 05/10/2021 08:45:00 AM EDT [facility] ([facility]) Health Monitoring - 30 Min Attender: Marci Maya [facility] 05/04/2021 10:30:00 AM EDT - 05/04/2021 10:30:00 AM EDT [facility] ([facility]) Attender: Marci Maya 05/04/2021 12:00:00 AM EDT [facility] ([facility]) Outpatient Attender: Young Cerna MD Physical Therap y 05/03/2021 01:45:00 PM EDT [facility] ([facility]) [place] [address] [address] 04/28/2021 12:00:00 AM EDT eCW1 ([facility]) [place] [address] [facility] [address] 04/19/2021 12:00:00 AM EDT eCW1 ([facility] [place] [address] [facility] [address] 04/19/2021 12:00:00 AM EDT eCW1 ([facility]) [place] [address] [facility] [facility] [address] 04/13/2021 12:00:00 AM EDT eCW1 ([facility]) [place] [address] [facility] [facility] [facility] [address] 04/13/2021 12:00:00 AM EDT eCW1 ([facility]) [place] [address] [facility] [facility] [facility] [address] 04/13/2021 12:00:00 AM EDT eCW1 ([facility]) Outpatient Attender: Pipo Pinzon NP [facility] 04/08/2021 11:30:00 AM EDT - 04/08/2021 11:30:00 AM EDT [facility] ([facility]) Attender: Pipo Pinzon NP 04/08/2021 12:00:00 AM EDT [facility] ([facility]) [place] [address] [facility] [address] 03/31/2021 12:00:00 AM EDT eCW1 ([facility]) [place] [address] [facility] [facility] [facility] [address] 03/30/2021 12:00:00 AM EDT eCW1 ([facility]) Outpatient Attender: Rebecca Kapoor NPReferrer: Temi Olivera MD 03/29/2021 12:37:28 PM EDT [facility] Outpatient Attender: ZACHARIAH Moore/Bethel/Emanuel/Payal tomlinson 03/09/2021 01:15:00 PM EDT [facility] ([facility] Outpatient [address] [id number] 03/07/2021 12:00:00 AM EDT eCW1 (Critical access hospital) Outpatient Attender: Pipo Pinzon NP [facility] 02/11/2021 01:30:00 AM EDT - 02/11/2021 01:30:00 AM EDT [facility] ([facility]) Attender: Pipo Pinzon NP 02/11/2021 12:00:00 AM EDT [facility] ([facility] Outpatient [address] [id number] 02/10/2021 12:00:00 AM EDT eCW1 (Critical access hospital) (TCM) Transition of Care Visit [address] [place] [address] 02/03/2021 12:00:00 AM EDT eCW1 (Critical access hospital) Unknown [address] [id number] 02/02/2021 12:00:00 AM EDT eCW1 (Critical access hospital) Recurring Patient Referrer: Temi Olivera MD 01/25/2021 03: 10:07 PM EDT [facility] Outpatient Attender: Rebecca Kapoor NPReferrer: Temi Olivera MD 01/25/2021 02:13:20 PM EDT [facility] Recurring Patient Referrer: Temi Olivera MD 01/25/2021 12: 44:25 PM EDT [facility] Recurring Patient Referrer: Temi Olivera MD 01/25/2021 12: 42:01 PM EDT [facility] Recurring Patient Referrer: Temi Olivera MD 01/25/2021 12: 41:19 PM EDT [facility] Unknown [address] [address] 01/25/2021 12:00:00 AM EDT eCW1 (Critical access hospital) Recurring Patient Referrer: Temi Olivera MD 01/18/2021 08: 11:24 AM EDT [facility] Recurring Patient Referrer: Temi Olivera MD 01/18/2021 08: 10:49 AM EDT [facility] Recurring Patient Referrer: Temi Olivera MD 01/04/2021 10: 57:14 AM EDT [facility] [place] [address] [facility] [address] 01/04/2021 12:00:00 AM EDT eCW1 (Critical access hospital) Extended Individual Psychotherapy - 45 min Attender: Zeina Crump [facility] 12/31/2020 11:00:00 AM EDT - 12/31/2020 11:00:00 AM EDT [facility] ([facility]) Attender: Gracy Crump 12/31/2020 12:00:00 AM EDT [facility] ([facility]) Outpatient [address] [facility] [address] 12/30/2020 12:00:00 AM EDT eCW1 (Critical access hospital) Unknown [address] [facility] [place] [address] 12/06/2020 12:00:00 AM EDT eCW1 (Critical access hospital) Unknown [address] [facility] [place] [address] 11/30/2020 12:00:00 AM EDT eCW1 (Critical access hospital) Outpatient Attender: Pipo Pinzon NP [facility] 11/26/2020 01:30:00 AM EDT - 11/26/2020 01:30:00 AM EDT [facility] ([facility]) Attender: Pipo Pinzon NP 11/26/2020 12:00:00 AM EDT [facility] ([facility]) Outpatient Attender: FLAVIA PATTERSON NP Physical Therapy 01:45:00 PM EDT [facility] ([facility]) Brief Individual Psychotherapy - 30 min Attender: Gracy uribe [facility] 10/28/2020 10:00:00 AM EST - 10/28/2020 10:00:00 AM EST [facility] ([facility]) Attender: Gracy Crump 10/28/2020 12:00:00 AM EST [facility] ([facility]) Unknown [address] [facility] [address] 10/22/2020 12:00:00 AM EST eCW1 ([facility]) Unknown [address] [facility] [address] 10/07/2020 12:00:00 AM EST eCW1 (Critical access hospital) Outpatient Attender: Pipo Pinzon NP [facility] 10/01/2020 01:30:00 AM EST - 10/01/2020 01:30:00 AM EST [facility] ([facility]) (TCM) Transition of Care Visit [address] [place] [address] 10/01/2020 12:00:00 AM EST eCW1 (Critical access hospital) Attender: Pipo Pinzon NP 10/01/2020 12:00:00 AM EST [facility] ([facility]) Brief Individual Psychotherapy - 30 min Attender: Gracy uribe [facility] 09/23/2020 09:45:00 AM EST - 09/23/2020 09:45:00 AM EST [facility] ([facility]) Attender: Gracy Crump 09/23/2020 12:00:00 AM EST [facility] ([facility]) Unknown [address] [facility] [address] 09/22/2020 12:00:00 AM EST eCW1 ([facility]) Unknown [address] [facility] [address] 09/20/2020 12:00:00 AM EST eCW1 ([facility]) Outpatient Attender: Pipo Pinzon NP [facility] 08/27/2020 01:30:00 AM EST - 08/27/2020 01:30:00 AM EST [facility] ([facility]) Attender: Pipo Pinzon NP 08/27/2020 12:00:00 AM EST [facility] ([facility]) Unknown [address] [facility] [address] 08/24/2020 12:00:00 AM EST eCW1 (Critical access hospital) Unknown [address] [facility] [address] 08/24/2020 12:00:00 AM EST eCW1 (Critical access hospital) Outpatient Attender: Pipo Pinzon NP [facility] 07/30/2020 01:00:00 AM EST - 07/30/2020 01:00:00 AM EST [facility] ([facility]) Attender: Pipo Pinzon NP 07/30/2020 12:00:00 AM EST [facility] ([facility]) Extended Individual Psychotherapy - 45 min Attender: Zeina Crump [facility] 07/22/2020 11:00:00 AM EST - 07/22/2020 11:00:00 AM EST [facility] ([facility]) Attender: Gracy Crump 07/22/2020 12:00:00 AM EST [facility] ([facility]) Outpatient Attender: Pipo Pinzon NP [facility] 06/25/2020 03:00:00 AM EST - 06/25/2020 03:00:00 AM EST [facility] ([facility]) Attender: Pipo Pinzon NP 06/25/2020 12:00:00 AM EST [facility] ([facility]) Extended Individual Psychotherapy - 45 min Attender: Zeina Crump [facility] 06/24/2020 09:00:00 AM EST - 06/24/2020 09:00:00 AM EST [facility] ([facility]) Attender: Gracy Crump 06/24/2020 12:00:00 AM EST [facility] ([facility]) Outpatient Attender: Lc Moore/Bethel/Emanuel/Re indl 06/10/2020 08:30:00 AM EDT [facility] ([facility] ) Outpatient Attender: Pipo Pinzon NP [facility] 06/04/2020 03:00:00 AM EDT - 06/04/2020 03:00:00 AM EDT [facility] ([facility]) Attender: Pipo Pinzon NP 06/04/2020 12:00:00 AM EDT [facility] ([facility]) Brief Individual Psychotherapy - 30 min Attender: Gracy uribe [facility] 05/27/2020 11:00:00 AM EDT - 05/27/2020 11:00:00 AM EDT [facility] ([facility]) Attender: Gracy Crump 05/27/2020 12:00:00 AM EDT [facility] ([facility]) Extended Individual Psychotherapy - 45 min Attender: Zeina Crump [facility] 05/21/2020 02:00:00 AM EDT - 05/21/2020 02:00:00 AM EDT [facility] ([facility]) Attender: Gracy Crump 05/21/2020 12:00:00 AM EDT [facility] ([facility]) Outpatient Attender: ALEXANDRA NOGUEIRA [facility] 04/21 01:45:00 PM EDT [facility] ([facility] Telemed Diagnostic Eval Attender: Pipo Pinzon NP [facility] 05/13/2020 03:00:00 AM EDT - 05/13/2020 03:00:00 AM EDT [facility] ([facility]) Attender: Pipo Pinzon NP 05/13/2020 12:00:00 AM EDT [facility] ([facility]) Outpatient Attender: FLAVIA PATTERSON NP Physical Therapy 11:45:00 AM EDT [facility] ([facility]) Brief Individual Psychotherapy - 30 min Attender: Gracy Ana rendondeandre [facility] 04/23/2020 02:00:00 AM EDT - 04/23/2020 02:00:00 AM EDT [facility] ([facility]) Attender: Gracy Theron 04/23/2020 12:00:00 AM EDT [facility] ([facility]) Functional Status Immunizations Vaccine Date Status Description Data Source(s) COVID-19 VACCINE Moderna 12/01/2020 12:00:00 AM EDT completed [place] Vaccine Series Complete: YESThis Data wa s Submitted to [facility] Via [employer]. COVID-19 VACCINE Moderna 11/03/2020 12:00:00 AM EDT completed [place] Vaccine Series Complete: NOThis Data was Submitted to [facility] Via [employer]. Medications Medication Brand Name Start Date Product Form Dose Route Admi nistrative Instructions Pharmacy Instructions Status Indications Reaction Description Data Source(s) 14 ACTUAT fluticasone furoate 0.1 MG/ACTUAT Dry Powder Inhaler [Arnuity] Arnuity Ellipta 05/10/2021 12:00:00 AM EDT RESPIRATORY active [facility] ([facility], ) 200 ACTUAT Albuterol 0.09 MG/ACTUAT Metered Dose Inhal er [Ventolin] Ventolin HFA 05/10/2021 12:00:00 AM EDT RESPIRATORY active [facility] ([facility], ) Mirtazapine 30 MG Oral Tablet mirtazapine 04/20/2021 12:00:00 AM EDT 30 mg by mouth completed <td ID="Medica tionRxNorm_6">222482</td><td ID="MedicationMedication_6">mirtazapine</td><td ID="MedicationRoute_6">by mouth</td><td ID="MedicationRouteConcept_6">[id number]</td><td ID="MedicationStartDate_6">04/20/2021</td><td ID="MedicationStopDate_6">07/07/2021</td><td ID="MedicationDosageFrequency_6">at bedtime</td><td ID="MedicationDuration_6">30</td><td ID="MedicationFormulaStrength_6">30 mg</td><td ID="MedicationDosageForm_6">tablet</td><td ID="MedicationDosageFormCode_6"></td><td ID="MedicationDosageDescription_6"></td><td ID="MedicationMedicationId_6">[id number]</td><td ID="MedicationAccount_6">[id number]</td><td ID="MedicationNpid_6">[id number]</td><td ID="MedicationAuthorFirstName_6">Pipo</td><td ID="MedicationAuthorLastName_6">Pinzon</td><td ID="MedicationTaxonomyCode_6">[id number]</td><td ID="MedicationTaxonomyDesc_6">Nurse Practitioner</td><td ID="MedicationPhoneNumber_6">[phone]</td> [facility] ([facility]) quetiapine 25 MG Oral Tablet quetiapine 04/08/2021 12:00:00 AM EDT 25 mg by mouth completed <td ID="Medica tionRxNorm_1">234802</td><td ID="MedicationMedication_1">quetiapine</td><td ID="MedicationRoute_1">by mouth</td><td ID="MedicationRouteConcept_1">[id number]</td><td ID="MedicationStartDate_1">04/08/2021</td><td ID="MedicationStopDate_1">06/07/2021</td><td ID="MedicationDosageFrequency_1">once a day</td><td ID="MedicationDuration_1">30</td><td ID="MedicationFormulaStrength_1">25 mg</td><td ID="MedicationDosageForm_1">tablet</td><td ID="MedicationDosageFormCode_1"></td><td ID="MedicationDosageDescription_1">as needed</td><td ID="MedicationMedicationId_1">[id number]</td><td ID="MedicationAccount_1">[id number]</td><td ID="MedicationNpid_1">[id number]</td><td ID="MedicationAuthorFirstName_1">Pipo</td><td ID="MedicationAuthorLastName_1">Pinzon</td><td ID="MedicationTaxonomyCode_1">[id number]</td><td ID="MedicationTaxonomyDesc_1">Nurse Practitioner</td><td ID="MedicationPhoneNumber_1">[phone]</td> [facility] ([facility]) doxycycline hyclate 100 MG Oral Capsule Doxycycline Hy clate 100 MG Doxycycline Hyclate 100 MG 03/07/2021 12:00:00 AM EDT 1.0 {capsule} active Doxycycline Hyclate 100 MG eCW1 ([facility]) doxycycline hyclate 100 MG Oral Capsule Doxycycline Hy clate 100 MG Doxycycline Hyclate 100 MG 03/07/2021 12:00:00 AM EDT 1.0 {capsule} active Doxycycline Hyclate 100 MG eCW1 ([facility]) doxycycline hyclate 100 MG Oral Capsule Doxycycline Hy clate 100 MG Doxycycline Hyclate 100 MG 03/07/2021 12:00:00 AM EDT 1.0 {capsule} active Doxycycline Hyclate 100 MG eCW1 ([facility]) doxycycline hyclate 100 MG Oral Capsule Doxycycline Hy clate 100 MG Doxycycline Hyclate 100 MG 03/07/2021 12:00:00 AM EDT 1.0 {capsule} active Doxycycline Hyclate 100 MG eCW1 ([facility]) doxycycline hyclate 100 MG Oral Capsule Doxycycline Hy clate 100 MG Doxycycline Hyclate 100 MG 03/07/2021 12:00:00 AM EDT 1.0 {capsule} active Doxycycline Hyclate 100 MG eCW1 ([facility]) doxycycline hyclate 100 MG Oral Capsule Doxycycline Hy clate 100 MG Doxycycline Hyclate 100 MG 03/07/2021 12:00:00 AM EDT 1.0 {capsule} active Doxycycline Hyclate 100 MG eCW1 ([facility]) doxycycline hyclate 100 MG Oral Capsule Doxycycline Hy clate 100 MG Doxycycline Hyclate 100 MG 03/07/2021 12:00:00 AM EDT 1.0 {capsule} active Doxycycline Hyclate 100 MG eCW1 ([facility]) doxycycline hyclate 100 MG Oral Capsule Doxycycline Hy clate 100 MG Doxycycline Hyclate 100 MG 03/07/2021 12:00:00 AM EDT 1.0 {capsule} active Doxycycline Hyclate 100 MG eCW1 ([facility]) doxycycline hyclate 100 MG Oral Capsule Doxycycline Hy clate 100 MG Doxycycline Hyclate 100 MG 03/07/2021 12:00:00 AM EDT 1.0 {capsule} active Doxycycline Hyclate 100 MG eCW1 ([facility]) doxycycline hyclate 100 MG Oral Capsule Doxycycline Hy clate 100 MG Doxycycline Hyclate 100 MG 03/07/2021 12:00:00 AM EDT 1.0 {capsule} active Doxycycline Hyclate 100 MG eCW1 ([facility]) doxycycline hyclate 100 MG Oral Capsule Doxycycline Hy clate 100 MG Doxycycline Hyclate 100 MG 03/07/2021 12:00:00 AM EDT 1.0 {capsule} active Doxycycline Hyclate 100 MG eCW1 ([facility]) doxycycline hyclate 100 MG Oral Capsule Doxycycline Hy clate 100 MG Doxycycline Hyclate 100 MG 03/07/2021 12:00:00 AM EDT 1.0 {capsule} active Doxycycline Hyclate 100 MG eCW1 ([facility]) 24 HR venlafaxine 37.5 MG Extended Release Oral Capsule venl afaxine 02/11/2021 12:00:00 AM EDT 37.5 mg by mouth completed <td ID="MedicationRxNorm_4">[id number]</td><td ID="MedicationMedication_4">venlafaxine</td><td ID="MedicationRoute_4">by mouth</td><td ID="MedicationRouteConcept_4">C78932</td><td ID="MedicationStartDate_4">02/11/2021</td><td ID="MedicationStopDate_4">04/12/2021</td><td ID="MedicationDosageFrequency_4">once a day</td><td ID="MedicationDuration_4">30</td><td ID="MedicationFormulaStrength_4">37.5 mg</td><td ID="MedicationDosageForm_4">capsule,extended release 24hr</td><td ID="MedicationDosageFormCode_4"></td><td ID="MedicationDosageDescription_4"></td><td ID="MedicationMedicationId_4">[id number]</td><td ID="MedicationAccount_4">[id number]</td><td ID="MedicationNpid_4">[id number]</td><td ID="MedicationAuthorFirstName_4">Pipo</td><td ID="MedicationAuthorLastName_4">Pinzon</td><td ID="MedicationTaxonomyCode_4">[id number]</td><td ID="MedicationTaxonomyDesc_4"> Nurse Practitioner</td><td ID="MedicationPhoneNumber_4">[phone]</td> [facility] ([facility]) 24 HR venlafaxine 37.5 MG Extended Release Oral Capsule venl afaxine 02/11/2021 12:00:00 AM EDT 37.5 mg by mouth completed <td ID="MedicationRxNorm_5">[id number]</td><td ID="MedicationMedication_5">venlafaxine</td><td ID="MedicationRoute_5">by mouth</td><td ID="MedicationRouteConcept_5">J70927</td><td ID="MedicationStartDate_5">02/11/2021</td><td ID="MedicationStopDate_5">07/07/2021</td><td ID="MedicationDosageFrequency_5">once a day</td><td ID="MedicationDuration_5">30</td><td ID="MedicationFormulaStrength_5">37.5 mg</td><td ID="MedicationDosageForm_5">capsule,extended release 24hr</td><td ID="MedicationDosageFormCode_5"></td><td ID="MedicationDosageDescription_5"></td><td ID="MedicationMedicationId_5">[id number]</td><td ID="MedicationAccount_5">[id number]</td><td ID="MedicationNpid_5">[id number]</td><td ID="MedicationAuthorFirstName_5">Pipo</td><td ID="MedicationAuthorLastName_5">Pinzon</td><td ID="MedicationTaxonomyCode_5">[id number]</td><td ID="MedicationTaxonomyDesc_5"> Nurse Practitioner</td><td ID="MedicationPhoneNumber_5">[phone]</td> [facility] ([facility]) Sumatriptan 50 MG Oral Tablet SUMAtriptan Succinate 50 MG SUMAtriptan Succinate 50 MG 12/30/2020 12:00:00 AM EDT active SUMAtriptan Succinate 50 MG eCW1 ([facility]) Sumatriptan 50 MG Oral Tablet SUMAtriptan Succinate 50 MG SUMAtriptan Succinate 50 MG 12/30/2020 12:00:00 AM EDT active SUMAtriptan Succinate 50 MG eCW1 ([facility]) Sumatriptan 50 MG Oral Tablet SUMAtriptan Succinate 50 MG SUMAtriptan Succinate 50 MG 12/30/2020 12:00:00 AM EDT active SUMAtriptan Succinate 50 MG eCW1 ([facility]) Sumatriptan 50 MG Oral Tablet Sumatriptan Succinate 50 MG Sumatriptan Succinate 50 MG 12/30/2020 12:00:00 AM EDT active Sumatriptan Succinate 50 MG eCW1 ([facility]) Sumatriptan 50 MG Oral Tablet SUMAtriptan Succinate 50 MG SUMAtriptan Succinate 50 MG 12/30/2020 12:00:00 AM EDT active SUMAtriptan Succinate 50 MG eCW1 ([facility]) Sumatriptan 50 MG Oral Tablet SUMAtriptan Succinate 50 MG SUMAtriptan Succinate 50 MG 12/30/2020 12:00:00 AM EDT active SUMAtriptan Succinate 50 MG eCW1 ([facility]) Sumatriptan 50 MG Oral Tablet SUMAtriptan Succinate 50 MG SUMAtriptan Succinate 50 MG 12/30/2020 12:00:00 AM EDT active SUMAtriptan Succinate 50 MG eCW1 ([facility]) Sumatriptan 50 MG Oral Tablet SUMAtriptan Succinate 50 MG SUMAtriptan Succinate 50 MG 12/30/2020 12:00:00 AM EDT active SUMAtriptan Succinate 50 MG eCW1 ([facility]) Sumatriptan 50 MG Oral Tablet SUMAtriptan Succinate 50 MG SUMAtriptan Succinate 50 MG 12/30/2020 12:00:00 AM EDT active SUMAtriptan Succinate 50 MG eCW1 ([facility]) Sumatriptan 50 MG Oral Tablet SUMAtriptan Succinate 50 MG SUMAtriptan Succinate 50 MG 12/30/2020 12:00:00 AM EDT active SUMAtriptan Succinate 50 MG eCW1 ([facility]) Sumatriptan 50 MG Oral Tablet SUMAtriptan Succinate 50 MG SUMAtriptan Succinate 50 MG 12/30/2020 12:00:00 AM EDT active SUMAtriptan Succinate 50 MG eCW1 ([facility]) Sumatriptan 50 MG Oral Tablet SUMAtriptan Succinate 50 MG SUMAtriptan Succinate 50 MG 12/30/2020 12:00:00 AM EDT active SUMAtriptan Succinate 50 MG eCW1 ([facility]) Sumatriptan 50 MG Oral Tablet SUMAtriptan Succinate 50 MG SUMAtriptan Succinate 50 MG 12/30/2020 12:00:00 AM EDT active SUMAtriptan Succinate 50 MG eCW1 ([facility]) Naproxen 500 MG Oral Tablet Naproxen 500 MG 12/30/2020 12:00:00 AM EDT active Naproxen 500 MG eCW1 ([facility]) Sumatriptan 50 MG Oral Tablet Sumatriptan Succinate 50 MG Sumatriptan Succinate 50 MG 12/30/2020 12:00:00 AM EDT active eCW1 ([facility]) Sumatriptan 50 MG Oral Tablet SUMAtriptan Succinate 50 MG SUMAtriptan Succinate 50 MG 12/30/2020 12:00:00 AM EDT active SUMAtriptan Succinate 50 MG eCW1 ([facility]) Naproxen 500 MG Oral Tablet Naproxen 500 MG 12/30/2020 12:00:00 AM EDT active eCW1 ([facility]) Sumatriptan 50 MG Oral Tablet SUMAtriptan Succinate 50 MG SUMAtriptan Succinate 50 MG 12/30/2020 12:00:00 AM EDT active SUMAtriptan Succinate 50 MG eCW1 ([facility]) Sumatriptan 50 MG Oral Tablet SUMAtriptan Succinate 50 MG SUMAtriptan Succinate 50 MG 12/30/2020 12:00:00 AM EDT active SUMAtriptan Succinate 50 MG eCW1 ([facility]) Sumatriptan 50 MG Oral Tablet SUMAtriptan Succinate 50 MG SUMAtriptan Succinate 50 MG 12/30/2020 12:00:00 AM EDT active SUMAtriptan Succinate 50 MG eCW1 ([facility]) Mirtazapine 30 MG Oral Tablet mirtazapine 11/26/2020 12:00:00 AM EDT 30 mg by mouth completed <td ID="Medica tionRxNorm_4">[id number]</td><td ID="MedicationMedication_4">mirtazapine</td><td ID="MedicationRoute_4">by mouth</td><td ID="MedicationRouteConcept_4">H76654</td><td ID="MedicationStartDate_4">11/26/2020</td><td ID="MedicationStopDate_4">02/24/2021</td><td ID="MedicationDosageFrequency_4">at bedtime</td><td ID="MedicationDuration_4">30</td><td ID="MedicationFormulaStrength_4">30 mg</td><td ID="MedicationDosageForm_4">tablet</td><td ID="MedicationDosageFormCode_4"></td><td ID="MedicationDosageDescription_4"></td><td ID="MedicationMedicationId_4">[id number]</td><td ID="MedicationAccount_4">[id number]</td><td ID="MedicationNpid_4">[id number]</td><td ID="MedicationAuthorFirstName_4">Pipo</td><td ID="MedicationAuthorLastName_4">Pinzon</td><td ID="MedicationTaxonomyCode_4">[id number]</td><td ID="MedicationTaxonomyDesc_4">Nurse Practitioner</td><td ID="MedicationPhoneNumber_4">[phone]</td> [facility] ([facility]) Insulin Lispro 100 UNT/ML Injectable Solution Insulin Lispro 11/11/2020 12:00:00 AM EDT active [facility] ([facility]) 24 HR Metformin hydrochloride 500 MG Extended Release Oral Tablet Metformin HCL ER 11/11/2020 12:00:00 AM EDT ORAL active [facility] ([facility]) Propranolol Hydrochloride 10 MG Oral Tablet propranolol 10/08/2020 12:00:00 AM EST 10 mg completed <td ID ="MedicationRxNorm_3">[id number]</td><td ID="MedicationMedication_3">propranolol</td><td ID="MedicationRoute_3"></td><td ID="MedicationRouteConcept_3"></td><td ID="MedicationStartDate_3">10/08/2020</td><td ID="MedicationStopDate_3"></td><td ID="MedicationDosageFrequency_3"></td><td ID="MedicationDuration_3">30</td><td ID="MedicationFormulaStrength_3">10 mg</td><td ID="MedicationDosageForm_3">tablet</td><td ID="MedicationDosageFormCode_3"></td><td ID="MedicationDosageDescription_3"></td><td ID="MedicationMedicationId_3">[id number]</td><td ID="MedicationAccount_3">[id number]</td><td ID="MedicationNpid_3">[id number]</td><td ID="MedicationAuthorFirstName_3">Pipo</td><td ID="MedicationAuthorLastName_3">Pinzon</td><td ID="MedicationTaxonomyCode_3">[id number]</td><td ID="MedicationTaxonomyDesc_3">Nurse Practitioner</td><td ID="MedicationPhoneNumber_3">[phone]</td> [facility] ([facility]) Propranolol Hydrochloride 10 MG Oral Tablet propranolol 10/08/2020 12:00:00 AM EST 10 mg completed <td ID ="MedicationRxNorm_4">[id number]</td><td ID="MedicationMedication_4">propranolol</td><td ID="MedicationRoute_4"></td><td ID="MedicationRouteConcept_4"></td><td ID="MedicationStartDate_4">10/08/2020</td><td ID="MedicationStopDate_4">07/07/2021</td><td ID="MedicationDosageFrequency_4"></td><td ID="MedicationDuration_4">30</td><td ID="MedicationFormulaStrength_4">10 mg</td><td ID="MedicationDosageForm_4">tablet</td><td ID="MedicationDosageFormCode_4"></td><td ID="MedicationDosageDescription_4"></td><td ID="MedicationMedicationId_4">[id number]</td><td ID="MedicationAccount_4">[id number]</td><td ID="MedicationNpid_4">[id number]</td><td ID="MedicationAuthorFirstName_4">Ippo</td><td ID="MedicationAuthorLastName_4">Pinzon</td><td ID="MedicationTaxonomyCode_4">[id number]</td><td ID="MedicationTaxonomyDesc_4">Nurse Practitioner</td><td ID="MedicationPhoneNumber_4">[phone]</td> [facility] ([facility]) Propranolol Hydrochloride 10 MG Oral Tablet Propranolo l HCl 10 MG Propranolol HCl 10 MG 09/18/2020 12:00:00 AM EST 1.0 {tablet} ac tive Propranolol HCl 10 MG eCW1 ([facility]) Propranolol Hydrochloride 10 MG Oral Tablet Propranolo l HCl 10 MG Propranolol HCl 10 MG 09/18/2020 12:00:00 AM EST 1.0 {tablet} ac tive Propranolol HCl 10 MG eCW1 ([facility]) Propranolol Hydrochloride 10 MG Oral Tablet Propranolo l HCl 10 MG Propranolol HCl 10 MG 09/18/2020 12:00:00 AM EST 1.0 {tablet} ac tive Propranolol HCl 10 MG eCW1 ([facility]) Propranolol Hydrochloride 10 MG Oral Tablet Propranolo l HCl 10 MG Propranolol HCl 10 MG 09/18/2020 12:00:00 AM EST 1.0 {tablet} ac tive Propranolol HCl 10 MG eCW1 ([facility]) Propranolol Hydrochloride 10 MG Oral Tablet Propranolo l HCl 10 MG Propranolol HCl 10 MG 09/18/2020 12:00:00 AM EST 1.0 {tablet} active eCW1 ([facility]) Propranolol Hydrochloride 10 MG Oral Tablet Propranolo l HCl 10 MG Propranolol HCl 10 MG 09/18/2020 12:00:00 AM EST 1.0 {tablet} ac tive Propranolol HCl 10 MG eCW1 ([facility]) Propranolol Hydrochloride 10 MG Oral Tablet Propranolo l HCl 10 MG Propranolol HCl 10 MG 09/18/2020 12:00:00 AM EST 1.0 {tablet} ac tive Propranolol HCl 10 MG eCW1 ([facility]) Propranolol Hydrochloride 10 MG Oral Tablet Propranolo l HCl 10 MG Propranolol HCl 10 MG 09/18/2020 12:00:00 AM EST 1.0 {tablet} ac tive Propranolol HCl 10 MG eCW1 ([facility]) Propranolol Hydrochloride 10 MG Oral Tablet Propranolo l HCl 10 MG Propranolol HCl 10 MG 09/18/2020 12:00:00 AM EST 1.0 {tablet} ac tive Propranolol HCl 10 MG eCW1 ([facility]) Propranolol Hydrochloride 10 MG Oral Tablet Propranolo l HCl 10 MG Propranolol HCl 10 MG 09/18/2020 12:00:00 AM EST 1.0 {tablet} ac tive Propranolol HCl 10 MG eCW1 ([facility]) Propranolol Hydrochloride 10 MG Oral Tablet Propranolo l HCl 10 MG Propranolol HCl 10 MG 09/18/2020 12:00:00 AM EST 1.0 {tablet} ac tive Propranolol HCl 10 MG eCW1 ([facility]) Propranolol Hydrochloride 10 MG Oral Tablet Propranolo l HCl 10 MG Propranolol HCl 10 MG 09/18/2020 12:00:00 AM EST 1.0 {tablet} ac tive Propranolol HCl 10 MG eCW1 ([facility]) Propranolol Hydrochloride 10 MG Oral Tablet Propranolo l HCl 10 MG Propranolol HCl 10 MG 09/18/2020 12:00:00 AM EST 1.0 {tablet} ac tive Propranolol HCl 10 MG eCW1 ([facility]) Propranolol Hydrochloride 10 MG Oral Tablet Propranolo l HCl 10 MG Propranolol HCl 10 MG 09/18/2020 12:00:00 AM EST 1.0 {tablet} ac tive Propranolol HCl 10 MG eCW1 ([facility]) Propranolol Hydrochloride 10 MG Oral Tablet Propranolo l HCl 10 MG Propranolol HCl 10 MG 09/18/2020 12:00:00 AM EST 1.0 {tablet} ac tive Propranolol HCl 10 MG eCW1 ([facility]) Propranolol Hydrochloride 10 MG Oral Tablet Propranolo l HCl 10 MG Propranolol HCl 10 MG 09/18/2020 12:00:00 AM EST 1.0 {tablet} ac tive Propranolol HCl 10 MG eCW1 ([facility]) Propranolol Hydrochloride 10 MG Oral Tablet Propranolo l HCl 10 MG Propranolol HCl 10 MG 09/18/2020 12:00:00 AM EST 1.0 {tablet} ac tive Propranolol HCl 10 MG eCW1 ([facility]) Propranolol Hydrochloride 10 MG Oral Tablet Propranolo l HCl 10 MG Propranolol HCl 10 MG 09/18/2020 12:00:00 AM EST 1.0 {tablet} ac tive Propranolol HCl 10 MG eCW1 ([facility]) Propranolol Hydrochloride 10 MG Oral Tablet Propranolo l HCl 10 MG Propranolol HCl 10 MG 09/18/2020 12:00:00 AM EST 1.0 {tablet} ac tive Propranolol HCl 10 MG eCW1 ([facility]) Propranolol Hydrochloride 10 MG Oral Tablet Propranolo l HCl 10 MG Propranolol HCl 10 MG 09/18/2020 12:00:00 AM EST 1.0 {tablet} ac tive Propranolol HCl 10 MG eCW1 ([facility]) Propranolol Hydrochloride 10 MG Oral Tablet Propranolo l HCl 10 MG Propranolol HCl 10 MG 09/18/2020 12:00:00 AM EST 1.0 {tablet} ac tive Propranolol HCl 10 MG eCW1 ([facility]) Propranolol Hydrochloride 10 MG Oral Tablet Propranolo l HCl 10 MG Propranolol HCl 10 MG 09/18/2020 12:00:00 AM EST 1.0 {tablet} ac tive Propranolol HCl 10 MG eCW1 ([facility]) Propranolol Hydrochloride 10 MG Oral Tablet Propranolo l HCl 10 MG Propranolol HCl 10 MG 09/18/2020 12:00:00 AM EST 1.0 {tablet} ac tive Propranolol HCl 10 MG eCW1 ([facility]) Propranolol Hydrochloride 10 MG Oral Tablet Propranolo l HCl 10 MG Propranolol HCl 10 MG 09/18/2020 12:00:00 AM EST 1.0 {tablet} ac tive Propranolol HCl 10 MG eCW1 ([facility]) Propranolol Hydrochloride 10 MG Oral Tablet Propranolo l HCl 10 MG Propranolol HCl 10 MG 09/18/2020 12:00:00 AM EST 1.0 {tablet} ac tive Propranolol HCl 10 MG eCW1 ([facility]) quetiapine 200 MG Oral Tablet quetiapine 08/09/2020 12:00:00 AM EST 200 mg completed <td ID="Medicat ionRxNorm_1">[id number]</td><td ID="MedicationMedication_1">quetiapine</td><td ID="MedicationRoute_1"></td><td ID="MedicationRouteConcept_1"></td><td ID="MedicationStartDate_1">08/09/2020</td><td ID="MedicationStopDate_1"></td><td ID="MedicationDosageFrequency_1"></td><td ID="MedicationDuration_1">30</td><td ID="MedicationFormulaStrength_1">200 mg</td><td ID="MedicationDosageForm_1">tablet</td><td ID="MedicationDosageFormCode_1"></td><td ID="MedicationDosageDescription_1"></td><td ID="MedicationMedicationId_1">[id number]</td><td ID="MedicationAccount_1">[id number]</td><td ID="MedicationNpid_1">[id number]</td><td ID="MedicationAuthorFirstName_1">Pipo</td><td ID="MedicationAuthorLastName_1">Pinzon</td><td ID="MedicationTaxonomyCode_1">[id number]</td><td ID="MedicationTaxonomyDesc_1">Nurse Practitioner</td><td ID="MedicationPhoneNumber_1">[phone]</td> [facility] ([facility]) Propranolol Hydrochloride 10 MG Oral Tablet propranolol 08/09/2020 12:00:00 AM EST 10 mg completed <td ID ="MedicationRxNorm_1">[id number]</td><td ID="MedicationMedication_1">propranolol</td><td ID="MedicationRoute_1"></td><td ID="MedicationRouteConcept_1"></td><td ID="MedicationStartDate_1">08/09/2020</td><td ID="MedicationStopDate_1"></td><td ID="MedicationDosageFrequency_1"></td><td ID="MedicationDuration_1">30</td><td ID="MedicationFormulaStrength_1">10 mg</td><td ID="MedicationDosageForm_1">tablet</td><td ID="MedicationDosageFormCode_1"></td><td ID="MedicationDosageDescription_1"></td><td ID="MedicationMedicationId_1">[id number]</td><td ID="MedicationAccount_1">[id number]</td><td ID="MedicationNpid_1">[id number]</td><td ID="MedicationAuthorFirstName_1">Pipo</td><td ID="MedicationAuthorLastName_1">Pinzon</td><td ID="MedicationTaxonomyCode_1">[id number]</td><td ID="MedicationTaxonomyDesc_1">Nurse Practitioner</td><td ID="MedicationPhoneNumber_1">[phone]</td> [facility] ([facility]) 24 HR venlafaxine 75 MG Extended Release Oral Capsule venlaf axine 08/09/2020 12:00:00 AM EST 75 mg completed <td ID="MedicationRxNorm_2">305312</td><td ID="MedicationMedication_2">venlafaxine</td><td ID="MedicationRoute_2"></td><td ID="MedicationRouteConcept_2"></td><td ID="MedicationStartDate_2">08/09/2020</td><td ID="MedicationStopDate_2"></td><td ID="MedicationDosageFrequency_2"></td><td ID="MedicationDuration_2">30</td><td ID="MedicationFormulaStrength_2">75 mg</td><td ID="MedicationDosageForm_2">capsule,extended release 24hr</td><td ID="MedicationDosageFormCode_2"></td><td ID="MedicationDosageDescription_2"></td><td ID="MedicationMedicationId_2">[id number]</td><td ID="MedicationAccount_2">[id number]</td><td ID="MedicationNpid_2">[id number]</td><td ID="MedicationAuthorFirstName_2">Pipo</td><td ID="MedicationAuthorLastName_2">Pinzon</td><td ID="MedicationTaxonomyCode_2">[id number]</td><td ID="MedicationTaxonomyDesc_2"> Nurse Practitioner</td><td ID="MedicationPhoneNumber_2">[phone]</td> [facility] ([facility]) quetiapine 200 MG Oral Tablet quetiapine 08/09/2020 12:00:00 AM EST 200 mg completed <td ID="Medicat ionRxNorm_2">555309</td><td ID="MedicationMedication_2">quetiapine</td><td ID="MedicationRoute_2"></td><td ID="MedicationRouteConcept_2"></td><td ID="MedicationStartDate_2">08/09/2020</td><td ID="MedicationStopDate_2">07/07/2021</td><td ID="MedicationDosageFrequency_2"></td><td ID="MedicationDuration_2">30</td><td ID="MedicationFormulaStrength_2">200 mg</td><td ID="MedicationDosageForm_2">tablet</td><td ID="MedicationDosageFormCode_2"></td><td ID="MedicationDosageDescription_2"></td><td ID="MedicationMedicationId_2">[id number]</td><td ID="MedicationAccount_2">[id number]</td><td ID="MedicationNpid_2">[id number]</td><td ID="MedicationAuthorFirstName_2">Pipo</td><td ID="MedicationAuthorLastName_2">Pinzon</td><td ID="MedicationTaxonomyCode_2">[id number]</td><td ID="MedicationTaxonomyDesc_2">Nurse Practitioner</td><td ID="MedicationPhoneNumber_2">[phone]</td> [facility] ([facility]) 24 HR venlafaxine 75 MG Extended Release Oral Capsule venlaf axine 08/09/2020 12:00:00 AM EST 75 mg completed <td ID="MedicationRxNorm_3">156683</td><td ID="MedicationMedication_3">venlafaxine</td><td ID="MedicationRoute_3"></td><td ID="MedicationRouteConcept_3"></td><td ID="MedicationStartDate_3">08/09/2020</td><td ID="MedicationStopDate_3">07/07/2021</td><td ID="MedicationDosageFrequency_3"></td><td ID="MedicationDuration_3">30</td><td ID="MedicationFormulaStrength_3">75 mg</td><td ID="MedicationDosageForm_3">capsule,extended release 24hr</td><td ID="MedicationDosageFormCode_3"></td><td ID="MedicationDosageDescription_3"></td><td ID="MedicationMedicationId_3">[id number]</td><td ID="MedicationAccount_3">[id number]</td><td ID="MedicationNpid_3">[id number]</td><td ID="MedicationAuthorFirstName_3">Pipo</td><td ID="MedicationAuthorLastName_3">Pinzon</td><td ID="MedicationTaxonomyCode_3">[id number]</td><td ID="MedicationTaxonomyDesc_3"> Nurse Practitioner</td><td ID="MedicationPhoneNumber_3">[phone]</td> [facility] ([facility]) +++ No Meds No Show+++ 06/10/2020 12:00:00 AM EDT completed [facility] ([facility]) quetiapine 100 MG Oral Tablet quetiapine 05/13/2020 12:00:00 AM EDT 100 mg by mouth completed <td ID="Medica tionRxNorm_2">[id number]</td><td ID="MedicationMedication_2">quetiapine</td><td ID="MedicationRoute_2">by mouth</td><td ID="MedicationRouteConcept_2">I76244</td><td ID="MedicationStartDate_2">05/13/2020</td><td ID="MedicationStopDate_2">08/11/2020</td><td ID="MedicationDosageFrequency_2">at bedtime</td><td ID="MedicationDuration_2">30</td><td ID="MedicationFormulaStrength_2">100 mg</td><td ID="MedicationDosageForm_2">tablet</td><td ID="MedicationDosageFormCode_2"></td><td ID="MedicationDosageDescription_2"></td><td ID="MedicationMedicationId_2">[id number]</td><td ID="MedicationAccount_2">[id number]</td><td ID="MedicationNpid_2">[id number]</td><td ID="MedicationAuthorFirstName_2">Pipo</td><td ID="MedicationAuthorLastName_2">Pinzon</td><td ID="MedicationTaxonomyCode_2">[id number]</td><td ID="MedicationTaxonomyDesc_2">Nurse Practitioner</td><td ID="MedicationPhoneNumber_2">[phone]</td> [facility] ([facility]) 24 HR venlafaxine 75 MG Extended Release Oral Capsule venlaf axine 05/13/2020 12:00:00 AM EDT 75 mg by mouth completed <td ID="MedicationRxNorm_1">125470</td><td ID="MedicationMedication_1">venlafaxine</td><td ID="MedicationRoute_1">by mouth</td><td ID="MedicationRouteConcept_1">J07133</td><td ID="MedicationStartDate_1">05/13/2020</td><td ID="MedicationStopDate_1">08/11/2020</td><td ID="MedicationDosageFrequency_1">once a day</td><td ID="MedicationDuration_1">30</td><td ID="MedicationFormulaStrength_1">75 mg</td><td ID="MedicationDosageForm_1">capsule,extended release 24hr</td><td ID="MedicationDosageFormCode_1"></td><td ID="MedicationDosageDescription_1"></td><td ID="MedicationMedicationId_1">[id number]</td><td ID="MedicationAccount_1">[id number]</td><td ID="MedicationNpid_1">[id number]</td><td ID="MedicationAuthorFirstName_1">Pipo</td><td ID="MedicationAuthorLastName_1">Pinzon</td><td ID="MedicationTaxonomyCode_1">[id number]</td><td ID="MedicationTaxonomyDesc_1"> Nurse Practitioner</td><td ID="MedicationPhoneNumber_1">[phone]</td> [facility] ([facility]) Propranolol Hydrochloride 10 MG Oral Tablet propranolol 05/13/2020 12:00:00 AM EDT 10 mg by mouth completed <td ID="MedicationRxNorm_3">736922</td><td ID="MedicationMedication_3">propranolol</td><td ID="MedicationRoute_3">by mouth</td><td ID="MedicationRouteConcept_3">G29355</td><td ID="MedicationStartDate_3">05/13/2020</td><td ID="MedicationStopDate_3">08/11/2020</td><td ID="MedicationDosageFrequency_3">three times a day</td><td ID="MedicationDuration_3">30</td><td ID="MedicationFormulaStrength_3">10 mg</td><td ID="MedicationDosageForm_3">tablet</td><td ID="MedicationDosageFormCode_3"></td><td ID="MedicationDosageDescription_3">as needed</td><td ID="MedicationMedicationId_3">[id number]</td><td ID="MedicationAccount_3">[id number]</td><td ID="MedicationNpid_3">[id number]</td><td ID="MedicationAuthorFirstName_3">Pipo</td><td ID="MedicationAuthorLastName_3">Pinzon</td><td ID="MedicationTaxonomyCode_3">[id number]</td><td ID="MedicationTaxonomyDesc_3">Nurse Practitioner</td><td ID="MedicationPhoneNumber_3">[phone]</td> [facility] ([facility]) Admelog Admelog 05/06/2020 12:00:00 AM EDT active MEDENT ([facility] ) 3 ML Insulin Lispro 100 UNT/ML Pen Injector Insulin Lispro ( 1 Unit Dial) 05/06/2020 12:00:00 AM EDT completed MED[facility] ([facility] ) Insulin Syringe/Needle 0.5ML/31G X /16" 05/06/2020 12:00:00 AM EDT active [facility] ([facility]) +++ No Meds Till Seen+++ No Show 04/11/2020 12:00:00 AM EDT completed [facility] ([facility]) Insurance Providers Payer name Policy type / Coverage type Policy ID Covered libertarian ID Covered libertarian's relationship to de leon Policy [place] Plan Information [facility] Community Plan Commercial [id number] Self [id number] [facility] [id number] Self [id number] [facility] [employer] [id number] Self [id number] [facility] COMMUNITY PLAN MCDHMO [id number] SP [id number] [facility] COMMUNITY PLAN MCDHMO [id number] SP [id number] [facility] Comm Plan Medicaid F [id number] SELF [id number] [facility] Comm Plan Medicaid F [id number] SELF [id number] [facility] Comm Plan Medicaid F [id number] SELF [id number] [facility] Comm Plan Medicaid F [id number] SELF [id number] [facility] I [id number] Self [id number] [facility]-Medicaid [id number] [facility] [id number] ANSI-Medicaid [id number] ANSI-Medicaid [id number] [facility] [id number] ANSI-Medicaid [id number] ANSI-Medicaid [id number] ANSI-Medicaid [id number] ANSI-Medicaid [id number] ANSI-Medicaid [id number] ANSI-Medicaid [id number] ANSI-Medicaid [id number] ANSI-Medicaid [id number] [facility] Maintenance [facility] ([facility]) [id number] Self [id number] [facility] ([facility]) [id number] Self [id number] ANSI-Medicaid [id number] ANSI-Medicaid [id number] ANSI-Medicaid [id number] ANSI-Medicaid [id number] ANSI-Medicaid [id number] ANSI-Medicaid [id number] ANSI-Medicaid [id number] ANSI-Medicaid [id number] ANSI-Medicaid [id number] ANSI-Medicaid [id number] ANSI-Medicaid [id number] ANSI-Medicaid [id number] ANSI-Medicaid [id number] ANSI-Medicaid [id number] ANSI-Medicaid [id number] ANSI-Medicaid [id number] ANSI-Medicaid [id number] ANSI-Medicaid [id number] ANSI-Medicaid [id number] [facility] [id number] ANSI-Medicaid [id number] [facility]) O [id number] S [id number] MEDICAID [id number] SP [id number] SELF PAY ONLY [id number] SP [id number] [employer] EP[employer] [id number] SP [id number] [place] P [id number] S [id number] SELF PAY UNAVAILABLE SP [place] [employer] UN[employer] COMMUNITY PLAN MCDO [id number] SP [id number] UNHC COMMUNITY PLAN MCDO [id number] SP [id number] UNHC COMMUNITY PLAN [facility] [id number] SP [id number] [facility]) O [id number] S [id number] UN COMMUNITY PLAN [facility] [id number] SP [id number] [facility]-Medicaid [id number] [facility] Maintenance Organization (HMO) [id number] Self [id number] [facility]-Medicaid [id number] [facility]-Medicaid [id number] Problems, Conditions, and Diagnoses Code Display Name Description Problem Type Effective Dates Data Source(s) F17.200 Nicotine dependence, unspecified, uncomp licated Tobacco Use Disorder, Moderate Condition 05/18/2021 12:00:00 AM EDT [facility] ( [facility]) F41.1 Generalized anxiety disorder Generalized Anxiety Disor moisés Condition 05/18/2021 12:00:00 AM EDT [facility] ([facility]) F43.9 Reaction to severe stress, unspecified U nspecified Trauma- and Stressor- Related Disorder Condition 05/18/2021 12:00:00 AM EDT [facility] ([facility]) F31.9 Bipolar disorder, unspecified Unspecified Bipola r and Related Disorder Condition 05/18/2021 12:00:00 AM EDT [facility] ([facility]) [id number] Essential hypertension Essential hypertension Problem 05/04/2021 12:00:00 AM EDT [facility] ([facility]) G89.29 [id number] Other chronic pain Problem 04/28/2021 12:00: 00 AM EDT eCW1 ([facility]) G43.111 [id number] Intractable migraine with aura w ith status migrainosus Problem 12/30/2020 12:00:00 AM EDT eCW1 ([facility] R41.3 [id number] Memory change Problem 12/30/2020 12:00:00 AM EDT eCW1 ([facility]) F31.9 Bipolar disorder Bipolar affective disorder, rem ission status unspecified Problem 10/01/2020 12:00:00 AM EST eCW1 ([facility]) F43.9 Reaction to severe stress, unspecified U nspecified Trauma- and Stressor- Related Disorder Condition 07/22/2020 12:00:00 AM EST [facility] ([facility]) F31.9 Bipolar disorder, unspecified Unspecified Bipola r and Related Disorder Condition 07/22/2020 12:00:00 AM EST [facility] ([facility]) F17.200 Nicotine dependence, unspecified, uncomp licated Tobacco Use Disorder, Moderate Condition 07/22/2020 12:00:00 AM EST [facility] ([facility]) F17.200 Nicotine dependence, unspecified, uncomp licated Tobacco Use Disorder, Moderate Condition 04/23/2020 12:00:00 AM EDT [facility] ([facility]) F41.9 Anxiety disorder, unspecified Unspecified Anxiety Diso rder Condition 04/23/2020 12:00:00 AM EDT [facility] ([facility]) Surgeries/Procedures Procedure Description Date Indications Data Source(s) [facility] Telemed E/M Lvl 3--Est pt 05/18/2021 12:00:00 AM EDT - 05/18/2021 12:00:00 AM EDT [facility] ([facility]) Telemed A/O 30" 05/18/2021 12:00:00 AM EDT [facility] ([facility]) MHC Telemed E/M Lvl 3--Est pt 05/18/2021 12:00:00 AM E DT [facility] ([facility]) DEMO&/EVAL OF PT UTILIZ AERSL GEN/NEB/INHLR/IPPB 05/10 12:00:00 AM EDT [facility] ([facility], ) OFFICE OUTPATIENT VISIT 25 MINUTES 05/10/2021 12:00:00 AM EDT [facility] ([facility], ) TOBACCO USE CESSATION INTERMEDIATE 3-10 MINUTES 2020 12:00:00 AM EDT [facility] ([facility], ) PREVENT MED MAJOR ACCOUNT REPRESENTATIVE&/RISK FACTOR REDJ SPX 30 MIN 05/04/2021 12:00:00 AM EDT - 05/04/2021 12:00:00 AM EDT [facility] ([facility]) PREVENT MED MAJOR ACCOUNT REPRESENTATIVE&/RISK FACTOR REDJ SPX 30 MIN 05/04 12:00:00 AM EDT [facility] ([facility]) RADEX SPINE LUMBOSACRAL MINIMUM 4 VIEWS 05/03/2021 12: 00:00 AM EDT [facility] ([facility] ) RADEX SHOULDER COMPLETE MINIMUM 2 VIEWS 05/03/2021 12: 00:00 AM EDT [facility] ([facility] ) X-Ray Hip Unilateral With Pelvis 2-3 Views 05/03/2021 12:00:00 AM EDT [facility] ([facility] ) OFFICE OUTPATIENT NEW 45 MINUTES 05/03/2021 12:00:00 A M EDT [facility] ([facility] ) MHC Telemed E/M Lvl 3--Est pt 04/08/2021 12:00:00 AM EDT - 04/08/2021 12:00:00 AM EDT [facility] ([facility]) Telemed A/O 30" 04/08/2021 12:00:00 AM EDT [facility] ([facility]) [facility] Telemed E/M Lvl 3--Est pt 04/08/2021 12:00:00 AM E DT [facility] ([facility]) Bronchospasm Evaluation 04/07/2021 12:00:00 AM EDT [facility] ([facility], ) Plethysmography Determination Lung Volumes & Per Airway Resi st 04/07/2021 12:00:00 AM EDT [facility] ([facility], ) DIFFUSING CAPACITY 04/07/2021 12:00:00 AM EDT [facility] ([facility], ) Spirometry 03/09/2021 12:00:00 AM EDT M EDENT ([facility], ) OFFICE OUTPATIENT NEW 45 MINUTES 03/09/2021 12:00:00 A M EDT [facility] ([facility], ) [facility] Telemed E/M Lvl 3--Est pt 02/11/2021 12:00:00 AM EDT - 02/11/2021 12:00:00 AM EDT [facility] ([facility]) Telemed A/O 30" 02/11/2021 12:00:00 AM EDT [facility] ([facility]) [facility] Telemed E/M Lvl 3--Est pt 02/11/2021 12:00:00 AM E DT [facility] ([facility]) Medication: Triple Antibiotic packets (neomycin/bacitr acin/polymyxinb) ointment 02/03/2021 12:00:00 AM EDT eCW1 ([facility]) Extended Individual Psychotherapy - 45 min 12/31/2020 12:00:00 AM EDT - 12/31/2020 12:00:00 AM EDT [facility] ([facility]) Extended Individual Psychotherapy - 45 min 12:00:00 AM EDT [facility] ([facility]) [facility] Telemed E/M Lvl 3--Est pt 11/26/2020 12:00:00 AM EDT - 11/26/2020 12:00:00 AM EDT [facility] ([facility]) Telemed A/O 30" 11/26/2020 12:00:00 AM EDT [facility] ([facility]) [facility] Telemed E/M Lvl 3--Est pt 11/26/2020 12:00:00 AM E DT [facility] ([facility]) Brief Individual Psychotherapy - 30 min 10/28/2020 12:00:00 AM EST - 10/28/2020 12:00:00 AM EST [facility] ([facility]) Brief Individual Psychotherapy - 30 min 10/28/2020 12: 00:00 AM EST [facility] ([facility]) [facility] Telemed E/M Lvl 3--Est pt 10/01/2020 12:00:00 AM EST - 10/01/2020 12:00:00 AM EST [facility] ([facility]) Telemed A/O 30" 10/01/2020 12:00:00 AM EST [facility] ([facility]) [facility] Telemed E/M Lvl 3--Est pt 10/01/2020 12:00:[address] [facility] ([facility]) Brief Individual Psychotherapy - 30 min 09/23/2020 12:00:00 AM EST - 09/23/2020 12:00:00 AM EST [facility] ([facility]) Brief Individual Psychotherapy - 30 min 09/23/2020 12: 00:00 AM EST [facility] ([facility]) [facility] Telemed E/M Lvl 3--Est pt 08/27/2020 12:00:00 AM EST - 08/27/2020 12:00:00 AM EST [facility] ([facility]) Telemed A/O 30" 08/27/2020 12:00:00 AM EST [facility] ([facility]) [facility] Telemed E/M Lvl 3--Est pt 08/27/2020 12:00:[address] [facility] ([facility]) [facility] Telemed E/M Lvl 3--Est pt 07/30/2020 12:00:00 AM EST - 07/30/2020 12:00:00 AM EST [facility] ([facility]) Telemed A/O 30" 07/30/2020 12:00:00 AM EST [facility] ([facility]) [facility] Telemed E/M Lvl 3--Est pt 07/30/2020 12:00:[address] [facility] ([facility]) Extended Individual Psychotherapy - 45 min 07/22/2020 12:00:00 AM EST - 07/22/2020 12:00:00 AM EST [facility] ([facility]) Extended Individual Psychotherapy - 45 min 0 12:00:00 AM EST [facility] ([facility]) MHC Telemed E/M Lvl 3--Est pt 06/25/2020 12:00:00 AM EST - 06/25/2020 12:00:00 AM EST [facility] ([facility]) Telemed A/O 30" 06/25/2020 12:00:00 AM EST [facility] ([facility]) MHC Telemed E/M Lvl 3--Est pt 06/25/2020 12:00:[address] [facility] ([facility]) Extended Individual Psychotherapy - 45 min 06/24/2020 12:00:00 AM EST - 06/24/2020 12:00:00 AM EST [facility] ([facility]) Extended Individual Psychotherapy - 45 min 0 12:00:00 AM EST [facility] ([facility]) MHC Telemed E/M Lvl 3--Est pt 06/04/2020 12:00:00 AM EDT - 06/04/2020 12:00:00 AM EDT [facility] ([facility]) Telemed A/O 30" 06/04/2020 12:00:00 AM EDT [facility] ([facility]) MHC Telemed E/M Lvl 3--Est pt 06/04/2020 12:00:00 AM E DT [facility] ([facility]) Brief Individual Psychotherapy - 30 min 05/27/2020 12:00:00 AM EDT - 05/27/2020 12:00:00 AM EDT [facility] ([facility]) Brief Individual Psychotherapy - 30 min 05/27/2020 12: 00:00 AM EDT [facility] ([facility]) Extended Individual Psychotherapy - 45 min 05/21/2020 12:00:00 AM EDT - 05/21/2020 12:00:00 AM EDT [facility] ([facility]) Extended Individual Psychotherapy - 45 min 0 12:00:00 AM EDT [facility] ([facility]) DEBRIDEMENT NAIL ANY METHOD 05/14/2020 12:00:00 AM EDT [facility] ([facility] Telemed Diagnostic Eval 05/13/2020 12:00 :00 AM EDT - 05/13/2020 12:00:00 AM EDT [facility] ([facility]) Telemed Diagnostic Eval 05/13/2020 12:00:00 AM EDT [facility] ([facility]) Brief Individual Psychotherapy - 30 min 04/23/2020 12:00:00 AM EDT - 04/23/2020 12:00:00 AM EDT [facility] ([facility]) Brief Individual Psychotherapy - 30 min 04/23/2020 12: 00:00 AM EDT [facility] ([facility]) Results ID Date Data Source [id number] 04/07/2021 01:04:00 PM EDT [facility] Name Value Range Interpretation Code Description Data Lois rce(s) Supporting Document(s) [facility] Laboratory test result [facility] ([facility], ) ID Date Data Source [id number] 03/29/2021 12:37:28 PM EDT [facility], PCName: Court Oneal: 1975Provider: Ryan Kapoor: 03/28/2021 Chief ComplaintChronic low back pain Chief Complaint [id number] VAS PAIN Established: MA completing section: TODUME History of Present IllnessRecent test/procedures: Patient was asked and denies having any tests since their last visit. Patient was asked and denies being seen by any Physicians since their last visit. The patient was last seen by a [place] [facility] provider on 01/25/2021. At today's visit patient presents with their Self Implanted Devices The patient does not have any implanted devices. The patient does not have a glucose monitoring device. Patient is not currently working. The patient is being seen for a follow-up. Pain Duration: YRS Condition type:. Temi Olivera MD. INTERVAL EVENTS: include . Patient here today to f/u on chronic low back pain. Reports pain as a numbness, sharp, and constant pain that is alleviated with lying down and exacerbated by standing, sitting, walking, and bending. Pain keeps patient awake at night. She has a history of a spinal fusion at L4-L5 and L5-S1 with Dr. Gonzalez on 12/12/2017.Patient has been utilizing tizanidine, gabapentin and patient continues to report pain. Patient was followed by [facility] pain clinic in the past however had narcotic privileges taken away due to illicit substances and inconsistent UDS is. Pt states she was given oxycodone by pain clinic, left her pills at home, had a migraine and her friend gave her hydrocodone and she tested + for hydrocodone. She states she never used illicit substances. Patient has seen the [facility] pain clinic who offered caudal injections and if no relief so was going to trial lumbar medial branch blocks for possible radiofrequency ablations. They also thought that she may benefit from trigger point injections or neurosurgical referral. Had a brace after surgery- doesn't use. States she had NB's but her BS's went up so she states they had to stop doing these. Active Problems 1. Chronic low back pain (724.2,338.29) (M54.5,G89.29) 2. Lumbar radiculopathy (724.4) (M54.16) Allergies Toradol Rash; Recorded By: Tg Lopez; 01/25/2021 1:17:25 PM duloxetine Recorded By: Tg Lopez; 01/25/2021 1:17:25 PMmakes me very angryDenied Adhesive Tape Recorded By: Tg Lopez; 01/25/2021 1:17:25 PM Iodinated Contrast Media Recorded By: Tg Lopez; 01/25/2021 1:17:25 PM Latex Recorded By: Tg Lopez; 01/25/2021 1:17:25 PM Current Meds Aspirin 81 81 MG TBEC;Therapy: (Recorded:25Jan2021) to Recorded Atorvastatin Calcium 40 MG Oral Tablet;Therapy: (Recorded:25Jan2021) to Recorded Basaglar KwikPen 100 UNIT/ML Subcutaneous Solution Pen-injector;Therapy: (Recorded:25Jan2021) to Recorded Effexor XR 75 MG Oral Capsule Extended Release 24 Hour;Therapy: (Recorded:25Jan2021) to Recorded Gabapentin 600 MG Oral Tablet;Therapy: (Recorded:25Jan2021) to Recorded Glimepiride TABS;Therapy: (Recorded:25Jan2021) to Recorded Insulin Lispro 100 UNIT/ML Subcutaneous Solution;Therapy: (Recorded:25Jan2021) to Recorded Lisinopril 5 MG Oral Tablet;Therapy: (Recorded:25Jan2021) to Recorded metFORMIN HCl ER 500 MG Oral Tablet Extended Release 24 Hour;Therapy: (Recorded:25Jan2021) to Recorded Omeprazole 40 MG Oral Capsule Delayed Release;Therapy: (Recorded:25Jan2021) to Recorded Propranolol HCl - 10 MG Oral Tablet;Therapy: (Recorded:25Jan2021) to Recorded QUEtiapine Fumarate 200 MG Oral Tablet;Therapy: (Recorded:25Jan2021) to Recorded SUMAtriptan Succinate TABS;Therapy: (Recorded:25Jan2021) to Recorded tiZANidine HCl - 4 MG Oral Tablet;Therapy: (Recorded:25Jan2021) to Re corded Past Medical History Denied: History of Clotting disorder Denied: History of anticoagulant therapy History of arthritis (V13.4) (Z87.39) History of bipolar disorder (V11.1) (Z86.59) History of depression (V11.8) (Z86.59) History of gastroesophageal reflux (GERD) (V12.79) (Z87.19) History of headache (V13.89) (Z87.898) History of methicillin resistant Staphylococcus aureus infection (V12.04) (Z86.14) History of neck pain (V13.59) (Z87.39) History of type 2 diabetes mellitus (V12.29) (Z86.39) History of Not currently (V49.89) (Z78.9) Surgical History History of Appendectomy Denied: History of Cardioverter defibrillator insertion History of Carpal tunnel surgery right History of Decompression of spinal cord History of Foot surgery left History of Gallbladder surgery History of Hysterectomy History of Knee surgery left History of Lumbar vertebral fusion Denied: History of Permanent pacemaker insertion VitalsVital Signs Recorded: [id number] 01:08PM Height: 5 ft 8 inWeight: 247 lb BMI Calculated: 37.56 kg/m2BSA Calculated: 2.24Systolic: 136, SittingDiastolic: 90, SittingHeart Rate: 95Respiration: 17Height measured w/wo shoes: w/shoesPain Scale: 9 Physical ExamGeneral: The patient is a well nourished/well developed, female, who is morbidly obese, who is in moderate distress, appears stated age and Patient is utilizing a cane at this visit. Gait and Station: Gait was antalgic. Lumbosacral Spine: Surgical incision, well healed surgical scar. - Palpation/Tenderness: Tenderness on palpation of the LEFT: paraspinal . - Palpation/Tenderness: Tenderness on palpation of the RIGHT: paraspinal . - ROM Flexion: was restricted, was painful. - ROM Extension: was restricted, was painful.Right Lower Extremity Motor: - Hip: 5/5 flexion, 5/5 extension- Knee: 5/5 flexion, 5/5 extension- Foot: 5/5 Plantar , 5/5 DorsiFlexionSpecial Tests: flip test was positive and positive facet challenge Left Lower Extremity Motor:- Hip: 5/5 flexion, 5/5 extension- Knee: 5/5 flexion, 5/5 extension- Foot: 5/5 Plantar , 5/5 DorsiFlexionSpecial Tests: flip test was positiveNeurological:Sensation Left Lower: normalSensation Right Lower: diminished. Psychological: Alert and oriented to person, place and time. Mood and affect are pleasant and appropriate. Judgement intact. Insight normal without delusions or hallucinations. Denies suicidal/homicidal ideation. Assessment 1. Chronic low back pain (724.2,338.29) (M54.5,G89.29) 2. Lumbar radiculopathy (724.4) (M54.16) Plan 1. MIPS - Survey Evaluation Evaluation Status: Complete Done: [id number] Depression Screening - Patient's PHQ-9 score is: : N/A - PHQ-9 not performed todayHave you EVER received a Pneumococcal Vaccine...? : No - Patient has never received a Pneumococcal vaccinationFLU - Have you received a flu shot in 2020 ? : No - Influenza not previously received due to patient declined or other patient reasonsBMI for Patients 18 and over : 25 or greater, BMI above normal parameters, follow-up plan documentedTobacco Use Counseling: : Patient received brief counseling in regards to Tobacco useDo you use any kind of Tobacco? (smokes or uses smokeless tobacco): : Patient identified as a Tobacco User<OBX.5.1><OBX.5.1.1>WOMEN </OBX.5.1.1><OBX.5.1.2> ANYONE >/= 65 - How many times in the past year have you had 4 or more</OBX.5.1.2></OBX.5.1> drinks in a day? : ZeroMEN < 65 - How many times in the past year have you had 5 or more drinks in a day? : N/A 2. Orthopedic Spine Surgery ([facility]) Referral Evaluation Evaluation Status: Hold For - Scheduling Requested for: [id number]. Galgano per pt request- erbecca kapoor fnpRequest Surgical opinion: : Patient's RequestPrevious spine surgery : Patient has had previous spine surgery Medication:. The patient does not receive any medication prescriptions from this office. Treatment includes: PROCEDURE(S): The patient defers blocks/procedures at this time THERAPIES: Therapy Treatment Plan: Deferred: All Therapies: Deferred: per patient request. REFERRAL: - Referrals/Studies: We are referring patient for a/an: NEUROSURGERY consult (Wants Dr. Farrell for ortho/neuro surgery consult. ). FOLLOW UP: The patient will call for a follow up visit. CONTINUE TREATMENT: Roly will continue with the following:. Patient will follow up with their PCP. Roly is participating in a home exercise program and is encouraged to continue. - FALL PRECAUTIONS: Roly is encouraged to use necessary assistive devices including cane. Miscellaneous: - WEIGHT LOSS: Weight loss was discussed and encouraged. - MAJOR ACCOUNT REPRESENTATIVE: The patient was counseled on the following: treatment plan and future treatment options. Discussion/SummaryPatient here today to f/u on chronic low back pain. Reports pain as a numbness, sharp, and constant pain that is alleviated with lying down and exacerbated by standing, sitting, walking, and bending. Pain keeps patient awake at night. She has a history of a spinal fusion at L4-L5 and L5-S1 with Dr. Gonzalez on 12/12/2017.Patient has been utilizing tizanidine, gabapentin and patient continues to report pain. Patient was followed by [facility] pain clinic in the past however had narcotic privileges taken away due to illicit substances and inconsistent UDS is. Pt states she was given oxycodone by pain clinic, left her pills at home, had a migraine and her friend gave her hydrocodone and she tested + for hydrocodone. She states she never used illicit substances. Patient has seen the [facility] pain clinic who offered caudal injections and if no relief so was going to trial lumbar medial branch blocks for possible radiofrequency ablations. They also thought that she may benefit from trigger point injections or neurosurgical referral. Had a brace after surgery- doesn't use. States she had NB's but her BS's went up so she states they had to stop doing these. Upon further investigat ion with a drug complaints committee she was in the hospital for suicidal ideations for overdose with pills-it is unclear to this provider whether or not she actually took the pills. When I told patient that she would not be getting narcotics from us she was tearful in the office however very respectful. She reports that her pain has been so bad lately that she is not sleeping. She is requesting a referral to Dr. Farrell for consideration of further surgery to address the underlying situation. I will place this referral per her request. We discussed possible medical cannabis but she reports that she cannot afford this. I did offer medial branch blocks for possible radio frequency ablation but she defers. At this point she will contact our office for future follow-up appointments. Signatures Electronically signed by : Rebecca Kapoor NP; Mar 28 2021 1:36PM EST (Author) Electronically signed by : Jono Ruiz MD; Mar 29 2021 12:37PM EST Name Value Range Interpretation Code Description Data Lois rce(s) Supporting Document(s) ID Date Data Source [id number] 03/09/2021 12:49:00 PM EDT [facility] ([facility], ) Name Value Range Interpretation Code Description Data Lois rce(s) Supporting Document(s) PDFReport Laboratory test result [facility] ([facility], ) FVC-Pred 4.10 L [facility] ([facility], ) FVC-Pre 3.27 L [facility] ([facility]) FVC-LLN 3.32 L [facility] ([facility]) FVC-%Pred-Pre 79 L [facility] ([facility]) Fev1-Pred 3.26 L [facility] ([facility]) Fev1-%Pred-Pre 82 L [facility] ([facility]) Fev1-Pre 2.68 L [facility] ([facility]) Fev1-LLN 2.60 L [facility] ([facility]) Fev6-Pred 4.00 L [facility] ([facility]) Fev6-Pre 3.27 L [facility] ([facility]) Fev6-%Pred-Pre 81 L [facility] ([facility]) Fev6-LLN 3.23 L [facility] ([facility]) Lyc3wvk-Qjfj 81 % [facility] ([facility]) Yul8vee-Bxl 82 % [facility] ([facility]) Acd4qao-WNO 71 % [facility] ([facility]) Pcn6owd-%Pred-Pre 101 % [facility] ([facility]) Chf0stt-Fseb 98 % [facility] ([facility]) Qnj2bzz-Zyo 100 % [facility] ([facility]) Rqc2pyz-%Pred-Pre 102 % [facility] ([facility]) FEFMax-Pred 7.46 L/E/sec [facility] ([facility]) FEFMax-Pre 5.56 L/E/sec [facility] ([facility], ) FEFMax-LLN 5.52 L/E/sec [facility] ([facility]) FEFMax-%Pred-Pre 74 L/E/sec [facility] ([facility]) Fiq8636-Geku 3.11 L/E/sec [facility] ([facility]) Tsk7466-Wrg 2.89 L/E/sec [facility] ([facility]) Umy0063-%Pred-Pre 92 L/E/sec [facility] ([facility]) Xom8829-CWZ 1.71 L/E/sec [facility] ([facility]) Qly9ejp1-Mkzx 83 % [facility] ([facility]) ExpTime-Pre 3.73 sec [facility] ([facility]) Hhl6yya8-RZD 74 % [facility] ([facility]) Bih3smq3-%Pred-Pre 99 % [facility] ([facility]) Gch9yyv1-Szx 82 % [facility] ([facility]) ID Date Data Source HCG, SERUM QUANTITATIVE 02/03/2021 12:00:00 AM EDT eCW1 ([facility]) Name Value Range Interpretation Code Description Data Lois rce(s) Supporting Document(s) 3 HCG, SERUM QUANTITATIVE W1 ( [facility]) ID Date Data Source [id number] 01/25/2021 02:13:20 PM EDT [place] [facility] [place] [facility], PCName: Court Oneal: 1975Provider: Ryan Kapoor: 01/25/2021 Chief ComplaintChronic low back pain [facility] Treatment [facility] Patient has signed a [facility] Controlled Substance and Treatment Agreement. Patient has been given a copy of the treatment agreement and has been given a copy of our Prescription Information Fact Sheet. Do you have a Brace for your condition? Patient does not have a brace for their condition. Do you have a TENS Unit for your condition? Patient does not have a TENS Unit for their condition. Supplements: Patient is not currently taking any supplements. Nerve Conduction: Patient has had a Nerve Conduction Test. At today's visit patient presents with their Self Implanted Devices The patient does not have any implanted devices. The patient does not have a glucose monitoring device. Patient is not currently working. What was patient's previous occupation? [employer] T[employer]. The patient is being seen for an initial evaluation. Pain Duration: 15 years Condition type:. Temi Olivera MD. INTERVAL EVENTS: include . Patient here today to establish care for chronic low back pain. Patient reports pain as a numbness, sharp, and constant pain that is alleviated with lying down and exacerbated by standing, sitting, walking, and bending. Pain keeps patient awake at night. She has a history of a spinal fusion at L4-L5 and L5-S1 with Dr. Gonzalez on 12/12/2017. Patient's medical history is complicated by diabetes, hypertension, and cholesterol. Patient has been utilizing tizanidine, gabapentin and patient continues to report pain. Patient was followed by [facility] pain clinic in the past however had narcotic privileges taken away due to illicit substances and inconsistent UDS is. Pt states she was given oxycodone by pain clinic, left her pills at home, had a migraine and her friend gave her hydrocodone and she tested + for hydrocodone. She states she never used illicit substances. Patient has seen the [facility] pain clinic who offered caudal injections and if no relief so was going to trial lumbar medial branch blocks for possible radiofrequency ablations. They also thought that she may benefit from trigger point injections or neurosurgical referral. Had a brace after surgery- doesn't use. States she had NB's but her BS's went up so she states they had to stop doing these. Had lidocaine injections. Reports she hasn't been to Pain management in over a year. Allergies Toradol Rash; Recorded By: Tg Lopez; 01/25/2021 1:17:25 PM duloxetine Recorded By: Tg Lopez; 01/25/2021 1:17:25 PMmakes me very angryDenied Adhesive Tape Recorded By: Tg Lopez; 01/25/2021 1:17:25 PM Iodinated Contrast Media Recorded By: Tg Lopez; 01/25/2021 1:17:25 PM Latex Recorded By: Tg Lopez; 01/25/2021 1:17:25 PM Current Meds Aspirin 81 81 MG TBEC;Therapy: (Recorded:25Jan2021) to Recorded Dispense: 0 Days ; #: Sufficient; Refill: 0;For: SocHx: Current every day smoker; TABATHA = N; Record; Last Updated By: Tg Lopez; 01/25/2021 1:17:25 PM Atorvastatin Calcium 40 MG Oral Tablet;Therapy: (Recorded:25Jan2021) to Recorded Dispense: 0 Days ; #: Sufficient; Refill: 0;For: SocHx: Current every day smoker; TABATHA = N; Record; Last Updated By: Tg Lopez; 01/25/2021 1:17:25 PM Basaglar KwikPen 100 UNIT/ML Subcutaneous Solution Pen-injector;Therapy: (Recorded:25Jan2021) to Recorded Dispense: 0 Days ; #: Sufficient; Refill: 0;For: SocHx: Current every day smoker; TABATHA = N; Record; Last Updated By: Tg Lopez; 01/25/2021 1:17:25 PM Effexor XR 75 MG Oral Capsule Extended Release 24 Hour;Therapy: (Recorded:25Jan2021) to Recorded Dispense: 0 Days ; #: Sufficient; Refill: 0;For: SocHx: Current every day smoker; TABATHA = N; Record; Last Updated By: Tg Lopez; 01/25/2021 1:17:25 PM Gabapentin 600 MG Oral Tablet;Therapy: (Recorded:25Jan2021) to Recorded Dispense: 0 Days ; #: Sufficient; Refill: 0;For: SocHx: Current every day smoker; TABATHA = N; Record; Last Updated By: Tg Lopez; 01/25/2021 1:17:25 PM Glimepiride TABS;Therapy: (Recorded:25Jan2021) to Recorded Dispense: 0 Days ; #: Sufficient; Refill: 0;For: SocHx: Current every day smoker; TABATHA = N; Record; Last Updated By: Tg Lopez; 01/25/2021 1:17:25 PM Insulin Lispro 100 UNIT/ML Subcutaneous Solution;Therapy: (Recorded:25Jan2021) to Recorded Dispense: 0 Days ; #: Sufficient; Refill: 0;For: SocHx: Current every day smoker; TABATHA = N; Record; Last Updated By: Tg Lopez; 01/25/2021 1:17:25 PM Lisinopril 5 MG Oral Tablet;Therapy: (Recorded:25Jan2021) to Recorded Dispense: 0 Days ; #: Sufficient; Refill: 0;For: SocHx: Current every day smoker; TABATHA = N; Record; Last Updated By: Tg Lopez; 01/25/2021 1:17:25 PM metFORMIN HCl ER 500 MG Oral Tablet Extended Release 24 Hour;Therapy: (Recorded:25Jan2021) to Recorded Dispense: 0 Days ; #: Sufficient; Refill: 0;For: SocHx: Current every day smoker; TABATHA = N; Record; Last Updated By: Tg Lopez; 01/25/2021 1:17:25 PM Omeprazole 40 MG Oral Capsule Delayed Release;Therapy: (Recorded:25Jan2021) to Recorded Dispense: 0 Days ; #: Sufficient; Refill: 0;For: SocHx: Current every day smoker; TABATHA = N; Record; Last Updated By: Tg Lopez; 01/25/2021 1:17:25 PM Propranolol HCl - 10 MG Oral Tablet;Therapy: (Recorded:25Jan2021) to Recorded Dispense: 0 Days ; #: Sufficient; Refill: 0;For: SocHx: Current every day smoker; TABATHA = N; Record; Last Updated By: Tg Lopez; 01/25/2021 1:17:25 PM QUEtiapine Fumarate 200 MG Oral Tablet;Therapy: (Recorded:25Jan2021) to Recorded Dispense: 0 Days ; #: Sufficient; Refill: 0;For: SocHx: Current every day smoker; TABATHA = N; Record; Last Updated By: Tg Lopez; 01/25/2021 1:17:25 PM SUMAtriptan Succinate TABS;Therapy: (Recorded:25Jan2021) to Recorded Dispense: 0 Days ; #: Sufficient; Refill: 0;For: SocHx: Current every day smoker; TABATHA = N; Record; Last Updated By: Tg Lopez; 01/25/2021 1:17:25 PM tiZANidine HCl - 4 MG Oral Tablet;Therapy: (Recorded:25Jan2021) to Recorded Dispense: 0 Days ; #: Sufficient; Refill: 0;For: SocHx: Current every day smoker; TABATHA = N; Record; Last Updated By: Tg Lopez; 01/25/2021 1:17:25 PM Past Medical History Denied: History of Clotting disorder Denied: History of anticoagulant therapy History of arthritis (V13.4) (Z87.39) History of bipolar disorder (V11.1) (Z86.59) History of depression (V11.8) (Z86.59) History of gastroesophageal reflux (GERD) (V12.79) (Z87.19) History of headache (V13.89) (Z87.898) History of methicillin resistant Staphylococcus aureus infection (V12.04) (Z86.14) History of neck pain (V13.59) (Z87.39) History of type 2 diabetes mellitus (V12.29) (Z86.39) History of Not currently (V49.89) (Z78.9) Surgical History History of Appendectomy Denied: History of Cardioverter defibrillator insertion History of Carpal tunnel surgery right History of Decompression of spinal cord History of Foot surgery left History of Gallbladder surgery History of Hysterectomy History of Knee surgery left History of Lumbar vertebral fusion Denied: History of Permanent pacemaker insertion VitalsVital Signs Recorded: 25Jan2021 01:12PM Height: 5 ft 8 inWeight: 239 lb BMI Calculated: 36.34BSA Calculated: 2.2Systolic: 124, SittingDiastolic: 72, SittingHeart Rate: 100Respiration: 18Temperature: 97.3 FHeight measured w/wo shoes: w/shoesPain Scale: 8Depression: 7ORT: LR Physical ExamGeneral: The patient is a well nourished/well developed, female, who is morbidly obese, who is in moderate distress, appears stated age and Patient is utilizing a cane at this visit. Gait and Station: Gait was antalgic. Lumbosacral Spine: Surgical incision, well healed surgical scar. - Palpation/Tenderness: Tenderness on palpation of the LEFT: paraspinal . - Palpation/Tenderness: Tenderness on palpation of the RIGHT: paraspinal . - ROM Flexion: was restricted, was painful. - ROM Extension: was restricted, was painful.Right Lower Extremity Motor: - Hip: 5/5 flexion, 5/5 extension- Knee: 5/5 flexion, 5/5 extension- Foot: 5/5 Plantar , 5/5 DorsiFlexionSpecial Tests: flip test was positive and positive facet challenge Left Lower Extremity Motor:- Hip: 5/5 flexion, 5/5 extension- Knee: 5/5 flexion, 5/5 extension- Foot: 5/5 Plantar , 5/5 DorsiFlexionSpecial Tests: flip test was positiveNeurological:Sensation Left Lower: normalSensation Right Lower: diminished. Psychological: Alert and oriented to person, place and time. Mood and affect are pleasant and appropriate. Judgement intact. Insight normal without delusions or hallucinations. Denies suicidal/homicidal ideation. Assessment 1. Lumbar radiculopathy (724.4) (M54.16) 2. Chronic low back pain (724.2,338.29) (M54.5,G89.29) Plan 1. MIPS - Survey Evaluation Evaluation Status: Complete Done: [id number] Depression Screening - Patient's PHQ-9 score is: : 5 - 9 Mild ...FUP plan requiredHave you EVER received a Pneumococcal Vaccine...? : No - Patient has never received a Pneumococcal vaccinationFLU - Have you received a flu shot in 2020 ? : No - Influenza not previously received due to patient declined or other patient reasonsBMI for Patients 18 and over : 25 or greater, BMI above normal parameters, follow-up plan documentedTobacco Use Counseling: : Patient received brief counseling in regards to Tobacco useDo you use any kind of Tobacco? (smokes or uses smokeless tobacco): : Patient identified as a Tobacco User<OBX.5.1><OBX.5.1.1>WOMEN </OBX.5.1.1><OBX.5.1.2> ANYONE >/= 65 - How many times in the past year have you had 4 or more</OBX.5.1.2></OBX.5.1> drinks in a day? : ZeroMEN < 65 - How many times in the past year have you had 5 or more drinks in a day? : N/A 2. Follow-up in 2 months Follow Up Follow-up Status: Hold For - Scheduling Requested for: [id number] Appointment for 15 or 30 minutes : Schedule 15 minute appointment Medication:. The patient does not receive any medication prescriptions from this office. Treatment includes: PROCEDURE(S): The patient defers blocks/procedures at this time FOLLOW UP: The patient should have a follow up visit in 2 months. CONTINUE TREATMENT: Roly will continue with the following: Physical Therapy and doctor . Roly is participating in a home exercise program and is encouraged to continue. Miscellaneous: - WEIGHT LOSS: Weight loss was discussed and encouraged. - SMOKING CESSATION: Patient is encouraged to stop smoking. Education material outlining how to quit and how smoking might impact conditions the patient may already have, offered and available to patient at today's visit. PHQ-9 Patient's PHQ-9 score was 5-9 suggesting a Mild level of Depression. Symptoms were discussed with the pt and Tx options were reviewed. Follow-up on depression symptom level at next visit and determine whether patient requires Behavioral Health follow-up at that time. - MAJOR ACCOUNT REPRESENTATIVE: The patient was counseled on the following: treatment plan and future treatment options. Discussion/SummaryPatient here today to establish care for chronic low back pain. Patient reports pain as a numbness, s harp, and constant pain that is alleviated with lying down and exacerbated by standing, sitting, walking, and bending. Pain keeps patient awake at night. She has a history of a spinal fusion at L4-L5 and L5-S1 with Dr. Gonzalez on 12/12/2017. Patient's medical history is complicated by diabetes, hypertension, and cholesterol. Patient has been utilizing tizanidine, gabapentin and patient continues to report pain. Patient was followed by [facility] pain clinic in the past however had narcotic privileges taken away due to illicit substances and inconsistent UDS is. Pt states she was given oxycodone by pain clinic, left her pills at home, had a migraine and her friend gave her hydrocodone and she tested + for hydrocodone. She states she never used illicit substances. Patient has seen the [facility] pain clinic who offered caudal injections and if no relief so was going to trial lumbar medial branch blocks for possible radiofrequency ablations. They also thought that she may benefit from trigger point injections or neurosurgical referral. Had a brace after surgery- doesn't use. States she had NB's but her BS's went up so she states they had to stop doing these. Had lidocaine injections. Reports she hasn't been to Pain management in over a year. At this point she would like to be considered for narcotic privileges. I informed her that she would need her mental health provider to submit a statement answering questions that she has been provided at today's office visit. We will also need to obtain notes from [facility] pain clinic and reviewed with the S is. She signed a medical records release form in the office today. She will follow up in 2 months time. She will meet with her mental health provider to get the statement that is requested. After we get all of the information needed we will then send it on to drug compliance will review and make a decision regarding narcotics. Patient verbalized understanding. Signatures Electronically signed by : Rebecca Kapoor NP; Jan 25 2021 1:46PM EST (Author) Electronically signed by : Richmond Johnson MD; Jan 25 2021 2:13PM EST Name Value Range Interpretation Code Description Data Lois rce(s) Supporting Document(s) ID Date Data Source [id number] 01/23/2021 02:52:00 PM EDT [facility] Name Value Range Interpretation Code Description Data Lois rce(s) Supporting Document(s) SARS coronavirus 2 RNA [Presence] in Res piratory specimen by JEANMARIE with probe detection NEGATIVE [facility] This lab was ordered by [facility] a nd reported by [facility]. ID Date Data Source [id number] 11/11/2020 02:30:00 PM EDT [facility] ([facility]) Name Value Range Interpretation Code Description Data Lois rce(s) Supporting Document(s) Glucose [Mass/volume] in Serum or Plasma 384 [facility] ([facility]) Hemoglobin A1c/Hemoglobin.total in Blood Laboratory test result [facility] ([facility]) ID Date Data Source [id number] 09/14/2020 03:33:00 PM EST [facility] Name Value Range Interpretation Code Description Data Lois rce(s) Supporting Document(s) SARS coronavirus 2 RNA [Presence] in Res piratory specimen by JEANMARIE with probe detection NEGATIVE [facility] This lab was ordered by [facility] a nd reported by [facility]. ID Date Data Source [id number] 07/08/2020 12:00:00 AM EST [facility] Lc Villafuerte MD Patient Name: COURT [id number] [facility] Date of : 1975[address] Date of Exam: 07/08/2020JOSE Braun [id number]#: Fax: [phone] EXAM: MRI KNEE RIGHT WITHOUT CONTRASTCLINICAL INFORMATION: Pain after recent trauma.3T multiplanar MRI imaging of the right knee was obtained using varioussequences.There are no prior right knee MRI's for comparison.There is Grade II signal change seen in the medial meniscus peripherymedially from [id number] without Grade III signal change. Thereis truncation of the posterior horn of the lateral meniscus with Grade IIIsignal change seen in both anterior and posterior horns and with a complexappearance. There is a triangular shaped low signal structure in thelateral compartment adjacent to the lateral tibial eminence. The anteriorand posterior cruciate ligaments are intact. The quadriceps and patellartendons are intact. The medial and lateral collateral ligaments areintact. The medial and lateral patellar retinacula are intact. There isthinning and irregularity of all articular cartilages, particularly thecartilaginous surface of the trochlear groove and the lateral compartmentalarticular cartilages. There is no raghav joint effusion or Elizabeth's cyst.There is mild patchy T2 hypersignal seen in the medial head of thegastrocnemius muscle.IMPRESSION:1. There is a complex bucket handle tear of the lateral meniscus.2. Gastrocnemius muscle strain as described above.3. Chondromalacia as described above.4. Signal in the periphery of the medial meniscus as described above butwithout evidence of a raghav tear. Certainly, a peripheral horizontalcleavage tear cannot be completely ruled out.5. Other findings as described above.Accredited by the [employer] in MR.Wale Elias, PASHA/Nova valenzuela for referring ROLY IVAN to our office. Electronically Signed - WALE ELIAS DO 07/09/20 16:47 Name Value Range Interpretation Code Description Data Lois rce(s) Supporting Document(s) ID Date Data Source [id number] 06/16/2020 10:17:00 AM EDT [facility] ([facility]) Name Value Range Interpretation Code Description Data Lois rce(s) Supporting Document(s) Triglycerides Level 239 mg/dL [facility] ([facility]) Cholesterol Level 146 mg/dL [facility] ([facility]) HDL Cholesterol 33 mg/dL [facility] ([facility]) LDL Cholesterol 65 mg/dL [facility] ([facility]) Cholesterol Risk Ratio 4.424 [facility] ([facility]) Non-HDL-C 113 mg/dL [facility] ([facility]) ID Date Data Source [id number] 06/16/2020 10:17:00 AM EDT [facility] ([facility]) Name Value Range Interpretation Code Description Data Lois rce(s) Supporting Document(s) Glucose, Fasting 317 mg/dL 70-100 [facility] ([facility]) Creatinine For GFR 0.94 mg/dL 0.55-1.30 [facility] ([facility]) Glomerular Filtration Rate Laboratory test result [facility] ([facility]) <content>Units are mL/min/1.73 m2</content>
<content></content>
<content>Chronic Kidney Disease Staging per NKF:</content>
<content></content>
<content>Stage I & II GFR >=60 Normal to Mildly Decreased</content>
<content>Stage III GFR 30- 59 Moderately Decreased</content>
<content>Stage IV GFR 15-29 Severely Decreased</content>
<content>Stage V GFR <15 Very Little GFR Left</content>
<content>ESRD GFR <15 on ENERGY ATTORNEY</content>
<content></content> Blood Urea Nitrogen 15 mg/dL 7-18 [facility] ([facility]) Sodium Level 135 meq/L 136-145 [facility] ([facility]) Potassium Serum 4.2 meq/L 3.5-5.1 [facility] ([facility]) Chloride Level 105 meq/L 98-107 [facility] ([facility]) Anion Gap 5 meq/L 8-16 [facility] ([facility] Carbon Dioxide Level 25 meq/L 21-32 [facility]) Calcium Level 8.9 mg/dL 8.5-10.1 [facility] ([facility]) Alt/SGPT 22 U/L 12-78 [facility] ([facility]) Ast/Sgot 12 U/L 7-37 [facility] ([facility]) Total Protein 7.1 GM/DL 6.4-8.2 [facility] ([facility]) Bilirubin,Total 0.3 mg/dL 0.2-1.0 [facility] ([facility]) Alkaline Phosphatase 145 U/L 45-117 [facility] ([facility]) Albumin/Globulin Ratio 1.0 1.2-2.2 [facility] ([facility]) Albumin 3.5 GM/DL 3.2-5.2 [facility] ([facility]) ID Date Data Source [id number] 05/06/2020 04:26:00 PM EDT [facility] ([facility]) Name Value Range Interpretation Code Description Data Lois rce(s) Supporting Document(s) Hemoglobin A1c/Hemoglobin.total in Blood 13.3 [facility] ([facility]) Glucose [Mass/volume] in Serum or Plasma Laboratory test result [facility] ([facility]) ID Date Data Source [id number] 05/06/2020 12:00:00 PM EDT [facility] ([facility]) Name Value Range Interpretation Code Description Data Lois rce(s) Supporting Document(s) Creatinine [Mass/volume] in Urine 20.9 mg/dL [facility] ([facility]) Microalbumin/Creatinine [Mass Ratio] in Urine 1435.4 MCG/MG 0.0-30.0 [facility] ([facility]) THE [employer] STATES THAT MICROALBUMINURIA IS PRESENT IF THE MICROALBUMIN/CREATININE RATIO EXCEEDS 30 MCG/MG. THE THRESHOLD FOR CLINICAL ALBUMINURIA IS REACHED AT 300 MCG/MG. THE CLASSIFICATION OF A PATIENT SHOULD BE BASED UPON AT LEAST 2 OF 3 ABNORMAL RESULTS ON SPECIMENS COLLECTED WITHIN A 3 TO 6 MONTH TIME FRAME. Microalbumin [Mass/volume] in Urine 300.0 mg/L [facility] ([facility]) Procedure Social History Code Duration Value Status Description Data Source(s ) Smoking 05/18/2021 12:00:00 AM EDT Unknown if ever smoked comp leted Unknown if ever smoked [facility] ([facility]) Smoking 05/04/2021 12:00:00 AM EDT Unknown if ever smoked comp leted Unknown if ever smoked [facility] ([facility]) Smoking 04/08/2021 12:00:00 AM EDT Unknown if ever smoked comp leted Unknown if ever smoked [facility] ([facility]) Smoking 03/07/2021 12:00:00 AM EDT Current Smoker completed Curre nt Smoker [facility] ([facility]) Smoking 03/07/2021 12:00:00 AM EDT Current Smoker completed Curre nt Smoker e[facility]1 ([facility]) Smoking 03/07/2021 12:00:00 AM EDT Current Smoker completed Curre nt Smoker eCW1 ([facility]) Smoking 03/07/2021 12:00:00 AM EDT Current Smoker completed Curre nt Smoker eCW1 ([facility]) Smoking 03/07/2021 12:00:00 AM EDT Current Smoker completed Curre nt Smoker eCW1 ([facility]) Smoking 03/07/2021 12:00:00 AM EDT Current Smoker completed Curre nt Smoker eCW1 ([facility]) Smoking 03/07/2021 12:00:00 AM EDT Current Smoker completed Curre nt Smoker eCW1 ([facility]) Smoking 03/07/2021 12:00:00 AM EDT Current Smoker completed Curre nt Smoker eCW1 ([facility]) Smoking 03/07/2021 12:00:00 AM EDT Current Smoker completed Curre nt Smoker eCW1 ([facility]) Smoking 03/07/2021 12:00:00 AM EDT Current Smoker completed Curre nt Smoker eCW1 ([facility]) Smoking 03/07/2021 12:00:00 AM EDT Current Smoker completed Curre nt Smoker [facility]1 ([facility]) Smoking 03/07/2021 12:00:00 AM EDT Current Smoker completed Curre nt Smoker [facility]1 ([facility]) Smoking 02/11/2021 12:00:00 AM EDT Unknown if ever smoked comp leted Unknown if ever smoked [facility] ([facility]) Smoking 02/10/2021 12:00:00 AM EDT Current Smoker completed Curre nt Smoker eCW1 ([facility]) Smoking 02/03/2021 12:00:00 AM EDT Current Smoker completed Curre nt Smoker [facility]1 ([facility]) Smoking 02/03/2021 12:00:00 AM EDT Current Smoker completed Curre nt Smoker [facility]1 ([facility]) Smoking 12/31/2020 12:00:00 AM EDT Unknown if ever smoked comp leted Unknown if ever smoked [facility] ([facility]) Smoking 12/30/2020 12:00:00 AM EDT Current Smoker completed Curre nt Smoker eCW1 ([facility]) Smoking 12/30/2020 12:00:00 AM EDT Current Smoker completed Curre nt Smoker eCW1 ([facility]) Smoking 12/30/2020 12:00:00 AM EDT Current Smoker completed Curre nt Smoker eCW1 ([facility]) Smoking 11/26/2020 12:00:00 AM EDT Unknown if ever smoked comp leted Unknown if ever smoked [facility] ([facility]) Smoking 10/28/2020 12:00:00 AM EST Unknown if ever smoked comp leted Unknown if ever smoked [facility] ([facility]) Smoking 10/01/2020 12:00:00 AM EST Current Smoker completed Curre nt Smoker eCW1 ([facility]) Smoking 10/01/2020 12:00:00 AM EST Current Smoker completed Curre nt Smoker eCW1 ([facility]) Smoking 10/01/2020 12:00:00 AM EST Current Smoker completed Curre nt Smoker eCW1 ([facility]) Smoking 10/01/2020 12:00:00 AM EST Current Smoker completed Curre nt Smoker eCW1 ([facility]) Smoking 10/01/2020 12:00:00 AM EST Current Smoker completed Curre nt Smoker eCW1 ([facility]) Smoking 10/01/2020 12:00:00 AM EST Unknown if ever smoked comp leted Unknown if ever smoked [facility] ([facility]) Smoking 09/23/2020 12:00:00 AM EST Unknown if ever smoked comp leted Unknown if ever smoked [facility] ([facility]) Smoking 08/27/2020 12:00:00 AM EST Unknown if ever smoked comp leted Unknown if ever smoked [facility] ([facility]) Smoking 07/30/2020 12:00:00 AM EST Unknown if ever smoked comp leted Unknown if ever smoked [facility] ([facility]) Smoking 07/22/2020 12:00:00 AM EST Unknown if ever smoked comp leted Unknown if ever smoked [facility] ([facility]) Smoking 06/25/2020 12:00:00 AM EST Unknown if ever smoked comp leted Unknown if ever smoked [facility] ([facility]) Smoking 06/24/2020 12:00:00 AM EST Unknown if ever smoked comp leted Unknown if ever smoked [facility] ([facility]) Smoking 06/04/2020 12:00:00 AM EDT Unknown if ever smoked comp leted Unknown if ever smoked [facility] ([facility]) Smoking 05/27/2020 12:00:00 AM EDT Unknown if ever smoked comp leted Unknown if ever smoked [facility] ([facility]) Smoking 05/21/2020 12:00:00 AM EDT Unknown if ever smoked comp leted Unknown if ever smoked [facility] ([facility]) Smoking 05/13/2020 12:00:00 AM EDT Unknown if ever smoked comp leted Unknown if ever smoked [facility] ([facility]) Smoking 04/23/2020 12:00:00 AM EDT Unknown if ever smoked comp leted Unknown if ever smoked [facility] ([facility]) Vital Signs ID Date Data Source UNK Name Value Range Interpretation Code Description Data Source(s) Body surface area Derived from formula 2.22 m2 2.22 m2 [facility] ([facility]) Systolic blood pressure 110 mm[Hg] 110 mm[Hg] [facility] ([facility]) Diastolic blood pressure 70 mm[Hg] 70 mm[Hg] [facility] ([facility]) Heart rate 113 /min 113 /min [facility] ([facility]) Oxygen saturation in Arterial blood by Pulse oximetry 95 % 95 % [facility] ([facility]) Body height 68 [in_i] 68 [in_i] [facility] ([facility]) 5'8" Body weight 244.00 [lb_av] 244.00 [lb_av] [facility] ([facility]) Body mass index (BMI) [Ratio] 37.1 kg/m2 37.1 k g/m2 [facility] ([facility]) [place] body weight 140 [lb_av] 140 [lb_av] [facility] ([facility]) Body weight 110.678 kg 110.678 kg [facility] ([facility]) Body height 68.00 in Normal (applies to non-numeric resu lts) 68.00 in [facility] ([facility]) Body weight Measured 230.00 lbs Normal (applies to n on-numeric results) 230.00 lbs [facility] ([facility]) Body mass index (BMI) [Ratio] 34.97 kg/m2 No rmal (applies to non-numeric results) 34.97 kg/m2 [facility]) Systolic blood pressure 139 mm[Hg] Normal (applies t o non-numeric results) 139 mm[Hg] [facility] ([facility]) Diastolic blood pressure 90 mm[Hg] Normal (applies to non-numeric results) 90 mm[Hg] [facility] ([facility]) Body temperature 98.70 degF Normal (applies to non-n umeric results) 98.70 degF [facility] ([facility]) Body height --lying 110 min Normal (applies to non-nume brianda results) 110 min [facility] ([facility]) Respiratory rate 16 min Normal (applies to non-numeric results) 16 min [facility] ([facility]) Body mass index (BMI) [Ratio] 38.3 kg/m2 38.3 k g/m2 [facility] ([facility]) Body temperature 96.0 [degF] 96.0 [degF] [facility] ([facility]) Body height 67 [in_i] 67 [in_i] [facility] ([facility]) 5'7" Body weight 244.50 [lb_av] 244.50 [lb_av] [facility] ([facility]) Oxygen saturation in Arterial blood by Pulse oximetry 97 % 97 % [facility] ([facility], ) Body weight 244.38 [lb_av] 244.38 [lb_av] [facility] ([facility], ) Body mass index (BMI) [Ratio] 37.2 kg/m2 37.2 k g/m2 [facility] ([facility], ) [place] body weight 140 [lb_av] 140 [lb_av] [facility] ([facility], ) Body surface area Derived from formula 2.23 m2 2.23 m2 [facility] ([facility], ) Body height 68 [in_i] 68 [in_i] [facility] ([facility], ) 5'8" Body weight 110.849 kg 110.849 kg [facility] ([facility]) Systolic blood pressure 118 mm[Hg] 118 mm[Hg] [facility] ([facility], ) Diastolic blood pressure 68 mm[Hg] 68 mm[Hg] [facility] ([facility], ) Heart rate 100 /min 100 /min [facility] ([facility], ) Body weight 244 [lb_av] 244 [lb_av] eCW1 ([facility]) Body height 68 [in_i] 68 [in_i] eCW1 ([facility]) Body mass index (BMI) [Ratio] 37.10 kg/m2 37.10 kg/m2 eCW1 ([facility]) Heart rate 119 /min 119 /min eCW1 ([facility]) Respiratory rate 18 /min 18 /min eCW1 ([facility]) Body temperature 96.4 [degF] 96.4 [degF] eCW1 ( [facility]) Systolic blood pressure 140 mm[Hg] 140 mm[Hg] e CW1 ([facility]) Diastolic blood pressure 80 mm[Hg] 80 mm[Hg] eCW1 ([facility]) Body weight 245 [lb_av] 245 [lb_av] eCW1 ([facility]) Body height 68 [in_i] 68 [in_i] eCW1 ([facility]) Body mass index (BMI) [Ratio] 37.25 kg/m2 37.25 kg/m2 eCW1 ([facility]) Heart rate 115 /min 115 /min eCW1 ([facility]) Respiratory rate 18 /min 18 /min eCW1 ([facility]) Body temperature 96.2 [degF] 96.2 [degF] eCW1 ( [facility]) Systolic blood pressure 120 mm[Hg] 120 mm[Hg] e CW1 ([facility]) Diastolic blood pressure 80 mm[Hg] 80 mm[Hg] eCW1 ([facility]) Body weight 243 [lb_av] 243 [lb_av] eCW1 ([facility]) Body height 68 [in_i] 68 [in_i] eCW1 ([facility]) Body mass index (BMI) [Ratio] 36.94 kg/m2 36.94 kg/m2 eCW1 ([facility]) Heart rate 113 /min 113 /min eCW1 ([facility]) Respiratory rate 18 /min 18 /min eCW1 ([facility]) Body temperature 96.2 [degF] 96.2 [degF] eCW1 ( [facility]) Systolic blood pressure 122 mm[Hg] 122 mm[Hg] e CW1 ([facility]) Diastolic blood pressure 76 mm[Hg] 76 mm[Hg] eCW1 ([facility]) Body weight 237 [lb_av] 237 [lb_av] eCW1 ([facility]) Body height 68 [in_i] 68 [in_i] eCW1 ([facility]) Body mass index (BMI) [Ratio] 36.03 kg/m2 36.03 kg/m2 eCW1 ([facility]) Heart rate 128 /min 128 /min eCW1 ([facility]) Respiratory rate 20 /min 20 /min eCW1 ([facility]) Body temperature 97.1 [degF] 97.1 [degF] eCW1 ( [facility]) Systolic blood pressure 146 mm[Hg] 146 mm[Hg] e CW1 ([facility]) Diastolic blood pressure 80 mm[Hg] 80 mm[Hg] eCW1 ([facility]) Body height 0.00 in Normal (applies to non-numeric resu lts) 0.00 in [facility] ([facility]) Body weight Measured 0.00 lbs Normal (applies to n on-numeric results) 0.00 lbs [facility] ([facility]) Body mass index (BMI) [Ratio] 0.00 kg/m2 No rmal (applies to non-numeric results) 0.00 kg/m2 [facility] ([facility]) Systolic blood pressure 0 mm[Hg] Normal (applies t o non-numeric results) 0 mm[Hg] [facility] ([facility]) Diastolic blood pressure 0 mm[Hg] Normal (applies to non-numeric results) 0 mm[Hg] [facility] ([facility]) Oxygen saturation in Arterial blood by Pulse oximetry 97 % 97 % [facility] Body mass index (BMI) [Ratio] 36.5 kg/m2 36.5 k g/m2 [facility] ([facility]) Systolic blood pressure 124 mm[Hg] 124 mm[Hg] [facility] ([facility]) Diastolic blood pressure 80 mm[Hg] 80 mm[Hg] [facility] ([facility]) Heart rate 97 /min 97 /min [facility] ([facility]) Body temperature 97.1 [degF] 97.1 [degF] [facility] ([facility]) Body height 67.5 [in_i] 67.5 [in_i] [facility] ([facility] [facility] 5'7.50" Body weight 236.50 [lb_av] 236.50 [lb_av] MEDEN T ([facility]) Body weight 230 [lb_av] 230 [lb_av] eCW1 ([facility]) Body height 68 [in_i] 68 [in_i] eCW1 ([facility]) Body mass index (BMI) [Ratio] 34.97 kg/m2 34.97 kg/m2 eCW1 ([facility]) Heart rate 110 /min 110 /min W1 ([facility]) Respiratory rate 20 /min 20 /min W1 ([facility]) Body temperature 96.6 [degF] 96.6 [degF] eCW1 ( [facility]) Systolic blood pressure 118 mm[Hg] 118 mm[Hg] e CW1 ([facility]) Diastolic blood pressure 76 mm[Hg] 76 mm[Hg] eCW1 ([facility]) Body height 0.00 in Normal (applies to non-numeric resu lts) 0.00 in [facility] ([facility]) Body weight Measured 0.00 lbs Normal (applies to n on-numeric results) 0.00 lbs [facility] ([facility]) Body mass index (BMI) [Ratio] 0.00 kg/m2 No rmal (applies to non-numeric results) 0.00 kg/m2 [facility] ([facility]) Systolic blood pressure 0 mm[Hg] Normal (applies t o non-numeric results) 0 mm[Hg] [facility] ([facility]) Diastolic blood pressure 0 mm[Hg] Normal (applies to non-numeric results) 0 mm[Hg] [facility] Body height 0.00 in Normal (applies to non-numeric resu lts) 0.00 in [facility] ([facility]) Body weight Measured 0.00 lbs Normal (applies to n on-numeric results) 0.00 lbs [facility] ([facility]) Body mass index (BMI) [Ratio] 0.00 kg/m2 No rmal (applies to non-numeric results) 0.00 kg/m2 [facility]) Systolic blood pressure 0 mm[Hg] Normal (applies t o non-numeric results) 0 mm[Hg] [facility] ([facility]) Diastolic blood pressure 0 mm[Hg] Normal (applies to non-numeric results) 0 mm[Hg] [facility] ([facility]) Body height 0.00 in Normal (applies to non-numeric resu lts) 0.00 in [facility] ([facility]) Body weight Measured 0.00 lbs Normal (applies to n on-numeric results) 0.00 lbs [facility] ([facility]) Body mass index (BMI) [Ratio] 0.00 kg/m2 No rmal (applies to non-numeric results) 0.00 kg/m2 [facility]) Systolic blood pressure 0 mm[Hg] Normal (applies t o non-numeric results) 0 mm[Hg] [facility] ([facility]) Diastolic blood pressure 0 mm[Hg] Normal (applies to non-numeric results) 0 mm[Hg] [facility] ([facility]) Body height 0.00 in Normal (applies to non-numeric resu lts) 0.00 in [facility] ([facility]) Body weight Measured 0.00 lbs Normal (applies to n on-numeric results) 0.00 lbs [facility] ([facility]) Body mass index (BMI) [Ratio] 0.00 kg/m2 No rmal (applies to non-numeric results) 0.00 kg/m2 [facility] ([facility]) Systolic blood pressure 0 mm[Hg] Normal (applies t o non-numeric results) 0 mm[Hg] [facility] ([facility]) Diastolic blood pressure 0 mm[Hg] Normal (applies to non-numeric results) 0 mm[Hg] [facility] ([facility]) Body temperature 96.2 [degF] 96.2 [degF] MEDENT ([facility]) Body height 68 [in_i] 68 [in_i] MEDENT ([facility]) 5'8" Body weight 214.00 [lb_av] 214.00 [lb_av] MEDEN T ([facility]) Body mass index (BMI) [Ratio] 32.5 kg/m2 32.5 k g/m2 [facility] [place] body weight 140 [lb_av] 140 [lb_av] MEDEN T ([facility]) Body weight 97.070 kg 97.070 kg [facility] ([facility]) [place] body weight 140 [lb_av] 140 [lb_av] MEDEN T ([facility]) Body temperature 96.2 [degF] 96.2 [degF] MEDENT ([facility]) Body height 68 [in_i] 68 [in_i] MEDENT ([facility]) 5'8" Body weight 214.00 [lb_av] 214.00 [lb_av] MEDEN T ([facility]) Body mass index (BMI) [Ratio] 32.5 kg/m2 32.5 k g/m2 [facility] ([facility]) Body weight 97.070 kg 97.070 kg [facility] ([facility]) Body surface area Derived from formula 2.10 m2 2.10 m2 [facility] ([facility]) Body height 0.00 in Normal (applies to non-numeric resu lts) 0.00 in [facility] ([facility]) Body weight Measured 0.00 lbs Normal (applies to n on-numeric results) 0.00 lbs [facility] ([facility]) Body mass index (BMI) [Ratio] 0.00 kg/m2 No rmal (applies to non-numeric results) 0.00 kg/m2 [facility]) Systolic blood pressure 0 mm[Hg] Normal (applies t o non-numeric results) 0 mm[Hg] [facility] ([facility]) Diastolic blood pressure 0 mm[Hg] Normal (applies to non-numeric results) 0 mm[Hg] [facility] ([facility]) Systolic blood pressure 122 mm[Hg] 122 mm[Hg] M EDENT ([facility] Diastolic blood pressure 72 mm[Hg] 72 mm[Hg] [facility] ([facility] Body height 68 [in_i] 68 [in_i] [facility] ([facility] 5'8" Body weight 214.00 [lb_av] 214.00 [lb_av] MEDEN T ([facility] Heart rate 93 /min 93 /min [facility] ([facility] Body mass index (BMI) [Ratio] 32.5 kg/m2 32.5 k g/m2 [facility] ([facility] Body height 68.00 in Normal (applies to non-numeric resu lts) 68.00 in [facility] ([facility]) Body weight Measured 214.00 lbs Normal (applies to n on-numeric results) 214.00 lbs [facility] ([facility]) Body mass index (BMI) [Ratio] 32.54 kg/m2 No rmal (applies to non-numeric results) 32.54 kg/m2 [facility] ([facility]) Systolic blood pressure 0 mm[Hg] Normal (applies t o non-numeric results) 0 mm[Hg] [facility] ([facility]) Diastolic blood pressure 0 mm[Hg] Normal (applies to non-numeric results) 0 mm[Hg] [facility] ([facility]) Systolic blood pressure 130 mm[Hg] 130 mm[Hg] M EDENT ([facility]) Diastolic blood pressure 90 mm[Hg] 90 mm[Hg] MEDENT ([facility]) Heart rate 91 /min 91 /min [facility] ([facility]) Body height 67.5 [in_i] 67.5 [in_i] MEDENT ([facility]) 5'7.50" Body weight 214.00 [lb_av] 214.00 [lb_av] MEDEN T ([facility]) Body mass index (BMI) [Ratio] 33.0 kg/m2 33.0 k g/m2 [facility] ([facility]) Oxygen saturation in Arterial blood by Pulse oximetry 97 % 97 % [facility] ([facility]) Patient Treatment Plan of Care Planned Activity Planned Date Details Description Data Source (s) doxycycline hyclate 100 MG Oral Capsule 03/07/2021 12:00:00 AM EDT eCW1 ([facility]) doxycycline hyclate 100 MG Oral Capsule 03/07/2021 12:00:00 AM EDT eCW1 ([facility]) Sumatriptan 50 MG Oral Tablet 12/30/2020 12:00:00 AM EDT eCW1 ([facility]) Naproxen 500 MG Oral Tablet 12/30/2020 12:00:00 AM EDT eCW1 ([facility]) Sumatriptan 50 MG Oral Tablet 12/30/2020 12:00:00 AM EDT eCW1 ([facility]) Naproxen 500 MG Oral Tablet 12/30/2020 12:00:00 AM EDT eCW1 ([facility]) Sumatriptan 50 MG Oral Tablet 12/30/2020 12:00:00 AM EDT eCW1 ([facility]) Propranolol Hydrochloride 10 MG Oral Tablet 09/18/2020 12:00:00 AM EST eCW1 ([facility]) Propranolol Hydrochloride 10 MG Oral Tablet 09/18/2020 12:00:00 AM EST eCW1 ([facility]) Propranolol Hydrochloride 10 MG Oral Tablet 09/18/2020 12:00:00 AM EST eCW1 ([facility]) Propranolol Hydrochloride 10 MG Oral Tablet 09/18/2020 12:00:00 AM EST eCW1 ([facility]) Propranolol Hydrochloride 10 MG Oral Tablet 09/18/2020 12:00:00 AM EST eCW1 ([facility])
--- OUTSIDE RECORDS SUMMARY | 2021-06-06 18:12 | CCD ---
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 Name Role Phone Payal Pinzon NP Unavailable Unavailable Payal Pinzon NP Unavailable Unavailable Payal Pinzon NP Unavailable Unavailable StuckDeandre Unavailable Unavailable Stuck, K Elvia LANTIGUA Unavailable Unavailable Stuck, K Elvia LANTIGUA Unavailable Unavailable Stuck, K Elvia PA Unavailable Unavailable Stuck K Elvia PA Unavailable Unavailable Stuck K Elvia PA Unavailable Unavailable Stuck, K [...] Unavailable Lyndsey Villafuerte MD Unavailable Unavailable Lyndsey Vilalfuerte MD Unavailable Unavailable Gracy Crump Unavailable YESENIA, B FLAVIA DUPLEX TRIMMER Unavailable Unavailable YESENIA, B FLAVIA DUPLEX TRIMMER Unavailable Unavailable YESENIA, B FLAVIA DUPLEX TRIMMER Unavailable Unavailable YESENIA, B FLAVIA DUPLEX TRIMMER Unavailable Unavailable YESENIA, B FLAVIA DUPLEX TRIMMER Unavailable Unavailable YESENIA, B FLAVIA DUPLEX TRIMMER Unavailable Unavailable YESENIA, B FLAVIA DUPLEX TRIMMER Unavailable Unavailable YESENIA, B FLAVIA DUPLEX TRIMMER Unavailable Unavailable YESENIA, B FLAVIA DUPLEX TRIMMER Unavailable Unavailable YESENIA, B FLAVIA DUPLEX TRIMMER Unavailable Unavailable YESENIA, B FLAVIA DUPLEX TRIMMER Unavailable Unavailable YESENIA, B FLAVIA DUPLEX TRIMMER Unavailable Unavailable YESENIA, B FLAVIA DUPLEX TRIMMER Unavailable Unavailable YESENIA, B FLAVIA DUPLEX TRIMMER Unavailable Unavailable YESENIA, B FLAVIA DUPLEX TRIMMER Unavailable Unavailable YESENIA, B FLAVIA DUPLEX TRIMMER Unavailable Unavailable YESENIA, B FLAVIA DUPLEX TRIMMER Unavailable Unavailable YESENIA, B FLAVIA DUPLEX TRIMMER Unavailable Unavailable YESENIA, B FLAVIA DUPLEX TRIMMER Unavailable Unavailable YESENIA, B FLAVIA DUPLEX TRIMMER Unavailable Unavailable YESENIA, B FLAVIA DUPLEX TRIMMER Unavailable Unavailable YESENIA, B FLAVIA DUPLEX TRIMMER Unavailable Unavailable YESENIA, B FLAVIA DUPLEX TRIMMER Unavailable Unavailable YESENIA, B FLAVIA DUPLEX TRIMMER Unavailable Unavailable YESENIA, B FLAVIA DUPLEX TRIMMER Unavailable Unavailable YESENIA, B FLAVIA DUPLEX TRIMMER Unavailable Unavailable YESENIA, B FLAVIA DUPLEX TRIMMER Unavailable Unavailable YESENIA, B FLAVIA DUPLEX TRIMMER Unavailable Unavailable YESENIA, B FLAVIA DUPLEX TRIMMER Unavailable Unavailable YESENIA, B FALVIA DUPLEX TRIMMER Unavailable Unavailable YESENIA, B FLAVIA DUPLEX TRIMMER Unavailable Unavailable YESENIA, B FLAVIA DUPLEX TRIMMER Unavailable Unavailable YESENIA, B FLAVIA DUPLEX TRIMMER Unavailable Unavailable YESENIA, B FLAVIA DUPLEX TRIMMER Unavailable Unavailable YESENIA, B FLAVIA DUPLEX TRIMMER Unavailable Unavailable YESENIA, B FLAVIA DUPLEX TRIMMER Unavailable Unavailable YESENIA, B FLAVIA DUPLEX TRIMMER Unavailable Unavailable YESENIA, B FLAVIA DUPLEX TRIMMER Unavailable Unavailable YESENIA, B FLAVIA DUPLEX TRIMMER Unavailable Unavailable YESENIA, B FLAVIA DUPLEX TRIMMER Unavailable Unavailable YESENIA, B FLAVIA DUPLEX TRIMMER Unavailable Unavailable YESENIA, B FLAVIA DUPLEX TRIMMER Unavailable Unavailable YESENIA, B FLAVIA DUPLEX TRIMMER Unavailable Unavailable YESENIA, B FLAVIA DUPLEX TRIMMER Unavailable Unavailable YESENIA, B FLAVIA DUPLEX TRIMMER Unavailable Unavailable YESENIA, B FLAVIA DUPLEX TRIMMER Unavailable Unavailable YESENIA, B FLAVIA DUPLEX TRIMMER Unavailable Unavailable YESENIA, B FLAVIA DUPLEX TRIMMER Unavailable Unavailable YESENIA, B FLAVIA DUPLEX TRIMMER Unavailable Unavailable YESENIA, B FLAVIA DUPLEX TRIMMER Unavailable Unavailable YESENIA, B FLAVIA DUPLEX TRIMMER Unavailable Unavailable YESENIA, B FLAIVA DUPLEX TRIMMER Unavailable Unavailable YESENIA, B FLAVIA DUPLEX TRIMMER Unavailable Unavailable YESENIA, B FLAVIA DUPLEX TRIMMER Unavailable Unavailable YESENIA, B FLAVIA DUPLEX TRIMMER Unavailable Unavailable YESENIA, B FLAVIA DUPLEX TRIMMER Unavailable Unavailable YESENIA, B FLAVIA DUPLEX TRIMMER Unavailable Unavailable YESENIA, B FLAVIA DUPLEX TRIMMER Unavailable Unavailable YESENIA, B FLAVIA DUPLEX TRIMMER Unavailable Unavailable YESENIA, B FLAVIA DUPLEX TRIMMER Unavailable Unavailable YESENIA, B FLAVIA DUPLEX TRIMMER Unavailable Unavailable YESENIA, B FLAVIA DUPLEX TRIMMER Unavailable Unavailable Hill, A Rebecca DUPLEX TRIMMER Unavailable Unavailable Hill, A Rebecca DUPLEX TRIMMER Unavailable Unavailable Hill, A Rebecca DUPLEX TRIMMER Unavailable Unavailable Hill, A Rebecca DUPLEX TRIMMER Unavailable Unavailable Hill, A Rebecca DUPLEX TRIMMER Unavailable Unavailable Hill, A Rebecca DUPLEX TRIMMER Unavailable Unavailable Hill, A Rebecca DUPLEX TRIMMER Unavailable Unavailable Hill, A Rebecca DUPLEX TRIMMER Unavailable Unavailable Hill, A Rebecca DUPLEX TRIMMER Unavailable Unavailable Hill, A Rebecca DUPLEX TRIMMER Unavailable Unavailable Hill, A Rebecca DUPLEX TRIMMER Unavailable Unavailable Hill, A Rebecca DUPLEX TRIMMER Unavailable Unavailable Hill, A Rebecca DUPLEX TRIMMER Unavailable Unavailable Hill, A Rebecca DUPLEX TRIMMER Unavailable Unavailable Hill, A Rebecca DUPLEX TRIMMER Unavailable Unavailable Hill, A Rebecca DUPLEX TRIMMER Unavailable Unavailable Hill, A Rebecca DUPLEX TRIMMER Unavailable Unavailable Hill, A Rebecca DUPLEX TRIMMER Unavailable Unavailable Hill, A Rebecca DUPLEX TRIMMER Unavailable Unavailable Hill, A Rebecca DUPLEX TRIMMER Unavailable Unavailable Hill, A Rebecca DUPLEX TRIMMER Unavailable Unavailable Hill, A Rebecca DUPLEX TRIMMER Unavailable Unavailable Hill, A Rebecca DUPLEX TRIMMER Unavailable Unavailable Hill, A Rebecca DUPLEX TRIMMER Unavailable Unavailable Hill, A Rebecca DUPLEX TRIMMER Unavailable Unavailable MAJAK, Payal MORRIS DPM Unavailable [...] ALEXANDRA DPM Unavailable Unavailable CHI, BRANDON ZACHARIAH WET INSPECTOR OPTICAL GLASS-C Unavailable Unavailable CHI, BRANDON ZACHARIAH WET INSPECTOR [employer]-C Unavailable Unavailable CHI, BRANDON ZACHARIAH WET INSPECTOR [employer]-C Unavailable Unavailable CHI, BRANDON ZACHARIAH WET INSPECTOR [employer]-C Unavailable Unavailable [facility]I, BRANDON ZACHARIAH WET INSPECTOR [employer]-C Unavailable Unavailable [facility]I, BRANDON ZACHARIAH WET INSPECTOR [employer]-C Unavailable Unavailable [facility]I, BRANDON ZACHARIAH WET INSPECTOR [employer] GLASS-C Unavailable Unavailable CHI, BRANDON ZACHARIAH WET INSPECTOR OPTICAL GLASS-C Unavailable Unavailable CHI, BRANDON ZACHARIAH WET INSPECTOR OPTICAL GLASS-C Unavailable Unavailable CHI, BRANDON ZACHARIAH WET INSPECTOR OPTICAL GLASS-C Unavailable Unavailable CHI, BRANDON ZACHARIAH WET INSPECTOR [employer] GLASS-C Unavailable Unavailable CHI, BRANDON ZACHARIAH WET INSPECTOR [employer]ICAL GLASS-C Unavailable Unavailable [facility]I, BRANDON ZACHARIAH WET INSPECTOR [employer] GLASS-C Unavailable Unavailable [facility], BRANDON ZACHARIAH WET INSPECTOR [employer]ICAL GLASS-C Unavailable Unavailable [facility]I, BRANDON ZACHARIAH WET INSPECTOR [employer]ICAL GLASS-C Unavailable Unavailable [facility]I, BRANDON ZACHARIAH WET INSPECTOR [employer]ASS-C Unavailable Unavailable [facility]I, BRANDON ZACHARIAH WET INSPECTOR [employer]-C Unavailable Unavailable Rena Olivera MD Unavailable Unavailable [...] Unavailable Unavailable Young Cerna MD Unavailable Unavailable Yougn Cerna MD Unavailable Unavailable Young Cerna MD Unavailable Unavailable Young Cerna MD Unavailable Unavailable Vaneenenaam, Young Coles MD Unavailable Unavailable Vaneenenaam, Young Coles MD Unavailable Unavailable Vaneenenaam, Young Coles MD Unavailable Unavailable Vaneenenaam, Young Coels MD Unavailable Unavailable Vaneenenaam, Young Coles MD [...] is protected by Article 27-F of the [facility] Public Health law. If you continue you may have access to information: Regarding HIV / AIDS; Provided by facilities licensed or operated by the [facility] Office of Mental Health; or Provided by the [facility] Office for People With Developmental Disabilities. If such information is present, then the following [facility] mandated warning applies: This information has been [...] law may result in a fine or halfway sentence or both. A general authorization for the release of medical or other information is NOT sufficient authorization for further disc losure. Allergies and Adverse Reactions Type Description Substance Reaction Status Data Source(s ) Propensity to adverse reactions to substance bee venom prote in (honey bee) honey bee venom protein 0.1 MG/ML Injectable Solution Anaphylaxis Active [facility] ([facility]) Propensity to adverse reactions to substance duloxetine duloxetine Active [facility] ([facility]) Propensity to adverse reactions to substance Toradol Ketorolac Tromethamine 10 MG Oral Tablet rash Active [facility] ([facility]) Propensity to adverse reactions to substance nkda 24 HR Bupropion Hydrochloride 150 MG Extended Release Oral Tablet Active [facility] ([facility]) Propensity to adverse reactions to substance bee venom prote in (honey bee) honey bee venom protein 0.1 MG/ML Injectable Solution Anaphylaxis Active [facility] ([facility]) Propensity to adverse reactions to substance duloxetine duloxetine Active [facility] ([facility]) Propensity to adverse reactions to substance Toradol Ketorolac Tromethamine 10 MG Oral Tablet rash Active [facility] ([facility]) Family History Family Member Name Family Member Gender Family Member Status Date o f Status Description Data Source(s) Unknown Unknown Problem MED[facility] ([facility]) Unknown Male Problem MED[facility] ([facility] Unknown Unknown Problem [facility] ([facility]) Unknown Male Problem MEDENT ([facility]) Encounters Encounter Providers Location Date Indications Data Source(s ) Outpatient Attender: Elvia LANTIGUA 06/15/2021 12:00:00 AM EDT [facility] Unknown [address] [facility] [address] 05/31/2021 12:00:00 AM EDT eCW1 ([facility]) [place] [address] [facility] [address] 05/20/2021 12:00:00 AM EDT eCW1 ([facility]) Outpatient Attender: Pipo Pinzon NP [facility] 05/18/2021 02:30:00 AM EDT - 05/18/2021 02:30:00 AM EDT [facility] ([facility]) [place] [address] [facility] [address] 05/18/2021 12:00:00 AM EDT eCW1 ([facility]) Attender: Pipo Pinzon NP 05/18/2021 12:00:00 AM EDT [facility] ([facility]) Outpatient Attender: ZACHARIAH Moore/Bethel/Emanuel/Payal tomlinson 05/10/2021 08:45:00 AM EDT MED[facility] ([facility]) Health Monitoring - 30 Min Attender: Marci Maya [facility] 05/04/2021 10:30:00 AM EDT - 05/04/2021 10:30:00 AM EDT [facility] ([facility]) Attender: Marci Maya 05/04/2021 12:00:00 AM EDT [facility] ([facility]) Outpatient Attender: Young Cerna MD Physical Therap y 05/03/2021 01:45:00 PM EDT MED[facility] ([facility]) [place] [address] [facility] [address] 04/28/2021 12:00:00 AM EDT eCW1 ([facility]) [place] [address] [facility] [address] 04/19/2021 12:00:00 AM EDT [facility] [place] [address] [facility] [address] 04/19/2021 12:00:00 AM EDT eCW1 ([facility]) [place] [address] [facility] [address] 04/13/2021 12:00:00 AM EDT [facility] [place] [address] [facility] [address] 04/13/2021 12:00:00 AM EDT [facility] [place] [address] [facility] [address] 04/13/2021 12:00:00 AM EDT [facility]1 [facility]) Outpatient Attender: Pipo Pinzon NP [facility] 04/08/2021 11:30:00 AM EDT - 04/08/2021 11:30:00 AM EDT [facility] ([facility]) Attender: Pipo Pinzon NP 04/08/2021 12:00:00 AM EDT [facility] ([facility]) [place] [address] [facility] [address] 03/31/2021 12:00:00 AM EDT [facility] [place] [address] [facility] [address] 03/30/2021 12:00:00 AM EDT eCW1 ([facility]) Outpatient Attender: Rebecca Kapoor NPReferrer: Temi Olivera MD 03/29/2021 12:37:28 PM EDT [facility] Outpatient Attender: ZACHARIAH Moore/Bethel/Emanuel/Payal tomlinson 03/09/2021 01:15:00 PM EDT MED[facility] ([facility]) Outpatient [address] [facility] [address] 03/07/2021 12:00:00 AM EDT eCW1 ([facility]) Outpatient Attender: Pipo Pinzon NP [facility] 02/11/2021 01:30:00 AM EDT - 02/11/2021 01:30:00 AM EDT [facility] ([facility]) Attender: Pipo Pinzon NP 02/11/2021 12:00:00 AM EDT [facility] ([facility]) Outpatient [address] [facility] [address] 02/10/2021 12:00:00 AM EDT eCW1 ([facility]) (TCM) Transition of Care Visit [address] [place] [address] 02/03/2021 12:00:00 AM EDT eCW1 ([facility]) Unknown [address] [facility] [address] 02/02/2021 12:00:00 AM EDT eCW1 ([facility]) Recurring Patient Referrer: Temi Olivera MD 01/25/2021 03: 10:07 PM EDT [facility] Outpatient Attender: Rebecca Kapoor NPReferrer: Temi Olivera MD 01/25/2021 02:13:20 PM EDT [facility] Recurring Patient Referrer: Temi Olivera MD 01/25/2021 12: 44:25 PM EDT [facility] Recurring Patient Referrer: Temi Olivera MD 01/25/2021 12: 42:01 PM EDT [facility] Recurring Patient Referrer: Temi Olivera MD 01/25/2021 12: 41:19 PM EDT [facility] Unknown [address] [facility] [address] 01/25/2021 12:00:00 AM EDT eCW1 ([facility]) Recurring Patient Referrer: Temi Olivera MD 01/18/2021 08: 11:24 AM EDT [facility] Recurring Patient Referrer: Temi Olivera MD 01/18/2021 08: 10:49 AM EDT [facility] Recurring Patient Referrer: Temi Olivera MD 01/04/2021 10: 57:14 AM EDT [facility] Unknown [address] [facility] [address] 01/04/2021 12:00:00 AM EDT eCW1 ([facility]) Extended Individual Psychotherapy - 45 min Attender: Zeina Crump [facility] 12/31/2020 11:00:00 AM EDT - 12/31/2020 11:00:00 AM EDT [facility] ([facility]) Attender: Gracy Crump 12/31/2020 12:00:00 AM EDT [facility] ([facility]) Outpatient [address] [facility] [address] 12/30/2020 12:00:00 AM EDT eCW1 ([facility]) Unknown [address] [facility] [place] [address] 12/06/2020 12:00:00 AM EDT eCW1 ([facility]) Unknown [address] [facility] [place] [address] 11/30/2020 12:00:00 AM EDT eCW1 ([facility]) Outpatient Attender: Pipo Pinzon NP [facility] 11/26/2020 01:30:00 AM EDT - 11/26/2020 01:30:00 AM EDT [facility] ([facility]) Attender: Pipo Pinzon NP 11/26/2020 12:00:00 AM EDT [facility] ([facility]) Outpatient Attender: FLAVIA PATTERSON NP Physical Therapy 01:45:00 PM EDT MED[facility] ([facility]) Brief Individual Psychotherapy - 30 min Attender: Gracy uribe [facility] 10/28/2020 10:00:00 AM EST - 10/28/2020 10:00:00 AM EST [facility] ([facility]) Attender: Gracy Crump 10/28/2020 12:00:00 AM EST [facility] ([facility]) Unknown [address] [facility] [address] 10/22/2020 12:00:00 AM EST [facility] [place] [address] [facility] [address] 10/07/2020 12:00:00 AM EST eCW1 ([facility]) Outpatient Attender: Pipo Pinzon NP [facility] 10/01/2020 01:30:00 AM EST - 10/01/2020 01:30:00 AM EST [facility] ([facility]) (TCM) Transition of Care Visit [address] [place] [address] 10/01/2020 12:00:00 AM EST eCW1 ([facility]) Attender: Pipo Pinzon NP 10/01/2020 12:00:00 AM EST [facility] ([facility]) Brief Individual Psychotherapy - 30 min Attender: Gracy uribe [facility] 09/23/2020 09:45:00 AM EST - 09/23/2020 09:45:00 AM EST [facility] ([facility]) Attender: Gracy Crump 09/23/2020 12:00:00 AM EST [facility] ([facility]) Unknown [address] [facility] [address] 09/22/2020 12:00:00 AM EST [facility]1 [facility] [place] [address] [facility] [address] 09/20/2020 12:00:00 AM EST [facility]CW1 [facility] Outpatient Attender: Pipo Pinzon NP [facility] 08/27/2020 01:30:00 AM EST - 08/27/2020 01:30:00 AM EST [facility] ([facility]) Attender: Pipo Pinzon NP 08/27/2020 12:00:00 AM EST [facility] ([facility]) [place] [address] [facility] [address] 08/24/2020 12:00:00 AM EST eCW1 ([facility]) Unknown [address] [facility] [address] 08/24/2020 12:00:00 AM EST eCW1 ([facility]) Outpatient Attender: Pipo Pinzon NP [facility] 07/30/2020 01:00:00 AM EST - 07/30/2020 01:00:00 AM EST [facility] ([facility]) Attender: Pipo Pinzon NP 07/30/2020 12:00:00 AM EST [facility] ([facility]) Extended Individual Psychotherapy - 45 min Attender: Zeina Crump [facility] 07/22/2020 11:00:00 AM EST - 07/22/2020 11:00:00 AM EST [facility] ([facility]) Attender: Gracy Crump 07/22/2020 12:00:00 AM EST [facility] ([facility]) Outpatient Attender: Pipo Pinzon NP [facility] 06/25/2020 03:00:00 AM EST - 06/25/2020 03:00:00 AM EST [facility] ([facility]) Attender: Pipo Pinzon NP 06/25/2020 12:00:00 AM EST [facility] ([facility]) Extended Individual Psychotherapy - 45 min Attender: Zeina Crump [facility] 06/24/2020 09:00:00 AM EST - 06/24/2020 09:00:00 AM EST [facility] ([facility]) Attender: Gracy Crump 06/24/2020 12:00:00 AM EST [facility] ([facility]) Outpatient Attender: Lc Moore/Bethel/Emanuel/Re indl 06/10/2020 08:30:00 AM EDT MED[facility] ([facility], ) Outpatient Attender: Pipo Pinzon NP [facility] 06/04/2020 03:00:00 AM EDT - 06/04/2020 03:00:00 AM EDT [facility] ([facility]) Attender: Pipo Pinzon NP 06/04/2020 12:00:00 AM EDT [facility] ([facility]) Brief Individual Psychotherapy - 30 min Attender: Gracy uribe [facility] 05/27/2020 11:00:00 AM EDT - 05/27/2020 11:00:00 AM EDT [facility] ([facility]) Attender: Gracy Crump 05/27/2020 12:00:00 AM EDT [facility] ([facility]) Extended Individual Psychotherapy - 45 min Attender: Zeina Crump [facility] 05/21/2020 02:00:00 AM EDT - 05/21/2020 02:00:00 AM EDT [facility] ([facility]) Attender: Gracy Crump 05/21/2020 12:00:00 AM EDT [facility] ([facility]) Outpatient Attender: ALEXANDRA NOGUEIRA [facility] 04/21 01:45:00 PM EDT [facility] Telemed Diagnostic Eval Attender: Pipo Pinzon NP [facility] 05/13/2020 03:00:00 AM EDT - 05/13/2020 03:00:00 AM EDT [facility] ([facility]) Attender: Pipo Pinzon NP 05/13/2020 12:00:00 AM EDT [facility] ([facility]) Outpatient Attender: FLAVIA PATTERSON NP Physical Therapy 11:45:00 AM EDT [facility] ([facility]) Brief Individual Psychotherapy - 30 min Attender: Gracy Ana rendondeandre [facility] 04/23/2020 02:00:00 AM EDT - 04/23/2020 02:00:00 AM EDT [facility] ([facility]) Attender: Gracy Theron 04/23/2020 12:00:00 AM EDT [facility] ([facility]) Functional Status Immunizations Vaccine Date Status Description Data Source(s) COVID-19 VACCINE Moderna 12/01/2020 12:00:00 AM EDT completed [place] Vaccine Series Complete: YESThis Data wa s Submitted to [facility] Via [employer]. COVID-19 VACCINE Moderna 11/03/2020 12:00:00 AM EDT completed [place] Vaccine Series Complete: NOThis Data was Submitted to [facility] Via [employer]. Medications Medication Brand Name Start Date Product Form Dose Route Admi nistrative Instructions Pharmacy Instructions Status Indications Reaction Description Data Source(s) 14 ACTUAT fluticasone furoate 0.1 MG/ACTUAT Dry Powder Inhaler [Arnuity] Arnuity Ellipta 05/10/2021 12:00:00 AM EDT RESPIRATORY active [facility] ([facility], ) 200 ACTUAT Albuterol 0.09 MG/ACTUAT Metered Dose Inhal er [Ventolin] Ventolin HFA 05/10/2021 12:00:00 AM EDT RESPIRATORY active MEDENT ([facility], ) Mirtazapine 30 MG Oral Tablet mirtazapine 04/20/2021 12:00:00 AM EDT 30 mg by mouth completed <td ID="Medica tionRxNorm_6">011015</td><td ID="MedicationMedication_6">mirtazapine</td><td ID="MedicationRoute_6">by mouth</td><td ID="MedicationRouteConcept_6">D92558</td><td ID="MedicationStartDate_6">04/20/2021</td><td ID="MedicationStopDate_6">07/07/2021</td><td ID="MedicationDosageFrequency_6">at bedtime</td><td ID="MedicationDuration_6">30</td><td ID="MedicationFormulaStrength_6">30 mg</td><td ID="MedicationDosageForm_6">tablet</td><td ID="MedicationDosageFormCode_6"></td><td ID="MedicationDosageDescription_6"></td><td ID="MedicationMedicationId_6">[id number]</td><td ID="MedicationAccount_6">[id number]</td><td ID="MedicationNpid_6">[id number]</td><td ID="MedicationAuthorFirstName_6">Pipo</td><td ID="MedicationAuthorLastName_6">Pinzon</td><td ID="MedicationTaxonomyCode_6">[id number]</td><td ID="MedicationTaxonomyDesc_6">Nurse Practitioner</td><td ID="MedicationPhoneNumber_6">[phone]</td> [facility] ([facility]) quetiapine 25 MG Oral Tablet quetiapine 04/08/2021 12:00:00 AM EDT 25 mg by mouth completed <td ID="Medica tionRxNorm_1">[id number]</td><td ID="MedicationMedication_1">quetiapine</td><td ID="MedicationRoute_1">by mouth</td><td ID="MedicationRouteConcept_1">F16019</td><td ID="MedicationStartDate_1">04/08/2021</td><td ID="MedicationStopDate_1">06/07/2021</td><td ID="MedicationDosageFrequency_1">once a day</td><td ID="MedicationDuration_1">30</td><td ID="MedicationFormulaStrength_1">25 mg</td><td ID="MedicationDosageForm_1">tablet</td><td ID="MedicationDosageFormCode_1"></td><td ID="MedicationDosageDescription_1">as needed</td><td ID="MedicationMedicationId_1">[id number]</td><td ID="MedicationAccount_1">[id number]</td><td ID="MedicationNpid_1">[id number]</td><td ID="MedicationAuthorFirstName_1">Pipo</td><td ID="MedicationAuthorLastName_1">Pinzon</td><td ID="MedicationTaxonomyCode_1">[id number]</td><td ID="MedicationTaxonomyDesc_1">Nurse Practitioner</td><td ID="MedicationPhoneNumber_1">[phone]</td> [facility] ([facility]) doxycycline hyclate 100 MG Oral Capsule Doxycycline Hy clate 100 MG Doxycycline Hyclate 100 MG 03/07/2021 12:00:00 AM EDT 1.0 {capsule} active Doxycycline Hyclate 100 MG eCW1 ([facility]) doxycycline hyclate 100 MG Oral Capsule Doxycycline Hy clate 100 MG Doxycycline Hyclate 100 MG 03/07/2021 12:00:00 AM EDT 1.0 {capsule} active Doxycycline Hyclate 100 MG eCW1 ([facility]) doxycycline hyclate 100 MG Oral Capsule Doxycycline Hy clate 100 MG Doxycycline Hyclate 100 MG 03/07/2021 12:00:00 AM EDT 1.0 {capsule} active Doxycycline Hyclate 100 MG eCW1 ([facility]) doxycycline hyclate 100 MG Oral Capsule Doxycycline Hy clate 100 MG Doxycycline Hyclate 100 MG 03/07/2021 12:00:00 AM EDT 1.0 {capsule} active Doxycycline Hyclate 100 MG eCW1 ([facility]) doxycycline hyclate 100 MG Oral Capsule Doxycycline Hy clate 100 MG Doxycycline Hyclate 100 MG 03/07/2021 12:00:00 AM EDT 1.0 {capsule} active Doxycycline Hyclate 100 MG eCW1 ([facility]) doxycycline hyclate 100 MG Oral Capsule Doxycycline Hy clate 100 MG Doxycycline Hyclate 100 MG 03/07/2021 12:00:00 AM EDT 1.0 {capsule} active Doxycycline Hyclate 100 MG eCW1 ([facility]) doxycycline hyclate 100 MG Oral Capsule Doxycycline Hy clate 100 MG Doxycycline Hyclate 100 MG 03/07/2021 12:00:00 AM EDT 1.0 {capsule} active Doxycycline Hyclate 100 MG eCW1 ([facility]) doxycycline hyclate 100 MG Oral Capsule Doxycycline Hy clate 100 MG Doxycycline Hyclate 100 MG 03/07/2021 12:00:00 AM EDT 1.0 {capsule} active Doxycycline Hyclate 100 MG eCW1 ([facility]) doxycycline hyclate 100 MG Oral Capsule Doxycycline Hy clate 100 MG Doxycycline Hyclate 100 MG 03/07/2021 12:00:00 AM EDT 1.0 {capsule} active Doxycycline Hyclate 100 MG eCW1 ([facility]) doxycycline hyclate 100 MG Oral Capsule Doxycycline Hy clate 100 MG Doxycycline Hyclate 100 MG 03/07/2021 12:00:00 AM EDT 1.0 {capsule} active Doxycycline Hyclate 100 MG eCW1 ([facility]) doxycycline hyclate 100 MG Oral Capsule Doxycycline Hy clate 100 MG Doxycycline Hyclate 100 MG 03/07/2021 12:00:00 AM EDT 1.0 {capsule} active Doxycycline Hyclate 100 MG eCW1 ([facility]) doxycycline hyclate 100 MG Oral Capsule Doxycycline Hy clate 100 MG Doxycycline Hyclate 100 MG 03/07/2021 12:00:00 AM EDT 1.0 {capsule} active Doxycycline Hyclate 100 MG eCW1 ([facility]) 24 HR venlafaxine 37.5 MG Extended Release Oral Capsule venl afaxine 02/11/2021 12:00:00 AM EDT 37.5 mg by mouth completed <td ID="MedicationRxNorm_4">[id number]</td><td ID="MedicationMedication_4">venlafaxine</td><td ID="MedicationRoute_4">by mouth</td><td ID="MedicationRouteConcept_4">[id number]</td><td ID="MedicationStartDate_4">02/11/2021</td><td ID="MedicationStopDate_4">04/12/2021</td><td ID="MedicationDosageFrequency_4">once a day</td><td ID="MedicationDuration_4">30</td><td ID="MedicationFormulaStrength_4">37.5 mg</td><td ID="MedicationDosageForm_4">capsule,extended release 24hr</td><td ID="MedicationDosageFormCode_4"></td><td ID="MedicationDosageDescription_4"></td><td ID="MedicationMedicationId_4">[id number]</td><td ID="MedicationAccount_4">[id number]</td><td ID="MedicationNpid_4">[id number]</td><td ID="MedicationAuthorFirstName_4">Pipo</td><td ID="MedicationAuthorLastName_4">Pinzon</td><td ID="MedicationTaxonomyCode_4">[id number]</td><td ID="MedicationTaxonomyDesc_4"> Nurse Practitioner</td><td ID="MedicationPhoneNumber_4">[phone]</td> [facility] ([facility]) 24 HR venlafaxine 37.5 MG Extended Release Oral Capsule venl afaxine 02/11/2021 12:00:00 AM EDT 37.5 mg by mouth completed <td ID="MedicationRxNorm_5">[id number]</td><td ID="MedicationMedication_5">venlafaxine</td><td ID="MedicationRoute_5">by mouth</td><td ID="MedicationRouteConcept_5">[id number]</td><td ID="MedicationStartDate_5">02/11/2021</td><td ID="MedicationStopDate_5">07/07/2021</td><td ID="MedicationDosageFrequency_5">once a day</td><td ID="MedicationDuration_5">30</td><td ID="MedicationFormulaStrength_5">37.5 mg</td><td ID="MedicationDosageForm_5">capsule,extended release 24hr</td><td ID="MedicationDosageFormCode_5"></td><td ID="MedicationDosageDescription_5"></td><td ID="MedicationMedicationId_5">[id number]</td><td ID="MedicationAccount_5">[id number]</td><td ID="MedicationNpid_5">[id number]</td><td ID="MedicationAuthorFirstName_5">Pipo</td><td ID="MedicationAuthorLastName_5">Pinzon</td><td ID="MedicationTaxonomyCode_5">[id number]</td><td ID="MedicationTaxonomyDesc_5"> Nurse Practitioner</td><td ID="MedicationPhoneNumber_5">[phone]</td> [facility] ([facility]) Sumatriptan 50 MG Oral Tablet SUMAtriptan Succinate 50 MG SUMAtriptan Succinate 50 MG 12/30/2020 12:00:00 AM EDT active SUMAtriptan Succinate 50 MG eCW1 ([facility]) Sumatriptan 50 MG Oral Tablet SUMAtriptan Succinate 50 MG SUMAtriptan Succinate 50 MG 12/30/2020 12:00:00 AM EDT active SUMAtriptan Succinate 50 MG eCW1 ([facility]) Sumatriptan 50 MG Oral Tablet SUMAtriptan Succinate 50 MG SUMAtriptan Succinate 50 MG 12/30/2020 12:00:00 AM EDT active SUMAtriptan Succinate 50 MG eCW1 ([facility]) Sumatriptan 50 MG Oral Tablet Sumatriptan Succinate 50 MG Sumatriptan Succinate 50 MG 12/30/2020 12:00:00 AM EDT active Sumatriptan Succinate 50 MG eCW1 ([facility]) Sumatriptan 50 MG Oral Tablet SUMAtriptan Succinate 50 MG SUMAtriptan Succinate 50 MG 12/30/2020 12:00:00 AM EDT active SUMAtriptan Succinate 50 MG eCW1 ([facility]) Sumatriptan 50 MG Oral Tablet SUMAtriptan Succinate 50 MG SUMAtriptan Succinate 50 MG 12/30/2020 12:00:00 AM EDT active SUMAtriptan Succinate 50 MG eCW1 ([facility]) Sumatriptan 50 MG Oral Tablet SUMAtriptan Succinate 50 MG SUMAtriptan Succinate 50 MG 12/30/2020 12:00:00 AM EDT active SUMAtriptan Succinate 50 MG eCW1 ([facility]) Sumatriptan 50 MG Oral Tablet SUMAtriptan Succinate 50 MG SUMAtriptan Succinate 50 MG 12/30/2020 12:00:00 AM EDT active SUMAtriptan Succinate 50 MG eCW1 ([facility]) Sumatriptan 50 MG Oral Tablet SUMAtriptan Succinate 50 MG SUMAtriptan Succinate 50 MG 12/30/2020 12:00:00 AM EDT active SUMAtriptan Succinate 50 MG eCW1 ([facility]) Sumatriptan 50 MG Oral Tablet SUMAtriptan Succinate 50 MG SUMAtriptan Succinate 50 MG 12/30/2020 12:00:00 AM EDT active SUMAtriptan Succinate 50 MG eCW1 ([facility]) Sumatriptan 50 MG Oral Tablet SUMAtriptan Succinate 50 MG SUMAtriptan Succinate 50 MG 12/30/2020 12:00:00 AM EDT active SUMAtriptan Succinate 50 MG eCW1 ([facility]) Sumatriptan 50 MG Oral Tablet SUMAtriptan Succinate 50 MG SUMAtriptan Succinate 50 MG 12/30/2020 12:00:00 AM EDT active SUMAtriptan Succinate 50 MG eCW1 ([facility]) Sumatriptan 50 MG Oral Tablet SUMAtriptan Succinate 50 MG SUMAtriptan Succinate 50 MG 12/30/2020 12:00:00 AM EDT active SUMAtriptan Succinate 50 MG eCW1 ([facility]) Naproxen 500 MG Oral Tablet Naproxen 500 MG 12/30/2020 12:00:00 AM EDT active Naproxen 500 MG eCW1 ([facility]) Sumatriptan 50 MG Oral Tablet Sumatriptan Succinate 50 MG Sumatriptan Succinate 50 MG 12/30/2020 12:00:00 AM EDT active eCW1 ([facility]) Sumatriptan 50 MG Oral Tablet SUMAtriptan Succinate 50 MG SUMAtriptan Succinate 50 MG 12/30/2020 12:00:00 AM EDT active SUMAtriptan Succinate 50 MG eCW1 ([facility]) Naproxen 500 MG Oral Tablet Naproxen 500 MG 12/30/2020 12:00:00 AM EDT active eCW1 ([facility]) Sumatriptan 50 MG Oral Tablet SUMAtriptan Succinate 50 MG SUMAtriptan Succinate 50 MG 12/30/2020 12:00:00 AM EDT active SUMAtriptan Succinate 50 MG eCW1 ([facility]) Sumatriptan 50 MG Oral Tablet SUMAtriptan Succinate 50 MG SUMAtriptan Succinate 50 MG 12/30/2020 12:00:00 AM EDT active SUMAtriptan Succinate 50 MG eCW1 ([facility]) Sumatriptan 50 MG Oral Tablet SUMAtriptan Succinate 50 MG SUMAtriptan Succinate 50 MG 12/30/2020 12:00:00 AM EDT active SUMAtriptan Succinate 50 MG eCW1 ([facility]) Mirtazapine 30 MG Oral Tablet mirtazapine 11/26/2020 12:00:00 AM EDT 30 mg by mouth completed <td ID="Medica tionRxNorm_4">[id number]</td><td ID="MedicationMedication_4">mirtazapine</td><td ID="MedicationRoute_4">by mouth</td><td ID="MedicationRouteConcept_4">[id number]</td><td ID="MedicationStartDate_4">11/26/2020</td><td ID="MedicationStopDate_4">02/24/2021</td><td ID="MedicationDosageFrequency_4">at bedtime</td><td ID="MedicationDuration_4">30</td><td ID="MedicationFormulaStrength_4">30 mg</td><td ID="MedicationDosageForm_4">tablet</td><td ID="MedicationDosageFormCode_4"></td><td ID="MedicationDosageDescription_4"></td><td ID="MedicationMedicationId_4">[id number]</td><td ID="MedicationAccount_4">[id number]</td><td ID="MedicationNpid_4">[id number]</td><td ID="MedicationAuthorFirstName_4">Pipo</td><td ID="MedicationAuthorLastName_4">Pinzon</td><td ID="MedicationTaxonomyCode_4">[id number]</td><td ID="MedicationTaxonomyDesc_4">Nurse Practitioner</td><td ID="MedicationPhoneNumber_4">[phone]</td> [facility] ([facility]) Insulin Lispro 100 UNT/ML Injectable Solution Insulin Lispro 11/11/2020 12:00:00 AM EDT active [facility] ([facility]) 24 HR Metformin hydrochloride 500 MG Extended Release Oral Tablet Metformin HCL ER 11/11/2020 12:00:00 AM EDT ORAL active [facility] ([facility]) Propranolol Hydrochloride 10 MG Oral Tablet propranolol 10/08/2020 12:00:00 AM EST 10 mg completed <td ID ="MedicationRxNorm_3">[id number]</td><td ID="MedicationMedication_3">propranolol</td><td ID="MedicationRoute_3"></td><td ID="MedicationRouteConcept_3"></td><td ID="MedicationStartDate_3">10/08/2020</td><td ID="MedicationStopDate_3"></td><td ID="MedicationDosageFrequency_3"></td><td ID="MedicationDuration_3">30</td><td ID="MedicationFormulaStrength_3">10 mg</td><td ID="MedicationDosageForm_3">tablet</td><td ID="MedicationDosageFormCode_3"></td><td ID="MedicationDosageDescription_3"></td><td ID="MedicationMedicationId_3">[id number]</td><td ID="MedicationAccount_3">[id number]</td><td ID="MedicationNpid_3">[id number]</td><td ID="MedicationAuthorFirstName_3">Pipo</td><td ID="MedicationAuthorLastName_3">Pinzon</td><td ID="MedicationTaxonomyCode_3">[id number]</td><td ID="MedicationTaxonomyDesc_3">Nurse Practitioner</td><td ID="MedicationPhoneNumber_3">[phone]</td> [facility] ([facility]) Propranolol Hydrochloride 10 MG Oral Tablet propranolol 10/08/2020 12:00:00 AM EST 10 mg completed <td ID ="MedicationRxNorm_4">[id number]</td><td ID="MedicationMedication_4">propranolol</td><td ID="MedicationRoute_4"></td><td ID="MedicationRouteConcept_4"></td><td ID="MedicationStartDate_4">10/08/2020</td><td ID="MedicationStopDate_4">07/07/2021</td><td ID="MedicationDosageFrequency_4"></td><td ID="MedicationDuration_4">30</td><td ID="MedicationFormulaStrength_4">10 mg</td><td ID="MedicationDosageForm_4">tablet</td><td ID="MedicationDosageFormCode_4"></td><td ID="MedicationDosageDescription_4"></td><td ID="MedicationMedicationId_4">[id number]</td><td ID="MedicationAccount_4">[id number]</td><td ID="MedicationNpid_4">[id number]</td><td ID="MedicationAuthorFirstName_4">Pipo</td><td ID="MedicationAuthorLastName_4">Pinzon</td><td ID="MedicationTaxonomyCode_4">[id number]</td><td ID="MedicationTaxonomyDesc_4">Nurse Practitioner</td><td ID="MedicationPhoneNumber_4">[phone]</td> [facility] ([facility]) Propranolol Hydrochloride 10 MG Oral Tablet Propranolo l HCl 10 MG Propranolol HCl 10 MG 09/18/2020 12:00:00 AM EST 1.0 {tablet} ac tive Propranolol HCl 10 MG eCW1 ([facility]) Propranolol Hydrochloride 10 MG Oral Tablet Propranolo l HCl 10 MG Propranolol HCl 10 MG 09/18/2020 12:00:00 AM EST 1.0 {tablet} ac tive Propranolol HCl 10 MG eCW1 ([facility]) Propranolol Hydrochloride 10 MG Oral Tablet Propranolo l HCl 10 MG Propranolol HCl 10 MG 09/18/2020 12:00:00 AM EST 1.0 {tablet} ac tive Propranolol HCl 10 MG eCW1 ([facility]) Propranolol Hydrochloride 10 MG Oral Tablet Propranolo l HCl 10 MG Propranolol HCl 10 MG 09/18/2020 12:00:00 AM EST 1.0 {tablet} ac tive Propranolol HCl 10 MG eCW1 ([facility]) Propranolol Hydrochloride 10 MG Oral Tablet Propranolo l HCl 10 MG Propranolol HCl 10 MG 09/18/2020 12:00:00 AM EST 1.0 {tablet} active eCW1 ([facility]) Propranolol Hydrochloride 10 MG Oral Tablet Propranolo l HCl 10 MG Propranolol HCl 10 MG 09/18/2020 12:00:00 AM EST 1.0 {tablet} ac tive Propranolol HCl 10 MG eCW1 ([facility]) Propranolol Hydrochloride 10 MG Oral Tablet Propranolo l HCl 10 MG Propranolol HCl 10 MG 09/18/2020 12:00:00 AM EST 1.0 {tablet} ac tive Propranolol HCl 10 MG eCW1 ([facility]) Propranolol Hydrochloride 10 MG Oral Tablet Propranolo l HCl 10 MG Propranolol HCl 10 MG 09/18/2020 12:00:00 AM EST 1.0 {tablet} ac tive Propranolol HCl 10 MG eCW1 ([facility]) Propranolol Hydrochloride 10 MG Oral Tablet Propranolo l HCl 10 MG Propranolol HCl 10 MG 09/18/2020 12:00:00 AM EST 1.0 {tablet} ac tive Propranolol HCl 10 MG eCW1 ([facility]) Propranolol Hydrochloride 10 MG Oral Tablet Propranolo l HCl 10 MG Propranolol HCl 10 MG 09/18/2020 12:00:00 AM EST 1.0 {tablet} ac tive Propranolol HCl 10 MG eCW1 ([facility]) Propranolol Hydrochloride 10 MG Oral Tablet Propranolo l HCl 10 MG Propranolol HCl 10 MG 09/18/2020 12:00:00 AM EST 1.0 {tablet} ac tive Propranolol HCl 10 MG eCW1 ([facility]) Propranolol Hydrochloride 10 MG Oral Tablet Propranolo l HCl 10 MG Propranolol HCl 10 MG 09/18/2020 12:00:00 AM EST 1.0 {tablet} ac tive Propranolol HCl 10 MG eCW1 ([facility]) Propranolol Hydrochloride 10 MG Oral Tablet Propranolo l HCl 10 MG Propranolol HCl 10 MG 09/18/2020 12:00:00 AM EST 1.0 {tablet} ac tive Propranolol HCl 10 MG eCW1 ([facility]) Propranolol Hydrochloride 10 MG Oral Tablet Propranolo l HCl 10 MG Propranolol HCl 10 MG 09/18/2020 12:00:00 AM EST 1.0 {tablet} ac tive Propranolol HCl 10 MG eCW1 ([facility]) Propranolol Hydrochloride 10 MG Oral Tablet Propranolo l HCl 10 MG Propranolol HCl 10 MG 09/18/2020 12:00:00 AM EST 1.0 {tablet} ac tive Propranolol HCl 10 MG eCW1 ([facility]) Propranolol Hydrochloride 10 MG Oral Tablet Propranolo l HCl 10 MG Propranolol HCl 10 MG 09/18/2020 12:00:00 AM EST 1.0 {tablet} ac tive Propranolol HCl 10 MG eCW1 ([facility]) Propranolol Hydrochloride 10 MG Oral Tablet Propranolo l HCl 10 MG Propranolol HCl 10 MG 09/18/2020 12:00:00 AM EST 1.0 {tablet} ac tive Propranolol HCl 10 MG eCW1 ([facility]) Propranolol Hydrochloride 10 MG Oral Tablet Propranolo l HCl 10 MG Propranolol HCl 10 MG 09/18/2020 12:00:00 AM EST 1.0 {tablet} ac tive Propranolol HCl 10 MG eCW1 ([facility]) Propranolol Hydrochloride 10 MG Oral Tablet Propranolo l HCl 10 MG Propranolol HCl 10 MG 09/18/2020 12:00:00 AM EST 1.0 {tablet} ac tive Propranolol HCl 10 MG eCW1 ([facility]) Propranolol Hydrochloride 10 MG Oral Tablet Propranolo l HCl 10 MG Propranolol HCl 10 MG 09/18/2020 12:00:00 AM EST 1.0 {tablet} ac tive Propranolol HCl 10 MG eCW1 ([facility]) Propranolol Hydrochloride 10 MG Oral Tablet Propranolo l HCl 10 MG Propranolol HCl 10 MG 09/18/2020 12:00:00 AM EST 1.0 {tablet} ac tive Propranolol HCl 10 MG eCW1 ([facility]) Propranolol Hydrochloride 10 MG Oral Tablet Propranolo l HCl 10 MG Propranolol HCl 10 MG 09/18/2020 12:00:00 AM EST 1.0 {tablet} ac tive Propranolol HCl 10 MG eCW1 ([facility]) Propranolol Hydrochloride 10 MG Oral Tablet Propranolo l HCl 10 MG Propranolol HCl 10 MG 09/18/2020 12:00:00 AM EST 1.0 {tablet} ac tive Propranolol HCl 10 MG eCW1 ([facility]) Propranolol Hydrochloride 10 MG Oral Tablet Propranolo l HCl 10 MG Propranolol HCl 10 MG 09/18/2020 12:00:00 AM EST 1.0 {tablet} ac tive Propranolol HCl 10 MG eCW1 ([facility]) Propranolol Hydrochloride 10 MG Oral Tablet Propranolo l HCl 10 MG Propranolol HCl 10 MG 09/18/2020 12:00:00 AM EST 1.0 {tablet} ac tive Propranolol HCl 10 MG eCW1 ([facility]) quetiapine 200 MG Oral Tablet quetiapine 08/09/2020 12:00:00 AM EST 200 mg completed <td ID="Medicat ionRxNorm_1">[id number]</td><td ID="MedicationMedication_1">quetiapine</td><td ID="MedicationRoute_1"></td><td ID="MedicationRouteConcept_1"></td><td ID="MedicationStartDate_1">08/09/2020</td><td ID="MedicationStopDate_1"></td><td ID="MedicationDosageFrequency_1"></td><td ID="MedicationDuration_1">30</td><td ID="MedicationFormulaStrength_1">200 mg</td><td ID="MedicationDosageForm_1">tablet</td><td ID="MedicationDosageFormCode_1"></td><td ID="MedicationDosageDescription_1"></td><td ID="MedicationMedicationId_1">[id number]</td><td ID="MedicationAccount_1">[id number]</td><td ID="MedicationNpid_1">[id number]</td><td ID="MedicationAuthorFirstName_1">Pipo</td><td ID="MedicationAuthorLastName_1">Pinzon</td><td ID="MedicationTaxonomyCode_1">[id number]</td><td ID="MedicationTaxonomyDesc_1">Nurse Practitioner</td><td ID="MedicationPhoneNumber_1">[phone]</td> [facility] ([facility]) Propranolol Hydrochloride 10 MG Oral Tablet propranolol 08/09/2020 12:00:00 AM EST 10 mg completed <td ID ="MedicationRxNorm_1">[id number]</td><td ID="MedicationMedication_1">propranolol</td><td ID="MedicationRoute_1"></td><td ID="MedicationRouteConcept_1"></td><td ID="MedicationStartDate_1">08/09/2020</td><td ID="MedicationStopDate_1"></td><td ID="MedicationDosageFrequency_1"></td><td ID="MedicationDuration_1">30</td><td ID="MedicationFormulaStrength_1">10 mg</td><td ID="MedicationDosageForm_1">tablet</td><td ID="MedicationDosageFormCode_1"></td><td ID="MedicationDosageDescription_1"></td><td ID="MedicationMedicationId_1">[id number]</td><td ID="MedicationAccount_1">[id number]</td><td ID="MedicationNpid_1">[id number]</td><td ID="MedicationAuthorFirstName_1">Pipo</td><td ID="MedicationAuthorLastName_1">Pinzon</td><td ID="MedicationTaxonomyCode_1">[id number]</td><td ID="MedicationTaxonomyDesc_1">Nurse Practitioner</td><td ID="MedicationPhoneNumber_1">[phone]</td> [facility] ([facility]) 24 HR venlafaxine 75 MG Extended Release Oral Capsule venlaf axine 08/09/2020 12:00:00 AM EST 75 mg completed <td ID="MedicationRxNorm_2">[id number]</td><td ID="MedicationMedication_2">venlafaxine</td><td ID="MedicationRoute_2"></td><td ID="MedicationRouteConcept_2"></td><td ID="MedicationStartDate_2">08/09/2020</td><td ID="MedicationStopDate_2"></td><td ID="MedicationDosageFrequency_2"></td><td ID="MedicationDuration_2">30</td><td ID="MedicationFormulaStrength_2">75 mg</td><td ID="MedicationDosageForm_2">capsule,extended release 24hr</td><td ID="MedicationDosageFormCode_2"></td><td ID="MedicationDosageDescription_2"></td><td ID="MedicationMedicationId_2">[id number]</td><td ID="MedicationAccount_2">[id number]</td><td ID="MedicationNpid_2">[id number]</td><td ID="MedicationAuthorFirstName_2">Pipo</td><td ID="MedicationAuthorLastName_2">Pinzon</td><td ID="MedicationTaxonomyCode_2">[id number]</td><td ID="MedicationTaxonomyDesc_2"> Nurse Practitioner</td><td ID="MedicationPhoneNumber_2">[phone]</td> [facility] ([facility]) quetiapine 200 MG Oral Tablet quetiapine 08/09/2020 12:00:00 AM EST 200 mg completed <td ID="Medicat ionRxNorm_2">[id number]</td><td ID="MedicationMedication_2">quetiapine</td><td ID="MedicationRoute_2"></td><td ID="MedicationRouteConcept_2"></td><td ID="MedicationStartDate_2">08/09/2020</td><td ID="MedicationStopDate_2">07/07/2021</td><td ID="MedicationDosageFrequency_2"></td><td ID="MedicationDuration_2">30</td><td ID="MedicationFormulaStrength_2">200 mg</td><td ID="MedicationDosageForm_2">tablet</td><td ID="MedicationDosageFormCode_2"></td><td ID="MedicationDosageDescription_2"></td><td ID="MedicationMedicationId_2">[id number]</td><td ID="MedicationAccount_2">[id number]</td><td ID="MedicationNpid_2">[id number]</td><td ID="MedicationAuthorFirstName_2">Pipo</td><td ID="MedicationAuthorLastName_2">Pinzon</td><td ID="MedicationTaxonomyCode_2">[id number]</td><td ID="MedicationTaxonomyDesc_2">Nurse Practitioner</td><td ID="MedicationPhoneNumber_2">[phone]</td> [facility] ([facility]) 24 HR venlafaxine 75 MG Extended Release Oral Capsule venlaf axine 08/09/2020 12:00:00 AM EST 75 mg completed <td ID="MedicationRxNorm_3">[id number]</td><td ID="MedicationMedication_3">venlafaxine</td><td ID="MedicationRoute_3"></td><td ID="MedicationRouteConcept_3"></td><td ID="MedicationStartDate_3">08/09/2020</td><td ID="MedicationStopDate_3">07/07/2021</td><td ID="MedicationDosageFrequency_3"></td><td ID="MedicationDuration_3">30</td><td ID="MedicationFormulaStrength_3">75 mg</td><td ID="MedicationDosageForm_3">capsule,extended release 24hr</td><td ID="MedicationDosageFormCode_3"></td><td ID="MedicationDosageDescription_3"></td><td ID="MedicationMedicationId_3">[id number]</td><td ID="MedicationAccount_3">[id number]</td><td ID="MedicationNpid_3">[id number]</td><td ID="MedicationAuthorFirstName_3">Pipo</td><td ID="MedicationAuthorLastName_3">Pinzon</td><td ID="MedicationTaxonomyCode_3">[id number]</td><td ID="MedicationTaxonomyDesc_3"> Nurse Practitioner</td><td ID="MedicationPhoneNumber_3">[phone]</td> [facility] ([facility]) +++ No Meds No Show+++ 06/10/2020 12:00:00 AM EDT completed [facility] ([facility]) quetiapine 100 MG Oral Tablet quetiapine 05/13/2020 12:00:00 AM EDT 100 mg by mouth completed <td ID="Medica tionRxNorm_2">[id number]</td><td ID="MedicationMedication_2">quetiapine</td><td ID="MedicationRoute_2">by mouth</td><td ID="MedicationRouteConcept_2">[id number]</td><td ID="MedicationStartDate_2">05/13/2020</td><td ID="MedicationStopDate_2">08/11/2020</td><td ID="MedicationDosageFrequency_2">at bedtime</td><td ID="MedicationDuration_2">30</td><td ID="MedicationFormulaStrength_2">100 mg</td><td ID="MedicationDosageForm_2">tablet</td><td ID="MedicationDosageFormCode_2"></td><td ID="MedicationDosageDescription_2"></td><td ID="MedicationMedicationId_2">[id number]</td><td ID="MedicationAccount_2">[id number]</td><td ID="MedicationNpid_2">[id number]</td><td ID="MedicationAuthorFirstName_2">Pipo</td><td ID="MedicationAuthorLastName_2">Pinzon</td><td ID="MedicationTaxonomyCode_2">[id number]</td><td ID="MedicationTaxonomyDesc_2">Nurse Practitioner</td><td ID="MedicationPhoneNumber_2">[phone]</td> [facility] ([facility]) 24 HR venlafaxine 75 MG Extended Release Oral Capsule venlaf axine 05/13/2020 12:00:00 AM EDT 75 mg by mouth completed <td ID="MedicationRxNorm_1">[id number]</td><td ID="MedicationMedication_1">venlafaxine</td><td ID="MedicationRoute_1">by mouth</td><td ID="MedicationRouteConcept_1">[id number]</td><td ID="MedicationStartDate_1">05/13/2020</td><td ID="MedicationStopDate_1">08/11/2020</td><td ID="MedicationDosageFrequency_1">once a day</td><td ID="MedicationDuration_1">30</td><td ID="MedicationFormulaStrength_1">75 mg</td><td ID="MedicationDosageForm_1">capsule,extended release 24hr</td><td ID="MedicationDosageFormCode_1"></td><td ID="MedicationDosageDescription_1"></td><td ID="MedicationMedicationId_1">[id number]</td><td ID="MedicationAccount_1">[id number]</td><td ID="MedicationNpid_1">[id number]</td><td ID="MedicationAuthorFirstName_1">Pipo</td><td ID="MedicationAuthorLastName_1">Pinzon</td><td ID="MedicationTaxonomyCode_1">[id number]</td><td ID="MedicationTaxonomyDesc_1"> Nurse Practitioner</td><td ID="MedicationPhoneNumber_1">[phone]</td> [facility] ([facility]) Propranolol Hydrochloride 10 MG Oral Tablet propranolol 05/13/2020 12:00:00 AM EDT 10 mg by mouth completed <td ID="MedicationRxNorm_3">[id number]</td><td ID="MedicationMedication_3">propranolol</td><td ID="MedicationRoute_3">by mouth</td><td ID="MedicationRouteConcept_3">[id number]</td><td ID="MedicationStartDate_3">05/13/2020</td><td ID="MedicationStopDate_3">08/11/2020</td><td ID="MedicationDosageFrequency_3">three times a day</td><td ID="MedicationDuration_3">30</td><td ID="MedicationFormulaStrength_3">10 mg</td><td ID="MedicationDosageForm_3">tablet</td><td ID="MedicationDosageFormCode_3"></td><td ID="MedicationDosageDescription_3">as needed</td><td ID="MedicationMedicationId_3">[id number]</td><td ID="MedicationAccount_3">[id number]</td><td ID="MedicationNpid_3">[id number]</td><td ID="MedicationAuthorFirstName_3">Pipo</td><td ID="MedicationAuthorLastName_3">Pinzon</td><td ID="MedicationTaxonomyCode_3">[id number]</td><td ID="MedicationTaxonomyDesc_3">Nurse Practitioner</td><td ID="MedicationPhoneNumber_3">[phone]</td> [facility] ([facility]) Admelog Admelog 05/06/2020 12:00:00 AM EDT active MEDENT ([facility] ) 3 ML Insulin Lispro 100 UNT/ML Pen Injector Insulin Lispro ( 1 Unit Dial) 05/06/2020 12:00:00 AM EDT completed MEDENT ([facility] ) Insulin Syringe/Needle 0.5ML/31G X /16" 05/06/2020 12:00:00 AM EDT active [facility]) +++ No Meds Till Seen+++ No Show 04/11/2020 12:00:00 AM EDT completed MED[facility] ([facility]) Insurance Providers Payer name Policy type / Coverage type Policy ID Covered alliance party ID Covered alliance party's relationship to de leon Policy [place] Plan Information [place] [facility] Plan Commercial [id number] Self [id number] [facility] [id number] Self 1 [id number] [facility] Sooqini [id number] Self [id number] [facility] COMMUNITY PLAN MCDHMO [id number] SP [id number] [facility] COMMUNITY PLAN MCDHMO [id number] SP [id number] [facility] Comm Plan Medicaid F [id number] SELF [id number] [facility] Comm Plan Medicaid F [id number] SELF [id number] [facility] Comm Plan Medicaid F [id number] SELF [id number] [facility] Comm Plan Medicaid F [id number] SELF [id number] [facility] I [id number] Self [id number] [facility]-Medicaid [id number] [facility] [id number] ANSI-Medicaid [id number] ANSI-Medicaid [id number] [facility] [id number] ANSI-Medicaid [id number] ANSI-Medicaid [id number] ANSI-Medicaid [id number] ANSI-Medicaid [id number] ANSI-Medicaid [id number] ANSI-Medicaid [id number] ANSI-Medicaid [id number] ANSI-Medicaid [id number] [facility] Maintenance [facility] ([facility]) [id number] Self [id number] [facility] ([facility]) [id number] Self [id number] ANSI-Medicaid [id number] ANSI-Medicaid [id number] ANSI-Medicaid [id number] ANSI-Medicaid [id number] ANSI-Medicaid [id number] ANSI-Medicaid [id number] ANSI-Medicaid [id number] ANSI-Medicaid [id number] ANSI-Medicaid [id number] ANSI-Medicaid [id number] ANSI-Medicaid [id number] ANSI-Medicaid [id number] ANSI-Medicaid [id number] ANSI-Medicaid [id number] ANSI-Medicaid [id number] ANSI-Medicaid [id number] ANSI-Medicaid [id number] ANSI-Medicaid [id number] ANSI-Medicaid [id number] [facility] [id number] ANSI-Medicaid [id number] [facility]ID) O [id number] S [id number] MEDICAID [id number] SP [id number] SELF PAY ONLY [id number] SP [id number] [employer] EPALS [id number] SP [id number] [place] P [id number] S [id number] SELF PAY UNAVAILABLE SP UNAVAILA BLE UNHC COMMUNITY PLAN MCDO [id number] SP [id number] UNHC COMMUNITY PLAN MCDO [id number] SP [id number] [facility]AN [facility] [id number] SP [id number] [facility]ID) O [id number] S [id number] UN COMMUNITY PLAN [facility] [id number] SP [id number] [facility]-Medicaid [id number] [facility] Health Maintenance Organization (HMO) [id number] Self [id number] [facility]-Medicaid [id number] [facility]-Medicaid [id number] Problems, Conditions, and Diagnoses Code Display Name Description Problem Type Effective Dates Data Source(s) F17.200 Nicotine dependence, unspecified, uncomp licated Tobacco Use Disorder, Moderate Condition 05/18/2021 12:00:00 AM EDT [facility] ( [facility]) F41.1 Generalized anxiety disorder Generalized Anxiety Disor moisés Condition 05/18/2021 12:00:00 AM EDT [facility] ([facility]) F43.9 Reaction to severe stress, unspecified U nspecified Trauma- and Stressor- Related Disorder Condition 05/18/2021 12:00:00 AM EDT [facility] ([facility]) F31.9 Bipolar disorder, unspecified Unspecified Bipola r and Related Disorder Condition 05/18/2021 12:00:00 AM EDT [facility] ([facility]) [id number] Essential hypertension Essential hypertension Problem 05/04/2021 12:00:00 AM EDT MEDENT ([facility]) G89.29 [id number] Other chronic pain Problem 04/28/2021 12:00: 00 AM EDT eCW1 ([facility]) G43.111 [id number] Intractable migraine with aura w ith status migrainosus Problem 12/30/2020 12:00:00 AM EDT eCW1 ([facility]) R41.3 [id number] Memory change Problem 12/30/2020 12:00:00 AM EDT eCW1 ([facility]) F31.9 Bipolar disorder Bipolar affective disorder, rem ission status unspecified Problem 10/01/2020 12:00:00 AM EST eCW1 ([facility]) F43.9 Reaction to severe stress, unspecified U nspecified Trauma- and Stressor- Related Disorder Condition 07/22/2020 12:00:00 AM EST [facility] ([facility]) F31.9 Bipolar disorder, unspecified Unspecified Bipola r and Related Disorder Condition 07/22/2020 12:00:00 AM EST [facility] ([facility]) F17.200 Nicotine dependence, unspecified, uncomp licated Tobacco Use Disorder, Moderate Condition 07/22/2020 12:00:00 AM EST [facility] ([facility]) F17.200 Nicotine dependence, unspecified, uncomp licated Tobacco Use Disorder, Moderate Condition 04/23/2020 12:00:00 AM EDT [facility] ([facility]) F41.9 Anxiety disorder, unspecified Unspecified Anxiety Diso rder Condition 04/23/2020 12:00:00 AM EDT [facility] ([facility]) Surgeries/Procedures Procedure Description Date Indications Data Source(s) [facility] Telemed E/M Lvl 3--Est pt 05/18/2021 12:00:00 AM EDT - 05/18/2021 12:00:00 AM EDT [facility] ([facility]) Telemed A/O 30" 05/18/2021 12:00:00 AM EDT [facility] ([facility]) [facility] Telemed E/M Lvl 3--Est pt 05/18/2021 12:00:00 AM E DT [facility] ([facility]) DEMO&/EVAL OF PT UTILIZ AERSL GEN/NEB/INHLR/IPPB 05/10 12:00:00 AM EDT MEDENT ([facility], ) OFFICE OUTPATIENT VISIT 25 MINUTES 05/10/2021 12:00:00 AM EDT MEDENT ([facility], ) TOBACCO USE CESSATION INTERMEDIATE 3-10 MINUTES 2020 12:00:00 AM EDT MEDENT ([facility], ) PREVENT MED ACCOUNTING SOFTWARE SPECIALIST&/RISK FACTOR REDJ SPX 30 MIN 05/04/2021 12:00:00 AM EDT - 05/04/2021 12:00:00 AM EDT [facility] ([facility]) PREVENT MED ACCOUNTING SOFTWARE SPECIALIST&/RISK FACTOR REDJ SPX 30 MIN 05/04 12:00:00 AM EDT [facility] ([facility]) RADEX SPINE LUMBOSACRAL MINIMUM 4 VIEWS 05/03/2021 12: 00:00 AM EDT MEDENT ([facility] ) RADEX SHOULDER COMPLETE MINIMUM 2 VIEWS 05/03/2021 12: 00:00 AM EDT MED[facility] ([facility] ) X-Ray Hip Unilateral With Pelvis 2-3 Views 05/03/2021 12:00:00 AM EDT MED[facility] ([facility] ) OFFICE OUTPATIENT NEW 45 MINUTES 05/03/2021 12:00:00 A M EDT MEDENT ([facility] ) MHC Telemed E/M Lvl 3--Est pt 04/08/2021 12:00:00 AM EDT - 04/08/2021 12:00:00 AM EDT [facility] ([facility]) Telemed A/O 30" 04/08/2021 12:00:00 AM EDT [facility] ([facility]) [facility] Telemed E/M Lvl 3--Est pt 04/08/2021 12:00:00 AM E DT [facility] ([facility]) Bronchospasm Evaluation 04/07/2021 12:00:00 AM EDT MEDENT ([facility], ) Plethysmography Determination Lung Volumes & Per Airway Resi st 04/07/2021 12:00:00 AM EDT MEDENT ([facility], ) DIFFUSING CAPACITY 04/07/2021 12:00:00 AM EDT MEDENT ([facility], ) Spirometry 03/09/2021 12:00:00 AM EDT M EDENT ([facility], ) OFFICE OUTPATIENT NEW 45 MINUTES 03/09/2021 12:00:00 A M EDT MED[facility] ([facility], ) [facility] Telemed E/M Lvl 3--Est pt 02/11/2021 12:00:00 AM EDT - 02/11/2021 12:00:00 AM EDT [facility] ([facility]) Telemed A/O 30" 02/11/2021 12:00:00 AM EDT [facility] ([facility]) [facility] Telemed E/M Lvl 3--Est pt 02/11/2021 12:00:00 AM E DT [facility] ([facility]) Medication: Triple Antibiotic packets (neomycin/bacitr acin/polymyxinb) ointment 02/03/2021 12:00:00 AM EDT eCW1 ([facility]) Extended Individual Psychotherapy - 45 min 12/31/2020 12:00:00 AM EDT - 12/31/2020 12:00:00 AM EDT [facility] ([facility]) Extended Individual Psychotherapy - 45 min 12:00:00 AM EDT [facility] ([facility]) [facility] Telemed E/M Lvl 3--Est pt 11/26/2020 12:00:00 AM EDT - 11/26/2020 12:00:00 AM EDT [facility] ([facility]) Telemed A/O 30" 11/26/2020 12:00:00 AM EDT [facility] ([facility]) MHC Telemed E/M Lvl 3--Est pt 11/26/2020 12:00:00 AM E DT [facility] ([facility]) Brief Individual Psychotherapy - 30 min 10/28/2020 12:00:00 AM EST - 10/28/2020 12:00:00 AM EST [facility] ([facility]) Brief Individual Psychotherapy - 30 min 10/28/2020 12: 00:00 AM EST [facility] ([facility]) MHC Telemed E/M Lvl 3--Est pt 10/01/2020 12:00:00 AM EST - 10/01/2020 12:00:00 AM EST [facility] ([facility]) Telemed A/O 30" 10/01/2020 12:00:00 AM EST [facility] ([facility]) MHC Telemed E/M Lvl 3--Est pt 10/01/2020 12:00:[address] [facility] ([facility]) Brief Individual Psychotherapy - 30 min 09/23/2020 12:00:00 AM EST - 09/23/2020 12:00:00 AM EST [facility] ([facility]) Brief Individual Psychotherapy - 30 min 09/23/2020 12: 00:00 AM EST [facility] ([facility]) MHC Telemed E/M Lvl 3--Est pt 08/27/2020 12:00:00 AM EST - 08/27/2020 12:00:00 AM EST [facility] ([facility]) Telemed A/O 30" 08/27/2020 12:00:00 AM EST [facility] ([facility]) MHC Telemed E/M Lvl 3--Est pt 08/27/2020 12:00:[address] [facility] ([facility]) MHC Telemed E/M Lvl 3--Est pt 07/30/2020 12:00:00 AM EST - 07/30/2020 12:00:00 AM EST [facility] ([facility]) Telemed A/O 30" 07/30/2020 12:00:00 AM EST [facility] ([facility]) MHC Telemed E/M Lvl 3--Est pt 07/30/2020 12:00:[address] [facility] ([facility]) Extended Individual Psychotherapy - 45 min 07/22/2020 12:00:00 AM EST - 07/22/2020 12:00:00 AM EST [facility] ([facility]) Extended Individual Psychotherapy - 45 min 0 12:00:00 AM EST [facility] ([facility]) MHC Telemed E/M Lvl 3--Est pt 06/25/2020 12:00:00 AM EST - 06/25/2020 12:00:00 AM EST [facility] ([facility]) Telemed A/O 30" 06/25/2020 12:00:00 AM EST [facility] ([facility]) MHC Telemed E/M Lvl 3--Est pt 06/25/2020 12:00:[address] [facility] ([facility]) Extended Individual Psychotherapy - 45 min 06/24/2020 12:00:00 AM EST - 06/24/2020 12:00:00 AM EST [facility] ([facility]) Extended Individual Psychotherapy - 45 min 0 12:00:00 AM EST [facility] ([facility]) MHC Telemed E/M Lvl 3--Est pt 06/04/2020 12:00:00 AM EDT - 06/04/2020 12:00:00 AM EDT [facility] ([facility]) Telemed A/O 30" 06/04/2020 12:00:00 AM EDT [facility] ([facility]) MHC Telemed E/M Lvl 3--Est pt 06/04/2020 12:00:00 AM E DT [facility] ([facility]) Brief Individual Psychotherapy - 30 min 05/27/2020 12:00:00 AM EDT - 05/27/2020 12:00:00 AM EDT [facility] ([facility]) Brief Individual Psychotherapy - 30 min 05/27/2020 12: 00:00 AM EDT [facility] ([facility]) Extended Individual Psychotherapy - 45 min 05/21/2020 12:00:00 AM EDT - 05/21/2020 12:00:00 AM EDT [facility] ([facility]) Extended Individual Psychotherapy - 45 min 0 12:00:00 AM EDT [facility] ([facility]) DEBRIDEMENT NAIL ANY METHOD 05/14/2020 12:00:00 AM EDT MED[facility] ([facility] Telemed Diagnostic Eval 05/13/2020 12:00 :00 AM EDT - 05/13/2020 12:00:00 AM EDT [facility] ([facility]) Telemed Diagnostic Eval 05/13/2020 12:00:00 AM EDT [facility] ([facility]) Brief Individual Psychotherapy - 30 min 04/23/2020 12:00:00 AM EDT - 04/23/2020 12:00:00 AM EDT [facility] ([facility]) Brief Individual Psychotherapy - 30 min 04/23/2020 12: 00:00 AM EDT [facility] ([facility]) Results ID Date Data Source [id number] 04/07/2021 01:04:00 PM EDT [facility] Name Value Range Interpretation Code Description Data Lois rce(s) Supporting Document(s) [facility] Laboratory test result MEDENT ([facility], ) ID Date Data Source [id number] 03/29/2021 12:37:28 PM EDT [facility], PCName: Court Oneal: [...] The patient was last seen by a [facility] provider on 01/25/2021. At [...] to report pain. Patient was followed by [facility] pain clinic in the past however had narcotic privileges taken away due to illicit substances and inconsistent UDS is. Pt states she was given oxycodone by pain clinic, left her pills at home, had a migraine and her friend gave her hydrocodone and she tested + for hydrocodone. She states she never used illicit substances. Patient has seen the [facility] pain clinic who offered caudal injections and [...] of Permanent pacemaker insertion VitalsVital Signs Recorded: [id number] 01:08PM Height: 5 ft 8 inWeight: 247 [...] - Survey Evaluation Evaluation Status: Complete Done: [id number] Depression Screening - Patient's PHQ-9 score is: [...] day? : N/A 2. Orthopedic Spine Surgery ([facility]) Referral Evaluation Evaluation Status: Hold For - Scheduling Requested for: [id number]. [place] per pt request- rebecca kapoor fnpRequest Surgical opinion: : Patient's RequestPrevious [...] Weight loss was discussed and encouraged. - ACCOUNTING SOFTWARE SPECIALIST: The patient was counseled on the following: [...] to report pain. Patient was followed by [facility] pain clinic in the past however had narcotic privileges taken away due to illicit substances and inconsistent UDS is. Pt states she was given oxycodone by pain clinic, left her pills at home, had a migraine and her friend gave her hydrocodone and she tested + for hydrocodone. She states she never used illicit substances. Patient has seen the [facility] pain clinic who offered caudal injections and [...] rce(s) Supporting Document(s) ID Date Data Source [id number] 03/09/2021 12:49:00 PM EDT MEDENT ([facility], ) Name Value Range Interpretation Code Description Data Lois rce(s) Supporting Document(s) PDFReport Laboratory test result MEDENT ([facility], ) FVC-Pred 4.10 L MEDENT ([facility], ) FVC-Pre 3.27 L MEDENT ([facility]) FVC-LLN 3.32 L MEDENT ([facility]) FVC-%Pred-Pre 79 L MEDENT ([facility]) Fev1-Pred 3.26 L MEDENT ([facility]) Fev1-%Pred-Pre 82 L [facility] ([facility]) Fev1-Pre 2.68 L MEDENT ([facility]) Fev1-LLN 2.60 L MEDENT ([facility]) Fev6-Pred 4.00 L MEDENT ([facility]) Fev6-Pre 3.27 L MEDENT ([facility]) Fev6-%Pred-Pre 81 L MED[facility] ([facility]) Fev6-LLN 3.23 L MEDENT ([facility]) Ifr2wyw-Jreg 81 % MEDENT ([facility]) Zhm5dql-Wyh 82 % MEDENT ([facility]) Rpl7mdg-VYY 71 % MEDENT ([facility]) Frm1tvc-%Pred-Pre 101 % MEDENT ([facility]) Pvp5sga-Gacx 98 % MEDENT ([facility]) Twf5eiq-Eqk 100 % MED[facility] ([facility]) Nzi9yom-%Pred-Pre 102 % MEDENT ([facility]) FEFMax-Pred 7.46 L/E/sec MED[facility] ([facility]) FEFMax-Pre 5.56 L/E/sec MEDENT ([facility], ) FEFMax-LLN 5.52 L/E/sec MEDENT ([facility]) FEFMax-%Pred-Pre 74 L/E/sec MEDENT ([facility]) Cfo2299-Mxfg 3.11 L/E/sec MEDENT ([facility]) Yqf6974-Xgz 2.89 L/E/sec MED[facility] ([facility]) Uly6666-%Pred-Pre 92 L/E/sec MEDENT ([facility]) Eht9640-EKF 1.71 L/E/sec MED[facility] ([facility]) Ccc5txs8-Eqiv 83 % MEDENT ([facility]) ExpTime-Pre 3.73 sec MEDENT ([facility]) Vib2bvv3-HQL 74 % MEDENT ([facility]) Ufn4pij5-%Pred-Pre 99 % MEDENT ([facility]) Cux0mhl7-Zqt 82 % MEDENT ([facility]) ID Date Data Source HCG, SERUM QUANTITATIVE 02/03/2021 12:00:00 AM EDT eCW1 ([facility]) Name Value Range Interpretation Code Description Data Lois rce(s) Supporting Document(s) 3 HCG, SERUM QUANTITATIVE W1 ( [facility]) ID Date Data Source [id number] 01/25/2021 02:13:20 PM EDT [facility], PCName: Court Oneal: 1975Provider: Ryan Kapoor: 01/25/2021 Chief ComplaintChronic low back pain [facility] Patient has signed a [facility] Controlled Substance and Treatment Agreement. Patient has [...] currently working. 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 The patient is being seen for an [...] to report pain. Patient was followed by [facility] pain clinic in the past however had narcotic privileges taken away due to illicit substances and inconsistent UDS is. Pt states she was given oxycodone by pain clinic, left her pills at home, had a migraine and her friend gave her hydrocodone and she tested + for hydrocodone. She states she never used illicit substances. Patient has seen the [facility] pain clinic who offered caudal injections and [...] - Survey Evaluation Evaluation Status: Complete Done: [id number] Depression Screening - Patient's PHQ-9 score is: [...] Status: Hold For - Scheduling Requested for: [id number] Appointment for 15 or 30 minutes : [...] Behavioral Health follow-up at that time. - ACCOUNTING SOFTWARE SPECIALIST: The patient was counseled on the following: [...] to report pain. Patient was followed by [facility] pain clinic in the past however had narcotic privileges taken away due to illicit substances and inconsistent UDS is. Pt states she was given oxycodone by pain clinic, left her pills at home, had a migraine and her friend gave her hydrocodone and she tested + for hydrocodone. She states she never used illicit substances. Patient has seen the [facility] pain clinic who offered caudal injections and [...] will also need to obtain notes from [facility] and reviewed with the S [...] rce(s) Supporting Document(s) ID Date Data Source [id number] 01/23/2021 02:52:00 PM EDT [facility] Name Value Range Interpretation Code Description Data Lois rce(s) Supporting Document(s) SARS coronavirus 2 RNA [Presence] in Res piratory specimen by JEANMARIE with probe detection NEGATIVE [facility] This lab was ordered by [facility] a nd reported by [facility]. ID Date Data Source [id number] 11/11/2020 02:30:00 PM EDT [facility] ([facility]) Name Value Range Interpretation Code Description Data Lois rce(s) Supporting Document(s) Glucose [Mass/volume] in Serum or Plasma [facility] ([facility]) Hemoglobin A1c/Hemoglobin.total in Blood Laboratory test result [facility] ([facility]) ID Date Data Source [id number] 09/14/2020 03:33:00 PM EST [facility] Name Value Range Interpretation Code Description Data Lois rce(s) Supporting Document(s) SARS coronavirus 2 RNA [Presence] in Res piratory specimen by JEANMARIE with probe detection NEGATIVE [facility] This lab was ordered by [facility] a nd reported by [facility]. ID Date Data Source [id number] 07/08/2020 12:00:00 AM EST [facility] Villafuerte MD Patient Name: COURT [id number] [facility] Date of : 1975Suite Date of Exam: 07/08/2020JOSE Braun [id number]#: Fax: [phone] EXAM: MRI KNEE RIGHT WITHOUT CONTRASTCLINICAL INFORMATION: Pain after recent trauma.3T multiplanar MRI imaging of the right knee was obtained using varioussequences.There are no prior right knee MRI's for comparison.There is Grade II signal change seen in the medial meniscus peripherymedially from [id number] without Grade III signal change. Thereis truncation [...] Other findings as described above.Accredited by the [employer] in MR.Wale Elias, PASHA/Nova valenzuela for referring ROLY IVAN to our office. Electronically Signed - WALE ELIAS DO 07/09/20 16:47 Name Value Range Interpretation Code Description Data Lois rce(s) Supporting Document(s) ID Date Data Source [id number] 06/16/2020 10:17:00 AM EDT [facility] ([facility]) Name Value Range Interpretation Code Description Data Lois rce(s) Supporting Document(s) Triglycerides Level 239 mg/dL [facility] ([facility]) Cholesterol Level 146 mg/dL [facility] ([facility]) HDL Cholesterol 33 mg/dL [facility] ([facility]) LDL Cholesterol 65 mg/dL [facility] ([facility]) Cholesterol Risk Ratio 4.424 [facility] ([facility]) Non-HDL-C 113 mg/dL [facility] ([facility]) ID Date Data Source [id number] 06/16/2020 10:17:00 AM EDT [facility] ([facility]) Name Value Range Interpretation Code Description Data Lois rce(s) Supporting Document(s) Glucose, Fasting 317 mg/dL 70-100 [facility] ([facility]) Creatinine For GFR 0.94 mg/dL 0.55-1.30 [facility] ([facility]) Glomerular Filtration Rate Laboratory test result [facility] ([facility]) <content>Units are mL/min/1.73 m2</content>
<content></content>
<content>Chronic Kidney Disease Staging per NKF:</content>
<content></content>
<content>Stage I & II GFR >=60 Normal to Mildly Decreased</content>
<content>Stage III GFR 30- 59 Moderately Decreased</content>
<content>Stage IV GFR 15-29 Severely Decreased</content>
<content>Stage V GFR <15 Very Little GFR Left</content>
<content>ESRD GFR <15 on [employer]</content>
<content></content> Blood Urea Nitrogen 15 mg/dL 7-18 [facility] ([facility]) Sodium Level 135 meq/L 136-145 [facility] ([facility]) Potassium Serum 4.2 meq/L 3.5-5.1 [facility] ([facility]) Chloride Level 105 meq/L 98-107 [facility] ([facility]) Anion Gap 5 meq/L 8-16 [facility] ([facility] Carbon Dioxide Level 25 meq/L 21-32 [facility] ([facility]) Calcium Level 8.9 mg/dL 8.5-10.1 [facility] ([facility]) Alt/SGPT 22 U/L 12-78 [facility] ([facility]) Ast/Sgot 12 U/L 7-37 [facility] ([facility]) Total Protein 7.1 GM/DL 6.4-8.2 [facility] ([facility]) Bilirubin,Total 0.3 mg/dL 0.2-1.0 [facility] ([facility]) Alkaline Phosphatase 145 U/L 45-117 [facility] ([facility]) Albumin/Globulin Ratio 1.0 1.2-2.2 [facility] ([facility]) Albumin 3.5 GM/DL 3.2-5.2 [facility] ([facility]) ID Date Data Source [id number] 05/06/2020 04:26:00 PM EDT [facility] ([facility]) Name Value Range Interpretation Code Description Data Lois rce(s) Supporting Document(s) Hemoglobin A1c/Hemoglobin.total in Blood 13.3 [facility] ([facility]) Glucose [Mass/volume] in Serum or Plasma Laboratory test result [facility] ([facility]) ID Date Data Source [id number] 05/06/2020 12:00:00 PM EDT [facility] ([facility]) Name Value Range Interpretation Code Description Data Lois rce(s) Supporting Document(s) Creatinine [Mass/volume] in Urine 20.9 mg/dL [facility] ([facility]) Microalbumin/Creatinine [Mass Ratio] in Urine 1435.4 MCG/MG 0.0-30.0 [facility] ([facility]) THE [employer] STATES THAT MICROALBUMINURIA IS PRESENT IF THE MICROALBUMIN/CREATININE RATIO EXCEEDS 30 MCG/MG. THE THRESHOLD FOR CLINICAL ALBUMINURIA IS REACHED AT 300 MCG/MG. THE CLASSIFICATION OF A PATIENT SHOULD BE BASED UPON AT LEAST 2 OF 3 ABNORMAL RESULTS ON SPECIMENS COLLECTED WITHIN A 3 TO 6 MONTH TIME FRAME. Microalbumin [Mass/volume] in Urine 300.0 mg/L [facility] ([facility]) Procedure Social History Code Duration Value Status Description Data Source(s ) Smoking 05/18/2021 12:00:00 AM EDT Unknown if ever smoked comp leted Unknown if ever smoked [facility] ([facility]) Smoking 05/04/2021 12:00:00 AM EDT Unknown if ever smoked comp leted Unknown if ever smoked [facility] ([facility]) Smoking 04/08/2021 12:00:00 AM EDT Unknown if ever smoked comp leted Unknown if ever smoked [facility] ([facility]) Smoking 03/07/2021 12:00:00 AM EDT Current Smoker completed Curre nt Smoker eCW1 ([facility]) Smoking 03/07/2021 12:00:00 AM EDT Current Smoker completed Curre nt Smoker eCW1 ([facility]) Smoking 03/07/2021 12:00:00 AM EDT Current Smoker completed Curre nt Smoker eCW1 ([facility]) Smoking 03/07/2021 12:00:00 AM EDT Current Smoker completed Curre nt Smoker eCW1 ([facility]) Smoking 03/07/2021 12:00:00 AM EDT Current Smoker completed Curre nt Smoker eCW1 ([facility]) Smoking 03/07/2021 12:00:00 AM EDT Current Smoker completed Curre nt Smoker eCW1 ([facility]) Smoking 03/07/2021 12:00:00 AM EDT Current Smoker completed Curre nt Smoker eCW1 ([facility]) Smoking 03/07/2021 12:00:00 AM EDT Current Smoker completed Curre nt Smoker eCW1 ([facility]) Smoking 03/07/2021 12:00:00 AM EDT Current Smoker completed Curre nt Smoker eCW1 ([facility]) Smoking 03/07/2021 12:00:00 AM EDT Current Smoker completed Curre nt Smoker eCW1 ([facility]) Smoking 03/07/2021 12:00:00 AM EDT Current Smoker completed Curre nt Smoker eCW1 ([facility]) Smoking 03/07/2021 12:00:00 AM EDT Current Smoker completed Curre nt Smoker eCW1 ([facility]) Smoking 02/11/2021 12:00:00 AM EDT Unknown if ever smoked comp leted Unknown if ever smoked [facility] ([facility]) Smoking 02/10/2021 12:00:00 AM EDT Current Smoker completed Curre nt Smoker eCW1 ([facility]) Smoking 02/03/2021 12:00:00 AM EDT Current Smoker completed Curre nt Smoker eCW1 ([facility]) Smoking 02/03/2021 12:00:00 AM EDT Current Smoker completed Curre nt Smoker eCW1 ([facility]) Smoking 12/31/2020 12:00:00 AM EDT Unknown if ever smoked comp leted Unknown if ever smoked [facility] ([facility]) Smoking 12/30/2020 12:00:00 AM EDT Current Smoker completed Curre nt Smoker eCW1 ([facility]) Smoking 12/30/2020 12:00:00 AM EDT Current Smoker completed Curre nt Smoker eCW1 ([facility]) Smoking 12/30/2020 12:00:00 AM EDT Current Smoker completed Curre nt Smoker eCW1 ([facility]) Smoking 11/26/2020 12:00:00 AM EDT Unknown if ever smoked comp leted Unknown if ever smoked [facility] ([facility]) Smoking 10/28/2020 12:00:00 AM EST Unknown if ever smoked comp leted Unknown if ever smoked [facility] ([facility]) Smoking 10/01/2020 12:00:00 AM EST Current Smoker completed Curre nt Smoker eCW1 ([facility]) Smoking 10/01/2020 12:00:00 AM EST Current Smoker completed Curre nt Smoker eCW1 ([facility]) Smoking 10/01/2020 12:00:00 AM EST Current Smoker completed Curre nt Smoker eCW1 ([facility]) Smoking 10/01/2020 12:00:00 AM EST Current Smoker completed Curre nt Smoker eCW1 ([facility]) Smoking 10/01/2020 12:00:00 AM EST Current Smoker completed Curre nt Smoker eCW1 ([facility]) Smoking 10/01/2020 12:00:00 AM EST Unknown if ever smoked comp leted Unknown if ever smoked [facility] ([facility]) Smoking 09/23/2020 12:00:00 AM EST Unknown if ever smoked comp leted Unknown if ever smoked [facility] ([facility]) Smoking 08/27/2020 12:00:00 AM EST Unknown if ever smoked comp leted Unknown if ever smoked [facility] ([facility]) Smoking 07/30/2020 12:00:00 AM EST Unknown if ever smoked comp leted Unknown if ever smoked [facility] ([facility]) Smoking 07/22/2020 12:00:00 AM EST Unknown if ever smoked comp leted Unknown if ever smoked [facility] ([facility]) Smoking 06/25/2020 12:00:00 AM EST Unknown if ever smoked comp leted Unknown if ever smoked [facility] ([facility]) Smoking 06/24/2020 12:00:00 AM EST Unknown if ever smoked comp leted Unknown if ever smoked [facility] ([facility]) Smoking 06/04/2020 12:00:00 AM EDT Unknown if ever smoked comp leted Unknown if ever smoked [facility] ([facility]) Smoking 05/27/2020 12:00:00 AM EDT Unknown if ever smoked comp leted Unknown if ever smoked [facility] ([facility]) Smoking 05/21/2020 12:00:00 AM EDT Unknown if ever smoked comp leted Unknown if ever smoked [facility] ([facility]) Smoking 05/13/2020 12:00:00 AM EDT Unknown if ever smoked comp leted Unknown if ever smoked [facility] ([facility]) Smoking 04/23/2020 12:00:00 AM EDT Unknown if ever smoked comp leted Unknown if ever smoked [facility] ([facility]) Vital Signs ID Date Data Source UNK Name Value Range Interpretation Code Description Data Source(s) Body surface area Derived from formula 2.22 m2 2.22 [facility] Systolic blood pressure 110 mm[Hg] 110 mm[Hg] M EDENT ([facility]) Diastolic blood pressure 70 mm[Hg] 70 mm[Hg] [facility] Heart rate 113 /min 113 /min [facility] ([facility]) Oxygen saturation in Arterial blood by Pulse oximetry 95 % 95 % [facility] ([facility]) Body height 68 [in_i] 68 [in_i] [facility] ([facility]) 5'8" Body weight 244.00 [lb_av] 244.00 [lb_av] MED[facility] T ([facility]) Body mass index (BMI) [Ratio] 37.1 kg/m2 37.1 k g/m2 [facility] ([facility]) [place] body weight 140 [lb_av] 140 [lb_av] MED[facility] T ([facility]) Body weight 110.678 kg 110.678 kg [facility] ([facility]) Body height 68.00 in Normal (applies to non-numeric resu lts) 68.00 in [facility] ([facility]) Body weight Measured 230.00 lbs Normal (applies to n on-numeric results) 230.00 lbs [facility] ([facility]) Body mass index (BMI) [Ratio] 34.97 kg/m2 No rmal (applies to non-numeric results) 34.97 kg/m2 [facility] ([facility]) Systolic blood pressure 139 mm[Hg] Normal (applies t o non-numeric results) 139 mm[Hg] [facility] ([facility]) Diastolic blood pressure 90 mm[Hg] Normal (applies to non-numeric results) 90 mm[Hg] [facility] ([facility]) Body temperature 98.70 degF Normal (applies to non-n umeric results) 98.70 degF [facility] ([facility]) Body height --lying 110 min Normal (applies to non-nume brianda results) 110 min [facility] ([facility]) Respiratory rate 16 min Normal (applies to non-numeric results) 16 min [facility] ([facility]) Body mass index (BMI) [Ratio] 38.3 kg/m2 38.3 k g/m2 [facility] ([facility]) Body temperature 96.0 [degF] 96.0 [degF] [facility] ([facility]) Body height 67 [in_i] 67 [in_i] [facility] ([facility]) 5'7" Body weight 244.50 [lb_av] 244.50 [lb_av] MED[facility] T ([facility]) Oxygen saturation in Arterial blood by Pulse oximetry 97 % 97 % [facility] ([facility], ) Body weight 244.38 [lb_av] 244.38 [lb_av] MED[facility] T ([facility], ) Body mass index (BMI) [Ratio] 37.2 kg/m2 37.2 k g/m2 [facility] ([facility], ) [place] body weight 140 [lb_av] 140 [lb_av] [facility] T ([facility], ) Body surface area Derived from formula 2.23 m2 2.23 m2 [facility] ([facility], ) Body height 68 [in_i] 68 [in_i] [facility] ([facility], ) 5'8" Body weight 110.849 kg 110.849 kg [facility] ([facility]) Systolic blood pressure 118 mm[Hg] 118 mm[Hg] M EDENT ([facility], ) Diastolic blood pressure 68 mm[Hg] 68 mm[Hg] [facility] ([facility], ) Heart rate 100 /min 100 /min [facility] ([facility], ) Body weight 244 [lb_av] 244 [lb_av] eCW1 ([facility]) Body height 68 [in_i] 68 [in_i] eCW1 ([facility]) Body mass index (BMI) [Ratio] 37.10 kg/m2 37.10 kg/m2 eCW1 ([facility]) Heart rate 119 /min 119 /min eCW1 ([facility]) Respiratory rate 18 /min 18 /min eCW1 ([facility]) Body temperature 96.4 [degF] 96.4 [degF] eCW1 ( [facility]) Systolic blood pressure 140 mm[Hg] 140 mm[Hg] e CW1 ([facility]) Diastolic blood pressure 80 mm[Hg] 80 mm[Hg] eCW1 ([facility]) Body weight 245 [lb_av] 245 [lb_av] eCW1 ([facility]) Body height 68 [in_i] 68 [in_i] eCW1 ([facility]) Body mass index (BMI) [Ratio] 37.25 kg/m2 37.25 kg/m2 eCW1 ([facility]) Heart rate 115 /min 115 /min eCW1 ([facility]) Respiratory rate 18 /min 18 /min eCW1 ([facility]) Body temperature 96.2 [degF] 96.2 [degF] eCW1 ( [facility]) Systolic blood pressure 120 mm[Hg] 120 mm[Hg] e CW1 ([facility]) Diastolic blood pressure 80 mm[Hg] 80 mm[Hg] eCW1 ([facility]) Body weight 243 [lb_av] 243 [lb_av] eCW1 ([facility]) Body height 68 [in_i] 68 [in_i] eCW1 ([facility]) Body mass index (BMI) [Ratio] 36.94 kg/m2 36.94 kg/m2 eCW1 ([facility]) Heart rate 113 /min 113 /min eCW1 ([facility]) Respiratory rate 18 /min 18 /min eCW1 ([facility]) Body temperature 96.2 [degF] 96.2 [degF] eCW1 ( [facility]) Systolic blood pressure 122 mm[Hg] 122 mm[Hg] e CW1 ([facility]) Diastolic blood pressure 76 mm[Hg] 76 mm[Hg] eCW1 ([facility]) Body weight 237 [lb_av] 237 [lb_av] eCW1 ([facility]) Body height 68 [in_i] 68 [in_i] eCW1 ([facility]) Body mass index (BMI) [Ratio] 36.03 kg/m2 36.03 kg/m2 eCW1 ([facility]) Heart rate 128 /min 128 /min eCW1 ([facility]) Respiratory rate 20 /min 20 /min eCW1 ([facility]) Body temperature 97.1 [degF] 97.1 [degF] eCW1 ( [facility]) Systolic blood pressure 146 mm[Hg] 146 mm[Hg] e CW1 ([facility]) Diastolic blood pressure 80 mm[Hg] 80 mm[Hg] eCW1 ([facility]) Body height 0.00 in Normal (applies to non-numeric resu lts) 0.00 in [facility] ([facility]) Body weight Measured 0.00 lbs Normal (applies to n on-numeric results) 0.00 lbs [facility] ([facility]) Body mass index (BMI) [Ratio] 0.00 kg/m2 No rmal (applies to non-numeric results) 0.00 kg/m2 [facility] ([facility]) Systolic blood pressure 0 mm[Hg] Normal (applies t o non-numeric results) 0 mm[Hg] [facility] ([facility]) Diastolic blood pressure 0 mm[Hg] Normal (applies to non-numeric results) 0 mm[Hg] [facility] ([facility]) Oxygen saturation in Arterial blood by Pulse oximetry 97 % 97 % [facility] Body mass index (BMI) [Ratio] 36.5 kg/m2 36.5 k g/m2 [facility] ([facility]) Systolic blood pressure 124 mm[Hg] 124 mm[Hg] M EDENT ([facility]) Diastolic blood pressure 80 mm[Hg] 80 mm[Hg] [facility] ([facility]) Heart rate 97 /min 97 /min [facility] ([facility]) Body temperature 97.1 [degF] 97.1 [degF] [facility] ([facility]) Body height 67.5 [in_i] 67.5 [in_i] [facility] ([facility]) 5'7.50" Body weight 236.50 [lb_av] 236.50 [lb_av] MEDEN T ([facility]) Body weight 230 [lb_av] 230 [lb_av] eCW1 ([facility]) Body height 68 [in_i] 68 [in_i] eCW1 ([facility]) Body mass index (BMI) [Ratio] 34.97 kg/m2 34.97 kg/m2 eCW1 ([facility]) Heart rate 110 /min 110 /min W1 ([facility]) Respiratory rate 20 /min 20 /min W1 ([facility]) Body temperature 96.6 [degF] 96.6 [degF] eCW1 ( [facility]) Systolic blood pressure 118 mm[Hg] 118 mm[Hg] e CW1 ([facility]) Diastolic blood pressure 76 mm[Hg] 76 mm[Hg] eCW1 ([facility]) Body height 0.00 in Normal (applies to non-numeric resu lts) 0.00 in [facility] ([facility]) Body weight Measured 0.00 lbs Normal (applies to n on-numeric results) 0.00 lbs [facility] ([facility]) Body mass index (BMI) [Ratio] 0.00 kg/m2 No rmal (applies to non-numeric results) 0.00 kg/m2 [facility] ([facility]) Systolic blood pressure 0 mm[Hg] Normal (applies t o non-numeric results) 0 mm[Hg] [facility] ([facility]) Diastolic blood pressure 0 mm[Hg] Normal (applies to non-numeric results) 0 mm[Hg] [facility] ([facility]) Body height 0.00 in Normal (applies to non-numeric resu lts) 0.00 in [facility] ([facility]) Body weight Measured 0.00 lbs Normal (applies to n on-numeric results) 0.00 lbs [facility] ([facility]) Body mass index (BMI) [Ratio] 0.00 kg/m2 No rmal (applies to non-numeric results) 0.00 kg/m2 [facility] ([facility]) Systolic blood pressure 0 mm[Hg] Normal (applies t o non-numeric results) 0 mm[Hg] [facility] ([facility]) Diastolic blood pressure 0 mm[Hg] Normal (applies to non-numeric results) 0 mm[Hg] [facility] ([facility]) Body height 0.00 in Normal (applies to non-numeric resu lts) 0.00 in [facility] ([facility]) Body weight Measured 0.00 lbs Normal (applies to n on-numeric results) 0.00 lbs [facility] ([facility]) Body mass index (BMI) [Ratio] 0.00 kg/m2 No rmal (applies to non-numeric results) 0.00 kg/m2 [facility] ([facility]) Systolic blood pressure 0 mm[Hg] Normal (applies t o non-numeric results) 0 mm[Hg] [facility] ([facility]) Diastolic blood pressure 0 mm[Hg] Normal (applies to non-numeric results) 0 mm[Hg] [facility] ([facility]) Body height 0.00 in Normal (applies to non-numeric resu lts) 0.00 in [facility] ([facility]) Body weight Measured 0.00 lbs Normal (applies to n on-numeric results) 0.00 lbs [facility] ([facility]) Body mass index (BMI) [Ratio] 0.00 kg/m2 No rmal (applies to non-numeric results) 0.00 kg/m2 [facility] ([facility]) Systolic blood pressure 0 mm[Hg] Normal (applies t o non-numeric results) 0 mm[Hg] [facility] ([facility]) Diastolic blood pressure 0 mm[Hg] Normal (applies to non-numeric results) 0 mm[Hg] [facility] ([facility]) Body temperature 96.2 [degF] 96.2 [degF] [facility] ([facility]) Body height 68 [in_i] 68 [in_i] [facility] ([facility]) 5'8" Body weight 214.00 [lb_av] 214.00 [lb_av] MEDEN T ([facility]) Body mass index (BMI) [Ratio] 32.5 kg/m2 32.5 k g/m2 [facility] [place] body weight 140 [lb_av] 140 [lb_av] MED[facility] T ([facility]) Body weight 97.070 kg 97.070 kg [facility] ([facility]) [place] body weight 140 [lb_av] 140 [lb_av] [facility] T ([facility]) Body temperature 96.2 [degF] 96.2 [degF] [facility] ([facility]) Body height 68 [in_i] 68 [in_i] [facility] ([facility]) 5'8" Body weight 214.00 [lb_av] 214.00 [lb_av] [facility] T ([facility]) Body mass index (BMI) [Ratio] 32.5 kg/m2 32.5 k g/m2 [facility] ([facility]) Body weight 97.070 kg 97.070 kg [facility] ([facility]) Body surface area Derived from formula 2.10 m2 2.10 m2 [facility] ([facility]) Body height 0.00 in Normal (applies to non-numeric resu lts) 0.00 in [facility] ([facility]) Body weight Measured 0.00 lbs Normal (applies to n on-numeric results) 0.00 lbs [facility] ([facility]) Body mass index (BMI) [Ratio] 0.00 kg/m2 No rmal (applies to non-numeric results) 0.00 kg/m2 [facility] ([facility]) Systolic blood pressure 0 mm[Hg] Normal (applies t o non-numeric results) 0 mm[Hg] [facility] ([facility]) Diastolic blood pressure 0 mm[Hg] Normal (applies to non-numeric results) 0 mm[Hg] [facility] [place] Systolic blood pressure 122 mm[Hg] 122 mm[Hg] [...] (applies to non-numeric resu lts) 68.00 in [facility] ([facility]) Body weight Measured 214.00 lbs Normal (applies to n on-numeric results) 214.00 lbs [facility] ([facility]) Body mass index (BMI) [Ratio] 32.54 kg/m2 No rmal (applies to non-numeric results) 32.54 kg/m2 [facility] ([facility]) Systolic blood pressure 0 mm[Hg] Normal (applies t o non-numeric results) 0 mm[Hg] [facility] ([facility]) Diastolic blood pressure 0 mm[Hg] Normal (applies to non-numeric results) 0 mm[Hg] [facility] ([facility]) Systolic blood pressure 130 mm[Hg] 130 mm[Hg] M [facility] ([facility]) Diastolic blood pressure 90 mm[Hg] 90 mm[Hg] [facility] ([facility]) Heart rate 91 /min 91 /min [facility] ([facility]) Body height 67.5 [in_i] 67.5 [in_i] [facility] ([facility]) 5'7.50" Body weight 214.00 [lb_av] 214.00 [lb_av] MEDEN T ([facility]) Body mass index (BMI) [Ratio] 33.0 kg/m2 33.0 k g/m2 [facility] ([facility]) Oxygen saturation in Arterial blood by Pulse oximetry 97 % 97 % [facility] ([facility]) Patient Treatment Plan of Care Planned Activity Planned Date Details Description Data Source (s) doxycycline hyclate 100 MG Oral Capsule 03/07/2021 12:00:00 AM EDT eCW1 ([facility]) doxycycline hyclate 100 MG Oral Capsule 03/07/2021 12:00:00 AM EDT eCW1 ([facility]) Sumatriptan 50 MG Oral Tablet 12/30/2020 12:00:00 AM EDT eCW1 ([facility]) Naproxen 500 MG Oral Tablet 12/30/2020 12:00:00 AM EDT eCW1 ([facility]) Sumatriptan 50 MG Oral Tablet 12/30/2020 12:00:00 AM EDT eCW1 ([facility]) Naproxen 500 MG Oral Tablet 12/30/2020 12:00:00 AM EDT eCW1 ([facility]) Sumatriptan 50 MG Oral Tablet 12/30/2020 12:00:00 AM EDT eCW1 ([facility]) Propranolol Hydrochloride 10 MG Oral Tablet 09/18/2020 12:00:00 AM EST eCW1 ([facility]) Propranolol Hydrochloride 10 MG Oral Tablet 09/18/2020 12:00:00 AM EST eCW1 ([facility]) Propranolol Hydrochloride 10 MG Oral Tablet 09/18/2020 12:00:00 AM EST eCW1 ([facility]) Propranolol Hydrochloride 10 MG Oral Tablet 09/18/2020 12:00:00 AM EST eCW1 ([facility]) Propranolol Hydrochloride 10 MG Oral Tablet 09/18/2020 12:00:00 AM EST eCW1 ([facility])
[2021-06-06] MEDS: MORPHINE 2 MG/ML 1ML VIAL (J2270) IV PRN ×2 (18:18→19:39)
[2021-06-06 18:26] LABS: BASO # 0.1 10^3/uL (0.0-0.2); BASO % 0.3 % (0.0-1.0); EOS # 0.3 10^3/uL (0.0-0.5); EOS % 1.5 % (0.0-3.0); HEMATOCRIT 46.9 % (36.0-47.0); HEMOGLOBIN 15.4 g/dl (12.0-15.5); LYMPH # 2.8 10^3/uL (1.5-5.0); LYMPH % 15.9 % (24.0-44.0); MEAN CORPUSCULAR HEMOGLOBIN 29.6 pg (27.0-33.0); MEAN CORPUSCULAR HGB CONC 32.8 g/dl (32.0-36.5); MEAN CORPUSCULAR VOLUME 90.2 fl (80.0-96.0); MONO # 1.1 10^3/uL (0.0-0.8); MONO % 6.4 % (2.0-8.0); NEUTROPHILS # 13.1 10^3/uL (1.5-8.5); NEUTROPHILS % 75.3 % (36.0-66.0); PLATELET COUNT, AUTOMATED 285 10^3/uL (150-450); WHITE BLOOD COUNT 17.3 10^3/uL (4.0-10.0)
[2021-06-06 18:54] LABS: ALT/SGPT 20 U/L (12-78); BILIRUBIN,DIRECT < 0.1 MG/DL (0.0-0.2); BILIRUBIN,TOTAL 0.4 MG/DL (0.2-1.0); BLOOD UREA NITROGEN 17 MG/DL (7-18); CALCIUM LEVEL 8.7 MG/DL (8.5-10.1); CARBON DIOXIDE LEVEL 24 MEQ/L (21-32); CHLORIDE LEVEL 108 MEQ/L (98-107); CREATININE FOR GFR 1.01 MG/DL (0.55-1.30); GLOMERULAR FILTRATION RATE > 60.0 (>58); GLUCOSE, FASTING 294 MG/DL (70-100); LIPASE 195 U/L (73-393); POTASSIUM SERUM 4.4 MEQ/L (3.5-5.1); SODIUM LEVEL 137 MEQ/L (136-145); TOTAL PROTEIN 7.5 GM/DL (6.4-8.2)
[2021-06-06] MEDS ORDERED: ISOVUE-370 76% 100ML VIAL As Ordered ONE (19:19)
--- NOTE | 2021-06-06 21:04 | REPVR ---
PROCEDURE INFORMATION: Exam: CT Abdomen And Pelvis With Contrast Exam date and time: 06/06/2021 7:55 PM Age: 45 years old Clinical indication: Condition or disease; Abscess location: Buttock abscess, right, large TECHNIQUE: Imaging protocol: Computed tomography of the abdomen and pelvis with contrast. Radiation optimization: All CT scans at this facility use at least one of these dose optimization techniques: automated exposure control; mA and/or kV adjustment per patient size (includes targeted exams where dose is matched to clinical indication); or iterative reconstruction. Contrast material: ISOVUE 370; Contrast volume: 100 ml; Contrast route: INTRAVENOUS (IV); COMPARISON: PET/CT Skull/mid thigh 05/02/2021 10:14 AM FINDINGS: Lungs: Redemonstration of noncalcified pulmonary parenchymal nodules measuring up to 11 mm in the right lower lobe. Findings are stable in comparison prior examinations. Liver: There is a diffuse decrease in hepatic parenchymal density, consistent with steatosis. Gallbladder and bile ducts: There has been a cholecystectomy. Pancreas: Normal. No ductal dilation. Spleen: Normal. No splenomegaly. Adrenal glands: Normal. No mass. 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 Stomach and bowel: Unremarkable. No obstruction. No mucosal thickening. Appendix: No evidence of appendicitis. Intraperitoneal space: Unremarkable. No free air. No significant fluid collection. Vasculature: The aortoiliac vessels demonstrate moderate atherosclerotic calcification. Lymph nodes: Unremarkable. No enlarged lymph nodes. Urinary bladder: Unremarkable as visualized. Reproductive: There has been a hysterectomy. Bones/joints: Status post lower lumbar interbody fusion from L3-S1. Status post bilateral decompression laminectomies at L4 and L5. Soft tissues: Inflammatory mass in the medial right buttock adjacent to the cutaneous surface and posterior to the crys cleft measures 2.2 x 2.5 x 2.9 cm surrounded by inflammation in the right buttock. Finding is consistent with a abscess. Thickened skin in the region suggests possible associated cellulitis. IMPRESSION: 1. 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 2. There is a diffuse decrease in hepatic parenchymal density, consistent with steatosis. 3. There has been a cholecystectomy. 4. There has been a hysterectomy. 5. Abscess in the medial right buttock associated with surrounding inflammation and possible cellulitis. Electronically signed by: Deniz Hernández On 06/06/2021 21:03:53 PM
[2021-06-06] MEDS ORDERED: LIDOCAINE W/EPINEPHRINE 1% 20ML VIAL SC ONE (21:25)
[2021-06-06 21:43] VITALS: BP 134/80
[2021-06-06] MEDS ORDERED: HYDROMORPHONE HCL 0.5 MG/ 0.5 ML SYRINGE (J1170 PER 1) IV ONE (21:50)
[2021-06-06] MEDS ORDERED: BACT800T5 PO (22:12)
[2021-06-06] MEDS ORDERED: BACTRIM 160MG/800MG DS TAB PO ONE (22:15)
[2021-06-06] MEDS ORDERED: OXYCODONE/APAP 5MG/325MG(BULK FOR ED) 1 TABLET PO ONE (23:15)
== END 2021-06-06 23:39 | disposition home or self-care (01) ==
LOC: M ED 16:32
DX: L02.31 Cutaneous abscess of buttock (principal); E11.40 Type 2 diabetes mellitus with diabetic neuropathy, unspecified; I10 Essential (primary) hypertension; Z88.8 Allergy status to other drugs, medicaments and biological substances; Z91.018 Allergy to other foods; Z91.030 Bee allergy status; Z79.899 Other long term (current) drug therapy; Z79.82 Long term (current) use of aspirin; Z79.4 Long term (current) 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; F17.210 Nicotine dependence, cigarettes, uncomplicated
CPT/HCPCS: 10060; 74177; 80048; 80076; 83690; 85025; 87070; 87077; 87186; 87205; 93041; 96374; 96375; 96376; 99284; J1170; J2270; Q9967

== ENCOUNTER → 2021-09-15 | Outpatient (CLI) | payer OTHER ==
[~2021-09-15] MED LIST changes: -LISI-898 PO; +LISI5TAB11 PO; +TIZA10TA PO; -TIZA4TAB4 PO
[2021-09-15 15:09] LABS: BASO # 0.1 10^3/uL (0.0-0.2); BASO % 0.6 % (0.0-1.0); EOS # 0.3 10^3/uL (0.0-0.5); EOS % 2.6 % (0.0-3.0); HEMATOCRIT 44.7 % (36.0-47.0); HEMOGLOBIN 13.8 g/dl (12.0-15.5); LYMPH # 2.4 10^3/uL (1.5-5.0); LYMPH % 21.9 % (24.0-44.0); MEAN CORPUSCULAR HEMOGLOBIN 28.8 pg (27.0-33.0); MEAN CORPUSCULAR HGB CONC 30.9 g/dl (32.0-36.5); MEAN CORPUSCULAR VOLUME 93.3 fl (80.0-96.0); MONO # 0.7 10^3/uL (0.0-0.8); MONO % 6.3 % (2.0-8.0); NEUTROPHILS # 7.4 10^3/uL (1.5-8.5); NEUTROPHILS % 68.2 % (36.0-66.0); PLATELET COUNT, AUTOMATED 355 10^3/uL (150-450); RED BLOOD COUNT 4.79 10^6/uL (4.00-5.40); WHITE BLOOD COUNT 10.9 10^3/uL (4.0-10.0)
[2021-09-15 15:43] LABS: ALBUMIN 3.2 GM/DL (3.2-5.2); ALT/SGPT 17 U/L (12-78); BILIRUBIN,TOTAL 0.1 MG/DL (0.2-1.0); BLOOD UREA NITROGEN 17 MG/DL (7-18); CALCIUM LEVEL 9.1 MG/DL (8.5-10.1); CARBON DIOXIDE LEVEL 23 MEQ/L (21-32); CHLORIDE LEVEL 104 MEQ/L (98-107); CHOLESTEROL LEVEL 179 MG/DL (<200); CHOLESTEROL RISK RATIO 5.593 (<5); CREATININE FOR GFR 0.91 MG/DL (0.55-1.30); FERRITIN 58 NG/ML (8-252); GLOMERULAR FILTRATION RATE > 60.0 (>58); GLUCOSE, FASTING 181 MG/DL (70-100); HDL CHOLESTEROL 32 MG/DL (>40); LDL CHOLESTEROL 79 MG/DL (<100); LIPASE 267 U/L (73-393); MAGNESIUM LEVEL 1.7 MG/DL (1.8-2.4); NON-HDL-C 147 MG/DL; POTASSIUM SERUM 4.8 MEQ/L (3.5-5.1); SODIUM LEVEL 136 MEQ/L (136-145); TOTAL PROTEIN 7.8 GM/DL (6.4-8.2); TRIGLYCERIDES LEVEL 338 MG/DL (<150)
[2021-09-16 09:45] LABS: VITAMIN B12 LEVEL 353 PG/ML (247-911)
== END ==
LOC: M PLALAB 11:39
PROVIDERS: ATTEND Family Medicine
DX: E11.65 Type 2 diabetes mellitus with hyperglycemia (principal)

== ENCOUNTER 2021-11-03 14:28 | Emergency (ER) | payer OTHER ==
[~2021-11-03] VITALS: Ht 172.7 cm; Wt 120.5 kg
[2021-11-03 15:01] LABS: VENOUS BASE EXCESS -2.4 (-2.0-2.0); VENOUS HCO3 22.5 MEQ/L (23.0-27.0); VENOUS PARTIAL PRESSURE CO2 39.4 mmHg (38.0-50.0); VENOUS PARTIAL PRESSURE O2 41.5 mmHg (30.0-50.0); VENOUS PH 7.375 UNITS (7.330-7.430); VENOUS STANDARD HCO3 22.2 MEQ/L; VENOUS TOTAL CO2 23.7 MEQ/L (24.0-28.0)
[2021-11-03 15:06] LABS: BASO % 0.3 % (0.0-1.0); EOS # 0.2 10^3/uL (0.0-0.5); EOS % 1.5 % (0.0-3.0); HEMATOCRIT 40.4 % (36.0-47.0); HEMOGLOBIN 13.5 g/dl (12.0-15.5); LYMPH # 2.2 10^3/uL (1.5-5.0); LYMPH % 17.7 % (24.0-44.0); MEAN CORPUSCULAR HEMOGLOBIN 29.3 pg (27.0-33.0); MEAN CORPUSCULAR HGB CONC 33.4 g/dl (32.0-36.5); MEAN CORPUSCULAR VOLUME 87.8 fl (80.0-96.0); MONO # 0.6 10^3/uL (0.0-0.8); MONO % 4.6 % (2.0-8.0); NEUTROPHILS # 9.4 10^3/uL (1.5-8.5); NEUTROPHILS % 75.6 % (36.0-66.0); PLATELET COUNT, AUTOMATED 256 10^3/uL (150-450); WHITE BLOOD COUNT 12.4 10^3/uL (4.0-10.0)
[2021-11-03] MEDS ORDERED: METOCLOPRAMIDE INJ 10MG/2ML VIAL (J2765 PER 1) IV ONE (15:15)
[2021-11-03] MEDS ORDERED: NS 1,000 ML IV ONE (15:15)
[2021-11-03 15:46] LABS: ALBUMIN 3.4 GM/DL (3.2-5.2); ALT/SGPT 29 U/L (12-78); BILIRUBIN,DIRECT < 0.1 MG/DL (0.0-0.2); BILIRUBIN,TOTAL 0.4 MG/DL (0.2-1.0); BLOOD UREA NITROGEN 25 MG/DL (7-18); CARBON DIOXIDE LEVEL 24 MEQ/L (21-32); CHLORIDE LEVEL 99 MEQ/L (98-107); CREATININE FOR GFR 1.32 MG/DL (0.55-1.30); GLOMERULAR FILTRATION RATE 45.9 (>58); GLUCOSE, FASTING 405 MG/DL (70-100); LIPASE 137 U/L (73-393); MAGNESIUM LEVEL 1.7 MG/DL (1.8-2.4); OSMOLALITY SERUM 296 MOSM/KG (275-295); PHOSPHORUS LEVEL 2.7 MG/DL (2.5-4.9); POTASSIUM SERUM 4.5 MEQ/L (3.5-5.1); SODIUM LEVEL 131 MEQ/L (136-145); TOTAL PROTEIN 7.5 GM/DL (6.4-8.2)
[2021-11-03] MEDS ORDERED: REGL10TA6 PO (19:14)
[2021-11-03] MEDS ORDERED: METOCLOPRAMIDE 10MG TAB PO ONE (19:20)
[2021-11-03 20:25] VITALS: BP 172/83
== END 2021-11-03 20:33 | disposition home or self-care (01) ==
LOC: EDBD 14:28 → M ED 14:28
DX: K31.84 Gastroparesis (principal); E11.9 Type 2 diabetes mellitus without complications; I10 Essential (primary) hypertension; E78.5 Hyperlipidemia, unspecified; F31.9 Bipolar disorder, unspecified; F33.9 Major depressive disorder, recurrent, unspecified; Z91.51 Personal history of suicidal behavior; K21.9 Gastro-esophageal reflux disease without esophagitis; Z79.899 Other long term (current) drug therapy; Z79.84 Long term (current) use of oral hypoglycemic drugs; Z79.82 Long term (current) use of aspirin; Z79.4 Long term (current) 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; Z88.8 Allergy status to other drugs, medicaments and biological substances; Z91.018 Allergy to other foods; Z91.030 Bee allergy status; F17.210 Nicotine dependence, cigarettes, uncomplicated; F12.20 Cannabis dependence, uncomplicated
CPT/HCPCS: 74021; 80048; 80076; 81001; 82010; 82803; 83036; 83690; 83735; 83930; 84100; 85025; 93005; 93041; 96361; 96374; 99285; J2765

== ENCOUNTER 2021-11-23 15:16 | Emergency (ER) | payer OTHER ==
[~2021-11-23] VITALS: Ht 172.7 cm; Wt 120.0 kg
[2021-11-23 15:16] VITALS: BP 138/78
[~2021-11-23 15:16] MED LIST changes: +BUPR-71 PO; -BUPR150T5 PO
[2021-11-23] MEDS ORDERED: QUET1TAB17 (15:24)
[2021-11-23] MEDS ORDERED: methylPREDNISolone 125MG 2ML VIAL IV ONE (18:25)
[2021-11-23] MEDS ORDERED: NS 1,000 ML IV ONE (18:25)
[2021-11-23] MEDS ORDERED: traMADol 50 MG TAB PO ONE (18:25)
[2021-11-23] MEDS: ALBUTEROL 90 MCG/ACT 8GM HFA INHALER INH SCH ×2 (19:18→19:19)
[2021-11-23 19:31] LABS: BASO # 0.1 10^3/uL (0.0-0.2); BASO % 0.5 % (0.0-1.0); EOS # 0.2 10^3/uL (0.0-0.5); EOS % 1.7 % (0.0-3.0); HEMATOCRIT 43.2 % (36.0-47.0); HEMOGLOBIN 14.2 g/dl (12.0-15.5); LYMPH # 2.6 10^3/uL (1.5-5.0); LYMPH % 28.2 % (24.0-44.0); MEAN CORPUSCULAR HEMOGLOBIN 29.9 pg (27.0-33.0); MEAN CORPUSCULAR HGB CONC 32.9 g/dl (32.0-36.5); MEAN CORPUSCULAR VOLUME 90.9 fl (80.0-96.0); MONO # 0.8 10^3/uL (0.0-0.8); MONO % 8.8 % (2.0-8.0); NEUTROPHILS # 5.7 10^3/uL (1.5-8.5); NEUTROPHILS % 60.5 % (36.0-66.0); PLATELET COUNT, AUTOMATED 267 10^3/uL (150-450); RED BLOOD COUNT 4.75 10^6/uL (4.00-5.40); WHITE BLOOD COUNT 9.3 10^3/uL (4.0-10.0)
[2021-11-23 20:02] LABS: ALBUMIN 3.6 GM/DL (3.2-5.2); ALT/SGPT 37 U/L (12-78); BILIRUBIN,DIRECT 0.1 MG/DL (0.0-0.2); BILIRUBIN,TOTAL 0.3 MG/DL (0.2-1.0); BLOOD UREA NITROGEN 15 MG/DL (7-18); CALCIUM LEVEL 9.8 MG/DL (8.5-10.1); CARBON DIOXIDE LEVEL 28 MEQ/L (21-32); CHLORIDE LEVEL 103 MEQ/L (98-107); CREATININE FOR GFR 0.97 MG/DL (0.55-1.30); GLOMERULAR FILTRATION RATE > 60.0 (>58); GLUCOSE, FASTING 339 MG/DL (70-100); NT-PRO BNP 798 PG/ML (<125); POTASSIUM SERUM 4.2 MEQ/L (3.5-5.1); SODIUM LEVEL 137 MEQ/L (136-145); TOTAL PROTEIN 7.9 GM/DL (6.4-8.2)
[2021-11-23] MEDS ORDERED: BENZONATATE 100MG CAPSULE PO ONE (20:05)
[2021-11-23] MEDS ORDERED: PRED20TA PO (20:40)
[2021-11-23] MEDS ORDERED: BENZ200C70 PO (20:40)
== END 2021-11-23 21:04 | disposition home or self-care (01) ==
LOC: M ED 15:16
DX: J44.1 Chronic obstructive pulmonary disease with (acute) exacerbation (principal); E11.9 Type 2 diabetes mellitus without complications; I10 Essential (primary) hypertension; E78.5 Hyperlipidemia, unspecified; G62.9 Polyneuropathy, unspecified; G43.909 Migraine, unspecified, not intractable, without status migrainosus; G47.33 Obstructive sleep apnea (adult) (pediatric); F33.9 Major depressive disorder, recurrent, unspecified; F41.9 Anxiety disorder, unspecified; K21.9 Gastro-esophageal reflux disease without esophagitis; R91.1 Solitary pulmonary nodule; Z87.19 Personal history of other diseases of the digestive system; Z88.8 Allergy status to other drugs, medicaments and biological substances; Z91.018 Allergy to other foods; Z91.030 Bee allergy status; Z79.899 Other long term (current) drug therapy; Z79.84 Long term (current) use of oral hypoglycemic drugs; Z79.4 Long term (current) 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; Z79.82 Long term (current) use of aspirin; F12.20 Cannabis dependence, uncomplicated; F17.210 Nicotine dependence, cigarettes, uncomplicated
CPT/HCPCS: 71046; 80048; 80076; 83880; 85025; 96361; 96374; 99283; J2930

== ENCOUNTER → 2021-12-08 | Outpatient (REF) ==
[~2021-12-08] MED LIST changes: +BENZ200C70 PO; +PRED20TA PO; +QUET1TAB17
== END ==
LOC: M LAB 15:26